=== PATIENT | male | born 1950 | race Caucasian/White ===

== ENCOUNTER → 2021-08-02 | Outpatient (CLI) | payer MEDICARE ==
--- NOTE | 2021-08-02 07:58 | XR ---
EXAMINATION TYPE: XR chest 2V DATE OF EXAM: 08/02/2021 COMPARISON: NONE HISTORY: Shortness of breath TECHNIQUE: Frontal and lateral views of the chest are obtained. FINDINGS: Scattered senescent parenchymal changes noted. Hyperinflation compatible with COPD. No evidence for infiltrate. No evidence for atelectasis. Heart size is stable. Mediastinal structures are stable and grossly unremarkable. No evidence for hilar prominence. Degenerative changes dorsal spine. IMPRESSION: 1. No evidence for acute pulmonary disease.
[2021-08-02 08:26] LABS: African American GFR (CKD) >90 (>60 ml/min/1.73 sqM); Blood Urea Nitrogen 20 mg/dL (9-20); Non-African American GFR(CKD) >90 (>60 ml/min/1.73 sqM)
--- NOTE | 2021-08-02 12:20 | CT ---
EXAMINATION TYPE: CT abdomen pelvis w con DATE OF EXAM: 08/02/2021 COMPARISON: None HISTORY: Prostate cancer. CT DLP: 1665.7 mGycm Automated exposure control for dose reduction was used. TECHNIQUE: Helical acquisition of images from the lung bases through the pelvis have been completed. CONTRAST: Performed with Oral Contrast and with IV Contrast, patient injected with 100 mL of Isovue M300. FINDINGS: There is a right inguinal hernia containing fat and vessels. LUNG BASES: No significant abnormality is appreciated. AORTA: No significant abnormality is appreciated. LIVER/GB: Focal area of low density measuring 6 mm in anterior left lobe axial image 18 is indetermin ate but statistically likely represents cyst, the liver shows low attenuation possibly due to hepatic steatosis, the liver is enlarged, gallbladder unremarkable. PANCREAS: No significant abnormality is seen. SPLEEN: No significant abnormality is seen. ADRENALS: No significant abnormality is seen. KIDNEYS: Bilateral hydronephrosis and hydroureter present. REPRODUCTIVE ORGANS: No significant abnormality is seen BOWEL: No significant abnormality is seen. FREE AIR: No Free Air visible. ASCITES: None visible. PELVIC ADENOPATHY: There is some prominent nodes within the pelvis in the presacral space. Right pel magaly sidewall shows enlarged node RETROPERITONEAL ADENOPATHY: No Retroperitoneal Adenopathy visible. URINARY BLADDER: Ablbuena catheter is in place. The aceves of the urinary bladder somewhat poorly define d. Some inflammatory changes present in the surrounding fat. Poor differentiation of the seminal vesi cles also seen OSSEOUS STRUCTURES: Degenerative disc changes are noted especially in the lumbar spine, there is ass ociated facet arthropathy. IMPRESSION: FINDINGS MAY REPRESENT CHRONIC INFECTION VERSUS INFLAMMATORY CHANGE INVOLVING THE URINARY BLADDER AND SEMINAL VESICLES, CORRELATE, BILATERAL HYDRONEPHROSIS AND HYDROURETER. THERE IS SOME PELVIC ADENOPAT HY NOTED. RIGHT INGUINAL HERNIA CONTAINS FAT AND VESSELS. ABNORMAL HEPATIC STEATOSIS. ADDITIONAL FIND INGS ABOVE.
--- NOTE | 2021-08-03 07:28 | NM ---
EXAMINATION TYPE: NM bone scan whole body DATE OF EXAM: 08/02/2021 COMPARISON: NONE HISTORY: Prostate carcinoma Delayed whole-body scanning was performed following the injection of 22.6 mCi Tc 99m MDP. Images acq uired 5 hours post injection. FINDINGS: Focal increased uptake involving the right ribs anteriorly 5 and 6 which could be posttraumatic in na ture or related to metastatic disease. Left rib #7 demonstrates vague increased uptake anteriorly as well. There is intense uptake about the shoulders which could reflect severe degenerative change. Inc reased uptake is noted about the mid thoracic spine, lower lumbar spine, left wrist, bilateral hips a nd knees felt to be degenerative in nature. IMPRESSION: 1. Focal rib uptake may be reflective of prior trauma versus metastatic disease. Consider radiographi c correlation. 2. Degenerative uptake as noted above.
== END | disposition home or self-care (01) ==
LOC: RADCTMAIN 07:30
PROVIDERS: ATTEND Urology
DX: C61 Malignant neoplasm of prostate (principal); N13.30 Unspecified hydronephrosis; N13.4 Hydroureter; R59.0 Localized enlarged lymph nodes; K40.90 Unilateral inguinal hernia, without obstruction or gangrene, not specified as recurrent; K76.0 Fatty (change of) liver, not elsewhere classified; M51.36 Other intervertebral disc degeneration, lumbar region; M47.816 Spondylosis without myelopathy or radiculopathy, lumbar region
CPT/HCPCS: 82565; 84520; 71046; 74177; 36415; 78306; A9503; Q9967 ×2

== ENCOUNTER → 2021-11-15 | Outpatient (CLI) | payer MEDICARE ==
[2021-11-15 10:53] LABS: African American GFR (CKD) >90 (>60 ml/min/1.73 sqM); Blood Urea Nitrogen 24 mg/dL (9-20); Non-African American GFR(CKD) >90 (>60 ml/min/1.73 sqM)
--- NOTE | 2021-11-15 15:34 | CT ---
EXAMINATION TYPE: CT abdomen pelvis w con DATE OF EXAM: 11/15/2021 COMPARISON: CT dated 08/02/2021 HISTORY: Prostate cancer. CT DLP: 1856.6 mGycm Automated exposure control for dose reduction was used. TECHNIQUE: Helical acquisition of images was performed from the lung bases through the pelvis. CONTRAST: Performed with Oral Contrast and with IV Contrast, patient injected with 70ml mL of Isovue 300. FINDINGS: LUNG BASES: 4 mm irregular nodule is seen in the posterior aspect of the right lung base, not well ap preciated previously. Recommend follow-up CT scan of the chest in 2-3 months for reassessment. Reeves ry and arterial atherosclerotic calcifications. LIVER/GB: Suspected hepatic steatosis. Stable left hepatic lobe 6 mm hypodensity, likely representing a hepatic cyst. Unremarkable gallbladder. PANCREAS: No significant abnormality is seen. SPLEEN: No significant abnormality is seen. ADRENALS: No significant abnormality is seen. KIDNEYS: No significant abnormality is seen. FREE AIR: No free air is visualized. RETROPERITONEAL ADENOPATHY: None visualized REPRODUCTIVE ORGANS: No prostatic enlargement. URINARY BLADDER: Resolution of the previously seen marked urinary bladder wall thickening. Grossly u nremarkable urinary bladder. PELVIC ADENOPATHY: Significant interval regression of the previously seen enlarged pelvic adenopathy . No pathologically enlarged pelvic lymph nodes seen today. OSSEOUS STRUCTURES: Degenerative changes at L3-4 and L4-5 levels with multilevel facet osteoarthropa thy. No gross aggressive lesion. BOWEL: Fecal loading of the colon. OTHER: Arterial atherosclerotic calcifications. No sizable ascites. Right fat-containing inguinal her dhiraj. Anterior abdominal wall subcutaneous soft tissue thickening, slightly more on the right side, pl ease correlate clinically. Small fat-containing umbilical hernia. Suspected adhesions between the rec mika, seminal vesicles and the urinary bladder. IMPRESSION: 1. Newly seen irregular nodule in the right lung base, recommend follow-up chest CT scan in 2-3 month s for reassessment. 2. Resolution of the previously seen thickened urinary bladder wall as well as hydroureter and hydron ephrosis. The previously seen enlarged suspicious pelvic lymph nodes are not appreciated today. 3. No evidence of metastasis seen in the abdomen or the pelvis otherwise. Other interval changes and incidental findings as described above.
--- NOTE | 2021-11-15 20:32 | NM ---
EXAMINATION TYPE: NM bone scan whole body DATE OF EXAM: 08/02/2021 COMPARISON: NONE HISTORY: Back pain, prostate cancer Delayed whole-body scanning was performed following the injection of 22.5 mCi Tc 99m MDP. Images wer e acquired 3 hours post injection. FINDINGS: No suspicious focal uptake is evident. There appears to be diminishing right rib uptake suggesting pr ior trauma which is resolving compared to the prior study. Significant suspicious focal uptake to suggest metastatic disease is not identified. Degenerative uptake is likely present at the bilateral ankles and bilateral shoulders. IMPRESSION: 1. No suspicious uptake to suggest metastatic disease.
== END | disposition home or self-care (01) ==
LOC: RADNMMAIN 09:41
PROVIDERS: ATTEND Urology
DX: C61 Malignant neoplasm of prostate (principal); R91.1 Solitary pulmonary nodule; N13.30 Unspecified hydronephrosis
CPT/HCPCS: 82565; 84520; 74177; 36415; 78306; A9503; Q9967

== ENCOUNTER 2021-12-10 07:38 | Emergency (ER) | payer MEDICARE ==
[2021-12-10 07:51] VITALS: RESP 18; TEMP 100.4
--- NOTE | 2021-12-10 07:51 | ED ---
Male Urogenital HPI - General Stated complaint: ABD pain Time Seen by Provider: 12/10/21 07:40 Source: patient, EMS, RN notes reviewed Mode of arrival: EMS - History of Present Illness Initial comments: 71-year-old male with a history of recently diagnosed prostate cancer in July of this year who presents by EMS complaints of feeling hot with chills and sweats suprapubic discomfort 4-5/10 severity urinary incontinence and dry heaves. He states he did have an egg and some toast morning but did not feel very hungry. He states he believes he has urinary tract infection. He apparently is in the process being treated to "shrink the prostate" before other measures undertaken to treat the prostate cancer. He denies any chest pain he does have some shortness of breath with exertion he states. No other current complaints or modifying factors MD Complaint: other - Related Data Allergies Allergy/AdvReac Type Severity Reaction Status Date / Time amoxicillin [From Augmentin] AdvReac Vomiting Verified 12/10/21 07:52 clavulanic acid AdvReac Vomiting Verified 12/10/21 07:52 [From Augmentin] hydromorphone [From Dilaudid] AdvReac Vomiting Verified 12/10/21 07:52 Review of Systems ROS Statement: Those systems with pertinent positive or pertinent negative responses have been documented in the HPI. ROS Other: All systems not noted in ROS Statement are negative. General Exam - General Exam Comments Initial Comments: This is a well-developed well-nourished awake alert oriented 4 male General appearance: alert, anxious Head exam: Present: atraumatic, normocephalic, normal inspection Eye exam: Present: normal appearance, PERRL, EOMI. Absent: scleral icterus, conjunctival injection, periorbital swelling ENT exam: Present: normal exam, mucous membranes moist Neck exam: Present: normal inspection. Absent: tenderness, meningismus, lymphadenopathy Respiratory exam: Present: normal lung sounds bilaterally. Absent: respiratory distress, wheezes, rales, rhonchi, stridor Cardiovascular Exam: Present: regular rate, normal rhythm, normal heart sounds. Absent: systolic murmur, diastolic murmur, rubs, gallop, clicks GI/Abdominal exam: Present: soft, tenderness (Mild suprapubic tenderness to palpation no guarding rebound masses or bruits), normal bowel sounds. Absent: distended, guarding, rebound, rigid Rectal exam: Present: deferred exam: Present: normal inspection. Absent: circumcision Extremities exam: Present: normal inspection, full ROM, normal capillary refill. Absent: tenderness, pedal edema, joint swelling, calf tenderness Back exam: Present: normal inspection Neurological exam: Present: alert, oriented X3, CN II-XII intact Psychiatric exam: Present: normal affect, normal mood Skin exam: Present: warm, dry, intact, normal color. Absent: rash Course Vital Signs 12/10/21 12/10/21 07:41 08:41 Temperature 100.4 F H Pulse Rate 133 H 119 H Respiratory 18 18 Rate Blood Pressure 106/70 119/88 O2 Sat by Pulse 94 L 94 L Oximetry Medical Decision Making - Medical Decision Making Patient's code test was negative x-rays are unremarkable. Patient did get a large amount of urine released with the Balbuena catheter. He is already on antibiotics. He would like to go home he states she's always tachycardic. We did discuss fluid hydration and continuing on with his medications also close follow-up with his doctor and return if needed. - Lab Data Result diagrams: 12/10/21 07:58 12/10/21 08:40 Lab Results 12/10/21 12/10/21 12/10/21 Range/Units 07:58 07:58 07:58 WBC 13.8 H (3.8-10.6) k/uL RBC 4.46 (4.30-5.90) m/uL Hgb 13.6 (13.0-17.5) gm/dL Hct 42.1 (39.0-53.0) % MCV 94.4 (80.0-100.0) fL MCH 30.5 (25.0-35.0) pg MCHC 32.3 (31.0-37.0) g/dL RDW 12.9 (11.5-15.5) % Plt Count 262 (150-450) k/uL MPV 10.8 Neutrophils % 79 % Lymphocytes % 6 % Monocytes % 12 % Eosinophils % 2 % Basophils % 1 % Neutrophils # 10.9 H (1.3-7.7) k/uL Lymphocytes # 0.8 L (1.0-4.8) k/uL Monocytes # 1.7 H (0-1.0) k/uL Eosinophils # 0.2 (0-0.7) k/uL Basophils # 0.1 (0-0.2) k/uL Sodium (137-145) mmol/L Potassium (3.5-5.1) mmol/L Chloride (98-107) mmol/L Carbon Dioxide (22-30) mmol/L Anion Gap mmol/L BUN (9-20) mg/dL Creatinine (0.66-1.25) mg/dL Est GFR (CKD-EPI)AfAm (>60 ml/min/1.73 sqM) Est GFR (CKD-EPI)NonAf (>60 ml/min/1.73 sqM) Glucose (74-99) mg/dL Plasma Lactic Acid Franck 1.0 (0.7-2.0) mmol/L Calcium (8.4-10.2) mg/dL Magnesium (1.6-2.3) mg/dL Total Bilirubin (0.2-1.3) mg/dL AST (17-59) U/L ALT (4-49) U/L Alkaline Phosphatase (38-126) U/L Creatine Kinase (55-170) U/L Troponin I (0.000-0.034) ng/mL NT-Pro-B Natriuret Pep 126 pg/mL Total Protein (6.3-8.2) g/dL Albumin (3.5-5.0) g/dL Lipase (23-300) U/L Urine Color Urine Appearance (Clear) Urine pH (5.0-8.0) Ur Specific [place] (1.001-1.035) Urine Protein (Negative) Urine Glucose (UA) (Negative) Urine Ketones (Negative) Urine Blood (Negative) Urine Nitrite (Negative) Urine Bilirubin (Negative) Urine Urobilinogen (<2.0) mg/dL Ur Leukocyte Esterase (Negative) Urine RBC (0-5) /hpf Ur Squamous Epith Cells (0-4) /hpf Hyaline Casts (0-2) /lpf Urine Mucus (None) /hpf Coronavirus (PCR) (Not Detectd) 12/10/21 12/10/21 12/10/21 Range/Units 08:40 08:40 08:40 WBC (3.8-10.6) k/uL RBC (4.30-5.90) m/uL Hgb (13.0-17.5) gm/dL Hct (39.0-53.0) % MCV (80.0-100.0) fL MCH (25.0-35.0) pg MCHC (31.0-37.0) g/dL RDW (11.5-15.5) % Plt Count (150-450) k/uL MPV Neutrophils % % Lymphocytes % % Monocytes % % Eosinophils % % Basophils % % Neutrophils # (1.3-7.7) k/uL Lymphocytes # (1.0-4.8) k/uL Monocytes # (0-1.0) k/uL Eosinophils # (0-0.7) k/uL Basophils # (0-0.2) k/uL Sodium 132 L (137-145) mmol/L Potassium 4.6 (3.5-5.1) mmol/L Chloride 100 (98-107) mmol/L Carbon Dioxide 18 L (22-30) mmol/L Anion Gap 14 mmol/L BUN 17 (9-20) mg/dL Creatinine 0.54 L (0.66-1.25) mg/dL Est GFR (CKD-EPI)AfAm >90 (>60 ml/min/1.73 sqM) Est GFR (CKD-EPI)NonAf >90 (>60 ml/min/1.73 sqM) Glucose 352 H (74-99) mg/dL Plasma Lactic Acid Franck (0.7-2.0) mmol/L Calcium 7.9 L (8.4-10.2) mg/dL Magnesium 1.5 L (1.6-2.3) mg/dL Total Bilirubin 0.5 (0.2-1.3) mg/dL AST 31 (17-59) U/L ALT 32 (4-49) U/L Alkaline Phosphatase 90 (38-126) U/L Creatine Kinase 97 (55-170) U/L Troponin I <0.012 (0.000-0.034) ng/mL NT-Pro-B Natriuret Pep pg/mL Total Protein 6.1 L (6.3-8.2) g/dL Albumin 3.3 L (3.5-5.0) g/dL Lipase 27 (23-300) U/L Urine Color Yellow Urine Appearance Clear (Clear) Urine pH 6.0 (5.0-8.0) Ur Specific [place] 1.021 (1.001-1.035) Urine Protein 2+ H (Negative) Urine Glucose (UA) 3+ H (Negative) Urine Ketones 2+ H (Negative) Urine Blood Negative (Negative) Urine Nitrite Negative (Negative) Urine Bilirubin Negative (Negative) Urine Urobilinogen <2.0 (<2.0) mg/dL Ur Leukocyte Esterase Negative (Negative) Urine RBC 2 (0-5) /hpf Ur Squamous Epith Cells <1 (0-4) /hpf Hyaline Casts 4 H (0-2) /lpf Urine Mucus Rare H (None) /hpf Coronavirus (PCR) (Not Detectd) 12/10/21 Range/Units 09:28 WBC (3.8-10.6) k/uL RBC (4.30-5.90) m/uL Hgb (13.0-17.5) gm/dL Hct (39.0-53.0) % MCV (80.0-100.0) fL MCH (25.0-35.0) pg MCHC (31.0-37.0) g/dL RDW (11.5-15.5) % Plt Count (150-450) k/uL MPV Neutrophils % % Lymphocytes % % Monocytes % % Eosinophils % % Basophils % % Neutrophils # (1.3-7.7) k/uL Lymphocytes # (1.0-4.8) k/uL Monocytes # (0-1.0) k/uL Eosinophils # (0-0.7) k/uL Basophils # (0-0.2) k/uL Sodium (137-145) mmol/L Potassium (3.5-5.1) mmol/L Chloride (98-107) mmol/L Carbon Dioxide (22-30) mmol/L Anion Gap mmol/L BUN (9-20) mg/dL Creatinine (0.66-1.25) mg/dL Est GFR (CKD-EPI)AfAm (>60 ml/min/1.73 sqM) Est GFR (CKD-EPI)NonAf (>60 ml/min/1.73 sqM) Glucose (74-99) mg/dL Plasma Lactic Acid Franck (0.7-2.0) mmol/L Calcium (8.4-10.2) mg/dL Magnesium (1.6-2.3) mg/dL Total Bilirubin (0.2-1.3) mg/dL AST (17-59) U/L ALT (4-49) U/L Alkaline Phosphatase (38-126) U/L Creatine Kinase (55-170) U/L Troponin I (0.000-0.034) ng/mL NT-Pro-B Natriuret Pep pg/mL Total Protein (6.3-8.2) g/dL Albumin (3.5-5.0) g/dL Lipase (23-300) U/L Urine Color Urine Appearance (Clear) Urine pH (5.0-8.0) Ur Specific [place] (1.001-1.035) Urine Protein (Negative) Urine Glucose (UA) (Negative) Urine Ketones (Negative) Urine Blood (Negative) Urine Nitrite (Negative) Urine Bilirubin (Negative) Urine Urobilinogen (<2.0) mg/dL Ur Leukocyte Esterase (Negative) Urine RBC (0-5) /hpf Ur Squamous Epith Cells (0-4) /hpf Hyaline Casts (0-2) /lpf Urine Mucus (None) /hpf Coronavirus (PCR) Not Detected (Not Detectd) - EKG Data -: EKG Interpreted by Me EKG shows normal: sinus rhythm EKG Comments: Sinus tachycardia rate 120 OK interval 162 2 cheondoism 141 QT/QTC 350/421 and occasional PACs - Radiology Data Radiology results: report reviewed (Imaging reviewed no acute findings.), image reviewed Disposition Clinical Impression: Acute urinary retention, Febrile illness, acute, Dehydration, Tachycardia Disposition: HOME SELF-CARE Condition: Good Instructions (If sedation given, give patient instructions): Urinary Retention in Men (ED), Dehydration (ED), Fever in Adults (ED) Additional Instructions: Continue with your current antibiotics Is patient prescribed a controlled substance at d/c from ED?: No Referrals: None,Stated [Primary Care Provider] - 1-2 days Artemio Cole MD [STAFF PHYSICIAN] - 1-2 days Decision Date: 12/10/21 Decision Time: 10:14
[2021-12-10] MEDS ORDERED: ONDANSETRON 4 MG/2 ML VIAL IVP STA (07:53)
[2021-12-10 08:13] LABS: Basophils # (A) 0.1 k/uL (0-0.2); Basophils % (A) 1 %; Eosinophils # (A) 0.2 k/uL (0-0.7); Eosinophils % (A) 2 %; HCT 42.1 % (39.0-53.0); HGB 13.6 gm/dL (13.0-17.5); Lymphocytes # (A) 0.8 k/uL (1.0-4.8); Lymphocytes % (A) 6 %; MCH 30.5 pg (25.0-35.0); MCHC 32.3 g/dL (31.0-37.0); MCV 94.4 fL (80.0-100.0); Mean Platelet Volume 10.8; Monocytes # (A) 1.7 k/uL (0-1.0); Monocytes % (A) 12 %; Neutrophils # (A) 10.9 k/uL (1.3-7.7); Neutrophils % (A) 79 %; Platelet Count 262 k/uL (150-450); RBC 4.46 m/uL (4.30-5.90); RDW 12.9 % (11.5-15.5); WBC 13.8 k/uL (3.8-10.6)
--- NOTE | 2021-12-10 08:13 | XR ---
EXAMINATION TYPE: XR chest 2V DATE OF EXAM: 12/10/2021 8:04 AM COMPARISON: Chest radiographs from 08/02/2021. TECHNIQUE: XR chest 2V Frontal and lateral views of the chest. CLINICAL INDICATION:Male, 71 years old with history of Suprapubic pain; FINDINGS: Lungs/Pleura: There is no evidence of pleural effusion, focal consolidation, or pneumothorax. Scatte red senescent parenchymal changes noted. Pulmonary vascularity: Unremarkable. Heart/mediastinum: Cardiomediastinal silhouette is unremarkable. Atherosclerotic calcifications are seen in the aorta. Musculoskeletal: Multiple level degenerative disc disease changes seen throughout the spine. No acute osseous abnormality. IMPRESSION: No acute cardiopulmonary disease/process.
--- NOTE | 2021-12-10 08:15 | XR ---
EXAMINATION TYPE: XR KUB DATE OF EXAM: 12/10/2021 8:04 AM INDICATION: Patient age:Male; 71 years old; Reason for study: Suprapubic pain; COMPARISON: CT abdomen pelvis 11/15/2021. TECHNIQUE: One upright radiographic view of the abdomen was obtained with 2 radiographs. FINDINGS: The bowel gas pattern is nonspecific without dilated loops of small or large bowel. There i s no evidence for organomegaly or pneumoperitoneum. Multilevel degenerative changes visualized spine . Levoscoliotic curvature of the lumbar spine. No abnormal calcifications are present. Fecal materia l and gas are demonstrated throughout the colon and rectum. IMPRESSION: Nonspecific bowel gas pattern without radiographic evidence for acute process.
[2021-12-10] MEDS ORDERED: ACETAMINOPHEN TAB 500 MG TAB PO STA (08:48)
[2021-12-10 09:03] LABS: ALT 32 U/L (4-49); AST 31 U/L (17-59); African American GFR (CKD) >90 (>60 ml/min/1.73 sqM); Albumin 3.3 g/dL (3.5-5.0); Alkaline Phosphatase 90 U/L (38-126); Anion Gap 14 mmol/L; Blood Urea Nitrogen 17 mg/dL (9-20); Calcium 7.9 mg/dL (8.4-10.2); Carbon Dioxide 18 mmol/L (22-30); Chloride 100 mmol/L (98-107); Creatine Kinase 97 U/L (55-170); Glucose 352 mg/dL (74-99); Lipase 27 U/L (23-300); Magnesium 1.5 mg/dL (1.6-2.3); Non-African American GFR(CKD) >90 (>60 ml/min/1.73 sqM); Potassium 4.6 mmol/L (3.5-5.1); Sodium 132 mmol/L (137-145); Total Bilirubin 0.5 mg/dL (0.2-1.3); Total Protein 6.1 g/dL (6.3-8.2)
[2021-12-10 09:05] LABS: Appearance,Urine Clear (Clear); Bilirubin,Urine Negative (Negative); Blood,Urine Negative (Negative); Color,Urine Yellow; Glucose,Urine (UA) 3+ (Negative); Hyaline Casts,Urine 4 /lpf (0-2); Leukocyte Esterase,Urine Negative (Negative); Mucus,Urine Rare /hpf; Nitrite,Urine Negative (Negative); Protein,Urine 2+ (Negative); RBC,Urine 2 /hpf (0-5); Specific Gravity,Urine 1.021 (1.001-1.035); Squamous Epithelial Cell,Urine <1 /hpf (0-4); Urobilinogen,Urine <2.0 mg/dL (<2.0)
[2021-12-10 09:14] LABS: Ketones,Urine 2+ (Negative)
[2021-12-10 10:24] VITALS: BP 124/78; PULSE 110
== END 2021-12-10 10:24 | disposition home or self-care (01) ==
LOC: EC 07:38
DX: E86.0 Dehydration (principal); R33.9 Retention of urine, unspecified; R50.9 Fever, unspecified; R00.0 Tachycardia, unspecified; Z20.822 Contact with and (suspected) exposure to COVID-19
CPT/HCPCS: 36415; 93005; 83880; 80053; 82550; 83605; 83690; 83735; 84484; 85025; 81001; 87040; 87635; 71046; 74018; 99284; 96374; J2405

== ENCOUNTER 2021-12-11 11:52 | Emergency (ER) | payer MEDICARE ==
[2021-12-11 11:59] VITALS: RESP 20
[2021-12-11] MEDS ORDERED: SODIUM CHLORIDE 0.9% 500 ML 500 ML IV STA (12:30)
--- NOTE | 2021-12-11 12:33 | ED ---
General Adult HPI - General Chief complaint: Fall Stated complaint: Chest Pain/Fall Time Seen by Provider: 12/11/21 11:59 Source: patient, EMS Mode of arrival: EMS Limitations: no limitations - History of Present Illness Initial comments: Dictation was produced using [employer] dictation software. please excuse any grammatical, word or spelling errors. Chief Complaint: 71-year-old male with past medical history of prostate cancer, diabetes presents to the emergency room for bilateral knee pain and fall History of Present Illness: 71-year-old male who states he fell earlier today. Patient was trying to pull up his pants when he felt so weak fell forward. Patient states he landed on thin carpet. Patient landed on his knees causing rug burn. Patient denies any loss of consciousness. Patient states that he's been suffering from weakness for several days now. Seen in the emergency department yesterday where Balbuena catheter was placed. Patient called EMS. States that he was lying on the ground for approximately one hour before EMS arrived. Patient denies any loss of consciousness however he did report striking his head. The ROS documented in this emergency department record has been reviewed and confirmed by me. Those systems with pertinent positive or negative responses have been documented in the HPI. All other systems are other negative and/or noncontributory. PHYSICAL EXAM: General Impression: Alert and oriented x3, not in acute distress HEENT: Abrasion to the left forehead, extra-ocular movements intact, pupils equal and reactive to light bilaterally, mucous membranes moist. Cardiovascular: Heart regular rate and rhythm Chest: Able to complete full sentences, no retractions, no tachypnea Abdomen: abdomen soft, non-tender, non-distended, no organomegaly Musculoskeletal: Pulses present and equal in all extremities, no peripheral edema, superficial abrasions to the bilateral knees knees, shoulders, elbows and wrist ankles and hips are ranged with no antalgia Motor: no focal deficits noted Neurological: CN II-XII grossly intact, no focal motor or sensory deficits noted Skin: Intact with no visualized rashes Psych: Normal affect and mood ED course: 71-year-old male presents emergency department for fall. He has complaints of knee pain. He has evidence of trauma to the head and bilateral knees. No gross deformities to suspect severe traumatic injury from the fall. Vital signs upon arrival shows heart rate of 119, rest of vital signs within acceptable limits. Patient well-appearing at bedside with no acute distress. Laboratory evaluation obtained. Leukocytosis 16.3, rest of CBC within acceptable limits. Metabolic panel is unremarkable. No evidence of rhabdomyolysis. Computed tomography scan of the head and C-spine shows no acute traumatic processes. There is incidental finding of thyroid nodule. Pelvis x- ray nonacute. Chest x-ray is nonacute. Knee x-ray shows no acute osseous abnormalities. 4 panel viral PCR was negative. Blood cultures ordered. I did receive notification from nurse that patient did not want to stay in the emergency room any longer because she felt like it was too hot. Patient wanted to leave AGAINST MEDICAL ADVICE. There was concern that patient's local presentation represented centers/sepsis. His recommended the patient be admitted for concerns of life-threatening illness. Risk and benefits were discussed. Patient signed out AGAINST MEDICAL ADVICE. EKG interpretation: Ventricular rate 112, sinus tachycardia, right bundle branch block,. 163, QRS 1:30, QTc 433. No PA prolongation, no QTC prolongation, no ST or T-wave changes noted. EKG compared to 12/10/2021 showing no changes. Overall, this EKG is unremarkable - Related Data Allergies Allergy/AdvReac Type Severity Reaction Status Date / Time amoxicillin [From Augmentin] AdvReac Vomiting Verified 12/11/21 12:00 clavulanic acid AdvReac Vomiting Verified 12/11/21 12:00 [From Augmentin] hydromorphone [From Dilaudid] AdvReac Vomiting Verified 12/11/21 12:00 Review of Systems ROS Statement: Those systems with pertinent positive or pertinent negative responses have been documented in the HPI. ROS Other: All systems not noted in ROS Statement are negative. Past Medical History Past Medical History: Cancer, Diabetes Mellitus Additional Past Medical History / Comment(s): prostate cancer History of Any Multi-Drug Resistant Organisms: None Reported Past Surgical History: No Surgical Hx Reported Past Psychological History: No Psychological Hx Reported Smoking Status: Never smoker Past Alcohol Use History: None Reported Past Drug Use History: None Reported General Exam Limitations: no limitations Course Vital Signs 12/11/21 12/11/21 12/11/21 11:54 14:04 14:49 Temperature 99.6 F 101 F H Pulse Rate 119 H 109 H 117 H Respiratory 20 20 20 Rate Blood Pressure 133/81 116/78 113/74 O2 Sat by Pulse 93 L 94 L 94 L Oximetry Medical Decision Making - Lab Data Result diagrams: 12/11/21 12:55 12/11/21 12:55 Lab Results 12/11/21 12/11/21 12/11/21 Range/Units 12:55 12:55 15:09 WBC 16.3 H (3.8-10.6) k/uL RBC 4.47 (4.30-5.90) m/uL Hgb 13.5 (13.0-17.5) gm/dL Hct 41.3 (39.0-53.0) % MCV 92.4 (80.0-100.0) fL MCH 30.1 (25.0-35.0) pg MCHC 32.6 (31.0-37.0) g/dL RDW 12.9 (11.5-15.5) % Plt Count 280 (150-450) k/uL MPV 9.5 Neutrophils % 80 % Lymphocytes % 6 % Monocytes % 12 % Eosinophils % 1 % Basophils % 1 % Neutrophils # 13.0 H (1.3-7.7) k/uL Lymphocytes # 0.9 L (1.0-4.8) k/uL Monocytes # 1.9 H (0-1.0) k/uL Eosinophils # 0.2 (0-0.7) k/uL Basophils # 0.1 (0-0.2) k/uL Sodium 133 L (137-145) mmol/L Potassium 4.1 (3.5-5.1) mmol/L Chloride 99 (98-107) mmol/L Carbon Dioxide 24 (22-30) mmol/L Anion Gap 10 mmol/L BUN 15 (9-20) mg/dL Creatinine 0.53 L (0.66-1.25) mg/dL Est GFR (CKD-EPI)AfAm >90 (>60 ml/min/1.73 sqM) Est GFR (CKD-EPI)NonAf >90 (>60 ml/min/1.73 sqM) Glucose 194 H (74-99) mg/dL Calcium 8.2 L (8.4-10.2) mg/dL Magnesium 1.7 (1.6-2.3) mg/dL Creatine Kinase 478 H (55-170) U/L Influenza Type A (PCR) Not Detected (Not Detectd) Influenza Type B (PCR) Not Detected (Not Detectd) RSV (PCR) Not Detected (Not Detectd) SARS-CoV-2 (PCR) Not Detected (Not Detectd) Disposition Clinical Impression: Fall, SIRS (systemic inflammatory response syndrome) Disposition: Left Against Medical Advice Instructions (If sedation given, give patient instructions): Fall Prevention for Older Adults (ED) Is patient prescribed a controlled substance at d/c from ED?: No Referrals: None,Stated [Primary Care Provider] - 1-2 days Time of Disposition: 16:34
[2021-12-11 13:04] LABS: Basophils # (A) 0.1 k/uL (0-0.2); Basophils % (A) 1 %; Eosinophils # (A) 0.2 k/uL (0-0.7); Eosinophils % (A) 1 %; HCT 41.3 % (39.0-53.0); HGB 13.5 gm/dL (13.0-17.5); Lymphocytes # (A) 0.9 k/uL (1.0-4.8); Lymphocytes % (A) 6 %; MCH 30.1 pg (25.0-35.0); MCHC 32.6 g/dL (31.0-37.0); MCV 92.4 fL (80.0-100.0); Mean Platelet Volume 9.5; Monocytes # (A) 1.9 k/uL (0-1.0); Monocytes % (A) 12 %; Neutrophils % (A) 80 %; Platelet Count 280 k/uL (150-450); RBC 4.47 m/uL (4.30-5.90); RDW 12.9 % (11.5-15.5); WBC 16.3 k/uL (3.8-10.6)
[2021-12-11 13:19] LABS: African American GFR (CKD) >90 (>60 ml/min/1.73 sqM); Anion Gap 10 mmol/L; Blood Urea Nitrogen 15 mg/dL (9-20); Calcium 8.2 mg/dL (8.4-10.2); Carbon Dioxide 24 mmol/L (22-30); Chloride 99 mmol/L (98-107); Creatine Kinase 478 U/L (55-170); Glucose 194 mg/dL (74-99); Magnesium 1.7 mg/dL (1.6-2.3); Non-African American GFR(CKD) >90 (>60 ml/min/1.73 sqM); Potassium 4.1 mmol/L (3.5-5.1); Sodium 133 mmol/L (137-145)
--- NOTE | 2021-12-11 13:27 | CT ---
EXAMINATION TYPE: CT brain paul wo con DATE OF EXAM: 12/11/2021 COMPARISON: None HISTORY: 71-year-old male with pain after fall CT DLP: 1435.2 mGycm Automated exposure control for dose reduction was used. Technique: Examination of the head was done in axial plane without intravenous contrast. Coronal and sagittal reconstructions performed. CT of the cervical spine was obtained in axial plane without intravenous injection of contrast mater ial. Coronal and sagittal reformatted images were obtained from the axial views for evaluation of f ractures, spinal alignment and canal. FINDINGS: Head: There is no evidence of acute intracranial hemorrhage, acute ischemic changes, mass, mass-effect, or extra-axial fluid collection. There is no effacement of cerebral sulci or basal subarachnoid cister ns. There is no hydrocephalus. There is no midline shift. Feliciano-white matter distinction is preserv ed. The V4 segment right vertebral artery appears to become hypoplastic after the PICA takeoff. Prostatic calcifications throughout the carotid siphons. Mild patchy white matter hypodensities in both cerebr al hemispheres. Partially empty sella. Mild mucosal thickening ethmoid air cells. Mastoid air cells are pneumatized. Rightward nasal septal deviation. Orbits and globes are intact. Cervical spine: Chronic fracture deformity T1 spinous process. Advanced disc/endplate degenerative change throughout the cervical spine especially C3-C7 levels. Dis c osteophyte complexes are present likely contributing to variable mild spinal canal stenosis. Assess ment of the spinal canal is limited due to dental amalgam artifact. Reversal of the normal cervical l ordosis. Overall alignment is maintained. Multilevel uncovertebral joint and facet arthropathy. No acute fracture of the cervical spine. Changes result in variable moderate to severe neuroforaminal stenoses especially C3-C4 and C4-C5. There is a 2.2 cm nodule within the right lobe of the thyroid gland. He further evaluated with [facility] thyroid ultrasound. Sagittal and coronal reformatted images confirm above findings. COMBINED IMPRESSION: 1. No acute intracranial abnormality seen. Mild burden of chronic small vessel ischemic disease. 2. Moderate to advanced spondylotic change. No acute fracture or malalignment of the cervical spine. 3. Nonemergent thyroid ultrasound follow-up to assess the 2.2 cm right thyroid lobe nodule.
--- NOTE | 2021-12-11 13:46 | XR ---
EXAMINATION TYPE: XR pelvis AP view DATE OF EXAM: 12/11/2021 COMPARISON: None HISTORY: Pain after falling TECHNIQUE: AP pelvis FINDINGS: Femoral heads articulate with the acetabulum. Sacroiliac joints and symphysis pubis are nor mal. No acute fractures are identified. Normal bowel gas is present. IMPRESSION: 1. No acute osseous abnormality AP pelvis
--- NOTE | 2021-12-11 13:49 | XR ---
EXAMINATION TYPE: XR chest 1V portable DATE OF EXAM: 12/11/2021 COMPARISON: 12/10/2021 INDICATION: Fall, pain TECHNIQUE: Single frontal view of the chest is obtained. FINDINGS: The heart size is normal. The pulmonary vasculature is normal. The lungs are clear. No acute osseous changes are identified. No pneumothorax is evident. IMPRESSION: 1. No acute pulmonary process.
--- NOTE | 2021-12-11 13:50 | XR ---
EXAMINATION TYPE: XR knee complete bilateral DATE OF EXAM: 12/11/2021 COMPARISON: None HISTORY: Fall, pain TECHNIQUE: 3 view bilateral knees FINDINGS: Joint spaces are preserved. No acute fractures or dislocations are evident. No joint effusi ons are evident. Soft tissues appear normal. Follow-up can be performed 7-10 days from acute trauma for continued pain. IMPRESSION: 1. No acute osseous abnormalities bilateral knees.
[2021-12-11] MEDS ORDERED: MORPHINE SULFATE 4 MG/ML SYRINGE IV STA (13:53)
[2021-12-11 14:51] VITALS: BP 113/74; PULSE 117; TEMP 101
[2021-12-11] MEDS ORDERED: ACETAMINOPHEN TAB 500 MG TAB PO STA (14:53)
== END 2021-12-11 16:06 | disposition left against medical advice (07) ==
LOC: EC 11:52
DX: S00.81XA Abrasion of other part of head, initial encounter (principal); R65.10 Systemic inflammatory response syndrome (SIRS) of non-infectious origin without acute organ dysfunction; R07.9 Chest pain, unspecified; M25.561 Pain in right knee; M25.562 Pain in left knee; D72.829 Elevated white blood cell count, unspecified; E11.9 Type 2 diabetes mellitus without complications; Z53.29 Procedure and treatment not carried out because of patient's decision for other reasons; Z88.0 Allergy status to penicillin; Z88.5 Allergy status to narcotic agent; Z20.822 Contact with and (suspected) exposure to COVID-19; W19.XXXA Unspecified fall, initial encounter
CPT/HCPCS: 36415; 93005; 80048; 82550; 83735; 85025; 87040; 87636; 73562; 72170; 71045; 72125; 70450; 99285; 96374; 96361; J2270

== ENCOUNTER 2022-02-05 16:16 | Inpatient (IN) | payer MEDICARE ==
[2022-02-05] MEDS ORDERED: SODIUM CHLORIDE 0.9% 1,000 ML IV STA (16:28)
--- NOTE | 2022-02-05 16:33 | ED ---
General Adult HPI - General Chief complaint: Skin/Abscess/Foreign Body Stated complaint: weakness Time Seen by Provider: 02/05/22 16:19 Source: patient, EMS Mode of arrival: EMS Limitations: physical limitation - History of Present Illness Initial comments: Patient complains of weakness. He also reports an ulcer on his backside. He states he was recently discharged from a rehab center, and sent home to be by himself. However, he has no home health care he reports, and no help take care of him. He states that his right leg doesn't work well and he can't walk. He is totally unable to take care of himself at this time. He denies any chest pain or back pain. He is not short of breath. He has no nausea or vomiting. - Related Data Home Medications Medication Instructions Recorded Confirmed Acetaminophen Tab [Tylenol] 1,000 mg PO Q6H PRN 12/13/21 12/13/21 Acetaminophen/Diphenhydramine 1 - 2 tab PO HS PRN 12/13/21 12/13/21 [Tylenol PM 500-25mg] Amitriptyline HCl [Elavil] 25 mg PO HS 12/13/21 12/13/21 Aspirin EC [Ecotrin Low Dose] 81 mg PO DAILY 12/13/21 12/13/21 Bicalutamide [Casodex] 50 mg PO DAILY 12/13/21 12/13/21 Previous Rx's Medication Instructions Recorded Fluconazole [Diflucan] 200 mg PO DAILY tab 12/25/21 Furosemide [Lasix] 20 mg PO DAILY@0700 tab 12/25/21 INSULIN ASPART (NovoLOG) [NovoLOG 0 unit SQ ACHS each 12/25/21 (formulary)] INSULIN ASPART (NovoLOG) [NovoLOG 10 unit SQ AC-TID each 12/25/21 (formulary)] Insulin Detemir (Levemir) [Levemir] 20 unit SQ HS each 12/25/21 Lidocaine 5% Patch [Lidoderm 5% 1 patch TOPICAL DAILY patch 12/25/21 Patch] Meropenem [Merrem] 1 gm IVPB Q8HR each 12/25/21 Metoprolol Tartrate [Lopressor] 50 mg PO BID tab 12/25/21 Allergies Allergy/AdvReac Type Severity Reaction Status Date / Time amoxicillin [From Augmentin] AdvReac Vomiting Verified 02/05/22 16:29 clavulanic acid AdvReac Vomiting Verified 02/05/22 16:29 [From Augmentin] hydromorphone [From Dilaudid] AdvReac Vomiting Verified 02/05/22 16:29 Review of Systems ROS Statement: Those systems with pertinent positive or pertinent negative responses have been documented in the HPI. ROS Other: All systems not noted in ROS Statement are negative. Past Medical History Past Medical History: Cancer, Diabetes Mellitus Additional Past Medical History / Comment(s): prostate cancer, harper cath History of Any Multi-Drug Resistant Organisms: None Reported Past Surgical History: No Surgical Hx Reported Past Anesthesia/Blood Transfusion Reactions: No Reported Reaction Past Psychological History: No Psychological Hx Reported Smoking Status: Never smoker Past Alcohol Use History: None Reported Past Drug Use History: None Reported - Past Family History Father Family Medical History: Cancer General Exam Limitations: physical limitation General appearance: alert Head exam: Present: atraumatic Eye exam: Present: normal appearance ENT exam: Present: normal exam Neck exam: Present: normal inspection Respiratory exam: Present: normal lung sounds bilaterally. Absent: respiratory distress Cardiovascular Exam: Present: tachycardia GI/Abdominal exam: Present: soft. Absent: tenderness exam: Present: normal inspection. Absent: testicular tenderness Extremities exam: Absent: full ROM, tenderness Back exam: Present: normal inspection Neurological exam: Present: alert, oriented X3 Psychiatric exam: Present: normal affect Skin exam: Present: warm, dry, other (Stage I sacral decubitus ulcer) Course Vital Signs 02/05/22 02/05/22 02/05/22 16:18 16:56 18:50 Temperature 99.8 F H Pulse Rate 124 H 115 H 124 H Respiratory 18 18 18 Rate Blood Pressure 91/61 121/70 122/72 O2 Sat by Pulse 95 98 95 Oximetry 02/05/22 19:17 Temperature Pulse Rate 124 H Respiratory 22 Rate Blood Pressure 119/66 O2 Sat by Pulse 95 Oximetry EKG Findings - EKG Comments: EKG Findings:: Twelve-lead EKG shows ventricular rate 106 bpm, normal ND interval, there is a right bundle branch block, there is no ST elevation or depression, interpreted by me as sinus tachycardia. Medical Decision Making - Medical Decision Making Patient has evidence of kidney and bladder infection with elevated white count. I ordered IV antibiotics. We have resuscitated the patient with fluids. He will be admitted to the hospital. - Lab Data Result diagrams: 02/05/22 16:43 02/05/22 16:43 Lab Results 02/05/22 02/05/22 02/05/22 Range/Units 16:43 16:43 16:43 WBC 16.7 H (3.8-10.6) k/uL RBC 3.77 L (4.30-5.90) m/uL Hgb 10.4 L (13.0-17.5) gm/dL Hct 33.2 L (39.0-53.0) % MCV 88.1 D (80.0-100.0) fL MCH 27.7 (25.0-35.0) pg MCHC 31.4 (31.0-37.0) g/dL RDW 15.8 H (11.5-15.5) % Plt Count 326 (150-450) k/uL MPV 8.6 Neutrophils % 73 % Lymphocytes % 16 % Monocytes % 6 % Eosinophils % 4 % Basophils % 1 % Neutrophils # 12.2 H (1.3-7.7) k/uL Lymphocytes # 2.6 (1.0-4.8) k/uL Monocytes # 1.1 H (0-1.0) k/uL Eosinophils # 0.6 (0-0.7) k/uL Basophils # 0.1 (0-0.2) k/uL Hypochromasia Slight PT 11.5 (9.0-12.0) sec INR 1.1 (<1.2) APTT 25.9 (22.0-30.0) sec Sodium 132 L (137-145) mmol/L Potassium 4.3 (3.5-5.1) mmol/L Chloride 93 L (98-107) mmol/L Carbon Dioxide 25 (22-30) mmol/L Anion Gap 14 mmol/L BUN 13 (9-20) mg/dL Creatinine 0.41 L (0.66-1.25) mg/dL Est GFR (CKD-EPI)AfAm >90 (>60 ml/min/1.73 sqM) Est GFR (CKD-EPI)NonAf >90 (>60 ml/min/1.73 sqM) Glucose 309 H (74-99) mg/dL Lactic Ac Sepsis Rflx Plasma Lactic Acid Franck (0.7-2.0) mmol/L Calcium 8.0 L (8.4-10.2) mg/dL Magnesium 1.3 L (1.6-2.3) mg/dL Total Bilirubin 0.4 (0.2-1.3) mg/dL AST 146 H (17-59) U/L ALT 158 H (4-49) U/L Alkaline Phosphatase 194 H (38-126) U/L Troponin I (0.000-0.034) ng/mL NT-Pro-B Natriuret Pep pg/mL Total Protein 6.2 L (6.3-8.2) g/dL Albumin 3.0 L (3.5-5.0) g/dL Urine Color Urine Appearance (Clear) Urine pH (5.0-8.0) Ur Specific [place] (1.001-1.035) Urine Protein (Negative) Urine Glucose (UA) (Negative) Urine Ketones (Negative) Urine Blood (Negative) Urine Nitrite (Negative) Urine Bilirubin (Negative) Urine Urobilinogen (<2.0) mg/dL Ur Leukocyte Esterase (Negative) Urine RBC (0-5) /hpf Urine WBC (0-5) /hpf Urine WBC Clumps (None) /hpf Urine Bacteria (None) /hpf Urine Mucus (None) /hpf Urine Yeast (Budding) (None) /hpf 02/05/22 02/05/22 02/05/22 Range/Units 16:43 16:43 16:43 WBC (3.8-10.6) k/uL RBC (4.30-5.90) m/uL Hgb (13.0-17.5) gm/dL Hct (39.0-53.0) % MCV (80.0-100.0) fL MCH (25.0-35.0) pg MCHC (31.0-37.0) g/dL RDW (11.5-15.5) % Plt Count (150-450) k/uL MPV Neutrophils % % Lymphocytes % % Monocytes % % Eosinophils % % Basophils % % Neutrophils # (1.3-7.7) k/uL Lymphocytes # (1.0-4.8) k/uL Monocytes # (0-1.0) k/uL Eosinophils # (0-0.7) k/uL Basophils # (0-0.2) k/uL Hypochromasia PT (9.0-12.0) sec INR (<1.2) APTT (22.0-30.0) sec Sodium (137-145) mmol/L Potassium (3.5-5.1) mmol/L Chloride (98-107) mmol/L Carbon Dioxide (22-30) mmol/L Anion Gap mmol/L BUN (9-20) mg/dL Creatinine (0.66-1.25) mg/dL Est GFR (CKD-EPI)AfAm (>60 ml/min/1.73 sqM) Est GFR (CKD-EPI)NonAf (>60 ml/min/1.73 sqM) Glucose (74-99) mg/dL Lactic Ac Sepsis Rflx Plasma Lactic Acid Franck 3.2 H* (0.7-2.0) mmol/L Calcium (8.4-10.2) mg/dL Magnesium (1.6-2.3) mg/dL Total Bilirubin (0.2-1.3) mg/dL AST (17-59) U/L ALT (4-49) U/L Alkaline Phosphatase (38-126) U/L Troponin I <0.012 (0.000-0.034) ng/mL NT-Pro-B Natriuret Pep 224 pg/mL Total Protein (6.3-8.2) g/dL Albumin (3.5-5.0) g/dL Urine Color Urine Appearance (Clear) Urine pH (5.0-8.0) Ur Specific [place] (1.001-1.035) Urine Protein (Negative) Urine Glucose (UA) (Negative) Urine Ketones (Negative) Urine Blood (Negative) Urine Nitrite (Negative) Urine Bilirubin (Negative) Urine Urobilinogen (<2.0) mg/dL Ur Leukocyte Esterase (Negative) Urine RBC (0-5) /hpf Urine WBC (0-5) /hpf Urine WBC Clumps (None) /hpf Urine Bacteria (None) /hpf Urine Mucus (None) /hpf Urine Yeast (Budding) (None) /hpf 02/05/22 02/05/22 Range/Units 16:59 17:32 WBC (3.8-10.6) k/uL RBC (4.30-5.90) m/uL Hgb (13.0-17.5) gm/dL Hct (39.0-53.0) % MCV (80.0-100.0) fL MCH (25.0-35.0) pg MCHC (31.0-37.0) g/dL RDW (11.5-15.5) % Plt Count (150-450) k/uL MPV Neutrophils % % Lymphocytes % % Monocytes % % Eosinophils % % Basophils % % Neutrophils # (1.3-7.7) k/uL Lymphocytes # (1.0-4.8) k/uL Monocytes # (0-1.0) k/uL Eosinophils # (0-0.7) k/uL Basophils # (0-0.2) k/uL Hypochromasia PT (9.0-12.0) sec INR (<1.2) APTT (22.0-30.0) sec Sodium (137-145) mmol/L Potassium (3.5-5.1) mmol/L Chloride (98-107) mmol/L Carbon Dioxide (22-30) mmol/L Anion Gap mmol/L BUN (9-20) mg/dL Creatinine (0.66-1.25) mg/dL Est GFR (CKD-EPI)AfAm (>60 ml/min/1.73 sqM) Est GFR (CKD-EPI)NonAf (>60 ml/min/1.73 sqM) Glucose (74-99) mg/dL Lactic Ac Sepsis Rflx Y Plasma Lactic Acid Franck (0.7-2.0) mmol/L Calcium (8.4-10.2) mg/dL Magnesium (1.6-2.3) mg/dL Total Bilirubin (0.2-1.3) mg/dL AST (17-59) U/L ALT (4-49) U/L Alkaline Phosphatase (38-126) U/L Troponin I (0.000-0.034) ng/mL NT-Pro-B Natriuret Pep pg/mL Total Protein (6.3-8.2) g/dL Albumin (3.5-5.0) g/dL Urine Color Yellow Urine Appearance Turbid (Clear) Urine pH 6.0 (5.0-8.0) Ur Specific [place] 1.021 (1.001-1.035) Urine Protein 3+ H (Negative) Urine Glucose (UA) 2+ H (Negative) Urine Ketones Negative (Negative) Urine Blood Small H (Negative) Urine Nitrite Negative (Negative) Urine Bilirubin Negative (Negative) Urine Urobilinogen 2.0 (<2.0) mg/dL Ur Leukocyte Esterase Large H (Negative) Urine RBC 115 H (0-5) /hpf Urine WBC >182 H (0-5) /hpf Urine WBC Clumps Many H (None) /hpf Urine Bacteria Rare H (None) /hpf Urine Mucus Many H (None) /hpf Urine Yeast (Budding) Many H (None) /hpf Disposition Clinical Impression: Kidney infection Disposition: ADMITTED IP TO THIS HOSP Condition: Fair Referrals: None,Stated [Primary Care Provider] - 1-2 days
[2022-02-05 17:05] LABS: Basophils # (A) 0.1 k/uL (0-0.2); Basophils % (A) 1 %; Eosinophils # (A) 0.6 k/uL (0-0.7); Eosinophils % (A) 4 %; HCT 33.2 % (39.0-53.0); HGB 10.4 gm/dL (13.0-17.5); Hypochromasia Slight; Lymphocytes # (A) 2.6 k/uL (1.0-4.8); Lymphocytes % (A) 16 %; MCH 27.7 pg (25.0-35.0); MCHC 31.4 g/dL (31.0-37.0); Mean Platelet Volume 8.6; Monocytes # (A) 1.1 k/uL (0-1.0); Monocytes % (A) 6 %; Neutrophils # (A) 12.2 k/uL (1.3-7.7); Neutrophils % (A) 73 %; Platelet Count 326 k/uL (150-450); RBC 3.77 m/uL (4.30-5.90); RDW 15.8 % (11.5-15.5); WBC 16.7 k/uL (3.8-10.6)
[2022-02-05 17:13] LABS: Appearance,Urine Turbid (Clear); Bacteria,Urine Rare /hpf; Bilirubin,Urine Negative (Negative); Blood,Urine Small (Negative); Budding Yeast,Urine Many /hpf; Color,Urine Yellow; Glucose,Urine (UA) 2+ (Negative); Ketones,Urine Negative (Negative); Leukocyte Esterase,Urine Large (Negative); Mucus,Urine Many /hpf; Nitrite,Urine Negative (Negative); Protein,Urine 3+ (Negative); RBC,Urine 115 /hpf (0-5); Specific Gravity,Urine 1.021 (1.001-1.035); WBC,Urine >182 /hpf (0-5)
[2022-02-05 17:15] LABS: MCV 88.1 fL (80.0-100.0)
[2022-02-05 17:17] LABS: ALT 158 U/L (4-49); AST 146 U/L (17-59); African American GFR (CKD) >90 (>60 ml/min/1.73 sqM); Alkaline Phosphatase 194 U/L (38-126); Anion Gap 14 mmol/L; Blood Urea Nitrogen 13 mg/dL (9-20); Carbon Dioxide 25 mmol/L (22-30); Chloride 93 mmol/L (98-107); Glucose 309 mg/dL (74-99); INR 1.1 (<1.2); Magnesium 1.3 mg/dL (1.6-2.3); Non-African American GFR(CKD) >90 (>60 ml/min/1.73 sqM); Partial Thromboplastin Time 25.9 sec (22.0-30.0); Potassium 4.3 mmol/L (3.5-5.1); Prothrombin Time 11.5 sec (9.0-12.0); Sodium 132 mmol/L (137-145); Total Bilirubin 0.4 mg/dL (0.2-1.3); Total Protein 6.2 g/dL (6.3-8.2)
--- NOTE | 2022-02-05 18:05 | CT ---
EXAMINATION TYPE: CT brain wo con CT DLP: 1125.4 mGycm, Automated exposure control for dose reduction was used. DATE OF EXAM: 02/05/2022 5:52 PM COMPARISON: MR brain 12/20/2021 CLINICAL INDICATION:Male, 71 years old with history of right leg weakness, rt leg weakness TECHNIQUE: Brain: Axial CT images of the brain were obtained with coronal and sagittal reformats created and rev iewed. Contrast used: None. Oral contrast used: None. FINDINGS: Brain: Extra-axial spaces: No abnormal extra-axial fluid collections. Ventricular system: Dilatation in proportion to cerebral atrophy. Cerebral parenchyma: Cerebral atrophy. No acute intraparenchymal hemorrhage or mass effect. The colón -white junction is well differentiated. Scattered hypoattenuating areas are seen within the white mat ter. Cerebellum: Unremarkable. Mass effect: No evidence of midline shift. Intracranial vasculature: Atherosclerotic calcifications of the intracranial vessels. Soft tissues: Normal. Calvarium/osseous structures: No depressed skull fracture. Paranasal sinuses and mastoid air cells: Mild scattered paranasal sinus disease. Visualized orbits: Orbital contents are intact. IMPRESSION: 1. No acute intracranial process. 2. Nonspecific white matter changes, likely secondary to chronic small vessel ischemic disease.
--- NOTE | 2022-02-05 18:10 | XR ---
EXAMINATION TYPE: XR chest 2V DATE OF EXAM: 02/05/2022 5:46 PM COMPARISON: Chest radiographs from 12/22/2021. CT chest 12/16/2021 TECHNIQUE: XR chest 2V Frontal and lateral views of the chest. CLINICAL INDICATION:Male, 71 years old with history of Weakness; FINDINGS: Lungs/Pleura: Low lung volumes are present. There is no evidence of pleural effusion, focal consolida tion, or pneumothorax. Left pulmonary hilum fullness likely secondary to patient rotation. Pulmonary vascularity: Unremarkable. Heart/mediastinum: Cardiomediastinal silhouette is enlarged and stable. Musculoskeletal: Degenerative changes of the shoulder joints. IMPRESSION: Low lung volumes no evidence for acute thoracic process., God
[2022-02-05] MEDS ORDERED: MAGNESIUM OXIDE 400 MG TAB PO STA (20:04)
[2022-02-05] MEDS ORDERED: ALPRAZolam 0.25 MG TAB PO PRN (22:10)
[2022-02-05] MEDS ORDERED: ONDANSETRON 4 MG/2 ML VIAL IVP PRN (22:10)
[2022-02-05] MEDS ORDERED: NALOXONE 0.4 MG/ML 1 ML VIAL IV PRN (22:10)
[2022-02-05] MEDS ORDERED: TEMAZEPAM 7.5 MG CAP PO PRN (22:10)
[2022-02-05] MEDS ORDERED: DOCUSATE 100 MG CAP PO PRN (22:10)
[2022-02-05] MEDS ORDERED: CALCIUM CARBONATE 500 MG CHEWABLE PO PRN (22:10)
[2022-02-06] MEDS: MORPHINE SULFATE 4 MG/ML SYRINGE IVP PRN ×3 (02:33→20:10)
--- NOTE | 2022-02-06 03:15 | P.HPIM ---
History of Present Illness H&P Date: 02/05/22 Chief Complaint: Generalized weakness 71-year-old male with diabetes mellitus, prostate cancer Patient comes in from home due to generalized weakness he is unable to take care of himself he reports weakness in his lower extremities unable to walk stand up or take care of her activities of daily living he doesn't have any home health care. He was recently discharged from a rehab place about 2 days ago and was sent home alone. He doesn't have anyone to help him around home he doesn't feel safe there and came to the hospital seeking care. He reports that the weakness in his lower extremity is not new spent going on for couple months no one is able to tell him was going on with his legs. He also have chronic Harper catheter since he was at rehab. Reviewing his medical records looks like the patient was admitted to our facility couple months ago where he was initially treated for DKA later on he was found to have Sirs with fevers of unknown underlying cause patient exhausted a battery of workup in our facility without identifying a source of his fevers for which she was transferred to [facility] for further care. No records are available of what happened at [facility] patient unable to tell me what exactly happened over there. Otherwise currently patient denies any chest pain or trouble breathing denies any fevers or chills denies any nausea vomiting denies any abdominal pain denies any GI bleeding. Blood work in the ED showed elevated white count chronic anemia hypomagnesemia elevated liver enzymes and lactic acidosis. UA was positive for possible UTI. Patient has Harper catheter from home. Patient admits to falling at home earlier today when he was attempting to mobilize his body Review of Systems Pertinent positives as noted in HPI. All other systems were reviewed and are negative Past Medical History Past Medical History: Cancer, Diabetes Mellitus Additional Past Medical History / Comment(s): prostate cancer, harper cath History of Any Multi-Drug Resistant Organisms: None Reported Past Surgical History: No Surgical Hx Reported Past Anesthesia/Blood Transfusion Reactions: No Reported Reaction Past Psychological History: No Psychological Hx Reported Smoking Status: Never smoker Past Alcohol Use History: None Reported Past Drug Use History: None Reported - Past Family History Father Family Medical History: Cancer Medications and Allergies Home Medications Medication Instructions Recorded Confirmed Type Amitriptyline HCl [Elavil] 25 mg PO HS 12/13/21 02/05/22 History Aspirin EC [Ecotrin Low Dose] 81 mg PO DAILY 12/13/21 02/05/22 History Bicalutamide [Casodex] 50 mg PO DAILY 12/13/21 02/05/22 History Atorvastatin Calcium 40 mg PO HS 02/05/22 02/05/22 History Insulin Lispro Protamin/Lispro 30 units SQ TID-W/MEALS 02/05/22 02/05/22 History [humaLOG Mix 50-50 Kwikpen] Metoprolol Tartrate [Lopressor] 25 mg PO BID 02/05/22 02/05/22 History Multivit-Min/FA/Lycopen/Lutein 1 tab PO DAILY 02/05/22 02/05/22 History [Centrum Silver Men Tablet] glipiZIDE [Glucotrol] 10 mg PO DAILY 02/05/22 02/05/22 History metFORMIN HCL 1,000 mg PO BID 02/05/22 02/05/22 History methocarbamoL [Methocarbamol] 1,000 mg PO QID PRN 02/05/22 02/05/22 History Allergies Allergy/AdvReac Type Severity Reaction Status Date / Time amoxicillin [From Augmentin] AdvReac Vomiting Verified 02/05/22 16:29 clavulanic acid AdvReac Vomiting Verified 02/05/22 16:29 [From Augmentin] hydromorphone [From Dilaudid] AdvReac Vomiting Verified 02/05/22 16:29 Physical Exam Vitals: Vital Signs Temp Pulse Resp BP Pulse Ox 02/05/22 18:50 124 H 18 122/72 95 02/05/22 16:56 115 H 18 121/70 98 02/05/22 16:18 99.8 F H 124 H 18 91/61 95 Intake and Output 02/05/22 02/05/22 02/05/22 06:59 14:59 22:59 Other: Weight 91.172 kg Constitutional: No acute distress, conversant, pleasant Eyes: Anicteric sclerae, moist conjunctiva, Pupils equal round reactive to light ENMT: NC/AT Oropharynx clear, no erythema, or exudates Neck: Supple, no masses, or JVD No carotid bruits No thyromegaly Lungs: Clear to auscultation Clear to percussion Normal respiratory effort, no accessory muscle use Cardiovascular: Heart regular in rate and rhythm, No murmurs, gallops, or rubs No peripheral edema Abdominal: Soft, Harper catheter from home Nontender, no guarding, rebound or rigidity Abdomen moving with respiration Normoactive bowel sounds No hepatomegaly, No splenomegaly No palpable mass No abdominal wall hernia noted Skin: Normal temperature, tone, texture, turgor No induration No subcutaneous nodules No rash, lesions No ulcers Extremities: No digital cyanosis No clubbing Pedal pulses intact and symmetrical Radial pulses intact and symmetrical No calf tenderness Psychiatric: Alert and oriented to person, place and time Appropriate affect fair judgement Neuro Muscles Strength 3/5 in bilateral lower extremities 5 over 5 in bilateral upper extremities Sensation to light touch grossly present throughout Cranial nerves II-XII grossly intact No focal sensory deficits Lymphatics: no palpable cervical or supraclavicular , or inguinal lymph nodes Results CBC & Chem 7: 02/05/22 16:43 02/05/22 16:43 Labs: Abnormal Lab Results - Last 24 Hours (Table) 02/05/22 02/05/22 02/05/22 Range/Units 16:43 16:43 16:43 WBC 16.7 H (3.8-10.6) k/uL RBC 3.77 L (4.30-5.90) m/uL Hgb 10.4 L (13.0-17.5) gm/dL Hct 33.2 L (39.0-53.0) % RDW 15.8 H (11.5-15.5) % Neutrophils # 12.2 H (1.3-7.7) k/uL Monocytes # 1.1 H (0-1.0) k/uL Sodium 132 L (137-145) mmol/L Chloride 93 L (98-107) mmol/L Creatinine 0.41 L (0.66-1.25) mg/dL Glucose 309 H (74-99) mg/dL Plasma Lactic Acid Franck 3.2 H* (0.7-2.0) mmol/L Calcium 8.0 L (8.4-10.2) mg/dL Magnesium 1.3 L (1.6-2.3) mg/dL AST 146 H (17-59) U/L ALT 158 H (4-49) U/L Alkaline Phosphatase 194 H (38-126) U/L Total Protein 6.2 L (6.3-8.2) g/dL Albumin 3.0 L (3.5-5.0) g/dL Urine Protein (Negative) Urine Glucose (UA) (Negative) Urine Blood (Negative) Ur Leukocyte Esterase (Negative) Urine RBC (0-5) /hpf Urine WBC (0-5) /hpf Urine WBC Clumps (None) /hpf Urine Bacteria (None) /hpf Urine Mucus (None) /hpf Urine Yeast (Budding) (None) /hpf 02/05/22 Range/Units 16:59 WBC (3.8-10.6) k/uL RBC (4.30-5.90) m/uL Hgb (13.0-17.5) gm/dL Hct (39.0-53.0) % RDW (11.5-15.5) % Neutrophils # (1.3-7.7) k/uL Monocytes # (0-1.0) k/uL Sodium (137-145) mmol/L Chloride (98-107) mmol/L Creatinine (0.66-1.25) mg/dL Glucose (74-99) mg/dL Plasma Lactic Acid Franck (0.7-2.0) mmol/L Calcium (8.4-10.2) mg/dL Magnesium (1.6-2.3) mg/dL AST (17-59) U/L ALT (4-49) U/L Alkaline Phosphatase (38-126) U/L Total Protein (6.3-8.2) g/dL Albumin (3.5-5.0) g/dL Urine Protein 3+ H (Negative) Urine Glucose (UA) 2+ H (Negative) Urine Blood Small H (Negative) Ur Leukocyte Esterase Large H (Negative) Urine RBC 115 H (0-5) /hpf Urine WBC >182 H (0-5) /hpf Urine WBC Clumps Many H (None) /hpf Urine Bacteria Rare H (None) /hpf Urine Mucus Many H (None) /hpf Urine Yeast (Budding) Many H (None) /hpf Assessment and Plan Assessment: Sepsis secondary to underlying UTI with chronic Harper catheter from home Elevated lactic acid Follow-up cultures Replace Harper catheter Initiated on antibiotics with Rocephin Tylenol for fever Supportive care Aggressive IV fluid hydration with normal saline Follow-up lactic acid Monitor vital signs Fall precautions Hypomagnesemia replace and follow up level Elevated liver enzymes Check liver ultrasound Follow-up liver enzymes Chronic conditions Diabetes mellitus, resume insulin regimen, insulin sliding scale Prostate cancer, with chronic Harper catheter Chronic anemia denies GI bleeding continue to monitor hemoglobin level PT evaluation, front desk worker consult for discharge planning DVT prophylaxis heparin subcu 3 times a day Full code
[2022-02-06] MEDS: MAGNESIUM SULFATE-D5W PMX 1 GM in DEXTROSE/WATER 1 100ML.BAG IVPB SCH ×2 (04:42→04:43)
[2022-02-06 07:21] LABS: Glucose,Whole Blood 362 mg/dL (70-110)
[2022-02-06] MEDS: INSULIN LISPRO PROTAMIN SQ SCH ×3 (07:56→16:44)
[2022-02-06] MEDS: LISPRO SQ SCH ×3 (07:56→16:44)
[2022-02-06] MEDS: [UNRECOGNIZED DRUG - OTHER] SQ SCH ×3 (07:56→16:44)
[2022-02-06] MEDS: SODIUM CHLORIDE 0.9% 1,000 ML IV SCH ×4 (07:58→17:17)
[2022-02-06] MEDS: INSULIN ASPART (NovoLOG) 100 UNIT/ML VIAL SQ SCH ×4 (08:00→21:53)
[2022-02-06] MEDS: HEPARIN SODIUM,PORCINE/PF 5,000 UNIT/0.5 ML SYRINGE SQ SCH ×2 (08:00→16:32)
[2022-02-06] MEDS ORDERED: metFORMIN 500 MG TAB PO SCH (09:00)
[2022-02-06] MEDS ORDERED: glipiZIDE 10 MG TAB PO SCH (09:00)
[2022-02-06 09:29] LABS: Magnesium 1.6 mg/dL (1.5-2.4)
--- NOTE | 2022-02-06 09:43 | US ---
EXAMINATION TYPE: US liver DATE OF EXAM: 02/06/2022 COMPARISON: NONE CLINICAL HISTORY: elevated liver enzymes. elevated liver enzymes TECHNIQUE: Multiple sonographic images of the right upper quadrant are obtained. FINDINGS: EXAM MEASUREMENTS: Liver Length: 18.4 cm Gallbladder Wall: 0.2 cm CBD: 0.4 cm Right Kidney: 11.9 x 5.8 x 4.8 cm PAPER SALES REPRESENTATIVE NOTES: *technical limitations due to large amount of overlying bowel content Pancreas: Obscured by bowel gas Liver: cystic area = 0.9 x 1.0 x 0.9cm mildly increased echotexture. Gallbladder: sludge Evidence for sonographic Kaminski's sign: no CBD: limited evaluation Right Kidney: lower pole obscured, no evidence of hydronephrosis IMPRESSION: 1. Hepatocellular disease commonly relating to hepatic steatosis. 2. Hepatic cysts 3. Bladder sludge without evidence for acute cholecystitis.
[2022-02-06] MEDS: BICALUTAMIDE 50 MG TAB PO SCH (09:54)
[2022-02-06] MEDS: ASPIRIN 81 MG PO SCH (09:54)
[2022-02-06] MEDS: METOPROLOL TARTRATE 25 MG TAB PO SCH ×2 (09:54→21:53)
[2022-02-06] MEDS: MULTIVITAMINS, THERA 1 EACH TAB PO SCH (09:54)
[2022-02-06 10:05] LABS: ALT 147 U/L (10-49); AST 85 U/L (14-35); African American GFR (CKD) 128.9 (60.0-200.0); Albumin 2.7 g/dL (3.8-4.9); Albumin/Globulin Ratio 0.87 (1.60-3.17); Alkaline Phosphatase 152 U/L (41-126); BUN/Creat Ratio 24.57 Ratio (12.00-20.00); Blood Urea Nitrogen 11.3 mg/dL (9.0-27.0); Calcium 7.8 mg/dL (8.7-10.3); Carbon Dioxide 27.7 mmol/L (20.0-27.5); Chloride 94 mmol/L (96-109); Globulin 3.1 g/dL (1.6-3.3); Glucose 355 mg/dL (70-110); Non-African American GFR(CKD) 111.3 (60.0-200.0); Potassium 4.5 mmol/L (3.5-5.5); Sodium 132 mmol/L (135-145); Total Bilirubin <0.15 mg/dL (0.30-1.20); Total Protein 5.8 g/dL (6.2-8.2)
[2022-02-06 11:52] LABS: Glucose,Whole Blood 278 mg/dL (70-110)
--- NOTE | 2022-02-06 14:18 | P.PN ---
Subjective Progress Note Date: 02/06/22 Principal diagnosis: Generalized weakness Patient stated that he came in because of weakness and not able to take care of himself at home. Patient told me that at [facility] dated the same work of that we did over here and they could not find the cause of his fevers however his fevers did ultimately resolve. Patient also states that he is not having left ankle pain. He denies any trauma. Objective - Vital Signs Vital signs: Vital Signs Temp 98.3 F 02/06/22 12:03 Pulse 96 02/06/22 12:03 Resp 17 02/06/22 12:03 BP 105/70 02/06/22 12:03 Pulse Ox 97 02/06/22 12:03 FiO2 Intake & Output 02/05/22 02/06/22 02/06/22 18:59 06:59 18:59 Weight 91.172 kg - Exam General examination - Alert and Oriented 3 in NAD, appears chronically debilitated Heart - + S1S2 no murmurs Lungs - Clear to auscultation Abdomen soft NT ND +ve BS Extremities - No edema, mild swelling around the left ankle CLINICAL HAEMATOLOGIST - Moving all 4 extremities spontaneously Psych - Calm and cooperative - Labs CBC & Chem 7: 02/05/22 16:43 02/06/22 05:58 Labs: Abnormal Lab Results - Last 24 Hours (Table) 02/05/22 02/05/22 02/05/22 Range/Units 16:43 16:43 16:43 WBC 16.7 H (3.8-10.6) k/uL RBC 3.77 L (4.30-5.90) m/uL Hgb 10.4 L (13.0-17.5) gm/dL Hct 33.2 L (39.0-53.0) % RDW 15.8 H (11.5-15.5) % Neutrophils # 12.2 H (1.3-7.7) k/uL Monocytes # 1.1 H (0-1.0) k/uL Sodium 132 L (137-145) mmol/L Chloride 93 L (98-107) mmol/L Carbon Dioxide (20.0-27.5) mmol/L Creatinine 0.41 L (0.66-1.25) mg/dL BUN/Creatinine Ratio (12.00-20.00) Ratio Glucose 309 H (74-99) mg/dL POC Glucose (mg/dL) (70-110) mg/dL Plasma Lactic Acid Franck 3.2 H* (0.7-2.0) mmol/L Calcium 8.0 L (8.4-10.2) mg/dL Magnesium 1.3 L (1.6-2.3) mg/dL Total Bilirubin (0.30-1.20) mg/dL AST 146 H (17-59) U/L ALT 158 H (4-49) U/L Alkaline Phosphatase 194 H (38-126) U/L Total Protein 6.2 L (6.3-8.2) g/dL Albumin 3.0 L (3.5-5.0) g/dL Albumin/Globulin Ratio (1.60-3.17) g/dL Urine Protein (Negative) Urine Glucose (UA) (Negative) Urine Blood (Negative) Ur Leukocyte Esterase (Negative) Urine RBC (0-5) /hpf Urine WBC (0-5) /hpf Urine WBC Clumps (None) /hpf Urine Bacteria (None) /hpf Urine Mucus (None) /hpf Urine Yeast (Budding) (None) /hpf 02/05/22 02/05/22 02/06/22 Range/Units 16:59 22:04 01:00 WBC (3.8-10.6) k/uL RBC (4.30-5.90) m/uL Hgb (13.0-17.5) gm/dL Hct (39.0-53.0) % RDW (11.5-15.5) % Neutrophils # (1.3-7.7) k/uL Monocytes # (0-1.0) k/uL Sodium (137-145) mmol/L Chloride (98-107) mmol/L Carbon Dioxide (20.0-27.5) mmol/L Creatinine (0.66-1.25) mg/dL BUN/Creatinine Ratio (12.00-20.00) Ratio Glucose (74-99) mg/dL POC Glucose (mg/dL) (70-110) mg/dL Plasma Lactic Acid Franck 2.4 H* 2.5 H* (0.7-2.0) mmol/L Calcium (8.4-10.2) mg/dL Magnesium (1.6-2.3) mg/dL Total Bilirubin (0.30-1.20) mg/dL AST (17-59) U/L ALT (4-49) U/L Alkaline Phosphatase (38-126) U/L Total Protein (6.3-8.2) g/dL Albumin (3.5-5.0) g/dL Albumin/Globulin Ratio (1.60-3.17) g/dL Urine Protein 3+ H (Negative) Urine Glucose (UA) 2+ H (Negative) Urine Blood Small H (Negative) Ur Leukocyte Esterase Large H (Negative) Urine RBC 115 H (0-5) /hpf Urine WBC >182 H (0-5) /hpf Urine WBC Clumps Many H (None) /hpf Urine Bacteria Rare H (None) /hpf Urine Mucus Many H (None) /hpf Urine Yeast (Budding) Many H (None) /hpf 02/06/22 02/06/22 02/06/22 Range/Units 05:58 07:19 11:50 WBC (3.8-10.6) k/uL RBC (4.30-5.90) m/uL Hgb (13.0-17.5) gm/dL Hct (39.0-53.0) % RDW (11.5-15.5) % Neutrophils # (1.3-7.7) k/uL Monocytes # (0-1.0) k/uL Sodium 132 L (137-145) mmol/L Chloride 94 L (98-107) mmol/L Carbon Dioxide 27.7 H (20.0-27.5) mmol/L Creatinine 0.5 L (0.66-1.25) mg/dL BUN/Creatinine Ratio 24.57 H (12.00-20.00) Ratio Glucose 355 H (74-99) mg/dL POC Glucose (mg/dL) 362 H 278 H (70-110) mg/dL Plasma Lactic Acid Franck (0.7-2.0) mmol/L Calcium 7.8 L (8.4-10.2) mg/dL Magnesium (1.6-2.3) mg/dL Total Bilirubin <0.15 L (0.30-1.20) mg/dL AST 85 H (17-59) U/L ALT 147 H (4-49) U/L Alkaline Phosphatase 152 H (38-126) U/L Total Protein 5.8 L (6.3-8.2) g/dL Albumin 2.7 L (3.5-5.0) g/dL Albumin/Globulin Ratio 0.87 L (1.60-3.17) g/dL Urine Protein (Negative) Urine Glucose (UA) (Negative) Urine Blood (Negative) Ur Leukocyte Esterase (Negative) Urine RBC (0-5) /hpf Urine WBC (0-5) /hpf Urine WBC Clumps (None) /hpf Urine Bacteria (None) /hpf Urine Mucus (None) /hpf Urine Yeast (Budding) (None) /hpf Assessment and Plan Assessment: Patient is a 71-year-old male with a past medical history of diabetes mellitus and prostate cancer who [facility] and presents to the ED due to generalized weakness and unable to take care of himself. Patient was recently admitted for fever of unknown origin. He had extensive workup done and no source of fever could be found. Patient was then transferred to [facility]. Patient states that he was had extensive workup at [facility] and there are also not able to find the source of infection however his fevers did eventually resolve. Sepsis secondary to UTI due to chronic Balbuena catheter Lactic acid has normalized Patient states that for the catheter was changed 2 days ago at the nursing facility We'll start the patient IV Rocephin Tylenol for fever Follow up on blood cultures and urine cultures and to finalize Trend CBC. Patient having low-grade fevers. Hypomagnesemia Replete as needed Elevated liver enzymes likely due to hepatic steatosis Ultrasound of the liver consistent with hepatic steatosis Patient otherwise asymptomatic Liver enzymes are trending down Generalized weakness PT OT consult Left ankle pain likely due to arthritis We'll check x-ray of the ankle Chronic conditions Diabetes mellitus Prostate cancer chronic Balbuena catheter Chronic anemia Stable DVT prophylaxis subcu heparin 3 times a day Full code
--- NOTE | 2022-02-06 16:33 | XR ---
EXAMINATION TYPE: XR ankle complete LT DATE OF EXAM: 02/06/2022 2:50 PM INDICATION: Patient age:Male; 71 years old; Reason for study: pain; COMPARISON: None TECHNIQUE: The left ankle is imaged in frontal, lateral and oblique projections. FINDINGS: There is no evidence of acute osseous pathology. The joint spaces are well-preserved without evidenc e of subluxation or dislocation. Kager's fat pad is intact. Nonspecific soft tissue swelling througho ut the lower extremity noted. No radiopaque foreign bodies are identified. No cranial plantar spurrin g and Achilles enthesophyte. IMPRESSION: 1. No evidence of acute fracture. 2. Nonspecific subcutaneous swelling around the ankle likely secondary to underlying soft tissue inju ry.
[2022-02-06 16:44] LABS: Glucose,Whole Blood 346 mg/dL (70-110)
[2022-02-06 21:35] LABS: Glucose,Whole Blood 327 mg/dL (70-110)
[2022-02-06] MEDS: ATORVASTATIN 40 MG TAB PO SCH (21:53)
[2022-02-06] MEDS: AMITRIPTYLINE HCL 25 MG TAB PO SCH (22:45)
[2022-02-07] MEDS: HEPARIN SODIUM,PORCINE/PF 5,000 UNIT/0.5 ML SYRINGE SQ SCH ×3 (00:25→15:34)
[2022-02-07] MEDS: SODIUM CHLORIDE 0.9% 1,000 ML IV SCH ×3 (00:26→20:19)
[2022-02-07] MEDS: MORPHINE SULFATE 4 MG/ML SYRINGE IVP PRN ×2 (00:26→07:46)
[2022-02-07 07:10] LABS: Glucose,Whole Blood 317 mg/dL (70-110)
[2022-02-07 07:45] LABS: Anisocytosis Slight; Basophils # (A) 0.1 k/uL (0-0.2); Basophils % (A) 0 %; Eosinophils # (A) 0.5 k/uL (0-0.7); Eosinophils % (A) 3 %; HCT 30.1 % (39.0-53.0); HGB 9.3 gm/dL (13.0-17.5); Hypochromasia Moderate; Lymphocytes # (A) 2.8 k/uL (1.0-4.8); Lymphocytes % (A) 18 %; MCH 27.4 pg (25.0-35.0); MCHC 30.9 g/dL (31.0-37.0); MCV 88.7 fL (80.0-100.0); Mean Platelet Volume 9.2; Monocytes # (A) 1.1 k/uL (0-1.0); Monocytes % (A) 7 %; Neutrophils # (A) 11.1 k/uL (1.3-7.7); Neutrophils % (A) 71 %; Platelet Count 344 k/uL (150-450); RDW 16.1 % (11.5-15.5); WBC 15.7 k/uL (3.8-10.6)
[2022-02-07] MEDS: METOPROLOL TARTRATE 25 MG TAB PO SCH ×2 (07:46→20:20)
[2022-02-07 08:06] LABS: ALT 151 U/L (4-49); AST 116 U/L (17-59); African American GFR (CKD) >90 (>60 ml/min/1.73 sqM); Albumin 2.5 g/dL (3.5-5.0); Albumin/Globulin Ratio 0.9; Alkaline Phosphatase 184 U/L (38-126); Anion Gap 9 mmol/L; Blood Urea Nitrogen 11 mg/dL (9-20); Calcium 7.3 mg/dL (8.4-10.2); Carbon Dioxide 26 mmol/L (22-30); Chloride 94 mmol/L (98-107); Globulin 2.8 g/dL; Glucose 287 mg/dL (74-99); Non-African American GFR(CKD) >90 (>60 ml/min/1.73 sqM); Potassium 4.4 mmol/L (3.5-5.1); Sodium 129 mmol/L (137-145); Total Bilirubin 0.3 mg/dL (0.2-1.3); Total Protein 5.3 g/dL (6.3-8.2)
[2022-02-07] MEDS: BICALUTAMIDE 50 MG TAB PO SCH (10:37)
[2022-02-07] MEDS: ASPIRIN 81 MG PO SCH (10:37)
[2022-02-07] MEDS: MULTIVITAMINS, THERA 1 EACH TAB PO SCH (10:37)
[2022-02-07] MEDS: INSULIN ASPART (NovoLOG) 100 UNIT/ML VIAL SQ SCH ×4 (10:38→20:20)
[2022-02-07] MEDS: LISPRO SQ SCH ×3 (10:39→17:05)
[2022-02-07] MEDS: INSULIN LISPRO PROTAMIN SQ SCH ×3 (10:39→17:05)
[2022-02-07] MEDS: [UNRECOGNIZED DRUG - OTHER] SQ SCH ×3 (10:39→17:05)
[2022-02-07 11:50] LABS: Glucose,Whole Blood 399 mg/dL (70-110)
--- NOTE | 2022-02-07 12:50 | P.PN ---
Subjective Progress Note Date: 02/07/22 Principal diagnosis: Generalized weakness Patient had a fever this morning 100.9. Patient himself is denying any acute complaints. No other acute issues overnight. Objective - Vital Signs Vital signs: Vital Signs Temp 100.9 F H 02/07/22 07:25 Pulse 120 H 02/07/22 07:25 Resp 17 02/07/22 07:25 BP 109/62 02/07/22 07:25 Pulse Ox 94 L 02/07/22 07:25 FiO2 Intake & Output 02/06/22 02/07/22 02/07/22 18:59 06:59 18:59 Output Total 800 Balance -800 Weight 91.172 kg Output: Urine 800 Other: Voiding Method Indwelling Catheter Indwelling Catheter - Exam General examination - Alert and Oriented 3 in NAD, appears chronically debilitated Heart - + S1S2 no murmurs Lungs - Clear to auscultation Abdomen soft NT ND +ve BS Extremities - No edema, mild swelling around the left ankle INSOLE BEVELER - Moving all 4 extremities spontaneously Psych - Calm and cooperative - Labs CBC & Chem 7: 02/07/22 06:25 02/07/22 06:25 Labs: Abnormal Lab Results - Last 24 Hours (Table) 02/06/22 02/06/22 02/07/22 Range/Units 16:42 21:34 06:25 WBC 15.7 H (3.8-10.6) k/uL RBC 3.40 L (4.30-5.90) m/uL Hgb 9.3 L (13.0-17.5) gm/dL Hct 30.1 L (39.0-53.0) % MCHC 30.9 L (31.0-37.0) g/dL RDW 16.1 H (11.5-15.5) % Neutrophils # 11.1 H (1.3-7.7) k/uL Monocytes # 1.1 H (0-1.0) k/uL Sodium (137-145) mmol/L Chloride (98-107) mmol/L Creatinine (0.66-1.25) mg/dL Glucose (74-99) mg/dL POC Glucose (mg/dL) 346 H 327 H (70-110) mg/dL Calcium (8.4-10.2) mg/dL AST (17-59) U/L ALT (4-49) U/L Alkaline Phosphatase (38-126) U/L Total Protein (6.3-8.2) g/dL Albumin (3.5-5.0) g/dL 02/07/22 02/07/22 02/07/22 Range/Units 06:25 07:09 11:49 WBC (3.8-10.6) k/uL RBC (4.30-5.90) m/uL Hgb (13.0-17.5) gm/dL Hct (39.0-53.0) % MCHC (31.0-37.0) g/dL RDW (11.5-15.5) % Neutrophils # (1.3-7.7) k/uL Monocytes # (0-1.0) k/uL Sodium 129 L (137-145) mmol/L Chloride 94 L (98-107) mmol/L Creatinine 0.39 L (0.66-1.25) mg/dL Glucose 287 H (74-99) mg/dL POC Glucose (mg/dL) 317 H 399 H (70-110) mg/dL Calcium 7.3 L (8.4-10.2) mg/dL AST 116 H (17-59) U/L ALT 151 H (4-49) U/L Alkaline Phosphatase 184 H (38-126) U/L Total Protein 5.3 L (6.3-8.2) g/dL Albumin 2.5 L (3.5-5.0) g/dL Microbiology - Last 24 Hours (Table) 02/05/22 17:00 Blood Culture - Preliminary Blood No Growth after 24 hours 02/05/22 16:45 Blood Culture - Preliminary Blood No Growth after 24 hours Assessment and Plan Assessment: Patient is a 71-year-old male with a past medical history of diabetes mellitus and prostate cancer who was recently discharged from a group home facility and presents to the ED due to generalized weakness and unable to take care of himself. Patient was recently admitted for fever of unknown origin. He had extensive workup done and no source of fever could be found. Patient was then transferred to [facility]. Patient states that he was had extensive workup at [facility] and there are also not able to find the source of infection however his fevers did eventually resolve. Sepsis secondary to UTI due to chronic Harper catheter Lactic acid has normalized Patient states that the harper catheter was changed 2 days ago at the nursing facility We'll start the patient IV Rocephin Tylenol for fever Follow up on blood cultures and urine cultures until finalized. On the urine culture was not sent in the ED. Patient received antibiotics prior to urine culture being sent. I told the nurse to send a urine culture stat today. Trend CBC. Patient now having high-grade fevers Hypomagnesemia Replete as needed Elevated liver enzymes likely due to hepatic steatosis Ultrasound of the liver consistent with hepatic steatosis Patient otherwise asymptomatic Liver enzymes are stable Generalized weakness PT OT consult Left ankle pain likely due to arthritis X-ray of the ankle is negative for any acute fracture Chronic conditions Diabetes mellitus Prostate cancer chronic Harper catheter Chronic anemia Stable DVT prophylaxis subcu heparin 3 times a day Full code
[2022-02-07] MEDS: ACETAMINOPHEN TAB 325 MG TAB PO PRN (15:34)
[2022-02-07 16:52] LABS: Glucose,Whole Blood 446 mg/dL (70-110)
[2022-02-07 19:48] LABS: Glucose,Whole Blood 327 mg/dL (70-110)
[2022-02-07] MEDS: ATORVASTATIN 40 MG TAB PO SCH (20:20)
[2022-02-07] MEDS: AMITRIPTYLINE HCL 25 MG TAB PO SCH (21:11)
[2022-02-08] MEDS: HEPARIN SODIUM,PORCINE/PF 5,000 UNIT/0.5 ML SYRINGE SQ SCH ×3 (00:37→17:22)
[2022-02-08] MEDS: methocarbamoL 500 MG TAB PO PRN (01:28)
[2022-02-08] MEDS: ACETAMINOPHEN TAB 325 MG TAB PO PRN (01:28)
[2022-02-08] MEDS: SODIUM CHLORIDE 0.9% 1,000 ML IV SCH ×3 (01:31→20:32)
[2022-02-08 07:12] LABS: Glucose,Whole Blood 372 mg/dL (70-110)
[2022-02-08] MEDS: INSULIN LISPRO PROTAMIN SQ SCH ×3 (07:12→17:24)
[2022-02-08] MEDS: LISPRO SQ SCH ×3 (07:12→17:24)
[2022-02-08] MEDS: [UNRECOGNIZED DRUG - OTHER] SQ SCH ×3 (07:12→17:24)
[2022-02-08] MEDS: ASPIRIN 81 MG PO SCH (07:39)
[2022-02-08] MEDS: MULTIVITAMINS, THERA 1 EACH TAB PO SCH (07:39)
[2022-02-08] MEDS: BICALUTAMIDE 50 MG TAB PO SCH (07:40)
[2022-02-08] MEDS: METOPROLOL TARTRATE 25 MG TAB PO SCH ×2 (07:40→20:31)
[2022-02-08] MEDS: INSULIN ASPART (NovoLOG) 100 UNIT/ML VIAL SQ SCH ×4 (07:41→20:31)
[2022-02-08 10:19] LABS: Basophils % (A) 0 %; Eosinophils # (A) 0.5 k/uL (0-0.7); Eosinophils % (A) 4 %; HCT 30.1 % (39.0-53.0); HGB 9.2 gm/dL (13.0-17.5); Hypochromasia Marked; Lymphocytes # (A) 1.7 k/uL (1.0-4.8); Lymphocytes % (A) 14 %; MCH 27.4 pg (25.0-35.0); MCHC 30.7 g/dL (31.0-37.0); MCV 89.5 fL (80.0-100.0); Mean Platelet Volume 8.6; Monocytes # (A) 0.8 k/uL (0-1.0); Monocytes % (A) 6 %; Neutrophils # (A) 8.9 k/uL (1.3-7.7); Neutrophils % (A) 74 %; Platelet Count 286 k/uL (150-450); RBC 3.36 m/uL (4.30-5.90); RDW 15.9 % (11.5-15.5); WBC 12.1 k/uL (3.8-10.6)
[2022-02-08 10:31] LABS: African American GFR (CKD) >90 (>60 ml/min/1.73 sqM); Anion Gap 10 mmol/L; Blood Urea Nitrogen 10 mg/dL (9-20); Calcium 7.6 mg/dL (8.4-10.2); Carbon Dioxide 28 mmol/L (22-30); Chloride 92 mmol/L (98-107); Glucose 325 mg/dL (74-99); Non-African American GFR(CKD) >90 (>60 ml/min/1.73 sqM); Potassium 4.1 mmol/L (3.5-5.1); Sodium 130 mmol/L (137-145)
[2022-02-08 11:40] LABS: Glucose,Whole Blood 329 mg/dL (70-110)
--- NOTE | 2022-02-08 13:28 | P.PN ---
Subjective Progress Note Date: 02/08/22 Principal diagnosis: Generalized weakness Patient had a fever 100.1 in the last 24 hours. His urine culture is pending. Objective - Vital Signs Vital signs: Vital Signs Temp 98.0 F 02/08/22 07:33 Pulse 112 H 02/08/22 07:55 Resp 17 02/08/22 07:55 BP 119/78 02/08/22 07:33 Pulse Ox 97 02/08/22 07:33 FiO2 Intake & Output 02/07/22 02/08/22 02/08/22 18:59 06:59 18:59 Intake Total 1390 Output Total 350 1900 Balance -350 -510 Intake: Intake, IV Titration 1150 Amount Sodium Chloride 0.9% 1, 1100 000 ml @ 100 mls/hr IV . Q10H [facility] Rx#:[id number] cefTRIAXone 1 gm In 50 Sodium Chloride 0.9% 50 ml @ 100 mls/hr IVPB Q24H [facility] Rx#:[id number] Oral 240 Output: Urine 350 1900 Other: Voiding Method Indwelling Catheter Indwelling Catheter Indwelling Catheter # Bowel Movements 1 - Exam General examination - Alert and Oriented 3 in NAD, appears chronically debilitated Heart - + S1S2 no murmurs Lungs - Clear to auscultation Abdomen soft NT ND +ve BS Extremities - No edema, mild swelling around the left ankle PIT SHOVELER - Moving all 4 extremities spontaneously Psych - Calm and cooperative - Labs CBC & Chem 7: 02/08/22 09:40 02/08/22 09:40 Labs: Abnormal Lab Results - Last 24 Hours (Table) 02/07/22 02/07/22 02/08/22 Range/Units 16:51 19:46 07:11 WBC (3.8-10.6) k/uL RBC (4.30-5.90) m/uL Hgb (13.0-17.5) gm/dL Hct (39.0-53.0) % MCHC (31.0-37.0) g/dL RDW (11.5-15.5) % Neutrophils # (1.3-7.7) k/uL Sodium (137-145) mmol/L Chloride (98-107) mmol/L Creatinine (0.66-1.25) mg/dL Glucose (74-99) mg/dL POC Glucose (mg/dL) 446 H 327 H 372 H (70-110) mg/dL Calcium (8.4-10.2) mg/dL 02/08/22 02/08/22 02/08/22 Range/Units 09:40 09:40 11:38 WBC 12.1 H (3.8-10.6) k/uL RBC 3.36 L (4.30-5.90) m/uL Hgb 9.2 L (13.0-17.5) gm/dL Hct 30.1 L (39.0-53.0) % MCHC 30.7 L (31.0-37.0) g/dL RDW 15.9 H (11.5-15.5) % Neutrophils # 8.9 H (1.3-7.7) k/uL Sodium 130 L (137-145) mmol/L Chloride 92 L (98-107) mmol/L Creatinine 0.35 L (0.66-1.25) mg/dL Glucose 325 H (74-99) mg/dL POC Glucose (mg/dL) 329 H (70-110) mg/dL Calcium 7.6 L (8.4-10.2) mg/dL Microbiology - Last 24 Hours (Table) 02/05/22 17:00 Blood Culture - Preliminary Blood No Growth after 48 hours 02/05/22 16:45 Blood Culture - Preliminary Blood No Growth after 48 hours 02/07/22 09:30 Urine Culture - Preliminary Urine,Catheterized Assessment and Plan Assessment: Patient is a 71-year-old male with a past medical history of diabetes mellitus and prostate cancer who was recently discharged from a [facility] facility and presents to the ED due to generalized weakness and unable to take care of himself. Patient was recently admitted for fever of unknown origin. He had extensive workup done and no source of fever could be found. Patient was then transferred to [facility]. Patient states that he was had extensive workup at [facility] and there are also not able to find the source of infection however his fevers did eventually resolve. Sepsis secondary to UTI due to chronic Harper catheter Lactic acid has normalized Patient states that the harper catheter was changed 2 days ago at the nursing facility We'll start the patient IV Rocephin Tylenol for fever Follow up on blood cultures and urine cultures until finalized. On the urine culture was not sent in the ED. Patient received antibiotics prior to urine culture being sent. I told the nurse to send a urine culture stat today. Trend CBC. Patient now having high-grade fevers Hypomagnesemia Replete as needed Elevated liver enzymes likely due to hepatic steatosis Ultrasound of the liver consistent with hepatic steatosis Patient otherwise asymptomatic Liver enzymes are stable Generalized weakness PT OT consult Left ankle pain likely due to arthritis X-ray of the ankle is negative for any acute fracture Diabetes mellitus with history of DKA in the past Patient requesting for his home dose Humalog 50-50 3 times a day which I will resume while he is here We'll monitor his blood glucose levels. His blood glucose is elevated so we'll also add sliding scale insulin Chronic conditions Prostate cancer chronic Harper catheter Chronic anemia Stable DVT prophylaxis subcu heparin 3 times a day Full code
[2022-02-08 16:42] LABS: Glucose,Whole Blood 313 mg/dL (70-110)
[2022-02-08 20:28] LABS: Glucose,Whole Blood 263 mg/dL (70-110)
[2022-02-08] MEDS: AMITRIPTYLINE HCL 25 MG TAB PO SCH (20:31)
[2022-02-08] MEDS: ATORVASTATIN 40 MG TAB PO SCH (20:31)
[2022-02-09] MEDS: HEPARIN SODIUM,PORCINE/PF 5,000 UNIT/0.5 ML SYRINGE SQ SCH ×4 (00:04→22:52)
[2022-02-09] MEDS: methocarbamoL 500 MG TAB PO PRN (00:36)
[2022-02-09 07:07] LABS: Glucose,Whole Blood 273 mg/dL (70-110)
[2022-02-09 08:04] LABS: Anisocytosis Slight; Basophils # (A) 0.1 k/uL (0-0.2); Basophils % (A) 0 %; Eosinophils # (A) 0.5 k/uL (0-0.7); Eosinophils % (A) 4 %; HCT 29.8 % (39.0-53.0); HGB 9.1 gm/dL (13.0-17.5); Hypochromasia Slight; Lymphocytes # (A) 1.9 k/uL (1.0-4.8); Lymphocytes % (A) 14 %; MCH 27.2 pg (25.0-35.0); MCHC 30.6 g/dL (31.0-37.0); MCV 88.8 fL (80.0-100.0); Mean Platelet Volume 8.6; Monocytes # (A) 0.8 k/uL (0-1.0); Monocytes % (A) 6 %; Neutrophils # (A) 9.6 k/uL (1.3-7.7); Neutrophils % (A) 74 %; Platelet Count 294 k/uL (150-450); RBC 3.36 m/uL (4.30-5.90); RDW 16.2 % (11.5-15.5)
[2022-02-09 08:14] LABS: African American GFR (CKD) >90 (>60 ml/min/1.73 sqM); Anion Gap 8 mmol/L; Blood Urea Nitrogen 9 mg/dL (9-20); Calcium 7.8 mg/dL (8.4-10.2); Carbon Dioxide 29 mmol/L (22-30); Chloride 92 mmol/L (98-107); Glucose 307 mg/dL (74-99); Non-African American GFR(CKD) >90 (>60 ml/min/1.73 sqM); Potassium 4.3 mmol/L (3.5-5.1); Sodium 129 mmol/L (137-145)
[2022-02-09] MEDS: BICALUTAMIDE 50 MG TAB PO SCH (08:29)
[2022-02-09] MEDS: METOPROLOL TARTRATE 25 MG TAB PO SCH ×2 (08:30→21:47)
[2022-02-09] MEDS: MULTIVITAMINS, THERA 1 EACH TAB PO SCH (08:30)
[2022-02-09] MEDS: ASPIRIN 81 MG PO SCH (08:30)
[2022-02-09] MEDS: [UNRECOGNIZED DRUG - OTHER] SQ SCH ×2 (08:35→11:42)
[2022-02-09] MEDS: LISPRO SQ SCH ×3 (08:35→18:13)
[2022-02-09] MEDS: INSULIN ASPART (NovoLOG) 100 UNIT/ML VIAL SQ SCH ×4 (08:35→21:47)
[2022-02-09] MEDS: INSULIN LISPRO PROTAMIN SQ SCH ×3 (08:35→18:13)
[2022-02-09] MEDS: SODIUM CHLORIDE 0.9% 1,000 ML IV SCH ×2 (11:06→22:14)
[2022-02-09 11:17] LABS: Glucose,Whole Blood 281 mg/dL (70-110)
--- NOTE | 2022-02-09 15:17 | P.PN ---
Subjective Progress Note Date: 02/09/22 Principal diagnosis: Generalized weakness Patient denies any acute complaints. No acute issues overnight. Patient is afebrile for the past 24 hours. His urine culture came back negative. Patient has received 3 days of IV Rocephin. He has been treated adequately for UTI. We 'll discontinue IV Rocephin. I reviewed records from [facility]. Patient was started on doxycycline for 14 days for fever of unknown origin. Objective - Vital Signs Vital signs: Vital Signs Temp 98.2 F 02/09/22 14:00 Pulse 107 H 02/09/22 14:00 Resp 17 02/09/22 14:00 BP 97/59 02/09/22 14:00 Pulse Ox 97 02/09/22 14:00 FiO2 Intake & Output 02/08/22 02/09/22 02/09/22 18:59 06:59 18:59 Intake Total 1580 Output Total 1400 3450 Balance -1400 -1870 Intake: Intake, IV Titration 1100 Amount Sodium Chloride 0.9% 1, 1100 000 ml @ 100 mls/hr IV . Q10H [facility] Rx#:[id number] Oral 480 Output: Urine 1400 3450 Uretheral (Balbuena) 3000 Other: Voiding Method Indwelling Catheter Indwelling Catheter Indwelling Catheter - Exam General examination - Alert and Oriented 3 in NAD, appears chronically debilitated Heart - + S1S2 no murmurs Lungs - Clear to auscultation Abdomen soft NT ND +ve BS Extremities - No edema, mild swelling around the left ankle INTAKE NURSE - Moving all 4 extremities spontaneously Psych - Calm and cooperative - Labs CBC & Chem 7: 02/09/22 07:43 02/09/22 07:43 Labs: Abnormal Lab Results - Last 24 Hours (Table) 02/08/22 02/08/22 02/09/22 Range/Units 16:40 20:27 07:06 WBC (3.8-10.6) k/uL RBC (4.30-5.90) m/uL Hgb (13.0-17.5) gm/dL Hct (39.0-53.0) % MCHC (31.0-37.0) g/dL RDW (11.5-15.5) % Neutrophils # (1.3-7.7) k/uL Sodium (137-145) mmol/L Chloride (98-107) mmol/L Creatinine (0.66-1.25) mg/dL Glucose (74-99) mg/dL POC Glucose (mg/dL) 313 H 263 H 273 H (70-110) mg/dL Calcium (8.4-10.2) mg/dL 02/09/22 02/09/22 02/09/22 Range/Units 07:43 07:43 11:16 WBC 13.0 H (3.8-10.6) k/uL RBC 3.36 L (4.30-5.90) m/uL Hgb 9.1 L (13.0-17.5) gm/dL Hct 29.8 L (39.0-53.0) % MCHC 30.6 L (31.0-37.0) g/dL RDW 16.2 H (11.5-15.5) % Neutrophils # 9.6 H (1.3-7.7) k/uL Sodium 129 L (137-145) mmol/L Chloride 92 L (98-107) mmol/L Creatinine 0.38 L (0.66-1.25) mg/dL Glucose 307 H (74-99) mg/dL POC Glucose (mg/dL) 281 H (70-110) mg/dL Calcium 7.8 L (8.4-10.2) mg/dL Microbiology - Last 24 Hours (Table) 02/05/22 17:00 Blood Culture - Preliminary Blood No Growth after 72 hours 02/05/22 16:45 Blood Culture - Preliminary Blood No Growth after 72 hours 02/07/22 09:30 Urine Culture - Final Urine,Catheterized Assessment and Plan Assessment: Patient is a 71-year-old male with a past medical history of diabetes mellitus and prostate cancer who was recently discharged from a intermediate facility and presents to the ED due to generalized weakness and unable to take care of himself. Patient was recently admitted for fever of unknown origin. He had extensive workup done and no source of fever could be found. Patient was then transferred to [facility]. Patient states that he was had extensive workup at [facility] and there are also not able to find the source of infection however his fevers did eventually resolve. Sepsis secondary to UTI due to chronic Balbuena catheter Lactic acid has normalized Balbuena catheter changed on 02/08/2022 Urine culture was negative. However urine culture was done after antibodies were given Patient adequately treated with IV Rocephin Patient recently discharged from [facility] and was started on doxycycline for fever of unknown origin. We'll resume doxycycline. Hypomagnesemia Replete as needed Elevated liver enzymes likely due to hepatic steatosis Ultrasound of the liver consistent with hepatic steatosis Patient otherwise asymptomatic Liver enzymes are stable Generalized weakness PT OT consult Left ankle pain likely due to arthritis X-ray of the ankle is negative for any acute fracture Diabetes mellitus with history of DKA in the past Patient requesting for his home dose Humalog 50-50 3 times a day which I will resume while he is here We'll monitor his blood glucose levels. His blood glucose is elevated so we'll also add sliding scale insulin Chronic conditions Prostate cancer chronic Balbuena catheter Chronic anemia Stable DVT prophylaxis subcu heparin 3 times a day Full code Patient is medically stable for discharge to intermediate facility
[2022-02-09 16:26] LABS: Glucose,Whole Blood 250 mg/dL (70-110)
[2022-02-09 20:26] LABS: Glucose,Whole Blood 258 mg/dL (70-110)
[2022-02-09] MEDS: DOXYCYCLINE 100 MG CAP PO SCH (21:46)
[2022-02-09] MEDS: AMITRIPTYLINE HCL 25 MG TAB PO SCH (21:47)
[2022-02-09] MEDS: ATORVASTATIN 40 MG TAB PO SCH (21:47)
[2022-02-10] MEDS: SODIUM CHLORIDE 0.9% 1,000 ML IV SCH ×2 (04:56→16:41)
[2022-02-10 07:03] LABS: Glucose,Whole Blood 145 mg/dL (70-110)
[2022-02-10] MEDS: MULTIVITAMINS, THERA 1 EACH TAB PO SCH (07:11)
[2022-02-10] MEDS: ASPIRIN 81 MG PO SCH (07:11)
[2022-02-10] MEDS: INSULIN LISPRO PROTAMIN SQ SCH ×3 (07:11→16:41)
[2022-02-10] MEDS: DOXYCYCLINE 100 MG CAP PO SCH ×2 (07:11→21:09)
[2022-02-10] MEDS: METOPROLOL TARTRATE 25 MG TAB PO SCH ×2 (07:11→21:09)
[2022-02-10] MEDS: HEPARIN SODIUM,PORCINE/PF 5,000 UNIT/0.5 ML SYRINGE SQ SCH ×2 (07:11→16:41)
[2022-02-10] MEDS: LISPRO SQ SCH ×3 (07:11→16:41)
[2022-02-10] MEDS: BICALUTAMIDE 50 MG TAB PO SCH (07:12)
[2022-02-10] MEDS: INSULIN ASPART (NovoLOG) 100 UNIT/ML VIAL SQ SCH ×4 (07:17→21:09)
[2022-02-10 11:41] LABS: Glucose,Whole Blood 273 mg/dL (70-110)
--- NOTE | 2022-02-10 13:35 | P.PN ---
Subjective Progress Note Date: 02/10/22 Principal diagnosis: Generalized weakness Patient seen this morning is denying any acute complaints. I discussed with the on-call case consultant who said that we are still waiting on prior authorization. Objective - Vital Signs Vital signs: Vital Signs Temp 97.9 F 02/10/22 07:35 Pulse 121 H 02/10/22 07:35 Resp 17 02/10/22 07:35 BP 106/67 02/10/22 07:35 Pulse Ox 95 02/10/22 07:35 FiO2 Intake & Output 02/09/22 02/10/22 02/10/22 18:59 06:59 18:59 Intake Total 1760 Output Total 2800 3000 Balance -2800 -1240 Intake: Intake, IV Titration 1200 Amount Sodium Chloride 0.9% 1, 1200 000 ml @ 100 mls/hr IV . Q10H [facility] Rx#:[id number] Oral 560 Output: Urine 2800 3000 Uretheral (Balbuena) 3000 Other: Voiding Method Indwelling Catheter Indwelling Catheter - Exam General examination - Alert and Oriented 3 in NAD, appears chronically debilitated Heart - + S1S2 no murmurs Lungs - Clear to auscultation Abdomen soft NT ND +ve BS Extremities - No edema, mild swelling around the left ankle DIETETIC AIDE - Moving all 4 extremities spontaneously Psych - Calm and cooperative - Labs CBC & Chem 7: 02/09/22 07:43 02/09/22 07:43 Labs: Abnormal Lab Results - Last 24 Hours (Table) 02/09/22 02/09/22 02/10/22 Range/Units 16:25 20:21 07:02 POC Glucose (mg/dL) 250 H 258 H 145 H (70-110) mg/dL 02/10/22 Range/Units 11:40 POC Glucose (mg/dL) 273 H (70-110) mg/dL Microbiology - Last 24 Hours (Table) 02/05/22 17:00 Blood Culture - Preliminary Blood No Growth after 96 hours 02/05/22 16:45 Blood Culture - Preliminary Blood No Growth after 96 hours Assessment and Plan Assessment: Patient is a 71-year-old male with a past medical history of diabetes mellitus and prostate cancer who was recently [facility] from a [facility] facility and presents to the ED due to generalized weakness and unable to take care of himself. Patient was recently admitted for fever of unknown origin. He had extensive workup done and no source of fever could be found. Patient was then transferred to [facility]. Patient states that he was had extensive workup at [facility] and there are also not able to find the source of infection however his fevers did eventually resolve. Sepsis secondary to UTI due to chronic Balbuena catheter Lactic acid has normalized Balbuena catheter changed on 02/08/2022 Urine culture was negative. However urine culture was done after antibodies were given Patient adequately treated with IV Rocephin Patient recently discharged from [facility] and was started on doxycycline for fever of unknown origin. We'll resume doxycycline and completed the 14 day antibiotic course. Day 2 of 14. Hypomagnesemia Replete as needed Elevated liver enzymes likely due to hepatic steatosis Ultrasound of the liver consistent with hepatic steatosis Patient otherwise asymptomatic Liver enzymes are stable Generalized weakness PT OT consult recommending [facility] facility Left ankle pain likely due to arthritis X-ray of the ankle is negative for any acute fracture Diabetes mellitus with history of DKA in the past Patient requesting for his home dose Humalog 50-50 3 times a day which I will resume while he is here We'll monitor his blood glucose levels. His blood glucose is elevated so we'll also add sliding scale insulin Chronic conditions Prostate cancer chronic Balbuena catheter Chronic anemia Stable DVT prophylaxis subcu heparin 3 times a day Full code Patient is medically stable for discharge to [facility] facility
[2022-02-10 16:40] LABS: Glucose,Whole Blood 140 mg/dL (70-110)
[2022-02-10] MEDS: ACETAMINOPHEN TAB 325 MG TAB PO PRN (16:45)
[2022-02-10 19:49] LABS: Glucose,Whole Blood 156 mg/dL (70-110)
[2022-02-10] MEDS: ATORVASTATIN 40 MG TAB PO SCH (21:09)
[2022-02-10] MEDS: AMITRIPTYLINE HCL 25 MG TAB PO SCH (21:10)
[2022-02-11] MEDS: HEPARIN SODIUM,PORCINE/PF 5,000 UNIT/0.5 ML SYRINGE SQ SCH ×4 (02:10→23:37)
[2022-02-11] MEDS: SODIUM CHLORIDE 0.9% 1,000 ML IV SCH ×3 (02:11→20:27)
[2022-02-11 07:15] LABS: Glucose,Whole Blood 235 mg/dL (70-110)
[2022-02-11] MEDS: INSULIN ASPART (NovoLOG) 100 UNIT/ML VIAL SQ SCH ×4 (07:18→20:39)
[2022-02-11] MEDS: DOXYCYCLINE 100 MG CAP PO SCH ×2 (07:19→20:40)
[2022-02-11] MEDS: ASPIRIN 81 MG PO SCH (07:19)
[2022-02-11] MEDS: BICALUTAMIDE 50 MG TAB PO SCH (07:19)
[2022-02-11] MEDS: ACETAMINOPHEN TAB 325 MG TAB PO PRN (07:19)
[2022-02-11] MEDS: MULTIVITAMINS, THERA 1 EACH TAB PO SCH (07:19)
[2022-02-11] MEDS: INSULIN LISPRO PROTAMIN SQ SCH ×3 (07:20→16:11)
[2022-02-11] MEDS: LISPRO SQ SCH ×3 (07:20→16:11)
[2022-02-11] MEDS: METOPROLOL TARTRATE 25 MG TAB PO SCH (07:20)
[2022-02-11 08:50] LABS: Anisocytosis Slight; Basophils # (A) 0.1 k/uL (0-0.2); Basophils % (A) 1 %; Eosinophils # (A) 0.5 k/uL (0-0.7); Eosinophils % (A) 4 %; HCT 28.1 % (39.0-53.0); HGB 8.7 gm/dL (13.0-17.5); Hypochromasia Moderate; Lymphocytes # (A) 1.9 k/uL (1.0-4.8); Lymphocytes % (A) 13 %; MCH 27.1 pg (25.0-35.0); MCHC 30.8 g/dL (31.0-37.0); Mean Platelet Volume 8.5; Monocytes # (A) 0.8 k/uL (0-1.0); Monocytes % (A) 6 %; Neutrophils # (A) 11.2 k/uL (1.3-7.7); Neutrophils % (A) 77 %; Platelet Count 354 k/uL (150-450); RDW 16.2 % (11.5-15.5); WBC 14.6 k/uL (3.8-10.6)
[2022-02-11 09:09] LABS: African American GFR (CKD) >90 (>60 ml/min/1.73 sqM); Anion Gap 12 mmol/L; Blood Urea Nitrogen 12 mg/dL (9-20); Calcium 7.7 mg/dL (8.4-10.2); Carbon Dioxide 24 mmol/L (22-30); Chloride 94 mmol/L (98-107); Glucose 273 mg/dL (74-99); Non-African American GFR(CKD) >90 (>60 ml/min/1.73 sqM); Potassium 4.3 mmol/L (3.5-5.1); Sodium 130 mmol/L (137-145)
[2022-02-11 11:08] LABS: Glucose,Whole Blood 240 mg/dL (70-110)
--- NOTE | 2022-02-11 11:08 | P.PN ---
Subjective Progress Note Date: 02/11/22 Principal diagnosis: Generalized weakness Patient says then he is feeling hot. He is also complaining of bilateral ankle pain Objective - Vital Signs Vital signs: Vital Signs Temp 98.1 F 02/11/22 07:29 Pulse 128 H 02/11/22 07:29 Resp 17 02/11/22 07:29 BP 106/72 02/11/22 07:29 Pulse Ox 95 02/11/22 07:38 FiO2 Intake & Output 02/10/22 02/11/22 02/11/22 18:59 06:59 18:59 Output Total 2602 200 Balance -2602 -200 Output: Urine 2600 200 Stool 2 Other: Voiding Method Indwelling Catheter - Exam General examination - Alert and Oriented 3 in NAD, appears chronically debilitated Heart - + S1S2 no murmurs Lungs - Clear to auscultation Abdomen soft NT ND +ve BS Extremities - No edema, mild swelling around the left ankle CERTIFIER - Moving all 4 extremities spontaneously Psych - Calm and cooperative - Labs CBC & Chem 7: 02/11/22 08:29 02/11/22 08:29 Labs: Abnormal Lab Results - Last 24 Hours (Table) 02/10/22 02/10/22 02/10/22 Range/Units 11:40 16:38 19:47 WBC (3.8-10.6) k/uL RBC (4.30-5.90) m/uL Hgb (13.0-17.5) gm/dL Hct (39.0-53.0) % MCHC (31.0-37.0) g/dL RDW (11.5-15.5) % Neutrophils # (1.3-7.7) k/uL Sodium (137-145) mmol/L Chloride (98-107) mmol/L Creatinine (0.66-1.25) mg/dL Glucose (74-99) mg/dL POC Glucose (mg/dL) 273 H 140 H 156 H (70-110) mg/dL Calcium (8.4-10.2) mg/dL 02/11/22 02/11/22 02/11/22 Range/Units 07:13 08:29 08:29 WBC 14.6 H (3.8-10.6) k/uL RBC 3.20 L (4.30-5.90) m/uL Hgb 8.7 L (13.0-17.5) gm/dL Hct 28.1 L (39.0-53.0) % MCHC 30.8 L (31.0-37.0) g/dL RDW 16.2 H (11.5-15.5) % Neutrophils # 11.2 H (1.3-7.7) k/uL Sodium 130 L (137-145) mmol/L Chloride 94 L (98-107) mmol/L Creatinine 0.45 L (0.66-1.25) mg/dL Glucose 273 H (74-99) mg/dL POC Glucose (mg/dL) 235 H (70-110) mg/dL Calcium 7.7 L (8.4-10.2) mg/dL Microbiology - Last 24 Hours (Table) 02/05/22 16:45 Blood Culture - Preliminary Blood No Growth after 120 hours 02/05/22 17:00 Blood Culture - Preliminary Blood No Growth after 120 hours Assessment and Plan Assessment: Patient is a 71-year-old male with a past medical history of diabetes mellitus and prostate cancer who was recently discharged from a jail facility and presents to the ED due to generalized weakness and unable to take care of himself. Patient was recently admitted for fever of unknown origin. He had extensive workup done and no source of fever could be found. Patient was then transferred to [facility]. Patient states that he was had extensive workup at [facility] and there are also not able to find the source of infection however his fevers did eventually resolve. Sepsis secondary to UTI due to chronic Balbuena catheter Lactic acid has normalized Balbuena catheter changed on 02/08/2022 Urine culture was negative. However urine culture was done after antibodies were given Patient adequately treated with IV Rocephin Patient continued to have fevers so we'll check a repeat UA to ensure resolution of UTI Fever of unknown origin Patient was recently hospitalized at our hospital and he had extensive workup done that was negative. Patient was then transferred to [facility] and also had extensive workup that was negative. Patient was diagnosed with fever of unknown origin at [facility] and was discharged on doxycycline I have reviewed the records in the chart from [facility] We'll resume doxycycline and complete the 14 day antibiotic course. Day 3 of 14. Hypomagnesemia Replete as needed Elevated liver enzymes likely due to hepatic steatosis Ultrasound of the liver consistent with hepatic steatosis Patient otherwise asymptomatic Liver enzymes are stable Generalized weakness PT OT consult recommending jail facility Bilateral ankle pain suspected due to rheumatoid arthritis X-ray of the ankle is negative for any acute fracture We will start the patient on Medrol Dosepak Diabetes mellitus with history of DKA in the past Patient requesting for his home dose Humalog 50-50 3 times a day which I will resume while he is here We'll monitor his blood glucose levels. His blood glucose is elevated so we'll also add sliding scale insulin Chronic conditions Prostate cancer chronic Balbuena catheter Chronic anemia Stable DVT prophylaxis subcu heparin 3 times a day Full code Patient is medically stable for discharge to jail facility
[2022-02-11] MEDS: methylPREDNISolone 4 MG TAB TAPER PO SCH (11:34)
[2022-02-11 12:54] LABS: Appearance,Urine Clear (Clear); Bacteria,Urine Rare /hpf; Bilirubin,Urine Negative (Negative); Blood,Urine Negative (Negative); Color,Urine Light Yellow; Glucose,Urine (UA) Negative (Negative); Ketones,Urine Negative (Negative); Leukocyte Esterase,Urine Small (Negative); Mucus,Urine Rare /hpf; Nitrite,Urine Negative (Negative); Protein,Urine Negative (Negative); RBC,Urine 5 /hpf (0-5); Specific Gravity,Urine 1.002 (1.001-1.035); Urobilinogen,Urine <2.0 mg/dL (<2.0); WBC,Urine 8 /hpf (0-5)
[2022-02-11 16:05] LABS: Glucose,Whole Blood 338 mg/dL (70-110)
[2022-02-11 20:40] LABS: Glucose,Whole Blood 409 mg/dL (70-110)
[2022-02-11 20:40] LABS: Glucose,Whole Blood 414 mg/dL (70-110)
[2022-02-11] MEDS: AMITRIPTYLINE HCL 25 MG TAB PO SCH (20:40)
[2022-02-11] MEDS: METOPROLOL TARTRATE 50 MG TAB PO SCH (20:40)
[2022-02-11] MEDS: ATORVASTATIN 40 MG TAB PO SCH (20:40)
[2022-02-12] MEDS: SODIUM CHLORIDE 0.9% 1,000 ML IV SCH ×2 (03:40→13:52)
[2022-02-12 07:03] LABS: Glucose,Whole Blood 321 mg/dL (70-110)
[2022-02-12] MEDS: LISPRO SQ SCH ×3 (08:22→17:54)
[2022-02-12] MEDS: HEPARIN SODIUM,PORCINE/PF 5,000 UNIT/0.5 ML SYRINGE SQ SCH ×3 (08:22→23:08)
[2022-02-12] MEDS: INSULIN LISPRO PROTAMIN SQ SCH ×3 (08:22→17:54)
[2022-02-12] MEDS: INSULIN ASPART (NovoLOG) 100 UNIT/ML VIAL SQ SCH ×5 (08:22→23:14)
[2022-02-12] MEDS: MULTIVITAMINS, THERA 1 EACH TAB PO SCH (08:22)
[2022-02-12] MEDS: METOPROLOL TARTRATE 50 MG TAB PO SCH ×2 (08:22→23:08)
[2022-02-12] MEDS: ASPIRIN 81 MG PO SCH (08:22)
[2022-02-12] MEDS: DOXYCYCLINE 100 MG CAP PO SCH ×2 (08:23→23:09)
[2022-02-12] MEDS: methylPREDNISolone 4 MG TAB TAPER PO SCH (08:23)
[2022-02-12] MEDS: BICALUTAMIDE 50 MG TAB PO SCH (08:23)
[2022-02-12 10:38] LABS: Basophils # (A) 0.07 X 10*3/uL (0.00-0.10); Basophils % (A) 0.6 %; Eosinophils # (A) 0.06 X 10*3/uL (0.04-0.35); Eosinophils % (A) 0.5 %; HGB 8.5 g/dL (13.0-17.0); Immature Grans, Automated 3.6 %; Lymphocytes % (A) 17.8 %; MCH 26.8 pg (27.0-32.0); MCHC 30.4 g/dL (32.0-37.0); MCV 88.3 fL (80.0-97.0); Mean Platelet Volume 11.7 fL (9.5-12.2); Monocytes # (A) 0.93 X 10*3/uL (0.20-1.00); Monocytes % (A) 7.5 %; NRBC Per 100 WBC 0 /100 WBCS (0.0-0.0); Neutrophils # (A) 8.66 X 10*3/uL (1.80-7.70); Platelet Count 345 X 10*3/uL (140-440); RBC 3.17 X 10*6/uL (4.40-5.60); WBC 12.37 X 10*3/uL (4.50-10.00)
[2022-02-12 11:27] LABS: African American GFR (CKD) 129.1 (60.0-200.0); Anion Gap 11.7 mmol/L (10.00-18.00); BUN/Creat Ratio 27.23 Ratio (12.00-20.00); Blood Urea Nitrogen 12.5 mg/dL (9.0-27.0); Calcium 8.2 mg/dL (8.7-10.3); Carbon Dioxide 25.1 mmol/L (20.0-27.5); Non-African American GFR(CKD) 111.4 (60.0-200.0); Potassium 4.3 mmol/L (3.5-5.5)
[2022-02-12 11:32] LABS: Glucose,Whole Blood 343 mg/dL (70-110)
--- NOTE | 2022-02-12 12:50 | P.PN ---
Subjective Progress Note Date: 02/12/22 Principal diagnosis: Generalized weakness Patient states that his ankle pain is much better today. Patient has had no fevers in the past 24 hours. I discussed with renal case manager who said that we need updated notes on physical therapy in order to get prior authorization. Objective - Vital Signs Vital signs: Vital Signs Temp 97.6 F 02/12/22 07:40 Pulse 99 02/12/22 07:40 Resp 16 02/12/22 07:40 BP 118/74 02/12/22 07:40 Pulse Ox 95 02/12/22 07:40 FiO2 Intake & Output 02/11/22 02/12/22 02/12/22 18:59 06:59 18:59 Output Total 1753 1800 Balance -1753 -1800 Output: Urine 1750 1800 Stool 3 Other: Voiding Method Indwelling Catheter - Exam General examination - Alert and Oriented 3 in NAD, appears chronically debilitated Heart - + S1S2 no murmurs Lungs - Clear to auscultation Abdomen soft NT ND +ve BS Extremities - No edema, mild swelling around the left ankle MFG ASSOC - Moving all 4 extremities spontaneously Psych - Calm and cooperative - Labs CBC & Chem 7: 02/12/22 07:37 02/12/22 07:37 Labs: Abnormal Lab Results - Last 24 Hours (Table) 02/11/22 02/11/22 02/11/22 Range/Units 12:10 16:03 20:31 WBC (4.50-10.00) X 10*3/uL RBC (4.40-5.60) X 10*6/uL Hgb (13.0-17.0) g/dL Hct (39.6-50.0) % MCH (27.0-32.0) pg MCHC (32.0-37.0) g/dL RDW (11.5-14.5) % Immature Gran # (0.00-0.04) X 10*3/uL Neutrophils # (1.80-7.70) X 10*3/uL Creatinine (0.6-1.5) mg/dL BUN/Creatinine Ratio (12.00-20.00) Ratio Glucose (70-110) mg/dL POC Glucose (mg/dL) 338 H 409 H (70-110) mg/dL Calcium (8.7-10.3) mg/dL Ur Leukocyte Esterase Small H (Negative) Urine WBC 8 H (0-5) /hpf Urine Bacteria Rare H (None) /hpf Urine Mucus Rare H (None) /hpf 02/11/22 02/12/22 02/12/22 Range/Units 20:33 06:56 07:37 WBC 12.37 H (4.50-10.00) X 10*3/uL RBC 3.17 L (4.40-5.60) X 10*6/uL Hgb 8.5 L (13.0-17.0) g/dL Hct 28.0 L (39.6-50.0) % MCH 26.8 L (27.0-32.0) pg MCHC 30.4 L (32.0-37.0) g/dL RDW 16.0 H (11.5-14.5) % Immature Gran # 0.45 H (0.00-0.04) X 10*3/uL Neutrophils # 8.66 H (1.80-7.70) X 10*3/uL Creatinine (0.6-1.5) mg/dL BUN/Creatinine Ratio (12.00-20.00) Ratio Glucose (70-110) mg/dL POC Glucose (mg/dL) 414 H 321 H (70-110) mg/dL Calcium (8.7-10.3) mg/dL Ur Leukocyte Esterase (Negative) Urine WBC (0-5) /hpf Urine Bacteria (None) /hpf Urine Mucus (None) /hpf 02/12/22 02/12/22 Range/Units 07:37 11:31 WBC (4.50-10.00) X 10*3/uL RBC (4.40-5.60) X 10*6/uL Hgb (13.0-17.0) g/dL Hct (39.6-50.0) % MCH (27.0-32.0) pg MCHC (32.0-37.0) g/dL RDW (11.5-14.5) % Immature Gran # (0.00-0.04) X 10*3/uL Neutrophils # (1.80-7.70) X 10*3/uL Creatinine 0.5 L (0.6-1.5) mg/dL BUN/Creatinine Ratio 27.23 H (12.00-20.00) Ratio Glucose 365 H (70-110) mg/dL POC Glucose (mg/dL) 343 H (70-110) mg/dL Calcium 8.2 L (8.7-10.3) mg/dL Ur Leukocyte Esterase (Negative) Urine WBC (0-5) /hpf Urine Bacteria (None) /hpf Urine Mucus (None) /hpf Microbiology - Last 24 Hours (Table) 02/05/22 17:00 Blood Culture - Final Blood No Growth after 144 hours 02/05/22 16:45 Blood Culture - Final Blood No Growth after 144 hours Assessment and Plan Assessment: Patient is a 71-year-old male with a past medical history of diabetes mellitus and prostate cancer who was recently discharged from a long-term facility and presents to the ED due to generalized weakness and unable to take care of himself. Patient was recently admitted for fever of unknown origin. He had extensive workup done and no source of fever could be found. Patient was then transferred to [facility]. Patient states that he was had extensive workup at [facility] and there are also not able to find the source of infection however his fevers did eventually resolve. Sepsis secondary to UTI due to chronic Balbuena catheter Lactic acid has normalized Balbuena catheter changed on 02/08/2022 Urine culture was negative. However urine culture was done after antibiotics were given Patient adequately treated with IV Rocephin Repeat UA was done and negative for UTI Fever of unknown origin Patient was recently hospitalized at our hospital and he had extensive workup done that was negative. Patient was then transferred to [facility] and also had extensive workup that was negative. Patient was diagnosed with fever of unknown origin at [facility] and was discharged on doxycycline I have reviewed the records in the chart from [facility] We'll resume doxycycline and complete the 14 day antibiotic course. Day 4 of 14. Hypomagnesemia Replete as needed Elevated liver enzymes likely due to hepatic steatosis Ultrasound of the liver consistent with hepatic steatosis Patient otherwise asymptomatic Liver enzymes are stable Generalized weakness PT OT consult recommending long-term facility Bilateral ankle pain suspected due to rheumatoid arthritis X-ray of the ankle is negative for any acute fracture Patient started on Medrol Dosepak and ankle pain is much better Diabetes mellitus with history of DKA in the past Increase his home dose Humalog 50-50 (patient brought his insulin from home) to 40 units 3 times a day We'll monitor his blood glucose levels. His blood glucose is elevated so we'll also add sliding scale insulin Chronic conditions Prostate cancer chronic Balbuena catheter Chronic anemia Stable DVT prophylaxis subcu heparin 3 times a day Full code Patient is medically stable for discharge to long-term facility
[2022-02-12 14:00] VITALS: BMI 28.8
[2022-02-12 16:17] LABS: Glucose,Whole Blood 464 mg/dL (70-110)
[2022-02-12 16:33] LABS: Glucose,Whole Blood 462 mg/dL (70-110)
[2022-02-12] MEDS: [UNRECOGNIZED DRUG - OTHER] SQ SCH (17:54)
[2022-02-12] MEDS ORDERED: INSULIN ASPART (NovoLOG) 100 UNIT/ML VIAL SQ ONE (18:00)
[2022-02-12 20:15] LABS: Glucose,Whole Blood 425 mg/dL (70-110)
[2022-02-12] MEDS: ATORVASTATIN 40 MG TAB PO SCH (23:08)
[2022-02-12] MEDS: AMITRIPTYLINE HCL 25 MG TAB PO SCH (23:09)
[2022-02-12 23:14] LABS: Glucose,Whole Blood 272 mg/dL (70-110)
[2022-02-13 06:51] LABS: Glucose,Whole Blood 114 mg/dL (70-110)
[2022-02-13] MEDS: INSULIN ASPART (NovoLOG) 100 UNIT/ML VIAL SQ SCH ×4 (07:29→22:00)
[2022-02-13] MEDS: DOXYCYCLINE 100 MG CAP PO SCH ×2 (08:00→22:00)
[2022-02-13] MEDS: ASPIRIN 81 MG PO SCH (08:00)
[2022-02-13] MEDS: methylPREDNISolone 4 MG TAB TAPER PO SCH (08:00)
[2022-02-13] MEDS: HEPARIN SODIUM,PORCINE/PF 5,000 UNIT/0.5 ML SYRINGE SQ SCH ×2 (08:00→16:49)
[2022-02-13] MEDS: MULTIVITAMINS, THERA 1 EACH TAB PO SCH (08:01)
[2022-02-13] MEDS: METOPROLOL TARTRATE 50 MG TAB PO SCH ×2 (08:01→22:00)
[2022-02-13] MEDS: INSULIN LISPRO PROTAMIN SQ SCH ×3 (08:15→16:49)
[2022-02-13] MEDS: LISPRO SQ SCH ×3 (08:15→16:49)
[2022-02-13] MEDS: [UNRECOGNIZED DRUG - OTHER] SQ SCH ×3 (08:15→16:49)
--- NOTE | 2022-02-13 09:25 | P.PN ---
Subjective Progress Note Date: 02/13/22 Patient is a 71-year-old male with PMH of diabetes mellitus, prostate cancer that presents ED for generalized weakness and inability to take care of himself with his ADLs and IADLs. Of note, he was recently admitted for fever of unknown origin, underwent extensive workup with no source of infection found, transferred to [facility]. [facility] is unable to also find the source of infection and his fevers subsided eventually. His subsequently discharged to group home facility. He presents to today's after going home from SNF. He was noted to have a chronic Balbuena catheter which was changed on 02/08/2022. He was noted to meet sepsis criteria with lactic acidosis on admission. His likely source of infection was urinary. Urine and blood cultures were negative (sample was taken after antibiotic administration). He completed a course of IV Rocephin during this hospitalization. [facility] documentation was reviewed and patient was discharged on doxycycline to complete a total of 14 days. He is currently on day 5 of 14 of doxycycline. He did have hyponatremia which resolved with IV hydration. PT and OT evaluated the patient and recommended SNF. Patient was denied by his insurance. [id number] was done by my colleague Phillip MCGOVERN which resulted in denial for SNF. Patient was seen and examined. No acute events overnight. Patient reports continued weakness. General: non toxic, no distress, appears at stated age Derm: warm, dry Head: atraumatic, normocephalic, symmetric Eyes: EOMI, no lid lag, anicteric sclera Mouth: no lip lesion, mucus membranes moist Cardiovascular: S1S2 reg, no murmur Lungs: CTA bilateral, no rhonchi, no rales , no accessory muscle use Ext: no gross muscle atrophy, no edema, no contractures Neuro: no focal neuro deficits Psych: Alert, oriented, appropriate affect #Sepsis secondary to UTI due to chronic Balbuena catheter #Fever of unknown origin #Transaminitis #Generalized weakness #Bilateral ankle pain suspected due to rheumatoid arthritis #Diabetes mellitus with hyperglycemia, history of DKA in the past Chronic conditions: Prostate cancer with chronic Balbuena catheter, chronic anemia Result: Hyponatremia, hypomagnesemia Patient sepsis is resolved. His leukocytosis is improving to 12.37. He has been afebrile over the past 24 hours. He is completed a course of Rocephin for treatment a UTI. He'll be continued on doxycycline for fever of unknown origin which was extensively worked up at [facility] and [facility] on a previous admission. Today is day 5 of day 14 of doxycycline. His transaminitis is likely related to hepatic steatosis as seen on liver ultrasound. Stable. Continue to monitor. PT and OT recommends group home facility. [id number] done today. Patient denied. X-ray of ankle negative for acute fracture. Pain improving with Medrol Dosepak. Continue Humalog 50-50 40 units 3 times a day. Continue sliding scale along with Accu-Cheks 4 times a day and hypoglycemic precautions. Patient denied [id number] which was done today. FAST appeal underway. Medically stable. Objective - Vital Signs Vital signs: Vital Signs Temp 98.4 F 02/13/22 08:00 Pulse 94 02/13/22 08:00 Resp 18 02/13/22 08:00 BP 107/70 02/13/22 08:00 Pulse Ox 99 02/13/22 08:00 FiO2 Intake & Output 02/12/22 02/13/22 02/13/22 18:59 06:59 18:59 Intake Total 1080 Output Total 1600 3550 Balance -520 -3550 Weight 91.172 kg Intake: Oral 1080 Output: Urine 1600 3550 Other: Voiding Method Indwelling Catheter Indwelling Catheter - Labs CBC & Chem 7: 02/12/22 07:37 02/12/22 07:37 Labs: Abnormal Lab Results - Last 24 Hours (Table) 02/12/22 02/12/22 02/12/22 Range/Units 07:37 07:37 11:31 WBC 12.37 H (4.50-10.00) X 10*3/uL RBC 3.17 L (4.40-5.60) X 10*6/uL Hgb 8.5 L (13.0-17.0) g/dL Hct 28.0 L (39.6-50.0) % MCH 26.8 L (27.0-32.0) pg MCHC 30.4 L (32.0-37.0) g/dL RDW 16.0 H (11.5-14.5) % Immature Gran # 0.45 H (0.00-0.04) X 10*3/uL Neutrophils # 8.66 H (1.80-7.70) X 10*3/uL Creatinine 0.5 L (0.6-1.5) mg/dL BUN/Creatinine Ratio 27.23 H (12.00-20.00) Ratio Glucose 365 H (70-110) mg/dL POC Glucose (mg/dL) 343 H (70-110) mg/dL Calcium 8.2 L (8.7-10.3) mg/dL 02/12/22 02/12/22 02/12/22 Range/Units 16:16 16:31 20:13 WBC (4.50-10.00) X 10*3/uL RBC (4.40-5.60) X 10*6/uL Hgb (13.0-17.0) g/dL Hct (39.6-50.0) % MCH (27.0-32.0) pg MCHC (32.0-37.0) g/dL RDW (11.5-14.5) % Immature Gran # (0.00-0.04) X 10*3/uL Neutrophils # (1.80-7.70) X 10*3/uL Creatinine (0.6-1.5) mg/dL BUN/Creatinine Ratio (12.00-20.00) Ratio Glucose (70-110) mg/dL POC Glucose (mg/dL) 464 H 462 H 425 H (70-110) mg/dL Calcium (8.7-10.3) mg/dL 02/12/22 02/13/22 Range/Units 23:12 06:50 WBC (4.50-10.00) X 10*3/uL RBC (4.40-5.60) X 10*6/uL Hgb (13.0-17.0) g/dL Hct (39.6-50.0) % MCH (27.0-32.0) pg MCHC (32.0-37.0) g/dL RDW (11.5-14.5) % Immature Gran # (0.00-0.04) X 10*3/uL Neutrophils # (1.80-7.70) X 10*3/uL Creatinine (0.6-1.5) mg/dL BUN/Creatinine Ratio (12.00-20.00) Ratio Glucose (70-110) mg/dL POC Glucose (mg/dL) 272 H 114 H (70-110) mg/dL Calcium (8.7-10.3) mg/dL
[2022-02-13] MEDS: BICALUTAMIDE 50 MG TAB PO SCH (09:44)
[2022-02-13 11:36] LABS: Glucose,Whole Blood 307 mg/dL (70-110)
[2022-02-13] MEDS: ACETAMINOPHEN TAB 325 MG TAB PO PRN (14:09)
[2022-02-13 16:24] LABS: Glucose,Whole Blood 432 mg/dL (70-110)
[2022-02-13 20:02] LABS: Glucose,Whole Blood 278 mg/dL (70-110)
[2022-02-13] MEDS: ATORVASTATIN 40 MG TAB PO SCH (22:00)
[2022-02-13] MEDS: AMITRIPTYLINE HCL 25 MG TAB PO SCH (22:00)
[2022-02-14] MEDS: HEPARIN SODIUM,PORCINE/PF 5,000 UNIT/0.5 ML SYRINGE SQ SCH ×2 (01:04→07:45)
[2022-02-14 07:02] LABS: Glucose,Whole Blood 85 mg/dL (70-110)
[2022-02-14] MEDS: INSULIN ASPART (NovoLOG) 100 UNIT/ML VIAL SQ SCH ×2 (07:39→11:53)
[2022-02-14] MEDS: METOPROLOL TARTRATE 50 MG TAB PO SCH (07:45)
[2022-02-14] MEDS: ASPIRIN 81 MG PO SCH (07:45)
[2022-02-14] MEDS: methylPREDNISolone 4 MG TAB TAPER PO SCH (07:45)
[2022-02-14] MEDS: MULTIVITAMINS, THERA 1 EACH TAB PO SCH (07:45)
[2022-02-14] MEDS: DOXYCYCLINE 100 MG CAP PO SCH (07:46)
[2022-02-14] MEDS: BICALUTAMIDE 50 MG TAB PO SCH (08:25)
[2022-02-14] MEDS: [UNRECOGNIZED DRUG - OTHER] SQ SCH ×2 (08:31→11:54)
[2022-02-14] MEDS: LISPRO SQ SCH ×2 (08:31→11:54)
[2022-02-14] MEDS: INSULIN LISPRO PROTAMIN SQ SCH ×2 (08:31→11:54)
--- NOTE | 2022-02-14 10:57 | P.PN ---
Subjective Progress Note Date: 02/14/22 Patient is a 71-year-old male with PMH of diabetes mellitus, prostate cancer that presents ED for generalized weakness and inability to take care of himself with his ADLs and IADLs. Of note, he was recently admitted for fever of unknown origin, underwent extensive workup with no source of infection found, transferred to [facility]. [facility] is unable to also find the source of infection and his fevers subsided eventually. His subsequently discharged to shelter facility. He presents to today's after going home from SNF. He was noted to have a chronic Balbuena catheter which was changed on 02/08/2022. He was noted to meet sepsis criteria with lactic acidosis on admission. His likely source of infection was urinary. Urine and blood cultures were negative (sample was taken after antibiotic administration). He completed a course of IV Rocephin during this hospitalization. [facility] documentation was reviewed and patient was discharged on doxycycline to complete a total of 14 days. He is currently on day 6 of 14 of doxycycline. He did have hyponatremia which resolved with IV hydration. PT and OT evaluated the patient and recommended SNF. Patient was denied by his insurance. [id number] was done by my colleague Phillip MCGOVERN which resulted in denial for SNF. Patient was seen and examined. No acute events overnight. Patient reports continued weakness. General: non toxic, no distress, appears at stated age Derm: warm, dry Head: atraumatic, normocephalic, symmetric Eyes: EOMI, no lid lag, anicteric sclera Mouth: no lip lesion, mucus membranes moist Cardiovascular: S1S2 reg, no murmur Lungs: CTA bilateral, no rhonchi, no rales , no accessory muscle use Ext: no gross muscle atrophy, no edema, no contractures Neuro: no focal neuro deficits Psych: Alert, oriented, appropriate affect #Sepsis secondary to UTI due to chronic Balbuena catheter #Fever of unknown origin #Transaminitis #Generalized weakness #Bilateral ankle pain suspected due to rheumatoid arthritis #Diabetes mellitus with hyperglycemia, history of DKA in the past Chronic conditions: Prostate cancer with chronic Balbuena catheter, chronic anemia Result: Hyponatremia, hypomagnesemia Patient sepsis is resolved. His leukocytosis is improving to 12.37. He has been afebrile over the past 24 hours. He is completed a course of Rocephin for treatment a UTI. He'll be continued on doxycycline for fever of unknown origin which was extensively worked up at [facility] and [facility] on a previous admission. Today is day 6 of day 14 of doxycycline. His transaminitis is likely related to hepatic steatosis as seen on liver ultrasound. Stable. Continue to monitor. PT and OT recommends shelter facility. [id number] done today. Patient denied. X-ray of ankle negative for acute fracture. Pain improving with Medrol Dosepak. Continue Humalog 50-50 40 units 3 times a day. Continue sliding scale along with Accu-Cheks 4 times a day and hypoglycemic precautions. Patient denied [id number] which was done today. FAST appeal underway. Medically stable. Unsafe to be discharged home. Objective - Vital Signs Vital signs: Vital Signs Temp 98.6 F 02/14/22 07:43 Pulse 113 H 02/14/22 07:50 Resp 18 02/14/22 07:50 BP 134/95 02/14/22 07:43 Pulse Ox 96 02/14/22 07:43 FiO2 Intake & Output 02/13/22 02/14/22 02/14/22 18:59 06:59 18:59 Intake Total 2040 Output Total 3250 4800 Balance -1210 -4800 Intake: Oral 2040 Output: Urine 3250 4800 Other: Voiding Method Indwelling Catheter Indwelling Catheter Indwelling Catheter # Bowel Movements 2 - Labs CBC & Chem 7: 02/12/22 07:37 02/12/22 07:37 Labs: Abnormal Lab Results - Last 24 Hours (Table) 02/13/22 02/13/22 02/13/22 Range/Units 11:35 16:22 20:00 POC Glucose (mg/dL) 307 H 432 H 278 H (70-110) mg/dL
[2022-02-14 11:45] LABS: Glucose,Whole Blood 330 mg/dL (70-110)
--- NOTE | 2022-02-14 14:00 | P.DS ---
Providers Date of admission: 02/05/22 22:10 Expected date of discharge: 02/14/22 Attending physician: Gregoria Freire MD Primary care physician: Joe Aragon MD Hospital Course: Patient is a 71-year-old male with PMH of diabetes mellitus, prostate cancer that presents ED for generalized weakness and inability to take care of himself with his ADLs and IADLs. Of note, he was recently admitted for fever of unknown origin, underwent extensive workup with no source of infection found, transferred to [facility]. [facility] is unable to also find the source of infection and his fevers subsided eventually. His subsequently discharged to shelter facility. He presents to today's after going home from SNF. He was noted to have a chronic Balbuena catheter which was changed on 02/08/2022. He was noted to meet sepsis criteria with lactic acidosis on admission. His likely source of infection was urinary. Urine and blood cultures were negative (sample was taken after antibiotic administration). He completed a course of IV Rocephin during this hospitalization. [facility] documentation was reviewed and patient was discharged on doxycycline to complete a total of 14 days. He is currently on day 6 of 14 of doxycycline. He did have hyponatremia which resolved with IV hydration. PT and OT evaluated the patient and recommended SNF. Patient was denied by his insurance. [id number] was done by my colleague Phillip MCGOVERN which resulted in denial for SNF. FAST appeal was done and patient was accepted to SNF. Discharge Diagnosis: #Sepsis secondary to UTI due to chronic Balbuena catheter #Fever of unknown origin #Transaminitis #Generalized weakness #Bilateral ankle pain suspected due to rheumatoid arthritis #Diabetes mellitus with hyperglycemia, history of DKA in the past Chronic conditions: Prostate cancer with chronic Balbuena catheter, chronic anemia Result: Hyponatremia, hypomagnesemia This complex discharge took 35 minutes to complete. Patient Condition at Discharge: Stable Plan - Discharge Summary Discharge Rx Participant: No New Discharge Prescriptions: New methylPREDNISolone Dose Pack [Medrol Dose Pack] 4 mg PO DIRECTED #1 packet Calcium Carbonate [Tums] 1,000 mg PO Q4HR PRN tab PRN Reason: Dyspepsia Doxycycline [Vibramycin] 100 mg PO BID 8 Days cap Docusate [Colace] 100 mg PO BID PRN cap PRN Reason: Constipation Acetaminophen Tab [Tylenol] 650 mg PO Q6HR PRN tab PRN Reason: Fever And/ Or Pain Continue Bicalutamide [Casodex] 50 mg PO DAILY Amitriptyline HCl [Elavil] 25 mg PO HS Aspirin EC [Ecotrin Low Dose] 81 mg PO DAILY Multivit-Min/FA/Lycopen/Lutein [Centrum Silver Men Tablet] 1 tab PO DAILY metFORMIN HCL 1,000 mg PO BID Metoprolol Tartrate [Lopressor] 25 mg PO BID glipiZIDE [Glucotrol] 10 mg PO DAILY Insulin Lispro Protamin/Lispro [humaLOG Mix 50-50 Kwikpen] 30 units SQ TID- W/MEALS Atorvastatin Calcium 40 mg PO HS methocarbamoL [Methocarbamol] 1,000 mg PO QID PRN PRN Reason: Muscle Pain Discharge Medication List Amitriptyline HCl [Elavil] 25 mg PO HS 12/13/21 [History] Aspirin EC [Ecotrin Low Dose] 81 mg PO DAILY 12/13/21 [History] Bicalutamide [Casodex] 50 mg PO DAILY 12/13/21 [History] Atorvastatin Calcium 40 mg PO HS 02/05/22 [History] Insulin Lispro Protamin/Lispro [humaLOG Mix 50-50 Kwikpen] 30 units SQ TID- W/MEALS 02/05/22 [History] Metoprolol Tartrate [Lopressor] 25 mg PO BID 02/05/22 [History] Multivit-Min/FA/Lycopen/Lutein [Centrum Silver Men Tablet] 1 tab PO DAILY 02/05/22 [History] glipiZIDE [Glucotrol] 10 mg PO DAILY 02/05/22 [History] metFORMIN HCL 1,000 mg PO BID 02/05/22 [History] methocarbamoL [Methocarbamol] 1,000 mg PO QID PRN 02/05/22 [History] Acetaminophen Tab [Tylenol] 650 mg PO Q6HR PRN tab 02/14/22 [Rx] Calcium Carbonate [Tums] 1,000 mg PO Q4HR PRN tab 02/14/22 [Rx] Docusate [Colace] 100 mg PO BID PRN cap 02/14/22 [Rx] Doxycycline [Vibramycin] 100 mg PO BID 8 Days cap 02/14/22 [Rx] methylPREDNISolone Dose Pack [Medrol Dose Pack] 4 mg PO DIRECTED #1 packet 02/14/22 [Rx] Follow up Appointment(s)/Referral(s): Joe Aragon MD [Primary Care Provider] - 1-2 Days Activity/Diet/Wound Care/Special Instructions: Diet: Diabetic Follow-up with your PCP within 1-2 days of discharge. Take all medications as advised. Discharge Disposition: TRANSFER TO SNF/ECF
[2022-02-14 14:12] VITALS: BP 111/66; PULSE 106; RESP 17; TEMP 98.1
== END 2022-02-14 16:30 | DRG 698 ==
LOC: EC 16:16 → 4SSUR 22:10
PROVIDERS: ADMIT Internal Medicine; ATTEND Internal Medicine
DX: T83.511A Infection and inflammatory reaction due to indwelling urethral catheter, initial encounter (principal); A41.9 Sepsis, unspecified organism; E87.2 Acidosis; E87.1 Hypo-osmolality and hyponatremia; K76.0 Fatty (change of) liver, not elsewhere classified; D64.9 Anemia, unspecified; E11.65 Type 2 diabetes mellitus with hyperglycemia; M06.9 Rheumatoid arthritis, unspecified; L89.151 Pressure ulcer of sacral region, stage 1; N30.90 Cystitis, unspecified without hematuria; E83.42 Hypomagnesemia; I45.10 Unspecified right bundle-branch block; R00.0 Tachycardia, unspecified; M25.472 Effusion, left ankle; R53.81 Other malaise; W19.XXXA Unspecified fall, initial encounter; Y84.6 Urinary catheterization as the cause of abnormal reaction of the patient, or of later complication, without mention of misadventure at the time of the procedure; Z79.82 Long term (current) use of aspirin; Z79.4 Long term (current) use of insulin; Z79.899 Other long term (current) drug therapy; Z79.84 Long term (current) use of oral hypoglycemic drugs; Z88.0 Allergy status to penicillin; Z88.5 Allergy status to narcotic agent; Z28.310 Unvaccinated for COVID-19; Y92.009 Unspecified place in unspecified non-institutional (private) residence as the place of occurrence of the external cause; Z85.46 Personal history of malignant neoplasm of prostate
CPT/HCPCS: 36415; 70450; 71046; 76705; 80048; 80053; 81001; 83605; 83735; 83880; 84484; 85025; 85610; 85730; 87040; 87086; 93005; 94760; 96361; 96365; 96368; 99285

== ENCOUNTER 2022-04-26 15:53 | Observation (INO) | payer MEDICARE ==
[2022-04-26] MEDS ORDERED: METOCLOPRAMIDE 5 MG/ML 2 ML VIAL IVP STA (17:43)
[2022-04-26] MEDS ORDERED: SODIUM CHLORIDE 0.9% 500 ML 500 ML IV STA (17:43)
[2022-04-26] MEDS ORDERED: diphenhydrAMINE 50 MG/ML 1 ML VIAL IVP STA (17:43)
[2022-04-26] MEDS ORDERED: KETOROLAC 15 MG/ML 1 ML VIAL IVP STA (17:43)
--- NOTE | 2022-04-26 17:45 | ED ---
Headache HPI - General Chief Complaint: Headache Stated Complaint: Headache Time Seen by Provider: 04/26/22 16:05 Mode of arrival: EMS Limitations: no limitations - History of Present Illness Initial Comments: This patient is 71-year-old man [facility] to have evaluation of right frontotemporal headache. He states that it had come on last night at nights between 11 and midnight. He states that it became more intense and is now the worst headache ever. The patient did try Tylenol without much relief. He has not noted any fevers or chills. No neck stiffness. No neurologic symptoms. MD Complaint: headache Onset/Timin -: hour(s) Onset Description: sudden Location: right, temporal Severity: severe Quality: aching Consistency: constant Improves With: nothing Worsens With: none Treatments Prior to Arrival: Acetaminophen - Related Data Home Medications Medication Instructions Recorded Confirmed Amitriptyline HCl [Elavil] 25 mg PO HS 12/13/21 04/26/22 Aspirin EC [Ecotrin Low Dose] 81 mg PO DAILY 12/13/21 04/26/22 Bicalutamide [Casodex] 50 mg PO DAILY 12/13/21 04/26/22 Atorvastatin Calcium 40 mg PO HS 02/05/22 04/26/22 Metoprolol Tartrate [Lopressor] 25 mg PO BID 02/05/22 04/26/22 Multivit-Min/FA/Lycopen/Lutein 1 tab PO DAILY 02/05/22 04/26/22 [Centrum Silver Men Tablet] metFORMIN HCL 500 mg PO BID 02/05/22 04/26/22 methocarbamoL [Methocarbamol] 1,000 mg PO Q6H PRN 02/05/22 04/26/22 Ferrous Sulfate [Iron (65 MG 325 mg PO HS 04/26/22 04/26/22 Elemental)] Insulin Lispro [humaLOG Kwikpen] 30 unit SQ AC-TID 04/26/22 04/26/22 Previous Rx's Medication Instructions Recorded Acetaminophen Tab [Tylenol] 650 mg PO Q6HR PRN tab 02/14/22 Calcium Carbonate [Tums] 1,000 mg PO Q4HR PRN tab 02/14/22 Famotidine [Pepcid] 20 mg PO BID tab 04/30/22 Insulin Glargine-Yfgn [Semglee 60 units SQ HS #0 04/30/22 (Yfgn) Pen] Psyllium Husk 100% [Metamucil 6 gm PO DAILY #1 packet 04/30/22 Packet] predniSONE [Deltasone] 40 mg PO DAILY #1 tab 04/30/22 Allergies Allergy/AdvReac Type Severity Reaction Status Date / Time amoxicillin [From Augmentin] AdvReac Vomiting Verified 04/26/22 19:23 clavulanic acid AdvReac Vomiting Verified 04/26/22 19:23 [From Augmentin] hydromorphone [From Dilaudid] AdvReac Vomiting Verified 04/26/22 19:23 Review of Systems ROS Statement: Those systems with pertinent positive or pertinent negative responses have been documented in the HPI. ROS Other: All systems not noted in ROS Statement are negative. Constitutional: Denies: fever, chills, weakness Eyes: Denies: eye pain, vision change ENT: Denies: ear pain, hearing loss, congestion Respiratory: Denies: cough, dyspnea Cardiovascular: Denies: chest pain, palpitations, syncope Gastrointestinal: Denies: abdominal pain, vomiting Musculoskeletal: Denies: back pain Neurological: Reports: headache. Denies: weakness, numbness, paresthesias, confusion Past Medical History Past Medical History: Cancer, Diabetes Mellitus Additional Past Medical History / Comment(s): prostate cancer, harper cath History of Any Multi-Drug Resistant Organisms: None Reported Past Surgical History: No Surgical Hx Reported Past Anesthesia/Blood Transfusion Reactions: No Reported Reaction Past Psychological History: No Psychological Hx Reported Smoking Status: Never smoker Past Alcohol Use History: None Reported Past Drug Use History: None Reported - Past Family History Father Family Medical History: Cancer General Exam Limitations: no limitations General appearance: alert, in no apparent distress Head exam: Present: atraumatic, normocephalic Eye exam: Present: normal appearance, PERRL, EOMI. Absent: scleral icterus, conjunctival injection, nystagmus ENT exam: Present: mucous membranes dry Neck exam: Present: normal inspection, full ROM. Absent: tenderness, meningismus Respiratory exam: Present: normal lung sounds bilaterally. Absent: respiratory distress, wheezes, rales, rhonchi, stridor Cardiovascular Exam: Present: regular rate, normal rhythm, normal heart sounds. Absent: systolic murmur, diastolic murmur, rubs, gallop GI/Abdominal exam: Present: soft. Absent: distended, tenderness, guarding, rebound, rigid, mass Extremities exam: Present: normal inspection, normal capillary refill. Absent: pedal edema, calf tenderness Neurological exam: Present: alert, oriented X3, CN II-XII intact. Absent: motor sensory deficit Skin exam: Present: warm, dry, intact, normal color. Absent: rash Course Vital Signs 04/26/22 04/26/22 04/26/22 15:55 17:14 19:00 Temperature 97.6 F 99.0 F 98.6 F Pulse Rate 105 H 96 98 Respiratory 18 18 18 Rate Blood Pressure 120/79 120/79 110/74 O2 Sat by Pulse 97 96 95 Oximetry 04/26/22 04/26/22 04/26/22 20:00 21:00 22:00 Temperature Pulse Rate 110 H 112 H 110 H Respiratory 18 18 18 Rate Blood Pressure 116/71 119/76 112/73 O2 Sat by Pulse 97 95 95 Oximetry 04/27/22 04/27/22 04/27/22 06:06 06:30 09:31 Temperature 97.8 F Pulse Rate 108 H 110 H 117 H Respiratory 18 15 18 Rate Blood Pressure 122/77 111/78 121/81 O2 Sat by Pulse 98 100 94 L Oximetry 04/27/22 11:54 Temperature Pulse Rate 110 H Respiratory 18 Rate Blood Pressure 128/86 O2 Sat by Pulse 98 Oximetry Medical Decision Making - Medical Decision Making Computed tomography scan of the brain performed for worse headache of life. I interpreted the computed tomography scan has not showing acute bleed or mass effect. This patient is 71-year-old man who is having right-sided frontotemporal headache. On exam there is some tenderness at that area. The labs do have elevated markers of inflammation. The computed tomography scan does not reveal any intracranial etiology for headache. There is concern for possible temporal arteritis. Patient administered Solu-Medrol, discussed with admitting physician and will have asked neurosurgery see the patient regarding temporal artery biopsy. - Lab Data Result diagrams: 04/26/22 19:00 04/26/22 19:00 Lab Results 04/26/22 04/26/22 Range/Units 19:00 19:00 WBC 12.9 H (3.8-10.6) k/uL RBC 4.26 L (4.30-5.90) m/uL Hgb 11.4 L (13.0-17.5) gm/dL Hct 35.0 L (39.0-53.0) % MCV 82.2 (80.0-100.0) fL MCH 26.7 (25.0-35.0) pg MCHC 32.5 (31.0-37.0) g/dL RDW 15.0 (11.5-15.5) % Plt Count 295 (150-450) k/uL MPV 8.8 Neutrophils % 61 % Lymphocytes % 22 % Monocytes % 10 % Eosinophils % 4 % Basophils % 1 % Neutrophils # 7.9 H (1.3-7.7) k/uL Lymphocytes # 2.8 (1.0-4.8) k/uL Monocytes # 1.2 H (0-1.0) k/uL Eosinophils # 0.6 (0-0.7) k/uL Basophils # 0.1 (0-0.2) k/uL ESR 113 H (0-15) mm/hr Sodium 135 L (137-145) mmol/L Potassium 4.7 (3.5-5.1) mmol/L Chloride 100 (98-107) mmol/L Carbon Dioxide 26 (22-30) mmol/L Anion Gap 9 mmol/L BUN 17 (9-20) mg/dL Creatinine 0.41 L (0.66-1.25) mg/dL Est GFR (CKD-EPI)AfAm >90 (>60 ml/min/1.73 sqM) Est GFR (CKD-EPI)NonAf >90 (>60 ml/min/1.73 sqM) Glucose 176 H (74-99) mg/dL Calcium 8.9 (8.4-10.2) mg/dL C-Reactive Protein 5.9 H (<1.0) mg/dL Disposition Clinical Impression: Temporal arteritis, Headache Disposition: ADMITTED IP TO THIS HOSP Condition: Fair Is patient prescribed a controlled substance at d/c from ED?: No Time of Disposition: 21:00
--- NOTE | 2022-04-26 18:29 | CT ---
EXAMINATION: CT brain wo con DATE AND TIME: 04/26/2022 6:03 PM CLINICAL INDICATION: PHH; Right headache TECHNIQUE: Standard departmental protocol.; 1078.4; COMPARISON: 02/05/2022 FINDINGS: The calvarium is intact. There is no intracranial hemorrhage. There is no intracranial mass or mass effect. No definite new intra-axial or extra-axial attenuation defect. The paranasal sinuses, middle ear cavities, and mastoid sinus air cells are clear. The orbits are unremarkable. IMPRESSION: NO ACUTE PROCESS.
[2022-04-26 19:36] LABS: Basophils # (A) 0.1 k/uL (0-0.2); Basophils % (A) 1 %; Eosinophils # (A) 0.6 k/uL (0-0.7); Eosinophils % (A) 4 %; HGB 11.4 gm/dL (13.0-17.5); Lymphocytes # (A) 2.8 k/uL (1.0-4.8); Lymphocytes % (A) 22 %; MCH 26.7 pg (25.0-35.0); MCHC 32.5 g/dL (31.0-37.0); MCV 82.2 fL (80.0-100.0); Mean Platelet Volume 8.8; Monocytes # (A) 1.2 k/uL (0-1.0); Monocytes % (A) 10 %; Neutrophils # (A) 7.9 k/uL (1.3-7.7); Neutrophils % (A) 61 %; Platelet Count 295 k/uL (150-450); RBC 4.26 m/uL (4.30-5.90); WBC 12.9 k/uL (3.8-10.6)
[2022-04-26 19:50] LABS: African American GFR (CKD) >90 (>60 ml/min/1.73 sqM); Anion Gap 9 mmol/L; Blood Urea Nitrogen 17 mg/dL (9-20); Calcium 8.9 mg/dL (8.4-10.2); Carbon Dioxide 26 mmol/L (22-30); Chloride 100 mmol/L (98-107); Glucose 176 mg/dL (74-99); Non-African American GFR(CKD) >90 (>60 ml/min/1.73 sqM); Potassium 4.7 mmol/L (3.5-5.1); Sodium 135 mmol/L (137-145)
[2022-04-26 20:12] LABS: C Reactive Protein 5.9 mg/dL (<1.0)
[2022-04-26] MEDS ORDERED: MORPHINE SULFATE 4 MG/ML SYRINGE IVP STA (20:17)
[2022-04-26 20:26] LABS: Erythrocyte Sedimentation Rate 113 mm/hr (0-15)
[2022-04-26] MEDS ORDERED: methylPREDNISolone SOD SUCCIN 1,000 MG in SODIUM CHLORIDE 0.9% 250 ML IVPB SCH (21:00)
[2022-04-26] MEDS ORDERED: NALOXONE 0.4 MG/ML 1 ML VIAL IV PRN (21:01)
[2022-04-26] MEDS ORDERED: MORPHINE SULFATE 4 MG/ML SYRINGE IV PRN (21:01)
[2022-04-26] MEDS: SODIUM CHLORIDE 0.9% 1,000 ML IV SCH (21:43)
[2022-04-26] MEDS ORDERED: methocarbamoL 500 MG TAB PO PRN (21:44)
[2022-04-26 22:04] LABS: Glucose,Whole Blood 230 mg/dL (70-110)
[2022-04-26] MEDS ORDERED: INSULIN DETEMIR (LEVEMIR) 100 UNIT/ML SYR SQ SCH (23:15)
[2022-04-27 09:13] LABS: Glucose,Whole Blood 509 mg/dL (70-110)
[2022-04-27] MEDS: INSULIN ASPART (NovoLOG) 100 UNIT/ML VIAL SQ SCH ×3 (09:17→17:51)
[2022-04-27] MEDS: METOPROLOL TARTRATE 25 MG TAB PO SCH ×2 (09:18→20:42)
[2022-04-27] MEDS: ASPIRIN 81 MG PO SCH (09:18)
[2022-04-27] MEDS: metFORMIN 500 MG TAB PO SCH ×2 (09:18→20:43)
[2022-04-27] MEDS: FAMOTIDINE 20 MG TAB PO SCH ×2 (09:18→20:42)
[2022-04-27] MEDS: BICALUTAMIDE 50 MG TAB PO SCH (09:28)
[2022-04-27 11:31] LABS: Glucose,Whole Blood 465 mg/dL (70-110)
[2022-04-27 17:20] LABS: Glucose,Whole Blood 440 mg/dL (70-110)
--- NOTE | 2022-04-27 17:30 | P.HPIM ---
History of Present Illness H&P Date: 04/27/22 Chief Complaint: Severe headache This is a pleasant 71-year-old patient, follows with Dr. Allen. Chronic stable medical conditions include diabetes, hypertension, hypothyroid, diagnoses of prostate cancer. Being followed by Dr. Andrea. Patient states he has had hospitalizations to different hospitals including [facility], and other hospitals. They haven't been able to find why he is not really able to walk. Patient also been to rehab twice. Currently staying with a caregiver. Patient yesterday started having severe headache in the right temporal lobe are a. He felt his IV was put on Pulmicort. No fever no chills. They lasted the whole day last night. Did get Toradol for that she improved. Patient's ESR came back at 113 and CRP at 5.9. Patient started IV Solu-Medrol. This afternoon pain is better. Dr. Cleveland was consulted for a temporal artery biopsy. No change in vision. Review of systems: GEN.: Tired EYES: No change in vision] HEENT: Headache, resolved NECK: None RESPIRATORY: None CARDIOVASCULAR: None GASTROINTESTINAL: None GENITOURINARY: Chronic Harper MUSCULOSKELETAL: Muscle weakness LYMPHATICS: None HEMATOLOGICAL: None PSYCHIATRY: None NEUROLOGICAL: 1 extremity weakness Past medical history to include: Diabetes, hypertension, hypothyroid, prostate cancer Social history: No smoking and I'll call. 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 Currently lives with her friend. Physical examination: VITAL SIGNS: 97.6, 105, 18, 120/79, 97% room air upon presentation GENERAL: BMI 27.9, declining but awake, not in distress. EYES: Pupils equal. Conjunctiva normal. HEENT: External appearance of nose and ears normal, oral cavity grossly normal. NECK: JVD not raised; masses not palpable. HEART: First and second heart sounds are normal; no edema. LUNGS: Respiratory rate normal; clear to auscultation. ABDOMEN: Soft, nontender, liver spleen not palpable, no masses palpable. PSYCH: Alert and oriented x3; mood and affect normal. MUSCULOSKELETAL:No Clubbing/cyanosis;muscles-grossly intact, some OA NEUROLOGICAL: [Cranial nerves grossly intact; no facial asymmetry, able to lift both his legs off the bed. LYMPHATICS: No lymph nodes palpable in the axilla and neck INVESTIGATIONS, reviewed in the clinical context: White count 12.9 hemoglobin 11.4 platelets are 95 potassium 4.7 BUN 17 creatinine 0.41 ESR [address] brain without contrast: Unremarkable Assessment plan: -Acute severe right temporal area severe cephalgia. Associated with elevated ESR/CRP. Considering temporal arteritis. Patient responded well to IV dose of methylprednisolone. Given the ER. We'll start the patient on oral prednisone. Consultations Dr. Cleveland for temporal artery biopsy. -Diabetes mellitus type 2, on oral hypoglycemic, uncontrolled with hyperglycemia secondary to steroids Increase p.m. dose of Levemir to 45 units. Follow sliding scale. -Chronic insomnia Elavil at night -Hyperlipidemia Lipitor 40 mg daily at bedtime -Essential hypertension Lopressor 25 mg twice a day -Chronic lower extremity paresis. Cause unknown. Patient has several workup including [facility]. Patient is seated IV without prednisone. Change to prednisone. Follow insulin. Resume home medications. Subcu Lovenox. Dr. Cleveland consulted for temporal artery biopsy. Discussed with patient. Order CT angiogram of the brain to rule out any other cause. Past Medical History Past Medical History: Cancer, Diabetes Mellitus Additional Past Medical History / Comment(s): prostate cancer, harper cath History of Any Multi-Drug Resistant Organisms: None Reported Past Surgical History: No Surgical Hx Reported Past Anesthesia/Blood Transfusion Reactions: No Reported Reaction Past Psychological History: No Psychological Hx Reported Smoking Status: Never smoker Past Alcohol Use History: None Reported Past Drug Use History: None Reported - Past Family History Father Family Medical History: Cancer Medications and Allergies Home Medications Medication Instructions Recorded Confirmed Type Amitriptyline HCl [Elavil] 25 mg PO HS 12/13/21 04/26/22 History Aspirin EC [Ecotrin Low Dose] 81 mg PO DAILY 12/13/21 04/26/22 History Bicalutamide [Casodex] 50 mg PO DAILY 12/13/21 04/26/22 History Atorvastatin Calcium 40 mg PO HS 02/05/22 04/26/22 History Metoprolol Tartrate [Lopressor] 25 mg PO BID 02/05/22 04/26/22 History Multivit-Min/FA/Lycopen/Lutein 1 tab PO DAILY 02/05/22 04/26/22 History [Centrum Silver Men Tablet] metFORMIN HCL 500 mg PO BID 02/05/22 04/26/22 History methocarbamoL [Methocarbamol] 1,000 mg PO Q6H PRN 02/05/22 04/26/22 History Acetaminophen Tab [Tylenol] 650 mg PO Q6HR PRN tab 02/14/22 04/26/22 Rx Calcium Carbonate [Tums] 1,000 mg PO Q4HR PRN tab 02/14/22 04/26/22 Rx Docusate [Colace] 100 mg PO HS 04/26/22 04/26/22 History Ferrous Sulfate [Feosol] 325 mg PO HS 04/26/22 04/26/22 History Insulin Glargine-Yfgn [Semglee 30 units SQ HS 04/26/22 04/26/22 History (Yfgn) Pen] Insulin Lispro [humaLOG Kwikpen] 30 unit SQ AC-TID 04/26/22 04/26/22 History Allergies Allergy/AdvReac Type Severity Reaction Status Date / Time amoxicillin [From Augmentin] AdvReac Vomiting Verified 04/26/22 19:23 clavulanic acid AdvReac Vomiting Verified 04/26/22 19:23 [From Augmentin] hydromorphone [From Dilaudid] AdvReac Vomiting Verified 04/26/22 19:23 Physical Exam Vitals: Vital Signs Temp Pulse Pulse Resp BP BP Pulse Ox 04/27/22 12:30 97.5 F L 110 H 22 120/74 96 04/27/22 11:54 110 H 18 128/86 98 04/27/22 09:31 97.8 F 117 H 18 121/81 94 L 04/27/22 06:30 110 H 15 111/78 100 04/27/22 06:06 108 H 18 122/77 98 04/26/22 22:00 110 H 18 112/73 95 04/26/22 21:00 112 H 18 119/76 95 04/26/22 20:00 110 H 18 116/71 97 04/26/22 19:00 98.6 F 98 18 110/74 95 04/26/22 17:14 99.0 F 96 18 120/79 96 04/26/22 15:55 97.6 F 105 H 18 120/79 97 Intake and Output 04/26/22 04/27/22 04/27/22 22:59 06:59 14:59 Output Total 600 1850 Balance -600 -1850 Output: Urine 600 1850 Other: Weight 85.729 kg 85.729 kg Results CBC & Chem 7: 04/26/22 19:00 04/26/22 19:00 Labs: Abnormal Lab Results - Last 24 Hours (Table) 04/26/22 04/26/22 04/26/22 Range/Units 19:00 19:00 22:01 WBC 12.9 H (3.8-10.6) k/uL RBC 4.26 L (4.30-5.90) m/uL Hgb 11.4 L (13.0-17.5) gm/dL Hct 35.0 L (39.0-53.0) % Neutrophils # 7.9 H (1.3-7.7) k/uL Monocytes # 1.2 H (0-1.0) k/uL ESR 113 H (0-15) mm/hr Sodium 135 L (137-145) mmol/L Creatinine 0.41 L (0.66-1.25) mg/dL Glucose 176 H (74-99) mg/dL POC Glucose (mg/dL) 230 H (70-110) mg/dL C-Reactive Protein 5.9 H (<1.0) mg/dL 04/27/22 04/27/22 Range/Units 09:11 11:29 WBC (3.8-10.6) k/uL RBC (4.30-5.90) m/uL Hgb (13.0-17.5) gm/dL Hct (39.0-53.0) % Neutrophils # (1.3-7.7) k/uL Monocytes # (0-1.0) k/uL ESR (0-15) mm/hr Sodium (137-145) mmol/L Creatinine (0.66-1.25) mg/dL Glucose (74-99) mg/dL POC Glucose (mg/dL) 509 H 465 H (70-110) mg/dL C-Reactive Protein (<1.0) mg/dL Thrombosis Risk Factor Assmnt - Choose All That Apply Each Risk Factor Represents 2 Points: Age 61-74 years Thrombosis Risk Factor Assessment Total Risk Factor Score: 2 Thrombosis Risk Factor Assessment Level: Low Risk
[2022-04-27] MEDS: ENOXAPARIN 40 MG/0.4 ML SYRINGE SQ SCH (17:51)
--- NOTE | 2022-04-27 19:58 | CT ---
EXAMINATION TYPE: CT angio head CT DLP: 138.1 mGycm, Automated exposure control for dose reduction was used. DATE OF EXAM: 04/27/2022 6:47 PM COMPARISON: CT brain same day.. CLINICAL INDICATION:Male, 71 years old with history of Severe temporal headache, improved; , Severe t emporal headache. Has now improved TECHNIQUE: Axially acquired helical CT angiogram of the head and neck was obtained with contrast util izing 65 cc of Isovue-370 administered intravenously. Axial images are supplemented with 3D reconstru ctions which were post-processed at an independent workstation. NASCET criteria used. FINDINGS: No evidence of acute intracranial hemorrhage, mass effect, or midline shift. The ventricles, sulci, a nd cisterns are unremarkable. The visualized portions of the internal carotid arteries, middle cerebral arteries, anterior cerebral arteries, and posterior cerebral arteries are patent. The basilar and vertebral arteries are patent. IMPRESSION: No evidence of high-grade stenosis or intracranial aneurysm.
[2022-04-27 20:38] LABS: Glucose,Whole Blood 486 mg/dL (70-110)
[2022-04-27] MEDS: ATORVASTATIN 40 MG TAB PO SCH (20:42)
[2022-04-27] MEDS: predniSONE 20 MG TAB PO SCH (20:42)
[2022-04-27] MEDS: DOCUSATE 100 MG CAP PO SCH (20:42)
[2022-04-27] MEDS: FERROUS SULFATE 325 MG TAB PO SCH (20:42)
[2022-04-27] MEDS: SODIUM CHLORIDE 0.9% 1,000 ML IV SCH (20:45)
[2022-04-27] MEDS ORDERED: INSULIN DETEMIR (LEVEMIR) 100 UNIT/ML SYR SQ SCH (21:00)
[2022-04-27] MEDS: AMITRIPTYLINE HCL 25 MG TAB PO SCH (21:02)
--- NOTE | 2022-04-27 22:51 | CONS ---
DATE OF CONSULTATION: 04/27/2022 HISTORY OF PRESENT ILLNESS: This is a 71-year-old gentleman. The patient came to the emergency room with history of severe headache, frontoparietal region, which responded to the pain medication. The patient had no nausea, vomiting, or any dizzy spell. The patient had a CT scan of the brain, which was negative. His ESR is 131. PAST MEDICAL HISTORY: The patient has a history of trauma in the past. He has difficulty in walking. The patient also has a history of diabetes, hypertension. PHYSICAL EXAMINATION: NECK: Supple. No bruit appreciated. CHEST: Clear. Good air entry in both lungs. HEART: First and second sounds were present. VASCULAR: Brachial, radial, and femoral pulses were present. Discussed with the patient about right temporal artery biopsy. The patient wants to think about it and want to talk to his family. The patient is on steroids, which will be continued. If all okay, we will do Saturday morning 8 a.m. Risk and complications discussed. MMEMERSON / SAHRAN: [id number] / JACKELYN
[2022-04-28 06:31] LABS: Glucose,Whole Blood 376 mg/dL (70-110)
[2022-04-28] MEDS: ASPIRIN 81 MG PO SCH (07:35)
[2022-04-28] MEDS: INSULIN ASPART (NovoLOG) 100 UNIT/ML VIAL SQ SCH ×3 (07:35→17:49)
[2022-04-28] MEDS: BICALUTAMIDE 50 MG TAB PO SCH (07:35)
[2022-04-28] MEDS: METOPROLOL TARTRATE 25 MG TAB PO SCH ×2 (07:35→21:43)
[2022-04-28] MEDS: ENOXAPARIN 40 MG/0.4 ML SYRINGE SQ SCH (07:35)
[2022-04-28] MEDS: metFORMIN 500 MG TAB PO SCH ×2 (07:35→21:43)
[2022-04-28] MEDS: FAMOTIDINE 20 MG TAB PO SCH ×2 (07:35→21:43)
[2022-04-28 12:41] LABS: Glucose,Whole Blood 281 mg/dL (70-110)
--- NOTE | 2022-04-28 13:47 | P.PN ---
Progress Note - Text Progress Note Date: 04/28/22 Chief Complaint: Severe headache This is a pleasant 71-year-old patient, follows with Dr. Allen. Chronic stable medical conditions include diabetes, hypertension, hypothyroid, diagnoses of prostate cancer. Being followed by Dr. Andrea. Patient states he has had hospitalizations to different hospitals including [facility], and other hospitals. They haven't been able to find why he is not really able to walk. Patient also been to rehab twice. Currently staying with a caregiver. Patient yesterday started having severe headache in the right temporal lobe area. He felt his IV was put on Pulmicort. No fever no chills. They lasted the whole day last night. Did get Toradol for that she improved. Patient's ESR came back at 113 and CRP at 5.9. Patient started IV Solu-Medrol. This afternoon pain is better. Dr. Cleveland was consulted for a temporal artery biopsy. No change in vision. 04/28/2022: On prednisone 40 mg. A temporal artery biopsy tomorrow. Patient is agreed. The patient sit up on a chair. Feels better. No headache no visual sy mptoms. Because of difficulty walking consideration to polymyalgia rheumatica. C hold off steroids helped the patient. PTOT consult. Active Medications Acetaminophen (Acetaminophen Tab 325 Mg Tab) 650 mg PO Q6HR PRN PRN Reason: Mild Pain or Fever > 100.5 Amitriptyline HCl (Amitriptyline Hcl 25 Mg Tab) 25 mg PO HS [facility] Last Admin: 04/27/22 21:02 Dose: 25 mg Aspirin (Aspirin 81 Mg) 81 mg PO DAILY [facility] Last Admin: 04/28/22 07:35 Dose: 81 mg Atorvastatin Calcium (Atorvastatin 40 Mg Tab) 40 mg PO [facility] Last Admin: 04/27/22 20:42 Dose: 40 mg Bicalutamide (Bicalutamide 50 Mg Tab) 50 mg PO DAILY [facility] Last Admin: 04/28/22 07:35 Dose: 50 mg Docusate Sodium (Docusate 100 Mg Cap) 100 mg PO [facility] Last Admin: 04/27/22 20:42 Dose: 100 mg Enoxaparin Sodium (Enoxaparin 40 Mg/0.4 Ml Syringe) 40 mg SQ DAILY [facility] Last Admin: 04/28/22 07:35 Dose: 40 mg Famotidine (Famotidine 20 Mg Tab) 20 mg PO BID [facility] Last Admin: 04/28/22 07:35 Dose: 20 mg Ferrous Sulfate (Ferrous Sulfate 325 Mg Tab) 325 mg PO [facility] Last Admin: 04/27/22 20:42 Dose: 325 mg Sodium Chloride (Saline 0.9%) 1,000 mls @ 20 mls/hr IV .Q24H [facility] Last Admin: 04/27/22 20:45 Dose: 20 mls/hr Insulin Aspart (Insulin Aspart (Novolog) 100 Unit/Ml Vial) 30 unit SQ AC-TID [facility] Last Admin: 04/28/22 13:02 Dose: 30 unit Insulin Detemir (Insulin Detemir (Levemir) 100 Unit/Ml Syr) 55 unit SQ [facility] Metformin HCl (Metformin 500 Mg Tab) 500 mg PO BID [facility] Last Admin: 04/28/22 07:35 Dose: 500 mg Methocarbamol (Methocarbamol 500 Mg Tab) 1,000 mg PO Q6H PRN PRN Reason: Muscle Pain Metoprolol Tartrate (Metoprolol Tartrate 25 Mg Tab) 25 mg PO BID [facility] Last Admin: 04/28/22 07:35 Dose: 25 mg Naloxone HCl (Naloxone 0.4 Mg/Ml 1 Ml Vial) 0.2 mg IV Q2M PRN PRN Reason: Opioid Reversal Prednisone (Prednisone 20 Mg Tab) 40 mg PO [facility] Last Admin: 04/27/22 20:42 Dose: 40 mg Past medical history to include: Diabetes, hypertension, hypothyroid, prostate cancer Social history: No smoking and I'll call. 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 Currently lives with her friend. Physical examination: VITAL SIGNS: 97.5, 93, 18, 11 7 x 71, 98% room air GENERAL: Reclining, comfortable. EYES: Pupils equal. Conjunctiva normal. HEENT: External appearance of nose and ears normal, oral cavity grossly normal. NECK: JVD not raised; masses not palpable. HEART: First and second heart sounds are normal; no edema. LUNGS: Respiratory rate normal; clear to auscultation. ABDOMEN: Soft, nontender, liver spleen not palpable, no masses palpable. PSYCH: Alert and oriented x3; mood and affect normal. MUSCULOSKELETAL:No Clubbing/cyanosis;muscles-grossly intact, some OA NEUROLOGICAL: [Cranial nerves grossly intact; no facial asymmetry, able to lift both his legs off the bed. INVESTIGATIONS, reviewed in the clinical context: 04/28/2022: ESR 104 CRP 3.6 White count 12.9 hemoglobin 11.4 platelets are 95 potassium 4.7 BUN 17 creatinine 0.41 ESR [address] brain without contrast: Unremarkable Assessment plan: -Acute severe right temporal area severe cephalgia. Associated with elevated ESR/CRP. Considering temporal arteritis. responded well to IV dose of methylprednisolone. Given the ER. Change to on oral prednisone [address] Cleveland for temporal artery biopsy, scheduled for tomorrow. -Diabetes mellitus type 2, on oral hypoglycemic, uncontrolled with hyperglycemia secondary to steroids Increase p.m. dose of Levemir to 45 units. Follow sliding scale. -Chronic insomnia Elavil at night -Hyperlipidemia Lipitor 40 mg daily at bedtime -Essential hypertension Lopressor 25 mg twice a day -Chronic lower extremity paresis. Cause unknown. Consider polymyalgia rheumatica. On prednisone. Patient has several workup i ncluding [facility]. Discussed with patient. Prednisone 40. Increase Levemir at night. For temporal artery biopsy tomorrow. PTOT.
[2022-04-28 17:30] LABS: Glucose,Whole Blood 208 mg/dL (70-110)
[2022-04-28] MEDS ORDERED: INSULIN DETEMIR (LEVEMIR) 100 UNIT/ML SYR SQ SCH (21:00)
[2022-04-28 21:33] LABS: Glucose,Whole Blood 140 mg/dL (70-110)
[2022-04-28] MEDS: FERROUS SULFATE 325 MG TAB PO SCH (21:43)
[2022-04-28] MEDS: predniSONE 20 MG TAB PO SCH (21:43)
[2022-04-28] MEDS: AMITRIPTYLINE HCL 25 MG TAB PO SCH (21:43)
[2022-04-28] MEDS: ATORVASTATIN 40 MG TAB PO SCH (21:43)
[2022-04-28] MEDS: DOCUSATE 100 MG CAP PO SCH (21:43)
[2022-04-28] MEDS: ACETAMINOPHEN TAB 325 MG TAB PO PRN (21:47)
[2022-04-28] MEDS: SODIUM CHLORIDE 0.9% 1,000 ML IV SCH (21:48)
[2022-04-29] MEDS ORDERED: LIDOCAINE 1% INJ 10MG/ML (30 ML VIAL-PF) SQ ONE ×2 (08:15)
[2022-04-29] MEDS ORDERED: LACTATED RINGERS 1,000 ML IV ONE (08:15)
[2022-04-29] MEDS ORDERED: fentaNYL (PF) 50 MCG/ML 2 ML AMP ONE (08:15)
[2022-04-29] MEDS ORDERED: PROPOFOL 10 MG/ML 20 ML VIAL IV ONE (08:15)
[2022-04-29] MEDS ORDERED: MIDAZOLAM 2 MG/2 ML VIAL ONE (08:15)
[2022-04-29] MEDS: INSULIN ASPART (NovoLOG) 100 UNIT/ML VIAL SQ SCH ×4 (09:16→17:36)
--- NOTE | 2022-04-29 09:19 | P.PCN ---
Description of Procedure: Diagnoses Right temporal arteritis. Same Procedure right temporal artery biopsy to the operating room right temporal area was prepped and draped applied in standard manner local and IV sedation incision was made at the temporal region and deepened through skin fat and fascia was divided temporal artery was dissected proximally and distally there were side branches which were suture ligated temporal artery was quite inflamed femoral artery was divided and sent for pathology suture ligated a proximal and distally hemostasis were well controlled blood losses were sent to cc incision was closed with 2 layer U using 3-0 Monocryl subcuticular dressing applied patient are to the procedure well
[2022-04-29 09:35] LABS: Glucose,Whole Blood 334 mg/dL (70-110)
[2022-04-29] MEDS: metFORMIN 500 MG TAB PO SCH ×2 (10:40→20:59)
[2022-04-29] MEDS: FAMOTIDINE 20 MG TAB PO SCH ×2 (10:40→20:59)
[2022-04-29] MEDS: BICALUTAMIDE 50 MG TAB PO SCH (10:40)
[2022-04-29] MEDS: ASPIRIN 81 MG PO SCH (10:40)
[2022-04-29] MEDS: METOPROLOL TARTRATE 25 MG TAB PO SCH ×2 (10:41→20:59)
[2022-04-29] MEDS: ENOXAPARIN 40 MG/0.4 ML SYRINGE SQ SCH (10:41)
[2022-04-29 12:03] LABS: Glucose,Whole Blood 280 mg/dL (70-110)
[2022-04-29 12:43] LABS: Glucose,Whole Blood 260 mg/dL (70-110)
--- NOTE | 2022-04-29 16:50 | P.PN ---
Progress Note - Text Progress Note Date: 04/29/22 Chief Complaint: Severe headache This is a pleasant 71-year-old patient, follows with Dr. Allen. Chronic stable medical conditions include diabetes, hypertension, hypothyroid, diagnoses of prostate cancer. Being followed by Dr. Andrea. Patient states he has had hospitalizations to different hospitals including [facility], and other hospitals. They haven't been able to find why he is not really able to walk. Patient also been to rehab twice. Currently staying with a caregiver. Patient yesterday started having severe headache in the right temporal lobe area. He felt his IV was put on Pulmicort. No fever no chills. They lasted the whole day last night. Did get Toradol for that she improved. Patient's ESR came back at 113 and CRP at 5.9. Patient started IV Solu-Medrol. This afternoon pain is better. Dr. Cleveland was consulted for a temporal artery biopsy. No change in vision. 04/28/2022: On prednisone 40 mg. A temporal artery biopsy tomorrow. Patient is agreed. The patient sit up on a chair. Feels better. No headache no visual sy mptoms. Because of difficulty walking consideration to polymyalgia rheumatica. C hold off steroids helped the patient. PTOT consult. 04/29/2022: Patient had temporal artery biopsy done by Dr. Cleveland. Care was discussed with the patient and the sister the bedside. Patient return to rehab tomorrow. Increase prednisone to 60 mg. Has a clinical diagnosis of giant cell arteritis/polymyalgia rheumatica Active Medications Acetaminophen (Acetaminophen Tab 325 Mg Tab) 650 mg PO Q6HR PRN PRN Reason: Mild Pain or Fever > 100.5 Last Admin: 04/28/22 21:47 Dose: 650 mg Amitriptyline HCl (Amitriptyline Hcl 25 Mg Tab) 25 mg PO HS [facility] Last Admin: 04/28/22 21:43 Dose: 25 mg Aspirin (Aspirin 81 Mg) 81 mg PO DAILY [facility] Last Admin: 04/29/22 10:40 Dose: 81 mg Atorvastatin Calcium (Atorvastatin 40 Mg Tab) 40 mg PO HS [facility] Last Admin: 04/28/22 21:43 Dose: 40 mg Bicalutamide (Bicalutamide 50 Mg Tab) 50 mg PO DAILY [facility] Last Admin: 04/29/22 10:40 Dose: 50 mg Docusate Sodium (Docusate 100 Mg Cap) 100 mg PO [facility] Last Admin: 04/28/22 21:43 Dose: 100 mg Enoxaparin Sodium (Enoxaparin 40 Mg/0.4 Ml Syringe) 40 mg SQ DAILY [facility] Last Admin: 04/29/22 10:41 Dose: 40 mg Famotidine (Famotidine 20 Mg Tab) 20 mg PO BID [facility] Last Admin: 04/29/22 10:40 Dose: 20 mg Ferrous Sulfate (Ferrous Sulfate 325 Mg Tab) 325 mg PO [facility] Last Admin: 04/28/22 21:43 Dose: 325 mg Sodium Chloride (Saline 0.9%) 1,000 mls @ 20 mls/hr IV .Q24H [facility] Last Admin: 04/28/22 21:48 Dose: 20 mls/hr Insulin Aspart (Insulin Aspart (Novolog) 100 Unit/Ml Vial) 30 unit SQ AC-TID [facility] Last Admin: 04/29/22 12:52 Dose: 30 unit Insulin Detemir (Insulin Detemir (Levemir) 100 Unit/Ml Syr) 66 unit SQ [facility] Metformin HCl (Metformin 500 Mg Tab) 500 mg PO BID [facility] Last Admin: 04/29/22 10:40 Dose: 500 mg Methocarbamol (Methocarbamol 500 Mg Tab) 1,000 mg PO Q6H PRN PRN Reason: Muscle Pain Metoprolol Tartrate (Metoprolol Tartrate 25 Mg Tab) 25 mg PO BID [facility] Last Admin: 04/29/22 10:41 Dose: 25 mg Naloxone HCl (Naloxone 0.4 Mg/Ml 1 Ml Vial) 0.2 mg IV Q2M PRN PRN Reason: Opioid Reversal Prednisone (Prednisone 20 Mg Tab) 60 mg PO [facility] Past medical history to include: Diabetes, hypertension, hypothyroid, prostate cancer Social history: No smoking and I'll call. Used to work in [employer] line at [employer]. Currently lives with her friend. Physical examination: VITAL SIGNS: 98, 92, 16, 108/74, 98% room air GENERAL: Reclining, comfortable. EYES: Pupils equal. Conjunctiva normal. HEENT: External appearance of nose and ears normal, oral cavity grossly normal. Dressing over biopsy site right temporal NECK: JVD not raised; masses not palpable. HEART: First and second heart sounds are normal; no edema. LUNGS: Respiratory rate normal; clear to auscultation. ABDOMEN: Soft, nontender, liver spleen not palpable, no masses palpable. PSYCH: Alert and oriented x3; mood and affect normal. MUSCULOSKELETAL:No Clubbing/cyanosis;muscles-grossly intact, some OA INVESTIGATIONS, reviewed in the clinical context: 04/28/2022: ESR 104 CRP 3.6 White count 12.9 hemoglobin 11.4 platelets are 95 potassium 4.7 BUN 17 creatinine 0.41 ESR [address] brain without contrast: Unremarkable Assessment plan: -Clinical diagnosis of giant cell arteritis/polymyalgia rheumatica Increase prednisone to 60 mg daily. Had temporal artery biopsy Dr. Cleveland today. -Diabetes mellitus type 2, on oral hypoglycemic, uncontrolled with hyperglycemia secondary to steroids Increase p.m. dose of Levemir to 66 units. Follow sliding scale. -Chronic insomnia Elavil at night -Hyperlipidemia Lipitor 40 mg daily at bedtime -Essential hypertension Lopressor 25 mg twice a day -Chronic lower extremity paresis. Cause unknown. Consider polymyalgia rheumatica. On prednisone. Patient has several workup including [facility]. Increase prednisone to 60 mg per status post temporal artery biopsy. Patient to return to rehab tomorrow. Discussed with the patient and sister at the bedside.
[2022-04-29 16:51] LABS: Glucose,Whole Blood 182 mg/dL (70-110)
[2022-04-29 20:42] LABS: Glucose,Whole Blood 131 mg/dL (70-110)
[2022-04-29] MEDS: ATORVASTATIN 40 MG TAB PO SCH (20:59)
[2022-04-29] MEDS: AMITRIPTYLINE HCL 25 MG TAB PO SCH (20:59)
[2022-04-29] MEDS: ACETAMINOPHEN TAB 325 MG TAB PO PRN (20:59)
[2022-04-29] MEDS: DOCUSATE 100 MG CAP PO SCH (20:59)
[2022-04-29] MEDS ORDERED: predniSONE 20 MG TAB PO SCH (21:00)
[2022-04-29] MEDS: FERROUS SULFATE 325 MG TAB PO SCH (21:00)
[2022-04-29] MEDS ORDERED: INSULIN DETEMIR (LEVEMIR) 100 UNIT/ML SYR SQ SCH (21:00)
[2022-04-29] MEDS: SODIUM CHLORIDE 0.9% 1,000 ML IV SCH (21:00)
[2022-04-30 08:02] LABS: Glucose,Whole Blood 136 mg/dL (70-110)
[2022-04-30 08:24] VITALS: RESP 16
[2022-04-30] MEDS: FAMOTIDINE 20 MG TAB PO SCH (09:18)
[2022-04-30] MEDS: metFORMIN 500 MG TAB PO SCH (09:18)
[2022-04-30] MEDS: ASPIRIN 81 MG PO SCH (09:18)
[2022-04-30] MEDS: ENOXAPARIN 40 MG/0.4 ML SYRINGE SQ SCH (09:18)
[2022-04-30] MEDS: METOPROLOL TARTRATE 25 MG TAB PO SCH (09:18)
[2022-04-30] MEDS: INSULIN ASPART (NovoLOG) 100 UNIT/ML VIAL SQ SCH ×2 (09:19→12:49)
[2022-04-30] MEDS: BICALUTAMIDE 50 MG TAB PO SCH (09:24)
[2022-04-30 12:33] LABS: Glucose,Whole Blood 210 mg/dL (70-110)
[2022-04-30] MEDS: ACETAMINOPHEN TAB 325 MG TAB PO PRN (13:49)
--- NOTE | 2022-04-30 14:17 | P.DS ---
Providers Date of admission: 04/26/22 21:01 Expected date of discharge: 04/30/22 Attending physician: Victorino Murcia Consults: 04/26/22 21:01 Consult Physician Routine Consulting Provider: Thang Anne Consult Reason/Comments: Possible temporal arteritis Do you want consulting provider notified?: Yes Primary care physician: [facility] Course: Chief Complaint: Severe headache This is a pleasant 71-year-old patient, follows with Dr. Allen. Chronic stable medical conditions include diabetes, hypertension, hypothyroid, diagnoses of prostate cancer. Being followed by Dr. Andrea. Patient states he has had hospitalizations to different hospitals including [facility], and other hospitals. They haven't been able to find why he is not really able to walk. Patient also been to rehab twice. Currently staying with a caregiver. Patient yesterday started having severe headache in the right temporal lobe area. He felt his IV was put on Pulmicort. No fever no chills. They lasted the whole day last night. Did get Toradol for that she improved. Patient's ESR came back at 113 and CRP at 5.9. Patient started IV Solu-Medrol. This afternoon pain is better. Dr. Cleveland was consulted for a temporal artery biopsy. No change in vision. 04/28/2022: On prednisone 40 mg. A temporal artery biopsy tomorrow. Patient is agreed. The patient sit up on a chair. Feels better. No headache no visual symptoms. Because of difficulty walking consideration to polymyalgia rheumatica. C hold off steroids helped the patient. PTOT consult. 04/29/2022: Patient had temporal artery biopsy done by Dr. Cleveland. Care was discussed with the patient and the sister the bedside. Patient return to rehab tomorrow. Increase prednisone to 60 mg. Has a clinical diagnosis of giant cell arteritis/polymyalgia rheumatica 04/30/2022: Patient follow-up in the office with Dr. Cleveland. Also follow-up with his jersey knitter Dr. Austin. Patient has weakness in the muscles. Changed to prednisone 40 mg a day. Since then no specific guidelines to changes steroids and PMR would consider dropping by 10 mg every 2 weeks depending on clinical course. Discussed with patient. Patient should have biweekly ESR/CRP. Discussion and discharge planning more than 35 minutes Past medical history to include: Diabetes, hypertension, hypothyroid, prostate cancer Social history: No smoking and I'll call. Used to work in [employer] line at [employer]. Currently lives with her friend. Physical examination: VITAL SIGNS: 98, 94, 16, 06/19/1985, 98% room air GENERAL: Reclining, comfortable. EYES: Pupils equal. Conjunctiva normal. HEENT: External appearance of nose and ears normal, oral cavity grossly normal. Dressing over biopsy site right temporal NECK: JVD not raised; masses not palpable. HEART: First and second heart sounds are normal; no edema. LUNGS: Respiratory rate normal; clear to auscultation. ABDOMEN: Soft, nontender, liver spleen not palpable, no masses palpable. PSYCH: Alert and oriented x3; mood and affect normal. MUSCULOSKELETAL:No Clubbing/cyanosis;muscles-grossly intact, some OA INVESTIGATIONS, reviewed in the clinical context: 04/28/2022: ESR 104 CRP 3.6 White count 12.9 hemoglobin 11.4 platelets are 95 potassium 4.7 BUN 17 creatinine 0.41 ESR [address] brain without contrast: Unremarkable Assessment plan: -Clinical diagnosis of giant cell arteritis/polymyalgia rheumatica prednisone to 40 mg daily. Suggest decreased by 5-10 mg every 2 weeks. Had temporal artery biopsy Dr. Cleveland , results pending. Patient to follow-up with Dr. Cleveland. Also follow with Dr. Austin from rheumatology. -Diabetes mellitus type 2, on oral hypoglycemic, uncontrolled with hyperglycemia secondary to steroids p.m. dose of Levemir to 60 units. Follow sliding scale. -Chronic insomnia Elavil at night -Hyperlipidemia Lipitor 40 mg daily at bedtime -Essential hypertension Lopressor 25 mg twice a day -Chronic lower extremity paresis. Cause unknown. Consider polymyalgia rheumatica. On prednisone. Patient has several workup including [facility]. [facility] Condition at Discharge: Fair Plan - Discharge Summary New Discharge Prescriptions: New predniSONE [Deltasone] 60 mg PO HS tab Psyllium Husk 100% [Metamucil Packet] 6 gm PO DAILY #1 packet Famotidine [Pepcid] 20 mg PO BID tab Continue Bicalutamide [Casodex] 50 mg PO DAILY Amitriptyline HCl [Elavil] 25 mg PO HS Aspirin EC [Ecotrin Low Dose] 81 mg PO DAILY Multivit-Min/FA/Lycopen/Lutein [Centrum Silver Men Tablet] 1 tab PO DAILY Calcium Carbonate [Tums] 1,000 mg PO Q4HR PRN tab PRN Reason: Dyspepsia metFORMIN HCL 500 mg PO BID Metoprolol Tartrate [Lopressor] 25 mg PO BID Atorvastatin Calcium 40 mg PO HS methocarbamoL [Methocarbamol] 1,000 mg PO Q6H PRN PRN Reason: Muscle Pain Acetaminophen Tab [Tylenol] 650 mg PO Q6HR PRN tab PRN Reason: Fever And/ Or Pain Insulin Lispro [humaLOG Kwikpen] 30 unit SQ AC-TID Ferrous Sulfate [Iron (65 MG Elemental)] 325 mg PO HS Changed Insulin Glargine-Yfgn [Semglee (Yfgn) Pen] 60 units SQ HS #0 Discontinued Docusate [Colace] 100 mg PO HS Discharge Medication List Amitriptyline HCl [Elavil] 25 mg PO HS 12/13/21 [History] Aspirin EC [Ecotrin Low Dose] 81 mg PO DAILY 12/13/21 [History] Bicalutamide [Casodex] 50 mg PO DAILY 12/13/21 [History] Atorvastatin Calcium 40 mg PO HS 02/05/22 [History] Metoprolol Tartrate [Lopressor] 25 mg PO BID 02/05/22 [History] Multivit-Min/FA/Lycopen/Lutein [Centrum Silver Men Tablet] 1 tab PO DAILY 02/05/22 [History] metFORMIN HCL 500 mg PO BID 02/05/22 [History] methocarbamoL [Methocarbamol] 1,000 mg PO Q6H PRN 02/05/22 [History] Acetaminophen Tab [Tylenol] 650 mg PO Q6HR PRN tab 02/14/22 [Rx] Calcium Carbonate [Tums] 1,000 mg PO Q4HR PRN tab 02/14/22 [Rx] Ferrous Sulfate [Iron (65 MG Elemental)] 325 mg PO HS 04/26/22 [History] Insulin Lispro [humaLOG Kwikpen] 30 unit SQ AC-TID 04/26/22 [History] Famotidine [Pepcid] 20 mg PO BID tab 04/30/22 [Rx] Insulin Glargine-Yfgn [Semglee (Yfgn) Pen] 60 units SQ HS #0 04/30/22 [Rx] Psyllium Husk 100% [Metamucil Packet] 6 gm PO DAILY #1 packet 04/30/22 [Rx] predniSONE [Deltasone] 60 mg PO HS tab 04/30/22 [Rx] Follow up Appointment(s)/Referral(s): Sarbjit Allen DO [Primary Care Provider] - 1-2 days Bonnie Austin MD [STAFF PHYSICIAN] - 2 Weeks (PMR) Thang Anne MD [STAFF PHYSICIAN] - 1 Week
[2022-04-30 16:23] VITALS: BP 108/62; PULSE 59; TEMP 97.4
--- NOTE | 2022-04-30 20:59 | PN ---
PROGRESS NOTE A 71-year-old gentleman. We did the right temporal artery biopsy. Incision site is healing. Pathology is pending. The patient will go home on prednisone per Dr. Murcia, and I will see him in my office this . DAY / IJN: [id number] /
== END 2022-04-30 16:52 ==
LOC: EC 15:53 → 6NMEDSUR 21:01
PROVIDERS: ADMIT Hospitalist; ATTEND Hospitalist
DX: R51.9 Headache, unspecified (principal); R26.2 Difficulty in walking, not elsewhere classified; C61 Malignant neoplasm of prostate; E11.65 Type 2 diabetes mellitus with hyperglycemia; I10 Essential (primary) hypertension; E03.9 Hypothyroidism, unspecified; G47.00 Insomnia, unspecified; E78.5 Hyperlipidemia, unspecified; T38.0X5A Adverse effect of glucocorticoids and synthetic analogues, initial encounter; Z79.82 Long term (current) use of aspirin; Z79.899 Other long term (current) drug therapy; Z79.84 Long term (current) use of oral hypoglycemic drugs; Z79.4 Long term (current) use of insulin; Z88.1 Allergy status to other antibiotic agents; Z88.6 Allergy status to analgesic agent
CPT/HCPCS: 37609; 96372 ×4; 96360; 96365; 96375; 99285; 36415; 97162; 97167; 88305; 80048; 85652 ×2; 85025; 86140 ×2; 70496; 70450; G0378 ×5; J2250; J2270; J1200; J2765; J2930; J2001; J1650 ×4; J3010; J1885; J2704; J7512 ×3; Q9967

== ENCOUNTER 2022-11-26 05:49 | Day surgery (SDC) | payer MEDICARE, OTHER ==
[2022-11-19 10:17] VITALS: BMI 34.4
[~2022-11-26 05:49] MED LIST: ACETAMINOPHEN TAB 500 MG TAB PO PRN; HEPARIN SODIUM,PORCINE/PF 5,000 UNIT/0.5 ML SYRINGE SQ PRN; Pre Op ABX Message 1 EACH MISC MISCELLANE ONE
[2022-11-26] MEDS ORDERED: DEXAMETHASONE SOD PHOSPHATE 4 MG/ML 1 ML VIAL IV ONE (05:56)
[2022-11-26] MEDS ORDERED: LACTATED RINGERS 1,000 ML IV SCH (05:56)
[2022-11-26] MEDS ORDERED: MIDAZOLAM 2 MG/2 ML VIAL IV PRN (05:56)
[2022-11-26] MEDS ORDERED: ONDANSETRON 4 MG/2 ML VIAL IVP ONE (05:56)
[2022-11-26 06:51] VITALS: TEMP 98.7
[2022-11-26 06:51] LABS: Glucose,Whole Blood 193 mg/dL (70-110)
[2022-11-26] MEDS ORDERED: fentaNYL (PF) 50 MCG/ML 2 ML AMP IV PRN (07:00)
[2022-11-26 07:24] LABS: Basophils # (A) 0.1 k/uL (0-0.2); Basophils % (A) 1 %; Eosinophils # (A) 0.3 k/uL (0-0.7); Eosinophils % (A) 3 %; HCT 37.2 % (39.0-53.0); HGB 12.3 gm/dL (13.0-17.5); Lymphocytes # (A) 2.4 k/uL (1.0-4.8); Lymphocytes % (A) 18 %; MCH 30.8 pg (25.0-35.0); MCHC 33.1 g/dL (31.0-37.0); MCV 93.1 fL (80.0-100.0); Mean Platelet Volume 9.1; Monocytes # (A) 1.5 k/uL (0-1.0); Monocytes % (A) 11 %; Neutrophils # (A) 8.8 k/uL (1.3-7.7); Neutrophils % (A) 66 %; Platelet Count 241 k/uL (150-450); RBC 3.99 m/uL (4.30-5.90); RDW 13.9 % (11.5-15.5); WBC 13.5 k/uL (3.8-10.6)
--- NOTE | 2022-11-26 07:28 | P.GSHP ---
History of Present Illness H&P Date: 11/26/22 Chief Complaint: Muscle weakness 72-year-old male seen in the office in August. Patient stays at a local [facility]. He has been there since last fall because of frequent falls. Patient has had progressive weakness. Right lower extremity worse than left. He has had elevated CPK levels. He has been scheduled for muscle biopsy on a few occasions but missed his surgery dates. Today he presents complaining of nausea and vomiting for the last 2 days. He describes muscle aches diffusely. He has a headache. He is tachycardic. Past Medical History Past Medical History: Asthma, Cancer, Diabetes Mellitus, GERD/Reflux, Hyperlip idemia, Hypertension, Osteoarthritis (OA), Rheumatoid Arthritis (RA) Additional Past Medical History / Comment(s): prostate cancer, harper cath(chronic), UTI, non ambulatory, anemia, migraines History of Any Multi-Drug Resistant Organisms: None Reported Past Surgical History: No Surgical Hx Reported Past Anesthesia/Blood Transfusion Reactions: No Reported Reaction Smoking Status: Never smoker - Past Family History Father Family Medical History: Cancer Medications and Allergies Home Medications Medication Instructions Recorded Confirmed Type Amitriptyline HCl [Elavil] 25 mg PO HS 12/13/21 11/19/22 History Aspirin EC [Ecotrin Low Dose] 81 mg PO DAILY 12/13/21 11/19/22 History Bicalutamide [Casodex] 50 mg PO DAILY 12/13/21 11/19/22 History Atorvastatin Calcium 40 mg PO HS 02/05/22 11/19/22 History Metoprolol Tartrate [Lopressor] 25 mg PO BID 02/05/22 11/19/22 History metFORMIN HCL 1,000 mg PO BID 02/05/22 11/19/22 History Ferrous Sulfate [Iron (65 MG 325 mg PO DIRECTED 04/26/22 11/19/22 History Elemental)] Insulin Glargine-Yfgn [Semglee 60 units SQ HS #0 04/30/22 11/19/22 Rx (Yfgn) Pen] Dulaglutide [Trulicity] 1.5 mg SQ Q7D 10/18/22 11/19/22 History INSULIN LISPRO (humaLOG) [humaLOG] 16 units SQ AC-BRKFST 10/18/22 11/19/22 History INSULIN LISPRO (humaLOG) [humaLOG] 20 units SQ AC-LUNCH 10/18/22 11/19/22 History INSULIN LISPRO (humaLOG) [humaLOG] 20 units SQ AC-SUPPER 10/18/22 11/19/22 History Leuprolide Acetate [Lupron Depot] 45 mg IM DIRECTED 10/18/22 11/19/22 History Sennosides [Senokot] 8.6 mg PO DAILY 10/18/22 11/19/22 History glipiZIDE [Glucotrol] 10 mg PO BID 10/18/22 11/19/22 History Acetaminophen Tab [Tylenol] 650 mg PO Q6HR PRN 11/19/22 11/19/22 History Docusate Sodium [Dok] 100 mg PO DIRECTED PRN 11/19/22 11/19/22 History Famotidine [Pepcid] 20 mg PO BID 11/19/22 11/19/22 History Magnesium Oxide [Mag-Ox] 400 mg PO HS 11/19/22 11/19/22 History Meloxicam 7.5 mg PO BID 11/19/22 11/19/22 History Multivit-Min/FA/Lycopen/Lutein 1 each PO DAILY 11/19/22 11/19/22 History [Centrum Silver Men Tablet] Nystatin/Triamcin 1 applic TOPICAL DIRECTED 11/19/22 11/19/22 History [Nystatin-Triamcinolone Cream] Ondansetron [Zofran] 4 mg PO Q8HR PRN 11/19/22 11/19/22 History Psyllium Husk 100% [Metamucil 6 gm PO DAILY 11/19/22 11/19/22 History Packet] Tamsulosin HCl [Flomax] 0.4 mg PO DAILY 11/19/22 11/19/22 History lisinopriL [Zestril] 5 mg PO DAILY 11/19/22 11/19/22 History Allergies Allergy/AdvReac Type Severity Reaction Status Date / Time amoxicillin [From Augmentin] AdvReac Vomiting Verified 11/26/22 06:34 clavulanic acid AdvReac Vomiting Verified 11/26/22 06:34 [From Augmentin] hydromorphone [From Dilaudid] AdvReac Vomiting Verified 11/26/22 06:34 Surgical - Exam Vital Signs Temp Pulse Resp BP Pulse Ox 98.7 F 144 H 16 135/82 99 11/26/22 06:50 11/26/22 06:50 11/26/22 06:50 11/26/22 06:50 11/26/22 06:50 Physical exam: General: Well-developed, well-nourished HEENT: Normocephalic, sclerae nonicteric Abdomen: Nontender, nondistended Extremities: Weakness all 4 extremities with some muscle wasting Neuro: Alert and oriented Results - Labs 11/26/22 07:17 Abnormal Lab Results - Last 24 Hours (Table) 11/26/22 11/26/22 Range/Units 06:49 07:17 WBC 13.5 H (3.8-10.6) k/uL RBC 3.99 L (4.30-5.90) m/uL Hgb 12.3 L (13.0-17.5) gm/dL Hct 37.2 L (39.0-53.0) % Neutrophils # 8.8 H (1.3-7.7) k/uL Monocytes # 1.5 H (0-1.0) k/uL POC Glucose (mg/dL) 193 H (70-110) mg/dL Assessment and Plan (1) Muscle weakness Narrative/Plan: 72-year-old male with muscle weakness. We'll proceed with right quadriceps muscle biopsy at this time. Risks of bleeding, infection, scarring, progressive weakness, seroma, numbness, nerve injury reviewed. He understands and wishes to proceed. Current Visit: Yes Status: Acute Code(s): M62.81 - MUSCLE WEAKNESS (GENERALIZED) SNOMED Code(s): 66779693
[2022-11-26] MEDS ORDERED: KETAMINE 10 MG/ML 20 ML VIAL ONE (08:09)
[2022-11-26] MEDS ORDERED: PROPOFOL 10 MG/ML 20 ML VIAL IV ONE (08:09)
[2022-11-26] MEDS ORDERED: fentaNYL (PF) 50 MCG/ML 2 ML AMP ONE (08:09)
[2022-11-26] MEDS ORDERED: LIDOCAINE 2% INJ 20 MG/ML (2 ML VIAL) ONE (08:09)
[2022-11-26] MEDS ORDERED: MIDAZOLAM 2 MG/2 ML VIAL ONE (08:09)
[2022-11-26] MEDS ORDERED: ceFAZolin 1,000 MG VIAL ONE (08:14)
[2022-11-26] MEDS ORDERED: SODIUM CHLORIDE 0.9% 100 ML BAG ONE (08:14)
[2022-11-26] MEDS ORDERED: BUPIVACAINE (PF) 0.25% 30 ML VIAL SQ ONE ×2 (08:28)
[2022-11-26] MEDS ORDERED: SODIUM CHLORIDE 0.9% 50 ML with ceFAZolin 2,000 MG IV ONE ×2 (08:33)
[2022-11-26 08:56] LABS: ALT 25 U/L (4-49); African American GFR (CKD) >90 (>60 ml/min/1.73 sqM); Anion Gap 10 mmol/L; Blood Urea Nitrogen 14 mg/dL (9-20); Calcium 8.8 mg/dL (8.4-10.2); Carbon Dioxide 25 mmol/L (22-30); Chloride 99 mmol/L (98-107); Glucose 200 mg/dL (74-99); Non-African American GFR(CKD) >90 (>60 ml/min/1.73 sqM); Sodium 134 mmol/L (137-145); Total Bilirubin 0.7 mg/dL (0.2-1.3)
[2022-11-26 08:58] LABS: Potassium 5.4 mmol/L (3.5-5.1); Total Protein 7.5 g/dL (6.3-8.2)
[2022-11-26 08:59] LABS: AST 33 U/L (17-59); Alkaline Phosphatase 62 U/L (38-126)
[2022-11-26] MEDS ORDERED: ONDANSETRON 4 MG/2 ML VIAL ONE (09:18)
[2022-11-26 09:19] LABS: Glucose,Whole Blood 211 mg/dL (70-110)
[2022-11-26] MEDS ORDERED: METOPROLOL TARTRATE 25 MG TAB PO STA (09:20)
[2022-11-26] MEDS ORDERED: INSULIN ASPART (NovoLOG) 100 UNIT/ML VIAL SQ ONE (09:25)
[2022-11-26] MEDS ORDERED: NALOXONE 0.4 MG/ML 1 ML VIAL IV PRN (09:54)
--- NOTE | 2022-11-26 09:56 | P.OP ---
Date of Procedure: 11/26/22 Procedure(s) Performed: PREOPERATIVE DIAGNOSIS: Myositis, muscle weakness POSTOPERATIVE DIAGNOSIS: Same PROCEDURE: Savage quadriceps muscle biopsy SURGEON: Jethro EBL: Noah Newby ANESTHESIA: Gen. COMPLICATIONS: None OPERATIVE PROCEDURE: Patient place in the operative table in supine position. The patient was sedated per anesthesia. Hussein thigh was prepped and draped sterilely. A longitudinal incision was made overlying the mid aspect of the right thigh. The subcutaneous tissues were divided using electrocautery. The fascia was then divided as well. 3 separate muscle biopsies were taken. These measured 1.5, 1, 0.5 cm in size. These were then sent to the [facility] as per their instructions. The fascia was reapproximated using a running 3-0 Vicryl stitch. Subcutaneous tissues closed using 3-0 Vicryl sutures. Skin closed using a 4-0 Monocryl sutures. Skin glue was applied. DISPOSITION: Stable to recovery room
[2022-11-26] MEDS ORDERED: LACTATED RINGERS 1,000 ML IV ONE (10:12)
[2022-11-26 10:51] VITALS: BP 121/78; PULSE 106; RESP 17
== END 2022-11-26 11:05 | disposition home or self-care (01) ==
LOC: OR 05:49
PROVIDERS: ATTEND Surgery
DX: M60.851 Other myositis, right thigh (principal); J45.909 Unspecified asthma, uncomplicated; E11.9 Type 2 diabetes mellitus without complications; K21.9 Gastro-esophageal reflux disease without esophagitis; I10 Essential (primary) hypertension; E78.5 Hyperlipidemia, unspecified; M06.9 Rheumatoid arthritis, unspecified; M19.90 Unspecified osteoarthritis, unspecified site; D64.9 Anemia, unspecified; G43.909 Migraine, unspecified, not intractable, without status migrainosus; Z85.46 Personal history of malignant neoplasm of prostate; Z87.440 Personal history of urinary (tract) infections; Z79.82 Long term (current) use of aspirin; Z79.84 Long term (current) use of oral hypoglycemic drugs; Z79.899 Other long term (current) drug therapy; Z79.4 Long term (current) use of insulin; Z79.85 Long-term (current) use of injectable non-insulin antidiabetic drugs; Z88.0 Allergy status to penicillin; Z88.5 Allergy status to narcotic agent
CPT/HCPCS: 20205; 80053; 85025; 87636; J2250; J2405; J0690; J3010; J2704; J1644; J2001

== ENCOUNTER 2023-01-09 06:51 | Inpatient (IN) | payer MEDICARE, OTHER ==
--- NOTE | 2023-01-09 07:28 | ED ---
General Adult HPI - General Chief complaint: Abdominal Pain Stated complaint: abd pain Time Seen by Provider: 01/09/23 07:00 Source: patient, EMS, RN notes reviewed, old records reviewed Mode of arrival: EMS Limitations: no limitations - History of Present Illness Initial comments: This is a 72-year-old male who presents emergency Department complaining of abdominal pain. Patient resides at a custodial. Patient states that his abdomen is getting more distended per patient states she's having diarrhea quite often. Patient states his abdomen does hurt diffusely but he thinks he might have an obstruction and that is why he is been sent in. Patient denies any fever or chills. Patient denies any chest pain. Patient states he has vomited a couple times. He remains nauseous patient denies any dysuria hematuria urinary frequency - Related Data Home Medications Medication Instructions Recorded Confirmed Aspirin EC [Ecotrin Low Dose] 81 mg PO DAILY 12/13/21 01/09/23 Bicalutamide [Casodex] 50 mg PO DAILY 12/13/21 01/09/23 Atorvastatin Calcium 40 mg PO HS 02/05/22 01/09/23 Metoprolol Tartrate [Lopressor] 25 mg PO BID 02/05/22 01/09/23 Ferrous Sulfate [Iron (65 MG 325 mg PO DAILY 04/26/22 01/09/23 Elemental)] Dulaglutide [Trulicity] 1.5 mg SQ WE 10/18/22 01/09/23 INSULIN LISPRO (humaLOG) [humaLOG] 16 units SQ AC-BRKFST 10/18/22 01/09/23 INSULIN LISPRO (humaLOG) [humaLOG] 20 units SQ AC-BID@1200,1800 10/18/22 01/09/23 Leuprolide Acetate [Lupron Depot] 45 mg IM Q180D 10/18/22 01/09/23 glipiZIDE [Glucotrol] 10 mg PO BID 10/18/22 01/09/23 Acetaminophen Tab [Tylenol] 650 mg PO Q6HR PRN 11/19/22 01/09/23 Docusate Sodium [Dok] 100 mg PO Q8H PRN 11/19/22 01/09/23 Famotidine [Pepcid] 20 mg PO BID 11/19/22 01/09/23 Magnesium Oxide [Mag-Ox] 400 mg PO HS 11/19/22 01/09/23 Meloxicam 7.5 mg PO BID 11/19/22 01/09/23 Multivit-Min/FA/Lycopen/Lutein 1 tab PO HS 11/19/22 01/09/23 [Centrum Silver Men Tablet] Ondansetron [Zofran] 4 mg PO Q8HR PRN 11/19/22 01/09/23 Psyllium Husk 100% [Metamucil 6 gm PO DAILY 11/19/22 01/09/23 Packet] Tamsulosin HCl [Flomax] 0.4 mg PO DAILY 11/19/22 01/09/23 lisinopriL [Zestril] 5 mg PO DAILY 11/19/22 01/09/23 Amitriptyline HCl [Elavil] 75 mg PO HS 01/09/23 01/09/23 LORazepam [Ativan] 0.5 mg PO Q12H PRN 01/09/23 01/09/23 Magnesium Hydroxide [Milk of 2,400 mg PO Q72H PRN 01/09/23 01/09/23 Magnesia] Sennosides/Docusate Sodium [Senna 1 tab PO DAILY 01/09/23 01/09/23 Plus 8.6-50 mg Tablet] Sodium Chloride [[place]] 1 spr EA NOSTRIL Q8H PRN 01/09/23 01/09/23 metFORMIN HCL 1,000 mg PO BID 01/09/23 01/09/23 Previous Rx's Medication Instructions Recorded Insulin Glargine-Yfgn [Semglee 60 units SQ HS #0 04/30/22 (Yfgn) Pen] Allergies Allergy/AdvReac Type Severity Reaction Status Date / Time amoxicillin [From Augmentin] AdvReac Vomiting Verified 01/09/23 12:57 clavulanic acid AdvReac Vomiting Verified 01/09/23 12:57 [From Augmentin] hydromorphone [From Dilaudid] AdvReac Vomiting Verified 01/09/23 12:57 Review of Systems ROS Statement: Those systems with pertinent positive or pertinent negative responses have been documented in the HPI. ROS Other: All systems not noted in ROS Statement are negative. Past Medical History Past Medical History: Asthma, Cancer, Diabetes Mellitus, GERD/Reflux, Hype rlipidemia, Hypertension, Osteoarthritis (OA), Rheumatoid Arthritis (RA) Additional Past Medical History / Comment(s): prostate cancer, harper cath(chronic), UTI, non ambulatory, anemia, migraines History of Any Multi-Drug Resistant Organisms: None Reported Past Surgical History: No Surgical Hx Reported Past Anesthesia/Blood Transfusion Reactions: No Reported Reaction Past Psychological History: Depression Smoking Status: Never smoker - Past Family History Father Family Medical History: Cancer General Exam - General Exam Comments Initial Comments: GENERAL: Patient is well-developed and well-nourished. Patient is nontoxic and well- hydrated and is in mild distress. ENT: Neck is soft and supple. No significant lymphadenopathy is noted. Oropharynx is clear. Moist mucous membranes. Neck has full range of motion without eliciting any pain. EYES: The sclera were anicteric and conjunctiva were pink and moist. Extraocular movements were intact and pupils were equal round and reactive to light. Eyelids were unremarkable. PULMONARY: Unlabored respirations. Good breath sounds bilaterally. No audible rales rh onchi or wheezing was noted. CARDIOVASCULAR: There is a regular rate and rhythm without any murmurs gallops or rubs. ABDOMEN: Abdomen is distended and diffusely mildly tender SKIN: Skin is clear with no lesions or rashes and otherwise unremarkable. NEUROLOGIC: Patient is alert and oriented x3. Cranial nerves II through XII are grossly intact. Motor and sensory are also intact. Normal speech, volume and content. Symmetrical smile. MUSCULOSKELETAL: Normal extremities with adequate strength and full range of motion. LYMPHATICS: No significant lymphadenopathy is noted PSYCHIATRIC: Normal psychiatric evaluation. Limitations: no limitations Course Vital Signs 01/09/23 01/09/23 06:52 11:00 Temperature 98.9 F Pulse Rate 125 H 128 H Respiratory 20 20 Rate Blood Pressure 141/64 138/89 O2 Sat by Pulse 92 L 91 L Oximetry Medical Decision Making - Medical Decision Making EKG is interpreted by myself. EKG shows sinus tachycardia 126 bpm AR interval 158 QRSs 138. Patient has a right bundle branch block. QT interval 350 QTC is 425. Was pt. sent in by a medical professional or institution (, PA, SHOE STICKS REPAIRER, urgent ca re, hospital, or custodial...) When possible be specific @ -longterm sent the patient to the emergency department Did you speak to anyone other than the patient for history (EMS, parent, family, police, friend...)? What history was obtained from this source @ -No Did you review nursing and triage notes (agree or disagree)? Why? @ -I reviewed and agree with nursing and triage notes Were old charts reviewed (outside hosp., previous admission, EMS record, old EKG, old radiological studies, urgent care reports/EKG's, custodial records)? Report findings @ -Per reviewed patient's old charts and prior labs and prior radiological studies Differential Diagnosis (chest pain, altered mental status, abdominal pain women, abdominal pain men, vaginal bleeding, weakness, fever, dyspnea, syncope, headache, dizziness, GI bleed, back pain, seizure, CVA, palpatations, mental health, musculoskeletal)? @ -Differential Abdominal Pain Men: Appendicitis, cholecystitis, diverticulosis, ischemic bowel, pancreatitis, hepatitis, UTI, gastroenteritis, AAA, incarcerated hernia, bowel obstruction, constipation, inflammatory bowel, hepatitis, peptic ulcer disease, splenic infarction, perforated viscus, testicular torsion, this is not meant to be an all-inclusive list EKG interpreted by me (3pts min.). @ -As above X-rays interpreted by me (1pt min.). @ -Chest x-ray shows no acute abnormality CT interpreted by me (1pt min.). @ -CT of the abdomen pelvis show hydroureter and hydronephrosis but no obstruction. U/S interpreted by me (1pt. min.). @ -None done What testing was considered but not performed or refused? (CT, X-rays, U/S, labs)? Why? @ -None What meds were considered but not given or refused? Why? @ -None Did you discuss the management of the patient with other professionals (professionals i.e. , PA, SHOE STICKS REPAIRER, lab, RT, psych nurse, social service director, leach tank tender, teacher, weapons officer naval activity, case manager specialist)? Give summary @ -I spoke with Dr. Murcia agreed to admit the patient Was smoking cessation discussed for >3mins.? @ -No Was critical care preformed (if so, how long)? @ -No Were there social determinants of health that impacted care today? How? (Homelessness, low income, unemployed, alcoholism, drug addiction, transportation, low edu. Level, literacy, decrease access to med. care, fpc, rehab)? @ -No Was there de-escalation of care discussed even if they declined (Discuss DNR or withdrawal of care, Hospice)? DNR status @ -No What co-morbidities impacted this encounter? (DM, HTN, Smoking, COPD, CAD, Cancer, CVA, ARF, Chemo, Hep., AIDS, mental health diagnosis, sleep apnea, morbid obesity)? @ -None Was patient admitted / discharged? Hospital course, mention meds given and route, prescriptions, significant lab abnormalities, going to OR and other pertinent info. @ -Patient had urine with white cells and many bacteria significantly the patient 2 g Rocephin. Patient's heart rate remained between 120 09/17/1936 the whole time the emergency department it appeared to be sinus. Patient complains of palpitations chest pain difficulty breathing but because this I will be consulted cardiology while the patient is admitted. I wrote admitting orders. Patient was diagnosed with a urinary tract infection 2:30 PM Undiagnosed new problem with uncertain prognosis? @ -No Drug Therapy requiring intensive monitoring for toxicity (Heparin, Nitro, Insulin, Cardizem)? @ -No Were any procedures done? @ -No Diagnosis/symptom? @ -Urinary tract infection Acute, or Chronic, or Acute on Chronic? @ -Acute Uncomplicated (without systemic symptoms) or Complicated (systemic symptoms)? @ -Complicated Side effects of treatment? @ -No Exacerbation, Progression, or Severe Exacerbation? @ -No Poses a threat to life or bodily function? How? (Chest pain, [place], [place], pneumonia, PE, COPD, DKA, ARF, appy, cholecystitis, CVA, Diverticulitis, Homicidal, Suicidal, threat to staff... and all critical care pts) @ -No Diagnosis/symptom? @ -Sinus tachycardia Acute, or Chronic, or Acute on Chronic? @ -Acute Uncomplicated (without systemic symptoms) or Complicated (systemic symptoms)? @ -Complicated Side effects of treatment? @ -none Exacerbation, Progression, or Severe Exacerbation] @ -no Poses a threat to life or bodily function? @ -no - Lab Data Result diagrams: 01/09/23 08:38 01/09/23 11:44 Lab Results 01/09/23 01/09/23 01/09/23 Range/Units 08:38 08:38 11:44 WBC 18.9 H (3.8-10.6) k/uL RBC 3.78 L (4.30-5.90) m/uL Hgb 11.1 L (13.0-17.5) gm/dL Hct 33.6 L (39.0-53.0) % MCV 88.8 (80.0-100.0) fL MCH 29.4 (25.0-35.0) pg MCHC 33.1 (31.0-37.0) g/dL RDW 14.5 (11.5-15.5) % Plt Count 242 (150-450) k/uL MPV 10.3 Neutrophils % 79 % Lymphocytes % 10 % Monocytes % 10 % Eosinophils % 0 % Basophils % 0 % Neutrophils # 15.0 H (1.3-7.7) k/uL Lymphocytes # 1.8 (1.0-4.8) k/uL Monocytes # 1.8 H (0-1.0) k/uL Eosinophils # 0.1 (0-0.7) k/uL Basophils # 0.0 (0-0.2) k/uL Sodium (137-145) mmol/L Potassium (3.5-5.1) mmol/L Chloride (98-107) mmol/L Carbon Dioxide (22-30) mmol/L Anion Gap mmol/L BUN (9-20) mg/dL Creatinine (0.66-1.25) mg/dL Est GFR (CKD-EPI)AfAm (>60 ml/min/1.73 sqM) Est GFR (CKD-EPI)NonAf (>60 ml/min/1.73 sqM) Glucose (74-99) mg/dL Calcium (8.4-10.2) mg/dL Total Bilirubin (0.2-1.3) mg/dL AST (17-59) U/L ALT (4-49) U/L Alkaline Phosphatase (38-126) U/L Troponin I <0.012 (0.000-0.034) ng/mL Total Protein (6.3-8.2) g/dL Albumin (3.5-5.0) g/dL Amylase (30-110) U/L Lipase (23-300) U/L Urine Color Yellow Urine Appearance Cloudy (Clear) Urine RBC >182 H (0-5) /hpf Urine WBC 48 H (0-5) /hpf Triple Phos Crystals Few H (None) /hpf Amorphous Sediment Few H (None) /hpf Urine Bacteria Many H (None) /hpf Urine Mucus Many H (None) /hpf 01/09/23 Range/Units 11:44 WBC (3.8-10.6) k/uL RBC (4.30-5.90) m/uL Hgb (13.0-17.5) gm/dL Hct (39.0-53.0) % MCV (80.0-100.0) fL MCH (25.0-35.0) pg MCHC (31.0-37.0) g/dL RDW (11.5-15.5) % Plt Count (150-450) k/uL MPV Neutrophils % % Lymphocytes % % Monocytes % % Eosinophils % % Basophils % % Neutrophils # (1.3-7.7) k/uL Lymphocytes # (1.0-4.8) k/uL Monocytes # (0-1.0) k/uL Eosinophils # (0-0.7) k/uL Basophils # (0-0.2) k/uL Sodium 135 L (137-145) mmol/L Potassium 5.3 H (3.5-5.1) mmol/L Chloride 96 L (98-107) mmol/L Carbon Dioxide 26 (22-30) mmol/L Anion Gap 13 mmol/L BUN 25 H (9-20) mg/dL Creatinine 0.68 (0.66-1.25) mg/dL Est GFR (CKD-EPI)AfAm >90 (>60 ml/min/1.73 sqM) Est GFR (CKD-EPI)NonAf >90 (>60 ml/min/1.73 sqM) Glucose 310 H (74-99) mg/dL Calcium 9.5 (8.4-10.2) mg/dL Total Bilirubin 0.5 (0.2-1.3) mg/dL AST 23 (17-59) U/L ALT 26 (4-49) U/L Alkaline Phosphatase 78 (38-126) U/L Troponin I (0.000-0.034) ng/mL Total Protein 8.1 (6.3-8.2) g/dL Albumin 4.1 (3.5-5.0) g/dL Amylase 48 (30-110) U/L Lipase 111 (23-300) U/L Urine Color Urine Appearance (Clear) Urine RBC (0-5) /hpf Urine WBC (0-5) /hpf Triple Phos Crystals (None) /hpf Amorphous Sediment (None) /hpf Urine Bacteria (None) /hpf Urine Mucus (None) /hpf Disposition Clinical Impression: Urinary tract infection, Sinus tachycardia Disposition: ADMITTED IP TO THIS HOSP Referrals: Sarbjit Allen DO [Primary Care Provider] - 1-2 days Time of Disposition: 14:59
--- NOTE | 2023-01-09 08:11 | XR ---
EXAMINATION TYPE: XR chest 2V DATE OF EXAM: 01/09/2023 COMPARISON: 02/05/2022 INDICATION: Difficulty in breathing TECHNIQUE: Frontal and lateral views of the chest are obtained. FINDINGS: The heart size is upper limits of normal. Aortic arch appears somewhat full. Consider evaluation for aneurysm. Finding appears similar to comparison. The pulmonary vasculature is normal. The lungs are clear. IMPRESSION: 1. No acute pulmonary process. 2. Prominent aortic arch and some fusiform prominence. Consider evaluation for aortic size.
[2023-01-09 09:47] LABS: Basophils % (A) 0 %; Eosinophils # (A) 0.1 k/uL (0-0.7); Eosinophils % (A) 0 %; HCT 33.6 % (39.0-53.0); HGB 11.1 gm/dL (13.0-17.5); Lymphocytes # (A) 1.8 k/uL (1.0-4.8); Lymphocytes % (A) 10 %; MCH 29.4 pg (25.0-35.0); MCHC 33.1 g/dL (31.0-37.0); MCV 88.8 fL (80.0-100.0); Mean Platelet Volume 10.3; Monocytes # (A) 1.8 k/uL (0-1.0); Monocytes % (A) 10 %; Neutrophils % (A) 79 %; Platelet Count 242 k/uL (150-450); RBC 3.78 m/uL (4.30-5.90); RDW 14.5 % (11.5-15.5); WBC 18.9 k/uL (3.8-10.6)
[2023-01-09 12:05] LABS: ALT 26 U/L (4-49); AST 23 U/L (17-59); African American GFR (CKD) >90 (>60 ml/min/1.73 sqM); Albumin 4.1 g/dL (3.5-5.0); Alkaline Phosphatase 78 U/L (38-126); Amylase 48 U/L (30-110); Anion Gap 13 mmol/L; Blood Urea Nitrogen 25 mg/dL (9-20); Calcium 9.5 mg/dL (8.4-10.2); Carbon Dioxide 26 mmol/L (22-30); Chloride 96 mmol/L (98-107); Glucose 310 mg/dL (74-99); Lipase 111 U/L (23-300); Non-African American GFR(CKD) >90 (>60 ml/min/1.73 sqM); Potassium 5.3 mmol/L (3.5-5.1); Sodium 135 mmol/L (137-145); Total Bilirubin 0.5 mg/dL (0.2-1.3); Total Protein 8.1 g/dL (6.3-8.2)
--- NOTE | 2023-01-09 12:59 | CT ---
EXAMINATION TYPE: CT abdomen pelvis w con DATE OF EXAM: 01/09/2023 COMPARISON: 12/14/2021 HISTORY: nausea, vomiting, abdominal distention CT DLP: 1960.8 mGycm CONTRAST: CT scan of the abdomen and pelvis is performed without Oral Contrast and with IV Contrast, patient in jected with 100 mL of Isovue 300. FINDINGS: LUNG BASES-: No visible nodule. No infiltrate. Small bilateral pleural effusions are noted with comp ressive atelectasis seen. LIVER/GB: No calcified gallstones. No space occupying hepatic lesion. Biliary tree is of normal ca liber. PANCREAS: No inflammation. No distinct mass. SPLEEN: No splenic enlargement. No lesion seen. ADRENALS: No nodule. No thickening. KIDNEYS/BLADDER: Mild left-sided hydroureteronephrosis with urothelial enhancement may reflect underl gm infection. No obstructing calculus is identified with certainty. Radiopaque densities within the urinary bladder lumen could reflect recently passed calculi. No nephrolithiasis. No distinct renal mass. Balbuena catheter is noted within the urinary bladder which is decompressed and contains intralumi nal air. BOWEL: There is nonvisualization of the appendix. No evidence for free air or abscess. There is evide nce of gastric distention. There is mild fluid distention of several ileal loops measuring up to 2 cm . The remainder of the small and large bowel are of normal caliber. GENITAL ORGANS: No gross abnormality. LYMPH NODES: No greater than 1cm abdominal or pelvic lymph nodes are appreciated. AORTA: No significant abnormality. OSSEOUS STRUCTURES: No significant abnormality is seen. OTHER: No significant additional abnormality is seen. IMPRESSION: 1. Mild left-sided hydroureteronephrosis without obstructing calculus. Calculus is seen within the de compressed urinary bladder adjacent to the Balbuena balloon catheter. Correlate for recently passed calc ulus. There is also mild urothelial enhancement which can be seen in infection. 2. Distention of the stomach and mild fluid distention of a few ileal loops could reflect gastroenter itis.
[2023-01-09 14:14] LABS: Amorphous Sediment,Urine Few /hpf; Bacteria,Urine Many /hpf; Mucus,Urine Many /hpf; RBC,Urine >182 /hpf (0-5); Triple Phosphate Crystal,Urine Few /hpf; WBC,Urine 48 /hpf (0-5)
[2023-01-09 14:18] LABS: Appearance,Urine Cloudy (Clear); Color,Urine Yellow
[2023-01-09] MEDS ORDERED: cefTRIAXone IN SWFI 1,000 MG/10 ML SYRINGE IVP STA (14:44)
[2023-01-09] MEDS ORDERED: SODIUM CHLORIDE 0.9% 1,000 ML IV ONE (15:00)
[2023-01-09] MEDS ORDERED: ONDANSETRON 4 MG TAB PO PRN (18:29)
[2023-01-09] MEDS ORDERED: ACETAMINOPHEN TAB 325 MG TAB PO PRN (18:29)
[2023-01-09] MEDS ORDERED: DEXTROSE 50% SYRINGE 50 ML IVP PRN ×2 (18:31)
[2023-01-09] MEDS: AMITRIPTYLINE HCL 25 MG TAB PO SCH (19:57)
--- NOTE | 2023-01-09 21:10 | P.HPIM ---
History of Present Illness H&P Date: 01/09/23 Chief Complaint: Abdominal bloating This is a pleasant 72-year-old patient, follows with Dr. Allen. Chronic stable medical conditions include diabetes, hypertension, hypothyroid, diagnoses of prostate cancer. Being followed by Dr. Andrea. Patient states he has had hospitalizations to different hospitals including [facility], and other hospitals. They haven't been able to find why he is not really able to walk. Patient currently at [facility]. Patient now presents with multiple symptoms. Physical abdominal bloating for about 2 days. Some nausea vomiting. Some dull discomfort. Patient gently is constipated. Decreased appetite. No fever no chills. Feels tired. Review of systems: GEN.: Tired EYES: None HEENT: None NECK: None RESPIRATORY: None CARDIOVASCULAR: None GASTROINTESTINAL: As above GENITOURINARY: Chronic Harper MUSCULOSKELETAL: Muscle weakness LYMPHATICS: None HEMATOLOGICAL: None PSYCHIATRY: None NEUROLOGICAL: 1 extremity weakness Past medical history to include: Diabetes, hypertension, hypothyroid, prostate cancer Social history: No smoking or alcohol. Used to work in [employer] at [employer]. Currently lives [facility] Physical examination: VITAL SIGNS: 98.9, 128, 20, 1:30/89, 91% room air GENERAL: BMI 33.3, laying in bed awake but in distress EYES: Pupils equal. Conjunctiva normal. HEENT: External appearance of nose and ears normal, oral cavity grossly normal. NECK: JVD not raised; masses not palpable. HEART: First and second heart sounds are normal; no edema. LUNGS: Respiratory rate normal; clear to auscultation. ABDOMEN: Soft, some distention, mild tenderness, no guarding rigidity, liver spleen not palpable, no masses palpable. PSYCH: Alert and oriented x3; mood and affect normal. MUSCULOSKELETAL:No Clubbing/cyanosis;muscles-grossly intact, some OA NEUROLOGICAL: [Cranial nerves grossly intact; no facial asymmetry, able to lift both his legs off the bed. LYMPHATICS: No lymph nodes palpable in the axilla and neck INVESTIGATIONS, reviewed in the clinical context: White count 18.9 hemoglobin 11.1 platelets 242 sodium 135 potassium 5.3 BUN 25 creatinine 0.68 Amylase 48 lipase 111 EKG tracing personally reviewed by me-sinus tachycardia.. Right bundle-branch block. Chest x-ray film. Prominent aortic arch. CT abdomen: Mild left-sided hydroureter hydronephrosis without obstruction. Stomach distention. Assessment plan: -Possible enteritis. Patient is some abdominal pain nausea vomiting distention. IV ceftriaxone. Clear liquid diet -Diabetes mellitus type 2, on insulin p.m. dose of Levemir to 60 units. Trulicity. Follow Accu-Cheks. Hold metform in and Glucotrol -BPH/prostate cancer Flomax. Lupron injection. Casodex -Chronic insomnia Elavil at night -Hyperlipidemia Lipitor 40 mg daily at bedtime -Essential hypertension Lopressor 25 mg twice a day. Hold lisinopril -Chronic lower extremity paresis. Cause unknown. PT OT. -Obesity BMI 33.1 Weight loss measures Given the complexity and severity of patient's condition expect the patient to be in the hospital at least for 2 overnights Past Medical History Past Medical History: Asthma, Cancer, Diabetes Mellitus, GERD/Reflux, Hyperlipidemia, Hypertension, Osteoarthritis (OA), Rheumatoid Arthritis (RA) Additional Past Medical History / Comment(s): prostate cancer, harper cath(chronic), UTI, non ambulatory, anemia, migraines History of Any Multi-Drug Resistant Organisms: None Reported Past Surgical History: No Surgical Hx Reported Past Anesthesia/Blood Transfusion Reactions: No Reported Reaction Past Psychological History: Depression Smoking Status: Never smoker - Past Family History Father Family Medical History: Cancer Medications and Allergies Home Medications Medication Instructions Recorded Confirmed Type Aspirin EC [Ecotrin Low Dose] 81 mg PO DAILY 12/13/21 01/09/23 History Bicalutamide [Casodex] 50 mg PO DAILY 12/13/21 01/09/23 History Atorvastatin Calcium 40 mg PO HS 02/05/22 01/09/23 History Metoprolol Tartrate [Lopressor] 25 mg PO BID 02/05/22 01/09/23 History Ferrous Sulfate [Iron (65 MG 325 mg PO DAILY 04/26/22 01/09/23 History Elemental)] Insulin Glargine-Yfgn [Semglee 60 units SQ HS #0 04/30/22 01/09/23 Rx (Yfgn) Pen] Dulaglutide [Trulicity] 1.5 mg SQ WE 10/18/22 01/09/23 History INSULIN LISPRO (humaLOG) [humaLOG] 16 units SQ -TEXKFST 10/18/22 01/09/23 History INSULIN LISPRO (humaLOG) [humaLOG] 20 units SQ AC-BID@1200,1800 10/18/22 01/09/23 History Leuprolide Acetate [Lupron Depot] 45 mg IM Q180D 10/18/22 01/09/23 History glipiZIDE [Glucotrol] 10 mg PO BID 10/18/22 01/09/23 History Acetaminophen Tab [Tylenol] 650 mg PO Q6HR PRN 11/19/22 01/09/23 History Docusate Sodium [Dok] 100 mg PO Q8H PRN 11/19/22 01/09/23 History Famotidine [Pepcid] 20 mg PO BID 11/19/22 01/09/23 History Magnesium Oxide [Mag-Ox] 400 mg PO HS 11/19/22 01/09/23 History Meloxicam 7.5 mg PO BID 11/19/22 01/09/23 History Multivit-Min/FA/Lycopen/Lutein 1 tab PO HS 11/19/22 01/09/23 History [Centrum Silver Men Tablet] Ondansetron [Zofran] 4 mg PO Q8HR PRN 11/19/22 01/09/23 History Psyllium Husk 100% [Metamucil 6 gm PO DAILY 11/19/22 01/09/23 History Packet] Tamsulosin HCl [Flomax] 0.4 mg PO DAILY 11/19/22 01/09/23 History lisinopriL [Zestril] 5 mg PO DAILY 11/19/22 01/09/23 History Amitriptyline HCl [Elavil] 75 mg PO HS 01/09/23 01/09/23 History LORazepam [Ativan] 0.5 mg PO Q12H PRN 01/09/23 01/09/23 History Magnesium Hydroxide [Milk of 2,400 mg PO Q72H PRN 01/09/23 01/09/23 History Magnesia] Sennosides/Docusate Sodium [Senna 1 tab PO DAILY 01/09/23 01/09/23 History Plus 8.6-50 mg Tablet] Sodium Chloride [[place]] 1 spr EA NOSTRIL Q8H PRN 01/09/23 01/09/23 History metFORMIN HCL 1,000 mg PO BID 01/09/23 01/09/23 History Allergies Allergy/AdvReac Type Severity Reaction Status Date / Time amoxicillin [From Augmentin] AdvReac Vomiting Verified 01/09/23 12:57 clavulanic acid AdvReac Vomiting Verified 01/09/23 12:57 [From Augmentin] hydromorphone [From Dilaudid] AdvReac Vomiting Verified 01/09/23 12:57 Physical Exam Vitals: Vital Signs Temp Pulse Resp BP Pulse Ox 01/09/23 11:00 128 H 20 138/89 91 L 01/09/23 06:52 98.9 F 125 H 20 141/64 92 L Intake and Output 01/09/23 01/09/23 01/09/23 06:59 14:59 22:59 Other: Weight 104.78 kg Results CBC & Chem 7: 01/09/23 08:38 01/09/23 11:44 Labs: Abnormal Lab Results - Last 24 Hours (Table) 01/09/23 01/09/23 01/09/23 Range/Units 08:38 08:38 11:44 WBC 18.9 H (3.8-10.6) k/uL RBC 3.78 L (4.30-5.90) m/uL Hgb 11.1 L (13.0-17.5) gm/dL Hct 33.6 L (39.0-53.0) % Neutrophils # 15.0 H (1.3-7.7) k/uL Monocytes # 1.8 H (0-1.0) k/uL Sodium 135 L (137-145) mmol/L Potassium 5.3 H (3.5-5.1) mmol/L Chloride 96 L (98-107) mmol/L BUN 25 H (9-20) mg/dL Glucose 310 H (74-99) mg/dL Urine RBC >182 H (0-5) /hpf Urine WBC 48 H (0-5) /hpf Triple Phos Crystals Few H (None) /hpf Amorphous Sediment Few H (None) /hpf Urine Bacteria Many H (None) /hpf Urine Mucus Many H (None) /hpf
[2023-01-09 22:03] LABS: Glucose,Whole Blood 313 mg/dL (70-110)
[2023-01-09] MEDS: INSULIN ASPART (NovoLOG) 100 UNIT/ML VIAL SQ SCH (22:07)
[2023-01-09] MEDS: ATORVASTATIN 40 MG TAB PO SCH (22:19)
[2023-01-09] MEDS: MAGNESIUM OXIDE 400 MG TAB PO SCH (22:19)
[2023-01-09] MEDS: MULTIVITAMINS, THERA 1 EACH TAB PO SCH (22:20)
[2023-01-09] MEDS: FAMOTIDINE 20 MG TAB PO SCH (22:20)
[2023-01-09] MEDS: LORazepam 0.5 MG TAB PO PRN (22:20)
[2023-01-09] MEDS: INSULIN DETEMIR (LEVEMIR) 100 UNIT/ML SYR SQ SCH (22:20)
[2023-01-09] MEDS: MELOXICAM 7.5 MG TAB PO SCH (22:20)
[2023-01-09] MEDS: METOPROLOL TARTRATE 25 MG TAB PO SCH (22:20)
[2023-01-09] MEDS: LACTATED RINGERS 1,000 ML IV SCH (22:30)
[2023-01-10 06:07] LABS: Glucose,Whole Blood 215 mg/dL (70-110)
[2023-01-10] MEDS: LACTATED RINGERS 1,000 ML IV SCH ×3 (06:21→17:50)
[2023-01-10] MEDS: INSULIN ASPART (NovoLOG) 100 UNIT/ML VIAL SQ SCH ×5 (06:22→17:53)
[2023-01-10 06:49] LABS: African American GFR (CKD) >90 (>60 ml/min/1.73 sqM); Anion Gap 12 mmol/L; Blood Urea Nitrogen 18 mg/dL (9-20); Calcium 9.1 mg/dL (8.4-10.2); Carbon Dioxide 27 mmol/L (22-30); Chloride 95 mmol/L (98-107); Glucose 216 mg/dL (74-99); Non-African American GFR(CKD) >90 (>60 ml/min/1.73 sqM); Potassium 4.8 mmol/L (3.5-5.1); Sodium 134 mmol/L (137-145)
--- NOTE | 2023-01-10 09:11 | P.CRDCN ---
History of Present Illness History of present illness: This is Dr. Mckeon dictating a consult on this patient The patient was interviewed and examined Orders states Urgent consult to [facility] for sinus tachycardia from ER IMPRESSION / ASSESSMENT: Urgent consult for evaluation of sinus tachycardia from ER Atypical chest discomfort later last evening Normal cardiac enzymes Sinus tachycardia and EKG and multiple EKGs revealed from the past. There are shows sinus tachycardia to varying degrees with same ST segment abnormalities and a right bundle branch block White count 19,000, patient being treated for infection Abdominal discomfort which brought the patient to the hospital Plan From a cardiac standpoint, continue home medications of metoprolol and a baby aspirin Patient is diabetic, continue lisinopril Continue atorvastatin The obvious reason for this sinus tachycardia is infection. The sinus tachycardia is physiologic and requires treatment of the underlying medical problem There is no evidence for acute myocardial infarction or myocardial injury No further work cardiac workup indicated I will sign off HPI 72-year-old male patient who resides in a [place] [facility] presenting with abdominal discomfort The patient complained of abdominal discomfort to me He's been wanting and retching several times and he also states that he has diarrhea When I specifically asked him about cardiac symptoms, he denied any shortness of breath. He is lying flat in bed looks comfortable Past embolic chest discomfort ECG at some discomfort in the lower chest but he thinks is because he was retching and nauseous ER note states that the patient complained of abdominal pain, distention of the abdomen, frequent diarrhea, diffuse abdominal discomfort, and he denies any chest discomfort ER note states he vomited a couple times and remains nauseous Abdomen was found to be distended and diffusely tender, mild Unlabored respirations Regular rate and rhythm no murmurs no gallops no rub per the note Chest x-ray does not show any acute pulmonary process Twelve-lead EKG shows sinus tachycardia 126 beats a minute right bundle branch block no ST segment abnormalities suggestive of a concerning for ischemia Comparison EKG of November:the patient had sinus tachycardia 130 beats a minute, very similar EKG Comparison EKG of January 2022 sinus tachycardia 106 beats a minute right bundle branch block, similar ST segments ROS: No fever chills or rigors, no cough, phlegm or expectoration, no nausea, vomiting or diarrhea, no hematuria, dysuria, no musculoskeletal complaints, no strokes or seizures, no skin lesions. EXAMINATION: Resting comfortably in bed Pulse rate up to 125 beats a minute afebrile Blood pressure 114/71 mmHg Heart sounds are normal Breath sounds are clear Abdomen is mildly distended soft non-rigid Mildly tender diffusely REVIEW OF LABS, ECG & MEDICAL DATA sodium 135 potassium 5.3 Creatinine 0.68 Liver function normal troponin normal Lipase normal White count 19,000 hemoglobin 11.1 Neutrophils 15, elevated Monocytes elevated 1.8 Past Medical History Past Medical History: Asthma, Cancer, Diabetes Mellitus, GERD/Reflux, Hyperlipidemia, Hypertension, Osteoarthritis (OA), Rheumatoid Arthritis (RA) Additional Past Medical History / Comment(s): prostate cancer, harper cath(chronic), UTI, non ambulatory, anemia, migraines History of Any Multi-Drug Resistant Organisms: None Reported Past Surgical History: No Surgical Hx Reported Past Anesthesia/Blood Transfusion Reactions: No Reported Reaction Past Psychological History: Depression Smoking Status: Never smoker Past Alcohol Use History: None Reported Past Drug Use History: None Reported - Past Family History Father Family Medical History: Cancer Medications and Allergies Home Medications Medication Instructions Recorded Confirmed Type Aspirin EC [Ecotrin Low Dose] 81 mg PO DAILY 12/13/21 01/09/23 History Bicalutamide [Casodex] 50 mg PO DAILY 12/13/21 01/09/23 History Atorvastatin Calcium 40 mg PO HS 02/05/22 01/09/23 History Metoprolol Tartrate [Lopressor] 25 mg PO BID 02/05/22 01/09/23 History Ferrous Sulfate [Iron (65 MG 325 mg PO DAILY 04/26/22 01/09/23 History Elemental)] Insulin Glargine-Yfgn [Semglee 60 units SQ HS #0 04/30/22 01/09/23 Rx (Yfgn) Pen] Dulaglutide [Trulicity] 1.5 mg SQ WE 10/18/22 01/09/23 History INSULIN LISPRO (humaLOG) [humaLOG] 16 units SQ AC-BRKFST 10/18/22 01/09/23 History INSULIN LISPRO (humaLOG) [humaLOG] 20 units SQ AC-BID@1200,1800 10/18/22 01/09/23 History Leuprolide Acetate [Lupron Depot] 45 mg IM Q180D 10/18/22 01/09/23 History glipiZIDE [Glucotrol] 10 mg PO BID 10/18/22 01/09/23 History Acetaminophen Tab [Tylenol] 650 mg PO Q6HR PRN 11/19/22 01/09/23 History Docusate Sodium [Dok] 100 mg PO Q8H PRN 11/19/22 01/09/23 History Famotidine [Pepcid] 20 mg PO BID 11/19/22 01/09/23 History Magnesium Oxide [Mag-Ox] 400 mg PO HS 11/19/22 01/09/23 History Meloxicam 7.5 mg PO BID 11/19/22 01/09/23 History Multivit-Min/FA/Lycopen/Lutein 1 tab PO HS 11/19/22 01/09/23 History [Centrum Silver Men Tablet] Ondansetron [Zofran] 4 mg PO Q8HR PRN 11/19/22 01/09/23 History Psyllium Husk 100% [Metamucil 6 gm PO DAILY 11/19/22 01/09/23 History Packet] Tamsulosin HCl [Flomax] 0.4 mg PO DAILY 11/19/22 01/09/23 History lisinopriL [Zestril] 5 mg PO DAILY 11/19/22 01/09/23 History Amitriptyline HCl [Elavil] 75 mg PO HS 01/09/23 01/09/23 History LORazepam [Ativan] 0.5 mg PO Q12H PRN 01/09/23 01/09/23 History Magnesium Hydroxide [Milk of 2,400 mg PO Q72H PRN 01/09/23 01/09/23 History Magnesia] Sennosides/Docusate Sodium [Senna 1 tab PO DAILY 01/09/23 01/09/23 History Plus 8.6-50 mg Tablet] Sodium Chloride [[place]] 1 spr EA NOSTRIL Q8H PRN 01/09/23 01/09/23 History metFORMIN HCL 1,000 mg PO BID 01/09/23 01/09/23 History Allergies Allergy/AdvReac Type Severity Reaction Status Date / Time amoxicillin [From Augmentin] AdvReac Vomiting Verified 01/09/23 12:57 clavulanic acid AdvReac Vomiting Verified 01/09/23 12:57 [From Augmentin] hydromorphone [From Dilaudid] AdvReac Vomiting Verified 01/09/23 12:57 Physical Exam Vitals: Vital Signs Temp Pulse Pulse Resp BP BP Pulse Ox 01/10/23 07:00 99 F 109 H 18 114/71 95 01/10/23 01:57 98.7 F 101 H 15 122/65 97 01/09/23 22:56 120 H 18 01/09/23 22:48 97.8 F 120 H 14 126/74 94 L 01/09/23 21:00 125 H 26 H 141/84 01/09/23 20:00 129 H 22 145/87 01/09/23 19:00 125 H 27 H 151/82 01/09/23 18:00 123 H 10 L 144/79 01/09/23 17:00 125 H 24 147/86 01/09/23 16:00 128 H 34 H 124/86 01/09/23 15:00 130 H 21 129/87 01/09/23 14:00 126 H 25 H 142/93 93 L 01/09/23 13:00 125 H 24 141/85 01/09/23 12:00 125 H 30 H 138/89 93 L 01/09/23 11:00 131 H 13 138/84 92 L 01/09/23 10:00 125 H 22 144/82 90 L Intake and Output 01/09/23 01/10/23 01/10/23 22:59 06:59 14:59 Output Total 750 Balance -750 Output: Urine 750 Other: Voiding Method Indwelling Catheter Indwelling Catheter Weight 104.78 kg Results 01/09/23 08:38 01/10/23 05:41 Cardiac Enzymes 01/09/23 01/09/23 Range/Units 11:44 11:44 AST 23 (17-59) U/L Troponin I <0.012 (0.000-0.034) ng/mL CBC 01/09/23 Range/Units 08:38 WBC 18.9 H (3.8-10.6) k/uL RBC 3.78 L (4.30-5.90) m/uL Hgb 11.1 L (13.0-17.5) gm/dL Hct 33.6 L (39.0-53.0) % Plt Count 242 (150-450) k/uL Comprehensive Metabolic Panel 01/09/23 01/10/23 Range/Units 11:44 05:41 Sodium 135 L 134 L (137-145) mmol/L Potassium 5.3 H 4.8 (3.5-5.1) mmol/L Chloride 96 L 95 L (98-107) mmol/L Carbon Dioxide 26 27 (22-30) mmol/L BUN 25 H 18 (9-20) mg/dL Creatinine 0.68 0.73 (0.66-1.25) mg/dL Glucose 310 H 216 H (74-99) mg/dL Calcium 9.5 9.1 (8.4-10.2) mg/dL AST 23 (17-59) U/L ALT 26 (4-49) U/L Alkaline Phosphatase 78 (38-126) U/L Total Protein 8.1 (6.3-8.2) g/dL Albumin 4.1 (3.5-5.0) g/dL Current Medications Generic Name Dose Route Start Last Admin Trade Name Freq PRN Reason Stop Dose Admin Acetaminophen 650 mg 01/09/23 18:29 01/09/23 19:55 Acetaminophen Tab 325 Mg Tab PO 650 mg Q6HR PRN Administration Moderate Pain (Scale 4 to 6) Amitriptyline HCl 75 mg 01/09/23 21:00 01/09/23 19:57 Amitriptyline Hcl 25 Mg Tab PO 75 mg HS DEEPA Administration Aspirin 81 mg 01/10/23 09:00 Aspirin 81 Mg PO DAILY [facility] Atorvastatin Calcium 40 mg 01/09/23 21:00 01/09/23 22:19 Atorvastatin 40 Mg Tab PO 40 mg HS DEEPA Administration Bicalutamide 50 mg 01/10/23 09:00 Bicalutamide 50 Mg Tab PO DAILY DEEPA Dextrose/Water 25 ml 01/09/23 18:31 Dextrose 50% Syringe 50 Ml IVP PER PROTOCOL PRN Hypoglycemia Protocol Dextrose/Water 50 ml 01/09/23 18:31 Dextrose 50% Syringe 50 Ml IVP PER PROTOCOL PRN Hypoglycemia Protocol Famotidine 20 mg 01/09/23 21:00 01/09/23 22:20 Famotidine 20 Mg Tab PO 20 mg BID DEEPA Administration Ceftriaxone Sodium 2 gm/ 50 mls @ 100 mls/hr 01/10/23 09:00 Sodium Chloride IVPB Q24HR DEEPA Protocol Lactated Ringer's 1,000 mls @ 100 mls/hr 01/09/23 21:15 01/10/23 06:21 Lactated Ringers IV 100 mls/hr .Q10H DEEPA Administration Insulin Aspart 0 unit 01/09/23 18:31 01/10/23 06:22 Insulin Aspart (Novolog) 100 Unit/Ml Vial SQ 6 unit AC-TID DEEPA Administration Protocol Insulin Detemir 60 unit 01/09/23 21:00 01/09/23 22:20 Insulin Detemir (Levemir) 100 Unit/Ml Syr SQ 60 unit HS DEEPA Administration Lorazepam 0.5 mg 01/09/23 18:29 01/09/23 22:20 Lorazepam 0.5 Mg Tab PO 0.5 mg Q12H PRN Administration Anxiety Magnesium Oxide 400 mg 01/09/23 21:00 01/09/23 22:19 Magnesium Oxide 400 Mg Tab PO 400 mg HS DEEPA Administration Meloxicam 7.5 mg 01/09/23 21:00 01/09/23 22:20 Meloxicam 7.5 Mg Tab PO 7.5 mg BID DEEPA Administration Metoprolol Tartrate 25 mg 01/09/23 21:00 01/09/23 22:20 Metoprolol Tartrate 25 Mg Tab PO 25 mg BID DEEPA Administration Multivitamins 1 each 01/09/23 21:00 01/09/23 22:20 Multivitamins, Thera 1 Each Tab PO 1 each HS DEEPA Administration Patient's Own ( 1.5 mg 01/16/23 09:00 Dulaglutide [ SQ Trulicity] 0.75 Mg/0 WE DEEPA .5 Ml Each) Ondansetron HCl 4 mg 01/09/23 18:29 01/09/23 22:19 Ondansetron 4 Mg Tab PO 4 mg Q8HR PRN Administration Nausea Psyllium Hydrophilic Mucilloid 6 gm 01/10/23 09:00 Psyllium Husk 100% 6 Gm Packet PO DAILY DEEPA Tamsulosin HCl 0.4 mg 01/10/23 09:00 Tamsulosin 0.4 Mg Cap.Er.24h PO DAILY DEEPA Intake and Output 01/09/23 01/10/23 01/10/23 22:59 06:59 14:59 Output Total 750 Balance -750 Output: Urine 750 Other: Voiding Method Indwelling Catheter Indwelling Catheter Weight 104.78 kg 01/09/23 08:38 01/10/23 05:41
[2023-01-10] MEDS: ASPIRIN 81 MG PO SCH (09:45)
[2023-01-10] MEDS: FAMOTIDINE 20 MG TAB PO SCH ×2 (09:45→21:20)
[2023-01-10] MEDS: METOPROLOL TARTRATE 25 MG TAB PO SCH ×2 (09:45→21:20)
[2023-01-10] MEDS: MELOXICAM 7.5 MG TAB PO SCH ×2 (09:45→21:20)
[2023-01-10] MEDS: PSYLLIUM HUSK 100% 6 GM PACKET PO SCH (09:45)
[2023-01-10] MEDS: TAMSULOSIN 0.4 MG CAP.ER.24H PO SCH (09:45)
[2023-01-10] MEDS: BICALUTAMIDE 50 MG TAB PO SCH (09:46)
[2023-01-10 12:02] LABS: Glucose,Whole Blood 167 mg/dL (70-110)
[2023-01-10 17:26] LABS: Glucose,Whole Blood 277 mg/dL (70-110)
--- NOTE | 2023-01-10 17:45 | P.PN ---
Progress Note - Text Progress Note Date: 01/10/23 Chief Complaint: Abdominal bloating This is a pleasant 72-year-old patient, follows with Dr. Allen. Chronic stable medical conditions include diabetes, hypertension, hypothyroid, diagnoses of prostate cancer. Being followed by Dr. Andrea. Patient states he has had h ospitalizations to different hospitals including [facility], and other hospitals. They haven't been able to find why he is not really able to walk. Patient currently at [facility]. Patient now presents with multiple symptoms. Physical abdominal bloating for about 2 days. Some nausea vomiting. Some dull discomfort. Patient gently is constipated. Decreased appetite. No fever no chills. Feels tired. 01/10/2023: Admitted with possible enteritis. Started IV ceftriaxone. Clear liquid diet. Patient feels a bit better today. No nausea vomiting. Advanced to full liquid diet. Continue IV ceftriaxone. Denies abdominal pain. Tired but resting. Active Medications Acetaminophen (Acetaminophen Tab 325 Mg Tab) 650 mg PO Q6HR PRN PRN Reason: Moderate Pain (Scale 4 to 6) Last Admin: 01/09/23 19:55 Dose: 650 mg Amitriptyline HCl (Amitriptyline Hcl 25 Mg Tab) 75 mg PO HS [facility] Last Admin: 01/09/23 19:57 Dose: 75 mg Aspirin (Aspirin 81 Mg) 81 mg PO DAILY [facility] Last Admin: 01/10/23 09:45 Dose: 81 mg Atorvastatin Calcium (Atorvastatin 40 Mg Tab) 40 mg PO HS [facility] Last Admin: 01/09/23 22:19 Dose: 40 mg Bicalutamide (Bicalutamide 50 Mg Tab) 50 mg PO DAILY [facility] Last Admin: 01/10/23 09:46 Dose: 50 mg Dextrose/Water (Dextrose 50% Syringe 50 Ml) 25 ml IVP PER PROTOCOL PRN; Protocol PRN Reason: Hypoglycemia Dextrose/Water (Dextrose 50% Syringe 50 Ml) 50 ml IVP PER PROTOCOL PRN; Protocol PRN Reason: Hypoglycemia Famotidine (Famotidine 20 Mg Tab) 20 mg PO BID [facility] Last Admin: 01/10/23 09:45 Dose: 20 mg Ceftriaxone Sodium 2 gm/ (Sodium Chloride) 50 mls @ 100 mls/hr IVPB Q24HR DEEPA; Protocol Last Admin: 01/10/23 09:45 Dose: 100 mls/hr Lactated Ringer's (Lactated Ringers) 1,000 mls @ 100 mls/hr IV .Q10H [facility] Last Admin: 01/10/23 13:17 Dose: 100 mls/hr Insulin Aspart (Insulin Aspart (Novolog) 100 Unit/Ml Vial) 0 unit SQ AC-TID [facility]; Protocol Last Admin: 01/10/23 13:16 Dose: 3 unit Insulin Aspart (Insulin Aspart (Novolog) 100 Unit/Ml Vial) 6 unit SQ AC-TID [facility] Last Admin: 01/10/23 13:17 Dose: 6 unit Insulin Detemir (Insulin Detemir (Levemir) 100 Unit/Ml Syr) 60 unit SQ [facility] Last Admin: 01/09/23 22:20 Dose: 60 unit Lorazepam (Lorazepam 0.5 Mg Tab) 0.5 mg PO Q12H PRN PRN Reason: Anxiety Last Admin: 01/09/23 22:20 Dose: 0.5 mg Magnesium Oxide (Magnesium Oxide 400 Mg Tab) 400 mg PO [facility] Last Admin: 01/09/23 22:19 Dose: 400 mg Meloxicam (Meloxicam 7.5 Mg Tab) 7.5 mg PO BID [facility] Last Admin: 01/10/23 09:45 Dose: 7.5 mg Metformin HCl (Metformin 500 Mg Tab) 1,000 mg PO BID [facility] Metoprolol Tartrate (Metoprolol Tartrate 25 Mg Tab) 25 mg PO BID [facility] Last Admin: 01/10/23 09:45 Dose: 25 mg Multivitamins (Multivitamins, Thera 1 Each Tab) 1 each PO [facility] Last Admin: 01/09/23 22:20 Dose: 1 each Patient's Own ( Dulaglutide [ Trulicity] 0.75 Mg/0 .5 Ml Each) 1.5 mg SQ [facility] Ondansetron HCl (Ondansetron 4 Mg Tab) 4 mg PO Q8HR PRN PRN Reason: Nausea Last Admin: 01/09/23 22:19 Dose: 4 mg Psyllium Hydrophilic Mucilloid (Psyllium Husk 100% 6 Gm Packet) 6 gm PO DAILY [facility] Last Admin: 01/10/23 09:45 Dose: 6 gm Tamsulosin HCl (Tamsulosin 0.4 Mg Cap.Er.24h) 0.4 mg PO DAILY [facility] Last Admin: 01/10/23 09:45 Dose: 0.4 mg Past medical history to include: Diabetes, hypertension, hypothyroid, prostate cancer Social history: No smoking or alcohol. 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 Currently lives [place] [facility] [place] Physical examination: VITAL SIGNS: 98.3, 85, 16, 110/78, 95% room air GENERAL:, laying in bed awake , comfortable EYES: Pupils equal. Conjunctiva normal. HEENT: External appearance of nose and ears normal, oral cavity grossly normal. NECK: JVD not raised; masses not palpable. HEART: First and second heart sounds are normal; no edema. LUNGS: Respiratory rate normal; clear to auscultation. ABDOMEN: Soft, mild distention, no tenderness, no guarding rigidity, liver spleen not palpable, no masses palpable. PSYCH: Alert and oriented x3; mood and affect normal. MUSCULOSKELETAL:No Clubbing/cyanosis;muscles-grossly intact, some OA INVESTIGATIONS, reviewed in the clinical context: January 10: Potassium 4.8 creatinine 0.73 White count 18.9 hemoglobin 11.1 platelets 242 sodium 135 potassium 5.3 BUN 25 creatinine 0.68 Amylase 48 lipase 111 EKG tracing personally reviewed by me-sinus tachycardia.. Right bundle-branch block. Chest x-ray film. Prominent aortic arch. CT abdomen: Mild left-sided hydroureter hydronephrosis without obstruction. Stomach distention. Assessment plan: -Possible enteritis. some abdominal pain nausea vomiting distention. On presentation: Slow improvement IV ceftriaxone. Clear liquid diet initially Start full liquid diet today. -Diabetes mellitus type 2, on insulin p.m. dose of Levemir to 60 units. Trulicity. Follow Accu-Cheks. Hold metformin and Glucotrol -BPH/prostate cancer Flomax. Lupron injection. Casodex -Chronic insomnia Elavil at night -Hyperlipidemia Lipitor 40 mg daily at bedtime -Essential hypertension Lopressor 25 mg twice a day. Hold lisinopril -Chronic lower extremity paresis. Cause unknown. PT OT. -Obesity BMI 33.1 Weight loss measures Continue with IV ceftriaxone. Full liquid diet. Discussed with patient. Past Medical History Past Medical History: Asthma, Cancer, Diabetes Mellitus, GERD/Reflux, Hyperlipidemia, Hypertension, Osteoarthritis (OA), Rheumatoid Arthritis (RA) Additional Past Medical History / Comment(s): prostate cancer, harper cath(chronic), UTI, non ambulatory, anemia, migraines History of Any Multi-Drug Resistant Organisms: None Reported Past Surgical History: No Surgical Hx Reported Past Anesthesia/Blood Transfusion Reactions: No Reported Reaction Past Psychological History: Depression Smoking Status: Never smoker - Past Family History Father Family Medical History: Cancer Medications and Allergies Home Medications Medication Instructions Recorded Confirmed Type Aspirin EC [Ecotrin Low Dose] 81 mg PO DAILY 12/13/21 01/09/23 History Bicalutamide [Casodex] 50 mg PO DAILY 12/13/21 01/09/23 History Atorvastatin Calcium 40 mg PO HS 02/05/22 01/09/23 History Metoprolol Tartrate [Lopressor] 25 mg PO BID 02/05/22 01/09/23 History Ferrous Sulfate [Iron (65 MG 325 mg PO DAILY 04/26/22 01/09/23 History Elemental)] Insulin Glargine-Yfgn [Semglee 60 units SQ HS #0 04/30/22 01/09/23 Rx (Yfgn) Pen] Dulaglutide [Trulicity] 1.5 mg SQ WE 10/18/22 01/09/23 History INSULIN LISPRO (humaLOG) [humaLOG] 16 units SQ AC-BRKFST 10/18/22 01/09/23 History INSULIN LISPRO (humaLOG) [humaLOG] 20 units SQ AC-BID@1200,1800 10/18/22 01/09/23 History Leuprolide Acetate [Lupron Depot] 45 mg IM Q180D 10/18/22 01/09/23 History glipiZIDE [Glucotrol] 10 mg PO BID 10/18/22 01/09/23 History Acetaminophen Tab [Tylenol] 650 mg PO Q6HR PRN 11/19/22 01/09/23 History Docusate Sodium [Dok] 100 mg PO Q8H PRN 11/19/22 01/09/23 History Famotidine [Pepcid] 20 mg PO BID 11/19/22 01/09/23 History Magnesium Oxide [Mag-Ox] 400 mg PO HS 11/19/22 01/09/23 History Meloxicam 7.5 mg PO BID 11/19/22 01/09/23 History Multivit-Min/FA/Lycopen/Lutein 1 tab PO HS 11/19/22 01/09/23 History [Centrum Silver Men Tablet] Ondansetron [Zofran] 4 mg PO Q8HR PRN 11/19/22 01/09/23 History Psyllium Husk 100% [Metamucil 6 gm PO DAILY 11/19/22 01/09/23 History Packet] Tamsulosin HCl [Flomax] 0.4 mg PO DAILY 11/19/22 01/09/23 History lisinopriL [Zestril] 5 mg PO DAILY 11/19/22 01/09/23 History Amitriptyline HCl [Elavil] 75 mg PO HS 01/09/23 01/09/23 History LORazepam [Ativan] 0.5 mg PO Q12H PRN 01/09/23 01/09/23 History Magnesium Hydroxide [Milk of 2,400 mg PO Q72H PRN 01/09/23 01/09/23 History Magnesia] Sennosides/Docusate Sodium [Senna 1 tab PO DAILY 01/09/23 01/09/23 History Plus 8.6-50 mg Tablet] Sodium Chloride [[place]] 1 spr EA NOSTRIL Q8H PRN 01/09/23 01/09/23 History metFORMIN HCL 1,000 mg PO BID 01/09/23 01/09/23 History Allergies Allergy/AdvReac Type Severity Reaction Status Date / Time amoxicillin [From Augmentin] AdvReac Vomiting Verified 01/09/23 12:57 clavulanic acid AdvReac Vomiting Verified 01/09/23 12:57 [From Augmentin] hydromorphone [From Dilaudid] AdvReac Vomiting Verified 01/09/23 12:57 Physical Exam Vitals: Vital Signs Temp Pulse Resp BP Pulse Ox 01/09/23 11:00 128 H 20 138/89 91 L 01/09/23 06:52 98.9 F 125 H 20 141/64 92 L Intake and Output 01/09/23 01/09/23 01/09/23 06:59 14:59 22:59 Other: Weight 104.78 kg Results CBC & Chem 7: 01/09/23 08:38 01/09/23 11:44 Labs: Abnormal Lab Results - Last 24 Hours (Table) 01/09/23 01/09/23 01/09/23 Range/Units 08:38 08:38 11:44 WBC 18.9 H (3.8-10.6) k/uL RBC 3.78 L (4.30-5.90) m/uL Hgb 11.1 L (13.0-17.5) gm/dL Hct 33.6 L (39.0-53.0) % Neutrophils # 15.0 H (1.3-7.7) k/uL Monocytes # 1.8 H (0-1.0) k/uL Sodium 135 L (137-145) mmol/L Potassium 5.3 H (3.5-5.1) mmol/L Chloride 96 L (98-107) mmol/L BUN 25 H (9-20) mg/dL Glucose 310 H (74-99) mg/dL Urine RBC >182 H (0-5) /hpf Urine WBC 48 H (0-5) /hpf Triple Phos Crystals Few H (None) /hpf Amorphous Sediment Few H (None) /hpf Urine Bacteria Many H (None) /hpf Urine Mucus Many H (None) /hpf Additional CC's: Sarbjit Allen
[2023-01-10 20:28] LABS: Glucose,Whole Blood 206 mg/dL (70-110)
[2023-01-10] MEDS: AMITRIPTYLINE HCL 25 MG TAB PO SCH (21:19)
[2023-01-10] MEDS: MULTIVITAMINS, THERA 1 EACH TAB PO SCH (21:20)
[2023-01-10] MEDS: MAGNESIUM OXIDE 400 MG TAB PO SCH (21:20)
[2023-01-10] MEDS: INSULIN DETEMIR (LEVEMIR) 100 UNIT/ML SYR SQ SCH (21:20)
[2023-01-10] MEDS: LORazepam 0.5 MG TAB PO PRN (21:20)
[2023-01-10] MEDS: metFORMIN 500 MG TAB PO SCH (21:20)
[2023-01-10] MEDS: ATORVASTATIN 40 MG TAB PO SCH (21:20)
[2023-01-11 06:11] LABS: African American GFR (CKD) >90 (>60 ml/min/1.73 sqM); Anion Gap 11 mmol/L; Blood Urea Nitrogen 14 mg/dL (9-20); Calcium 8.6 mg/dL (8.4-10.2); Carbon Dioxide 25 mmol/L (22-30); Chloride 98 mmol/L (98-107); Glucose 64 mg/dL (74-99); Non-African American GFR(CKD) >90 (>60 ml/min/1.73 sqM); Potassium 4.4 mmol/L (3.5-5.1); Sodium 134 mmol/L (137-145)
[2023-01-11 07:35] VITALS: BP 108/71; PULSE 92; RESP 16; TEMP 98.2
[2023-01-11] MEDS: LACTATED RINGERS 1,000 ML IV SCH ×2 (08:02→13:43)
[2023-01-11 08:08] LABS: Glucose,Whole Blood 79 mg/dL (70-110)
[2023-01-11] MEDS: INSULIN ASPART (NovoLOG) 100 UNIT/ML VIAL SQ SCH ×4 (08:08→13:45)
[2023-01-11] MEDS: BICALUTAMIDE 50 MG TAB PO SCH (09:38)
[2023-01-11] MEDS: metFORMIN 500 MG TAB PO SCH (09:38)
[2023-01-11] MEDS: TAMSULOSIN 0.4 MG CAP.ER.24H PO SCH (09:38)
[2023-01-11] MEDS: FAMOTIDINE 20 MG TAB PO SCH (09:38)
[2023-01-11] MEDS: PSYLLIUM HUSK 100% 6 GM PACKET PO SCH (09:38)
[2023-01-11] MEDS: METOPROLOL TARTRATE 25 MG TAB PO SCH (09:38)
[2023-01-11] MEDS: ASPIRIN 81 MG PO SCH (09:38)
[2023-01-11] MEDS: MELOXICAM 7.5 MG TAB PO SCH (09:39)
[2023-01-11 12:13] LABS: Glucose,Whole Blood 200 mg/dL (70-110)
--- NOTE | 2023-01-11 12:35 | P.DS ---
Providers Date of admission: 01/09/23 21:09 Expected date of discharge: 01/11/23 Attending physician: Victorino Murcia Primary care physician: Sarbjit Allen [facility] Course: Chief Complaint: Abdominal bloating This is a pleasant 72-year-old patient, follows with Dr. Allen. Chronic stable medical conditions include diabetes, hypertension, hypothyroid, diagnoses of prostate cancer. Being followed by Dr. Andrea. Patient states he has had hospitalizations to different hospitals including [facility], and other hospitals. They haven't been able to find why he is not really able to walk. Patient currently at [facility] [place]. Patient now presents with multiple symptoms. Physical abdominal bloating for about 2 days. Some nausea vomiting. Some dull discomfort. Patient gently is constipated. Decreased appetite. No fever no chills. Feels tired. 01/10/2023: Admitted with possible enteritis. Started IV ceftriaxone. Clear liquid diet. Patient feels a bit better today. No nausea vomiting. Advanced to full liquid diet. Continue IV ceftriaxone. Denies abdominal pain. Tired but resting. 01/11/2023: Feeling well. No abdominal pain. Tolerating diet. No fever no chills. Discussed with the nurse and showcase trimmer. We'll discharge to complete a course of Omnicef. Soft bland diet. Discussed with patient. Diabetes medications adjusted Discussion and discharge planning more than 35 minutes Past medical history to include: Diabetes, hypertension, hypothyroid, prostate cancer Social history: No smoking or alcohol. Used to work in [employer] at [employer]. Currently lives [facility] [place] Physical examination: VITAL SIGNS: 98.2, 92, 16, 10 8 x 71, 100% room air GENERAL:, laying in bed awake , comfortable EYES: Pupils equal. Conjunctiva normal. HEENT: External appearance of nose and ears normal, oral cavity grossly normal. NECK: JVD not raised; masses not palpable. HEART: First and second heart sounds are normal; no edema. LUNGS: Respiratory rate normal; clear to auscultation. ABDOMEN: Soft, , no tenderness, no guarding rigidity, liver spleen not palpable, no masses palpable. PSYCH: Alert and oriented x3; mood and affect normal. MUSCULOSKELETAL:No Clubbing/cyanosis;muscles-grossly intact, some OA INVESTIGATIONS, reviewed in the clinical context: January 11: Potassium 4.4 creatinine 0.65 White count 18.9 hemoglobin 11.1 platelets 242 sodium 135 potassium 5.3 BUN 25 creatinine 0.68 Amylase 48 lipase 111 EKG tracing personally reviewed by me-sinus tachycardia.. Right bundle-branch block. Chest x-ray film. Prominent aortic arch. CT abdomen: Mild left-sided hydroureter hydronephrosis without obstruction. Stomach distention. Assessment plan: -Possible enteritis. some abdominal pain nausea vomiting distention. On presentation: Improved IV ceftriaxone. Soft bland diet Omnicef 300 mg twice a day for 7 days -Diabetes mellitus type 2, on insulin p.m. dose of Levemir to 48 units. Trulicity. Follow Accu-Cheks. Continue me tformin. stop Glucotrol Humalog 10 units before meals 3 times a day -BPH/prostate cancer Flomax. Lupron injection. Casodex -Chronic insomnia Elavil at night -Hyperlipidemia Lipitor 40 mg daily at bedtime -Essential hypertension Lopressor 25 mg twice a day. Stop lisinopril -Chronic lower extremity paresis. Cause unknown. PT OT. -Obesity BMI 33.1 Weight loss measures -Patient has a legal guardian Disposition: [facility]. Plan - Discharge Summary New Discharge Prescriptions: New Cefdinir [Omnicef] 300 mg PO Q12HR #14 capsule Continue Bicalutamide [Casodex] 50 mg PO DAILY Aspirin EC [Ecotrin Low Dose] 81 mg PO DAILY Leuprolide Acetate [Lupron Depot] 45 mg IM Q180D Psyllium Husk 100% [Metamucil Packet] 6 gm PO DAILY Meloxicam 7.5 mg PO BID Magnesium Oxide [Mag-Ox] 400 mg PO HS Tamsulosin HCl [Flomax] 0.4 mg PO DAILY Famotidine [Pepcid] 20 mg PO BID Amitriptyline HCl [Elavil] 75 mg PO HS Sennosides/Docusate Sodium [Senna Plus 8.6-50 mg Tablet] 1 tab PO DAILY Metoprolol Tartrate [Lopressor] 25 mg PO BID Atorvastatin Calcium 40 mg PO HS Ferrous Sulfate [Iron (65 MG Elemental)] 325 mg PO DAILY Dulaglutide [Trulicity] 1.5 mg SQ WE Ondansetron [Zofran] 4 mg PO Q8HR PRN PRN Reason: Nausea Multivit-Min/FA/Lycopen/Lutein [Centrum Silver Men Tablet] 1 tab PO HS Acetaminophen Tab [Tylenol] 650 mg PO Q6HR PRN PRN Reason: Moderate Pain (Scale 4 To 6) Magnesium Hydroxide [Milk of Magnesia] 2,400 mg PO Q72H PRN PRN Reason: Constipation metFORMIN HCL 1,000 mg PO BID Sodium Chloride [[place]] 1 spr EA NOSTRIL Q8H PRN PRN Reason: Congestion LORazepam [Ativan] 0.5 mg PO Q12H PRN #6 tab PRN Reason: Anxiety Changed INSULIN LISPRO (humaLOG) [humaLOG] 10 units SQ AC-BRKFST #0 Insulin Glargine-Yfgn [Semglee (Yfgn) Pen] 48 units SQ HS #0 INSULIN LISPRO (humaLOG) [humaLOG] 10 units SQ AC-BID@1200,1800 #0 Discontinued glipiZIDE [Glucotrol] 10 mg PO BID lisinopriL [Zestril] 5 mg PO DAILY Docusate Sodium [Dok] 100 mg PO Q8H PRN PRN Reason: Constipation Discharge Medication List Aspirin EC [Ecotrin Low Dose] 81 mg PO DAILY 12/13/21 [History] Bicalutamide [Casodex] 50 mg PO DAILY 12/13/21 [History] Atorvastatin Calcium 40 mg PO HS 02/05/22 [History] Metoprolol Tartrate [Lopressor] 25 mg PO BID 02/05/22 [History] Ferrous Sulfate [Iron (65 MG Elemental)] 325 mg PO DAILY 04/26/22 [History] Dulaglutide [Trulicity] 1.5 mg SQ WE 10/18/22 [History] Leuprolide Acetate [Lupron Depot] 45 mg IM Q180D 10/18/22 [History] Acetaminophen Tab [Tylenol] 650 mg PO Q6HR PRN 11/19/22 [History] Famotidine [Pepcid] 20 mg PO BID 11/19/22 [History] Magnesium Oxide [Mag-Ox] 400 mg PO HS 11/19/22 [History] Meloxicam 7.5 mg PO BID 11/19/22 [History] Multivit-Min/FA/Lycopen/Lutein [Centrum Silver Men Tablet] 1 tab PO HS 11/19/22 [History] Ondansetron [Zofran] 4 mg PO Q8HR PRN 11/19/22 [History] Psyllium Husk 100% [Metamucil Packet] 6 gm PO DAILY 11/19/22 [History] Tamsulosin HCl [Flomax] 0.4 mg PO DAILY 11/19/22 [History] Amitriptyline HCl [Elavil] 75 mg PO HS 01/09/23 [History] Magnesium Hydroxide [Milk of Magnesia] 2,400 mg PO Q72H PRN 01/09/23 [History] Sennosides/Docusate Sodium [Senna Plus 8.6-50 mg Tablet] 1 tab PO DAILY 01/09/23 [History] Sodium Chloride [[place]] 1 spr EA NOSTRIL Q8H PRN 01/09/23 [History] metFORMIN HCL 1,000 mg PO BID 01/09/23 [History] Cefdinir [Omnicef] 300 mg PO Q12HR #14 capsule 01/11/23 [Rx] INSULIN LISPRO (humaLOG) [humaLOG] 10 units SQ AC-BID@1200,1800 #0 01/11/23 [Rx] INSULIN LISPRO (humaLOG) [humaLOG] 10 units SQ AC-BRKFST #0 01/11/23 [Rx] Insulin Glargine-Yfgn [Semglee (Yfgn) Pen] 48 units SQ HS #0 01/11/23 [Rx] LORazepam [Ativan] 0.5 mg PO Q12H PRN #6 tab 01/11/23 [Rx] Follow up Appointment(s)/Referral(s): Sarbjit Allen DO [Primary Care Provider] - 1-2 days
[2023-01-16] MEDS ORDERED: PATIENT'S OWN (Dulaglutide [Trulicity] 0.75 MG/0.5 ML Each) SQ SCH (09:00)
--- NOTE | 2023-01-17 07:44 | CDI ---
Documentation Clarification Form Date: 01/17/2023 07:32:42 AM From: Radha Robertson RN, CCDS Email: [email or web address] Admit Date: 01/09/2023 09:09:00 PM Patient Name: Barrie Kowalski Visit Number: [id number] Discharge Date: 01/11/2023 03:26:00 PM ATTENTION: The Clinical Documentation Specialists (CDI) and [facility] Coding Staff appreciate your assistance in clarifying documentation. Please respond to the clarification below the line at the bottom and electronically sign. The CDI & [facility] Coding staff will review the response and follow-up if needed. Please note: Queries are made part of the Legal Health Record. If you have any questions, please contact the author of this message via ITS. Dr. Victorino Murcia The patient had abdominal pain, enteritis and met SIRS criteria. Based on this information and the findings below, is there an additional diagnosis that is clinically appropriate for this patient? History/Risk Factors: diabetes, hypertension, hypothyroid, diagnoses of prostate cancer Clinical Indicators: ED: "Urinary tract infection, Sinus tachycardia." H&P: "Possible enteritis. Patient is having some abdominal pain, nausea, vomiting and distention." Cardiology consult: "The obvious reason for this sinus tachycardia is infection. The sinus tachycardia is physiologic and requires treatment of the underlying medical problem." 01/09 WBC: 18.9 01/09 Lactic acid: 1.0 01/09 Vital signs: HR 134-101; RR 14-35 01/09 UA: many bacteria Treatment: Antibiotics: IV Rocephin 1000mg x1 on 01/09; IV Rocephin 2gm Q24H 01/10-01/11 IV: LR @100ml/hr Is there an additional diagnosis that is clinically appropriate for this patient? [ + ] Sepsis, present on admission [ ] Other, please specify [ ] Unable to determine SIRS Criteria: 2 or more of the following may indicate SIRS Temperature < 96.8F (36C) or > 101.0F (38.3C) Heart Rate > 90 bpm Respiratory Rate > 20 breaths/min or PaCO2 < 32 mmHg White Blood Cell Count > 12,000 or < 4,000 cells/mm3 or > 10% bands MTDD
== END 2023-01-11 15:26 | DRG 872 ==
LOC: EEVIPCON 06:51 → EC 06:51 → 6NMEDSUR 15:01 → EEVIPCON 21:09 → OBSVTOIN 21:09
PROVIDERS: ADMIT Hospitalist; ATTEND Hospitalist
DX: A41.9 Sepsis, unspecified organism (principal); K52.9 Noninfective gastroenteritis and colitis, unspecified; E03.9 Hypothyroidism, unspecified; E78.5 Hyperlipidemia, unspecified; F32.A Depression, unspecified; F41.9 Anxiety disorder, unspecified; I10 Essential (primary) hypertension; I45.10 Unspecified right bundle-branch block; E11.649 Type 2 diabetes mellitus with hypoglycemia without coma; E66.9 Obesity, unspecified; N40.0 Benign prostatic hyperplasia without lower urinary tract symptoms; M06.9 Rheumatoid arthritis, unspecified; G47.00 Insomnia, unspecified; Z79.1 Long term (current) use of non-steroidal anti-inflammatories (NSAID); Z79.4 Long term (current) use of insulin; Z79.82 Long term (current) use of aspirin; Z79.84 Long term (current) use of oral hypoglycemic drugs; Z79.899 Other long term (current) drug therapy; Z85.46 Personal history of malignant neoplasm of prostate; Z68.33 Body mass index [BMI] 33.0-33.9, adult; Z88.5 Allergy status to narcotic agent; Z88.1 Allergy status to other antibiotic agents; Z88.0 Allergy status to penicillin
CPT/HCPCS: 36415; 71046; 74177; 80048; 80053; 81001; 82150; 83605; 83690; 84484; 85025; 87040; 93005; 96361; 96374; 99285

== ENCOUNTER 2023-04-21 02:53 | Inpatient (IN) | payer MEDICARE, OTHER ==
[2023-04-21] MEDS ORDERED: SODIUM CHLORIDE 0.9% 1,000 ML IV STA (03:12)
[2023-04-21] MEDS ORDERED: ACETAMINOPHEN IV (For NPO) 1,000 MG in EMPTY BAG 1 BAG IVPB STA (03:13)
--- NOTE | 2023-04-21 03:20 | ED ---
General Adult HPI - General Chief complaint: Altered Mental Status Stated complaint: Alt Mental Time Seen by Provider: 04/21/23 02:55 Source: patient, EMS Mode of arrival: EMS Limitations: altered mental status - History of Present Illness Initial comments: Dictation was produced using [employer] dictation software. please excuse any grammatical, word or spelling errors. Chief Complaint: 72-year-old male presents to the ER for concerns of sepsis History of Present Illness: Patient 72-year-old male he is bedbound his multiple comorbidities presents to the ER for allegedly one day of sepsis symptoms. Patient's poor story he is allegedly baseline anal 4 however today he is noted be a and O 1. EMS reports that halfway is concerned of a UTI sepsis. Patient chronic indwelling Harper catheter. He is a poor historian and unable to provide us present illness secondary to mental status. Unable to obtain ROS secondary to mental status - Related Data Home Medications Medication Instructions Recorded Confirmed Aspirin EC [Ecotrin Low Dose] 81 mg PO DAILY 12/13/21 01/09/23 Bicalutamide [Casodex] 50 mg PO DAILY 12/13/21 01/09/23 Atorvastatin Calcium 40 mg PO HS 02/05/22 01/09/23 Metoprolol Tartrate [Lopressor] 25 mg PO BID 02/05/22 01/09/23 Ferrous Sulfate [Iron (65 MG 325 mg PO DAILY 04/26/22 01/09/23 Elemental)] Dulaglutide [Trulicity] 1.5 mg SQ WE 10/18/22 01/09/23 Leuprolide Acetate [Lupron Depot] 45 mg IM Q180D 10/18/22 01/09/23 Acetaminophen Tab [Tylenol] 650 mg PO Q6HR PRN 11/19/22 01/09/23 Famotidine [Pepcid] 20 mg PO BID 11/19/22 01/09/23 Magnesium Oxide [Mag-Ox] 400 mg PO HS 11/19/22 01/09/23 Meloxicam 7.5 mg PO BID 11/19/22 01/09/23 Mv-Min/Folic/K1/Lycopen/Lutein 1 tab PO HS 11/19/22 01/09/23 [Centrum Silver Men Tablet] Ondansetron [Zofran] 4 mg PO Q8HR PRN 11/19/22 01/09/23 Psyllium Husk 100% [Metamucil 6 gm PO DAILY 11/19/22 01/09/23 Packet] Tamsulosin HCl [Flomax] 0.4 mg PO DAILY 11/19/22 01/09/23 Amitriptyline HCl [Elavil] 75 mg PO HS 01/09/23 01/09/23 Magnesium Hydroxide [Milk of 2,400 mg PO Q72H PRN 01/09/23 01/09/23 Magnesia] Sennosides/Docusate Sodium [Senna 1 tab PO DAILY 01/09/23 01/09/23 Plus 8.6-50 mg Tablet] Sodium Chloride [Sunflower Becker] 1 spr EA NOSTRIL Q8H PRN 01/09/23 01/09/23 metFORMIN HCL 1,000 mg PO BID 01/09/23 01/09/23 Previous Rx's Medication Instructions Recorded Cefdinir [Omnicef] 300 mg PO Q12HR #14 capsule 01/11/23 INSULIN LISPRO (humaLOG) [humaLOG] 10 units SQ AC-BID@1200,1800 #0 01/11/23 INSULIN LISPRO (humaLOG) [humaLOG] 10 units SQ AC-BRKFST #0 01/11/23 Insulin Glargine-Yfgn [Semglee 48 units SQ HS #0 01/11/23 (Yfgn) Pen] LORazepam [Ativan] 0.5 mg PO Q12H PRN #6 tab 01/11/23 Allergies Allergy/AdvReac Type Severity Reaction Status Date / Time amoxicillin [From Augmentin] AdvReac Vomiting Verified 01/09/23 12:57 clavulanic acid AdvReac Vomiting Verified 01/09/23 12:57 [From Augmentin] hydromorphone [From Dilaudid] AdvReac Vomiting Verified 01/09/23 12:57 Review of Systems ROS Statement: Those systems with pertinent positive or pertinent negative responses have been documented in the HPI. ROS Other: All systems not noted in ROS Statement are negative. Past Medical History Past Medical History: Asthma, Cancer, Diabetes Mellitus, GERD/Reflux, Hyperlipidemia, Hypertension, Osteoarthritis (OA), Rheumatoid Arthritis (RA) Additional Past Medical History / Comment(s): prostate cancer, harper cath(chronic), UTI, non ambulatory, anemia, migraines History of Any Multi-Drug Resistant Organisms: None Reported Past Surgical History: No Surgical Hx Reported Past Anesthesia/Blood Transfusion Reactions: No Reported Reaction Past Psychological History: Depression Smoking Status: Never smoker Past Alcohol Use History: None Reported Past Drug Use History: None Reported - Past Family History Father Family Medical History: Cancer General Exam - General Exam Comments Initial Comments: PHYSICAL EXAM: General Impression: Alert and oriented x1/4, malodorous HEENT: Normocephalic atraumatic, extra-ocular movements intact, pupils equal and reactive to light bilaterally, dry mucous membranes. Cardiovascular: Tachycardic Chest: Able to complete full sentences, no retractions, no tachypnea Abdomen: abdomen soft, non-tender, non-distended, no organomegaly Musculoskeletal: Pulses present and equal in all extremities, no peripheral edema Motor: no focal deficits noted Neurological: CN II-XII grossly intact, no focal motor or sensory deficits noted, negative Kernig's and negative Brudzinski's Skin: Intact with no visualized rashes Limitations: altered mental status Course Vital Signs 04/21/23 04/21/23 04/21/23 02:55 03:33 04:00 Temperature 101.3 F H 98.9 F Pulse Rate 124 H 113 H 111 H Respiratory 18 20 20 Rate Blood Pressure 119/74 130/71 106/65 O2 Sat by Pulse 91 L 96 96 Oximetry 04/21/23 05:20 Temperature 100.1 F H Pulse Rate Respiratory Rate Blood Pressure O2 Sat by Pulse Oximetry EKG Findings - EKG Comments: EKG Findings:: My EKG interpretation: Ventricular rate 121, sinus tachycardia,. Interval 159, right bundle branch block, QRS 140, QTc 416. No MI prolongation, no QTC prolongation, no ST or T-wave changes noted. EKG compared to 01/11/2023 showing no changes. Overall, this EKG is unremarkable Procedures - Sepsis Sepsis Focused Exam #1 Time Sepsis Criteria Met: : Sepsis Focused Exam Date: 04/21/23 Sepsis Focused Exam Time: Sepsis Focused Exam Complete: Yes Vital Signs & RN Notes Reviewed: Yes Capillary Refill: < 2 Seconds: Fingers, Toes Peripheral Pulses: Normal: Radial (R), Radial (L), Posterior Tibialis (R), Posterior Tibialis (L), Dorsalis Pedis (R), Dorsalis Pedis (L) Skin Color: Normal for Patient Respiratory Exam: normal lung sounds Cardiovascular Exam: regular rate Medical Decision Making - Medical Decision Making Was pt. sent in by a medical professional or institution (RYLEE Rojo, HVAC INSTALLER, urgent care, hospital, or halfway...) When possible be specific @ -No Did you speak to anyone other than the patient for history (EMS, parent, family, police, friend...)? What history was obtained from this source @ -No Did you review nursing and triage notes (agree or disagree)? Why? @ -I reviewed and agree with nursing and triage notes Were old charts reviewed (outside hosp., previous admission, EMS record, old EKG, old radiological studies, urgent care reports/EKG's, halfway records)? Report findings @ -No old charts were reviewed Differential Diagnosis (chest pain, altered mental status, abdominal pain women, abdominal pain men, vaginal bleeding, musculoskeletal, weakness, fever, dyspnea, syncope, headache, dizziness, GI bleed, back pain, seizure, CVA, palpatations, mental health)? @ -Differential Fever: Pneumonia, viral URI, endocarditis, myocarditis, pericarditis, otitis, sinusitis, peritonsillar Abscess, retropharyngeal Abscess, epiglottitis, peritonitis, appendicitis, Ann cystitis, diverticulitis, hepatitis, colitis, UTI, PID, TOA, pyelonephritis, prostatitis, epididymitis, meningitis, e ncephalitis, pulmonary embolism, CVA, thyroid storm, pancreatitis, adrenal crisis, cavernous sinus thrombosis, this is not meant to be an all-inclusive list. EKG interpreted by me (3pts min.). @ -See above X-rays interpreted by me (1pt min.). @ -Chest x-ray shows no acute processes CT interpreted by me (1pt min.). @ -None done U/S interpreted by me (1pt. min.). @ -None done What testing was considered but not performed or refused? (CT, X-rays, U/S, labs)? Why? @ -None What meds were considered but not given or refused? Why? @ -None Did you discuss the management of the patient with other professionals (professionals i.e. RYLEE Rojo, HVAC INSTALLER, lab, RT, psych nurse, clinical social work aide, glass cleaner, teacher, accounts officer, test case developer)? Give summary @ -No Was smoking cessation discussed for >3mins.? @ -No Was critical care preformed (if so, how long)? @ -No Were there social determinants of health that impacted care today? How? (Homelessness, low income, unemployed, alcoholism, drug addiction, transportation, low edu. Level, literacy, decrease access to med. care, fdc, rehab)? @ -No Was there de-escalation of care discussed even if they declined (Discuss DNR or withdrawal of care, Hospice)? DNR status @ -No What co-morbidities impacted this encounter? (DM, HTN, Smoking, COPD, CAD, Cancer, CVA, ARF, Chemo, Hep., AIDS, mental health diagnosis, sleep apnea, morbid obesity)? @ -None Was patient admitted / discharged? Hospital course, mention meds given and route, prescriptions, significant lab abnormalities, going to OR and other pertinent info. @ -72-year-old male presents emergency department fever and altered mental status. Vital signs upon arrival shows temperature 101.3, heart rate 124, 91% percent room air. Laboratory evaluation shows no cytosis 15.2. Metabolic panel shows non-gap acidosis. Lactic acid level 2.3. Urinalysis shows nitrate positive UTI. Patient started on antibiotics. Bowel test negative. Patient does not appear to be in severe sepsis. He has stable blood pressure with lactic acid level below 4.0. Patient admitted to hospitalist with consultation to infectious disease Undiagnosed new problem with uncertain prognosis? @ -No Drug Therapy requiring intensive monitoring for toxicity (Heparin, Nitro, Insulin, Cardizem)? @ -No Were any procedures done? @ -No Diagnosis/symptom? Acute, or Chronic, or Acute on Chronic? Uncomplicated (without systemic symptoms) or Complicated (systemic symptoms)? @ -uti Sepsis Side effects of treatment? @ -No Exacerbation, Progression, or Severe Exacerbation? @ -No Poses a threat to life or bodily function? How? (Chest pain, USA, ND, pneumonia, PE, COPD, DKA, ARF, appy, cholecystitis, CVA, Diverticulitis, Homicidal, Suicidal, threat to staff... and all critical care pts) @ -yes - Lab Data Result diagrams: 04/21/23 03:26 04/21/23 03:26 Lab Results 04/21/23 04/21/2323 Range/Units 03:00 03:26 03:26 WBC (3.8-10.6) k/uL RBC (4.30-5.90) m/uL Hgb (13.0-17.5) gm/dL Hct (39.0-53.0) % MCV (80.0-100.0) fL MCH (25.0-35.0) pg MCHC (31.0-37.0) g/dL RDW (11.5-15.5) % Plt Count (150-450) k/uL MPV Neutrophils % % Lymphocytes % % Monocytes % % Eosinophils % % Basophils % % Neutrophils # (1.3-7.7) k/uL Lymphocytes # (1.0-4.8) k/uL Monocytes # (0-1.0) k/uL Eosinophils # (0-0.7) k/uL Basophils # (0-0.2) k/uL PT (10.0-12.5) sec INR (<1.2) Sodium (137-145) mmol/L Potassium (3.5-5.1) mmol/L Chloride (98-107) mmol/L Carbon Dioxide (22-30) mmol/L Anion Gap mmol/L BUN (9-20) mg/dL Creatinine (0.66-1.25) mg/dL Est GFR (CKD-EPI)AfAm (>60 ml/min/1.73 sqM) Est GFR (CKD-EPI)NonAf (>60 ml/min/1.73 sqM) Glucose (74-99) mg/dL Lactic Ac Sepsis Rflx Plasma Lactic Acid Franck 2.3 H* (0.7-2.0) mmol/L Calcium (8.4-10.2) mg/dL Magnesium (1.6-2.3) mg/dL Total Bilirubin (0.2-1.3) mg/dL AST (17-59) U/L ALT (4-49) U/L Alkaline Phosphatase (38-126) U/L Troponin I 0.015 (0.000-0.034) ng/mL Total Protein (6.3-8.2) g/dL Albumin (3.5-5.0) g/dL Urine Color Dark Yellow Urine Appearance Cloudy (Clear) Urine pH 5.5 (5.0-8.0) Ur Specific [facility] 1.030 (1.001-1.035) Urine Protein 3+ H (Negative) Urine Glucose (UA) Negative (Negative) Urine Ketones Negative (Negative) Urine Blood Small H (Negative) Urine Nitrite Positive (Negative) Urine Bilirubin Negative (Negative) Urine Urobilinogen 2.0 (<2.0) mg/dL Ur Leukocyte Esterase Large H (Negative) Urine RBC 19 H (0-5) /hpf Urine WBC >182 H (0-5) /hpf Ur Squamous Epith Cells <1 (0-4) /hpf Amorphous Sediment Occasional H (None) /hpf Urine Bacteria Many H (None) /hpf Hyaline Casts 66 H (0-2) /lpf Urine Mucus Few H (None) /hpf Influenza Type A (PCR) (Not Detectd) Influenza Type B (PCR) (Not Detectd) RSV (PCR) (Not Detectd) SARS-CoV-2 (PCR) (Not Detectd) 04/21/23 04/21/23 04/21/23 Range/Units 03:26 03:26 03:26 WBC 15.2 H (3.8-10.6) k/uL RBC 6.16 H (4.30-5.90) m/uL Hgb 17.7 H (13.0-17.5) gm/dL Hct 52.5 (39.0-53.0) % MCV 85.2 (80.0-100.0) fL MCH 28.7 (25.0-35.0) pg MCHC 33.7 (31.0-37.0) g/dL RDW 14.2 (11.5-15.5) % Plt Count 159 (150-450) k/uL MPV 9.5 Neutrophils % 84 % Lymphocytes % 3 % Monocytes % 11 % Eosinophils % 0 % Basophils % 0 % Neutrophils # 12.8 H (1.3-7.7) k/uL Lymphocytes # 0.5 L (1.0-4.8) k/uL Monocytes # 1.6 H (0-1.0) k/uL Eosinophils # 0.1 (0-0.7) k/uL Basophils # 0.0 (0-0.2) k/uL PT 13.1 H (10.0-12.5) sec INR 1.2 H (<1.2) Sodium (137-145) mmol/L Potassium (3.5-5.1) mmol/L Chloride (98-107) mmol/L Carbon Dioxide (22-30) mmol/L Anion Gap mmol/L BUN (9-20) mg/dL Creatinine (0.66-1.25) mg/dL Est GFR (CKD-EPI)AfAm (>60 ml/min/1.73 sqM) Est GFR (CKD-EPI)NonAf (>60 ml/min/1.73 sqM) Glucose (74-99) mg/dL Lactic Ac Sepsis Rflx Plasma Lactic Acid Franck (0.7-2.0) mmol/L Calcium (8.4-10.2) mg/dL Magnesium (1.6-2.3) mg/dL Total Bilirubin (0.2-1.3) mg/dL AST (17-59) U/L ALT (4-49) U/L Alkaline Phosphatase (38-126) U/L Troponin I (0.000-0.034) ng/mL Total Protein (6.3-8.2) g/dL Albumin (3.5-5.0) g/dL Urine Color Urine Appearance (Clear) Urine pH (5.0-8.0) Ur Specific [facility] (1.001-1.035) Urine Protein (Negative) Urine Glucose (UA) (Negative) Urine Ketones (Negative) Urine Blood (Negative) Urine Nitrite (Negative) Urine Bilirubin (Negative) Urine Urobilinogen (<2.0) mg/dL Ur Leukocyte Esterase (Negative) Urine RBC (0-5) /hpf Urine WBC (0-5) /hpf Ur Squamous Epith Cells (0-4) /hpf Amorphous Sediment (None) /hpf Urine Bacteria (None) /hpf Hyaline Casts (0-2) /lpf Urine Mucus (None) /hpf Influenza Type A (PCR) Not Detected (Not Detectd) Influenza Type B (PCR) Not Detected (Not Detectd) RSV (PCR) Not Detected (Not Detectd) SARS-CoV-2 (PCR) Not Detected (Not Detectd) 04/21/23 04/21/23 Range/Units 03:26 04:03 WBC (3.8-10.6) k/uL RBC (4.30-5.90) m/uL Hgb (13.0-17.5) gm/dL Hct (39.0-53.0) % MCV (80.0-100.0) fL MCH (25.0-35.0) pg MCHC (31.0-37.0) g/dL RDW (11.5-15.5) % Plt Count (150-450) k/uL MPV Neutrophils % % Lymphocytes % % Monocytes % % Eosinophils % % Basophils % % Neutrophils # (1.3-7.7) k/uL Lymphocytes # (1.0-4.8) k/uL Monocytes # (0-1.0) k/uL Eosinophils # (0-0.7) k/uL Basophils # (0-0.2) k/uL PT (10.0-12.5) sec INR (<1.2) Sodium 132 L (137-145) mmol/L Potassium 4.8 (3.5-5.1) mmol/L Chloride 92 L (98-107) mmol/L Carbon Dioxide 26 (22-30) mmol/L Anion Gap 14 mmol/L BUN 30 H (9-20) mg/dL Creatinine 1.17 (0.66-1.25) mg/dL Est GFR (CKD-EPI)AfAm 71 (>60 ml/min/1.73 sqM) Est GFR (CKD-EPI)NonAf 61 (>60 ml/min/1.73 sqM) Glucose 192 H (74-99) mg/dL Lactic Ac Sepsis Rflx Y Plasma Lactic Acid Franck (0.7-2.0) mmol/L Calcium 9.0 (8.4-10.2) mg/dL Magnesium 1.7 (1.6-2.3) mg/dL Total Bilirubin 0.6 (0.2-1.3) mg/dL AST 61 H (17-59) U/L ALT 69 H (4-49) U/L Alkaline Phosphatase 104 (38-126) U/L Troponin I (0.000-0.034) ng/mL Total Protein 7.6 (6.3-8.2) g/dL Albumin 3.9 (3.5-5.0) g/dL Urine Color Urine Appearance (Clear) Urine pH (5.0-8.0) Ur Specific [facility] (1.001-1.035) Urine Protein (Negative) Urine Glucose (UA) (Negative) Urine Ketones (Negative) Urine Blood (Negative) Urine Nitrite (Negative) Urine Bilirubin (Negative) Urine Urobilinogen (<2.0) mg/dL Ur Leukocyte Esterase (Negative) Urine RBC (0-5) /hpf Urine WBC (0-5) /hpf Ur Squamous Epith Cells (0-4) /hpf Amorphous Sediment (None) /hpf Urine Bacteria (None) /hpf Hyaline Casts (0-2) /lpf Urine Mucus (None) /hpf Influenza Type A (PCR) (Not Detectd) Influenza Type B (PCR) (Not Detectd) RSV (PCR) (Not Detectd) SARS-CoV-2 (PCR) (Not Detectd) Disposition Clinical Impression: Sepsis secondary to UTI Disposition: ADMITTED IP TO THIS HOSP Condition: Fair Referrals: Sarbjit Allen DO [Primary Care Provider] - 1-2 days Decision Time: 06:44
[2023-04-21 03:41] LABS: Basophils % (A) 0 %; Eosinophils # (A) 0.1 k/uL (0-0.7); Eosinophils % (A) 0 %; HCT 52.5 % (39.0-53.0); HGB 17.7 gm/dL (13.0-17.5); Lymphocytes # (A) 0.5 k/uL (1.0-4.8); Lymphocytes % (A) 3 %; MCH 28.7 pg (25.0-35.0); MCHC 33.7 g/dL (31.0-37.0); MCV 85.2 fL (80.0-100.0); Mean Platelet Volume 9.5; Monocytes # (A) 1.6 k/uL (0-1.0); Monocytes % (A) 11 %; Neutrophils # (A) 12.8 k/uL (1.3-7.7); Neutrophils % (A) 84 %; Platelet Count 159 k/uL (150-450); RBC 6.16 m/uL (4.30-5.90); RDW 14.2 % (11.5-15.5); WBC 15.2 k/uL (3.8-10.6)
[2023-04-21 03:49] LABS: ALT 69 U/L (4-49); AST 61 U/L (17-59); African American GFR (CKD) 71 (>60 ml/min/1.73 sqM); Albumin 3.9 g/dL (3.5-5.0); Alkaline Phosphatase 104 U/L (38-126); Anion Gap 14 mmol/L; Blood Urea Nitrogen 30 mg/dL (9-20); Carbon Dioxide 26 mmol/L (22-30); Chloride 92 mmol/L (98-107); Glucose 192 mg/dL (74-99); Magnesium 1.7 mg/dL (1.6-2.3); Non-African American GFR(CKD) 61 (>60 ml/min/1.73 sqM); Potassium 4.8 mmol/L (3.5-5.1); Sodium 132 mmol/L (137-145); Total Bilirubin 0.6 mg/dL (0.2-1.3); Total Protein 7.6 g/dL (6.3-8.2)
[2023-04-21 03:52] LABS: INR 1.2 (<1.2); Prothrombin Time 13.1 sec (10.0-12.5)
[2023-04-21 04:41] LABS: Appearance,Urine Cloudy (Clear); Bilirubin,Urine Negative (Negative); Blood,Urine Small (Negative); Color,Urine Dark Yellow; Glucose,Urine (UA) Negative (Negative); Ketones,Urine Negative (Negative); Leukocyte Esterase,Urine Large (Negative); Nitrite,Urine Positive (Negative); PH, Urine 5.5 (5.0-8.0); Protein,Urine 3+ (Negative)
[2023-04-21 04:42] LABS: RBC,Urine 19 /hpf (0-5); WBC,Urine >182 /hpf (0-5)
[2023-04-21 04:43] LABS: Amorphous Sediment,Urine Occasional /hpf; Bacteria,Urine Many /hpf; Squamous Epithelial Cell,Urine <1 /hpf (0-4)
[2023-04-21 04:44] LABS: Hyaline Casts,Urine 66 /lpf (0-2); Mucus,Urine Few /hpf
[2023-04-21] MEDS ORDERED: CEFEPIME 2 GM in SODIUM CHLORIDE 0.9% 100 ML IVPB STA (04:47)
[2023-04-21] MEDS ORDERED: MORPHINE SULFATE 4 MG/ML SYRINGE IVP STA (06:38)
[2023-04-21] MEDS ORDERED: NALOXONE 0.4 MG/ML 1 ML VIAL IV PRN (06:38)
[2023-04-21] MEDS: SODIUM CHLORIDE 0.9% 1,000 ML IV SCH ×3 (06:54→22:46)
--- NOTE | 2023-04-21 08:12 | XR ---
EXAMINATION TYPE: XR chest 1V portable DATE OF EXAM: 04/21/2023 COMPARISON: 01/09/2023 INDICATION: Fever TECHNIQUE: Single frontal view of the chest is obtained. FINDINGS: The heart size is normal. The pulmonary vasculature is normal. The lungs are clear. IMPRESSION: 1. No acute pulmonary process.
[2023-04-21 10:20] LABS: Glucose,Whole Blood 147 mg/dL (70-110)
[2023-04-21] MEDS ORDERED: HYDROmorphone 0.5 MG/0.5 ML SYRINGE IVP PRN (11:56)
[2023-04-21] MEDS: PANTOPRAZOLE 40 MG/10 ML VIAL IVP SCH ×2 (12:36→21:19)
[2023-04-21] MEDS: HEPARIN SODIUM,PORCINE 5,000 UNIT/ML 1 ML VIAL SQ SCH ×2 (12:37→21:19)
[2023-04-21] MEDS: CEFEPIME 2 GM in SODIUM CHLORIDE 0.9% 100 ML IVPB SCH ×2 (12:37→21:19)
[2023-04-21] MEDS ORDERED: ACETAMINOPHEN TAB 325 MG TAB PO PRN (13:07)
[2023-04-21] MEDS ORDERED: IPRATROPIUM-ALBUTEROL 3 ML NEB INHALATION PRN (13:07)
[2023-04-21] MEDS ORDERED: ONDANSETRON 4 MG TAB PO PRN (13:07)
[2023-04-21] MEDS ORDERED: MAGNESIUM HYDROXIDE 2,400 MG/30 ML CUP PO PRN (13:07)
[2023-04-21] MEDS ORDERED: NON FORMULARY DRUG (Phenyleph/Mineral Oil/Petrolat [Preparation H Ointment] 28 GM Oint.App RECTAL PRN (13:07)
[2023-04-21] MEDS ORDERED: IOPAMIDOL CONTRAST (ORAL USE) VIAL PO PRN (13:09)
[2023-04-21] MEDS: MELOXICAM 7.5 MG TAB PO SCH (16:55)
[2023-04-21] MEDS: METOPROLOL TARTRATE 25 MG TAB PO SCH (16:56)
[2023-04-21 17:34] LABS: Glucose,Whole Blood 137 mg/dL (70-110)
--- NOTE | 2023-04-21 17:37 | CT ---
EXAMINATION TYPE: CT brain wo con CT DLP: 1117.4 mGycm, Automated exposure control for dose reduction was used. DATE OF EXAM: 04/21/2023 5:31 PM COMPARISON: CT head 04/26/2022. CLINICAL INDICATION:Male, 72 years old with history of dementia, altered mental status. TECHNIQUE: Brain: Axial CT images of the brain were obtained with coronal and sagittal reformats created and rev iewed. Contrast used: None. Oral contrast used: None. FINDINGS: Brain: Extra-axial spaces: No abnormal extra-axial fluid collections. Ventricular system: Within normal limits Cerebral parenchyma: No acute intraparenchymal hemorrhage or mass effect. The colón-white junction is well differentiated. Scattered hypoattenuating areas are seen within the white matter, consistent wi th chronic microvascular disease. Mild generalized parenchymal volume loss. Cerebellum: Unremarkable. Mass effect: No evidence of midline shift. Intracranial vasculature: Atherosclerotic calcifications of the intracranial vessels. Soft tissues: Normal. Calvarium/osseous structures: No depressed skull fracture. Paranasal sinuses and mastoid air cells: Mild scattered paranasal sinus disease. Visualized orbits: Orbital contents are intact. IMPRESSION: No acute intracranial process.
--- NOTE | 2023-04-21 17:42 | CT ---
EXAMINATION TYPE: CT abdomen pelvis wo con CT DLP: 1454.2 mGycm, Automated exposure control for dose reduction was used. DATE OF EXAM: 04/21/2023 5:34 PM COMPARISON: None. CLINICAL INDICATION:Male, 72 years old with history of abd pain; abdominal pain and bloating TECHNIQUE: Axial CT of the abdomen and pelvis. Sagittal and coronal reformats were created on a [employer] workstation. Contrast used: (none if empty) Oral contrast used: with Oral Contrast (none if empty) FINDINGS: LOWER CHEST: Trace right pleural effusion is identified ABDOMEN LIVER: Unremarkable GALLBLADDER AND BILE DUCTS: Unremarkable. PANCREAS: Unremarkable. SPLEEN: Unremarkable. ADRENAL GLANDS: Unremarkable. KIDNEYS AND URETERS: 5 mm right midureteral calculus creating mild hydronephrosis. The left kidney and ureter are unremarkable. PELVIS BLADDER: Nondistended with Balbuena catheter in place. REPRODUCTIVE: Unremarkable. ABDOMEN & PELVIS STOMACH AND BOWEL: Stomach and duodenum are unremarkable. Fecaloma within the patient's rectum measur ing 6.5 cm. No evidence of rectal wall thickening. PERITONEUM/RETROPERITONEUM: No evidence of pneumoperitoneum or free fluid. VASCULATURE: Mild atherosclerotic calcifications are present throughout the abdominal aorta and its b ranches. No evidence of aortic aneurysm. MUSCULOSKELETAL: Remote compression deformity of the L2 vertebral body with less than 25% height loss . LYMPH NODES: No gross evidence for lymphadenopathy. SOFT TISSUE/ABDOMINAL WALL: Unremarkable IMPRESSION: 1. Right mid ureteral 5 mm calculus creating mild right hydronephrosis. 2. Fecaloma within the patient's rectum measuring 6.5 cm. 3. Remote compression deformity of L2 vertebral body with less than 25% height loss.
[2023-04-21 17:47] LABS: Bacteria,Urine Occasional /hpf; Mucus,Urine Few /hpf; RBC,Urine 63 /hpf (0-5); Squamous Epithelial Cell,Urine 2 /hpf (0-4); WBC,Urine >182 /hpf (0-5)
[2023-04-21 17:48] LABS: Appearance,Urine Cloudy (Clear); Color,Urine Yellow; PH, Urine 5.5 (5.0-8.0); Protein,Urine 2+ (Negative); Specific Gravity,Urine 1.025 (1.001-1.035)
[2023-04-21 17:49] LABS: Bilirubin,Urine Negative (Negative); Blood,Urine Moderate (Negative); Glucose,Urine (UA) Negative (Negative); Ketones,Urine Negative (Negative); Leukocyte Esterase,Urine Large (Negative); Nitrite,Urine Negative (Negative); Urobilinogen,Urine <2.0 mg/dL (<2.0)
[2023-04-21] MEDS: INSULIN ASPART (NovoLOG) 100 UNIT/ML VIAL SQ SCH (17:53)
[2023-04-21] MEDS: metFORMIN 500 MG TAB PO SCH (18:22)
[2023-04-21] MEDS: IPRATROPIUM-ALBUTEROL 3 ML NEB INHALATION SCH (20:00)
--- NOTE | 2023-04-21 20:08 | HP ---
HISTORY AND PHYSICAL CHIEF COMPLAINT: Change in mental status. HISTORY OF PRESENT ILLNESS: This is a 72-year-old gentleman with a past medical history of multiple medical problems including asthma, diabetes mellitus, and other medical issues, who is a resident of [facility]. The patient had a chronic indwelling Balbuena catheter. The patient was noted to have features of sepsis and as well as confusion. The patient was taken to [facility] and admitted for further evaluation and treatment. The patient is also complaining of severe pain. There is no history of any fever, rigor, or chills. PAST MEDICAL HISTORY: Asthma and diabetes mellitus. Rest of the history and rest of the chart are also reviewed. HOME MEDICATIONS: Reviewed include metformin. Doses and rest of the medications are noted. ALLERGIES: Amoxicillin. Rest of the allergies are noted. FAMILY HISTORY: Could not be taken because of change in mental status. SOCIAL HISTORY: Could not be taken because of change in mental status. REVIEW OF SYSTEMS: Could not be taken because of change in mental status. PHYSICAL EXAMINATION: VITAL SIGNS: Pulse is 121, blood pressure is 116/75, temperature is 100.1. HEENT: Conjunctivae are normal. NECK: No jugular venous distention. CARDIOVASCULAR: S1 and S2 muffled. RESPIRATORY: Few scattered rhonchi. ABDOMEN: Soft. Mild diffuse tenderness in the lower part. No guarding. No masses palpable. LEGS: No edema. NERVOUS SYSTEM: Diffusely weak. SKIN: No ulcers or rashes. JOINTS: No active deforming arthropathy. LABORATORY DATA: WBC 15.2. Lactic acid 2.3. Otherwise, the chest x-ray shows some atelectasis. ASSESSMENT: 1. Acute urinary tract infection with possible sepsis present on admission. 2. Asthma. 3. Diabetes mellitus, type 2. 4. Hypertension. 5. Hyperlipidemia. 6. History of prostate cancer. 7. Full code. RECOMMENDATIONS AND DISCUSSION: In this 72-year-old gentleman presented with multiple complex medical issues, we will monitor the patient closely. Continue with current medications. I would recommend broad-spectrum IV antibiotics. Obtain cultures. Infectious Disease evaluation. I also recommend a CT scan of the brain and CT abdomen and pelvis also to complete the workup. Chest x-ray has been ordered. We will add bronchodilator treatment also. Prognosis is guarded because of multiple complex medical issues. Pain management. I will recommend to initiate Dilaudid p.r.n. because of the severe pain and the patient moans at this time. Further recommendations to follow. MMODL / IJN: [id number] /
--- NOTE | 2023-04-21 20:22 | P.CONS ---
History of Present Illness - Reason for Consult Consult date: 04/21/23 Sepsis Requesting physician: Vipin Barrow - Chief Complaint Weakness mental status changes x few days - History of Present Illness Patient is a 72-year-old male with a past medical history significant for diabetes mellitus hypertension hyperlipidemia history of prostate cancer asthma patient did have urine retention with a chronic indwelling Harper catheter apparently there was last changed on 03/26/2023 almost a month ago patient is a resident of a local custodial and the patient was sent to the ER concerning for decreased level of responsiveness along with a fever concerning for UTI patient on presentation to the hospital have a fever of 101.3 F patient was tachycardic, did have white count of 15.2 with a left shift creatinine is 1.1, liver enzymes seems mildly elevated urine was positive influenza RSV and COVID testing was negative patient did have a chest x-ray no acute cardiopulmonary process, patient received a dose of cefepime infectious disease was consulted for further management of antibiotic therapy most information has been obtained from medical chart talking to nursing staff and the patient himself not a very good historian Review of Systems Positive points has been mentioned in HPI complete review could not be obtained because of his underlying mental status Past Medical History Past Medical History: Asthma, Cancer, Diabetes Mellitus, GERD/Reflux, Hyper lipidemia, Hypertension, Osteoarthritis (OA), Rheumatoid Arthritis (RA) Additional Past Medical History / Comment(s): prostate cancer, harper cath(chronic), UTI, non ambulatory, anemia, migraines History of Any Multi-Drug Resistant Organisms: None Reported Past Surgical History: No Surgical Hx Reported Past Anesthesia/Blood Transfusion Reactions: No Reported Reaction Past Psychological History: Depression Smoking Status: Never smoker Past Alcohol Use History: None Reported Past Drug Use History: None Reported - Past Family History Father Family Medical History: Cancer Medications and Allergies Home Medications Medication Instructions Recorded Confirmed Type Aspirin EC [Ecotrin Low Dose] 81 mg PO DAILY@0800 12/13/21 04/21/23 History Bicalutamide [Casodex] 50 mg PO DAILY@0800 12/13/21 04/21/23 History Atorvastatin Calcium 40 mg PO HS 02/05/22 04/21/23 History Metoprolol Tartrate [Lopressor] 25 mg PO BID@0800,1600 02/05/22 04/21/23 History Ferrous Sulfate [Iron (65 MG 325 mg PO DAILY@0800 04/26/22 04/21/23 History Elemental)] Leuprolide Acetate [Lupron Depot] 45 mg IM Q180D 10/18/22 04/21/23 History Famotidine [Pepcid] 20 mg PO BID@0800,1600 11/19/22 04/21/23 History Magnesium Oxide [Mag-Ox] 400 mg PO DAILY@0800 11/19/22 04/21/23 History Meloxicam 7.5 mg PO BID@0800,1600 11/19/22 04/21/23 History Mv-Min/Folic/K1/Lycopen/Lutein 1 tab PO HS 11/19/22 04/21/23 History [Centrum Silver Men Tablet] Ondansetron [Zofran] 4 mg PO Q6H PRN 11/19/22 04/21/23 History Psyllium Husk 100% [Metamucil 6 gm PO DAILY@0800 11/19/22 04/21/23 History Packet] Tamsulosin HCl [Flomax] 0.4 mg PO DAILY 11/19/22 04/21/23 History Amitriptyline HCl [Elavil] 75 mg PO HS 01/09/23 04/21/23 History Magnesium Hydroxide [Milk of 2,400 mg PO Q72H PRN 01/09/23 04/21/23 History Magnesia] Sennosides/Docusate Sodium [Senna 1 tab PO DAILY@0800 01/09/23 04/21/23 History Plus 8.6-50 mg Tablet] Sodium Chloride [[place]] 1 spr EA NOSTRIL Q8H PRN 01/09/23 04/21/23 History metFORMIN HCL 1,000 mg PO BID@0700,1700 01/09/23 04/21/23 History Acetaminophen [Tylenol 8 Hour] 650 mg PO Q6H PRN 04/21/23 04/21/23 History Dulaglutide [Trulicity] 1.5 mg SQ WE 04/21/23 04/21/23 History INSULIN LISPRO (humaLOG) [humaLOG] 10 units SQ AC-TID 04/21/23 04/21/23 History Insulin Glargine,Hum.rec.anlog 48 units SQ HS@199904/21/23 04/21/23 History [Insulin Glargine] Lactulose 20 gm PO DAILY@0800 04/21/23 04/21/23 History Phenyleph/Mineral Oil/Petrolat 1 applic RECTAL Q6H PRN 04/21/23 04/21/23 History [Preparation H Ointment] Allergies Allergy/AdvReac Type Severity Reaction Status Date / Time amoxicillin [From Augmentin] AdvReac Vomiting Verified 04/21/23 12:50 clavulanic acid AdvReac Vomiting Verified 04/21/23 12:50 [From Augmentin] hydromorphone [From Dilaudid] AdvReac Vomiting Verified 04/21/23 12:50 Physical Exam Vitals: Vital Signs Temp Pulse Resp BP Pulse Ox 04/21/23 09:14 127 H 20 99/64 97 04/21/23 08:35 101.2 F H 122 H 18 110/59 97 04/21/23 05:20 100.1 F H 04/21/23 04:00 98.9 F 111 H 20 106/65 96 04/21/23 03:33 113 H 20 130/71 96 04/21/23 02:55 101.3 F H 124 H 18 119/74 91 L Intake and Output 04/20/23 04/21/23 04/21/23 22:59 06:59 14:59 Other: Voiding Method Indwelling Catheter Weight 122.47 kg GENERAL DESCRIPTION: Elderly male lying in bed, no distress. No tachypnea or accessory muscle of respiration use. HEENT: Shows Pallor , no scleral icterus. Oral mucous membrane is dry. NECK: Trachea central, no thyromegaly. LUNGS: Unlabored breathing. Clear to auscultation anteriorly. No wheeze or crackle. HEART: S1, S2, regular rate and rhythm. No loud murmur ABDOMEN: Soft, no tenderness , EXTREMITIES: No edema of feet. SKIN: No rash, no masses palpable. NEUROLOGICAL: The patient is lethargic but arousable, mood and affect normal. Results CBC & Chem 7: 04/23/23 06:40 04/23/23 06:40 Labs: Abnormal Lab Results - Last 24 Hours (Table) 04/21/23 04/21/23 04/21/23 Range/Units 03:00 03:26 03:26 WBC 15.2 H (3.8-10.6) k/uL RBC 6.16 H (4.30-5.90) m/uL Hgb 17.7 H (13.0-17.5) gm/dL Neutrophils # 12.8 H (1.3-7.7) k/uL Lymphocytes # 0.5 L (1.0-4.8) k/uL Monocytes # 1.6 H (0-1.0) k/uL PT (10.0-12.5) sec INR (<1.2) Sodium (137-145) mmol/L Chloride (98-107) mmol/L BUN (9-20) mg/dL Glucose (74-99) mg/dL POC Glucose (mg/dL) (70-110) mg/dL Plasma Lactic Acid Franck 2.3 H* (0.7-2.0) mmol/L AST (17-59) U/L ALT (4-49) U/L Urine Protein 3+ H (Negative) Urine Blood Small H (Negative) Ur Leukocyte Esterase Large H (Negative) Urine RBC 19 H (0-5) /hpf Urine WBC >182 H (0-5) /hpf Amorphous Sediment Occasional H (None) /hpf Urine Bacteria Many H (None) /hpf Hyaline Casts 66 H (0-2) /lpf Urine Mucus Few H (None) /hpf 04/21/23 04/21/23 04/21/23 Range/Units 03:26 03:26 10:19 WBC (3.8-10.6) k/uL RBC (4.30-5.90) m/uL Hgb (13.0-17.5) gm/dL Neutrophils # (1.3-7.7) k/uL Lymphocytes # (1.0-4.8) k/uL Monocytes # (0-1.0) k/uL PT 13.1 H (10.0-12.5) sec INR 1.2 H (<1.2) Sodium 132 L (137-145) mmol/L Chloride 92 L (98-107) mmol/L BUN 30 H (9-20) mg/dL Glucose 192 H (74-99) mg/dL POC Glucose (mg/dL) 147 H (70-110) mg/dL Plasma Lactic Acid Franck (0.7-2.0) mmol/L AST 61 H (17-59) U/L ALT 69 H (4-49) U/L Urine Protein (Negative) Urine Blood (Negative) Ur Leukocyte Esterase (Negative) Urine RBC (0-5) /hpf Urine WBC (0-5) /hpf Amorphous Sediment (None) /hpf Urine Bacteria (None) /hpf Hyaline Casts (0-2) /lpf Urine Mucus (None) /hpf Assessment and Plan Plan: 1patient presented to hospital with sepsis in this patient who did have fever tachycardia elevated white count source likely catheter associated tract infection in this patient who did have a history of prostate cancer with a chronic draining Harper catheter that has not been changed since 03/26/2023 2-change Harper catheter. Obtain UA and Culture from the new Harper 3-we will start the patient cefepime 2 g every 8 hours while waiting for the culture to finalize keeping in mind her custodial resident need to cover for resistant gram-negative pathogen We will follow on clinical condition and cultures to further adjust medication if needed Thank you for this consultation we will follow the patient along with you Dictation was produced using [employer] dictation software. please excuse any grammatical, word or spelling errors. Time with Patient: Greater than 30
[2023-04-21] MEDS: AMITRIPTYLINE HCL 25 MG TAB PO SCH (21:18)
[2023-04-21] MEDS: ATORVASTATIN 40 MG TAB PO SCH (21:18)
[2023-04-21 21:19] LABS: Glucose,Whole Blood 127 mg/dL (70-110)
[2023-04-21] MEDS: INSULIN DETEMIR (LEVEMIR) 100 UNIT/ML SYR SQ SCH (21:19)
[2023-04-21] MEDS: MULTIVITAMINS, THERA 1 EACH TAB PO SCH (21:31)
[2023-04-22] MEDS: CEFEPIME 2 GM in SODIUM CHLORIDE 0.9% 100 ML IVPB SCH ×3 (05:05→21:40)
[2023-04-22] MEDS: SODIUM CHLORIDE 0.9% 1,000 ML IV SCH ×2 (05:06→15:20)
[2023-04-22 07:06] LABS: Glucose,Whole Blood 59 mg/dL (70-110)
[2023-04-22] MEDS: IPRATROPIUM-ALBUTEROL 3 ML NEB INHALATION SCH ×3 (07:32→19:44)
[2023-04-22 07:46] LABS: Glucose,Whole Blood 90 mg/dL (70-110)
[2023-04-22] MEDS: INSULIN ASPART (NovoLOG) 100 UNIT/ML VIAL SQ SCH ×3 (08:27→17:50)
--- NOTE | 2023-04-22 08:44 | US ---
EXAMINATION TYPE: US kidneys/renal and bladder DATE OF EXAM: 04/21/2023 COMPARISON: CT 04/21/2023 CLINICAL INDICATION: Male, 72 years old with history of uti and bacteremia; Infection, no flank pain EXAM MEASUREMENTS: Right Kidney: 12.8 x 6.3 x 6.8cm Left Kidney: 12.7 x 4.3 x 6.7cm Right Kidney: hydronephrosis seen Left Kidney: No hydronephrosis or masses seen Bladder: harepr There is no evidence for hydronephrosis at this point in time. No nephrolithiasis is seen. No demetri s are identified. The urinary bladder is anechoic. Bilateral ureteral jets are seen. IMPRESSION: Mild right hydronephrosis.
[2023-04-22 09:15] LABS: ALT 88 U/L (4-49); AST 85 U/L (17-59); African American GFR (CKD) 75 (>60 ml/min/1.73 sqM); Albumin 3.2 g/dL (3.5-5.0); Albumin/Globulin Ratio 0.9; Alkaline Phosphatase 84 U/L (38-126); Anion Gap 13 mmol/L; Blood Urea Nitrogen 30 mg/dL (9-20); Calcium 8.3 mg/dL (8.4-10.2); Carbon Dioxide 22 mmol/L (22-30); Chloride 96 mmol/L (98-107); Globulin 3.4 g/dL; Glucose 68 mg/dL (74-99); Non-African American GFR(CKD) 65 (>60 ml/min/1.73 sqM); Sodium 131 mmol/L (137-145); Total Bilirubin 0.5 mg/dL (0.2-1.3); Total Protein 6.6 g/dL (6.3-8.2)
[2023-04-22 09:18] LABS: Potassium 4.7 mmol/L (3.5-5.1)
[2023-04-22] MEDS: metFORMIN 500 MG TAB PO SCH ×2 (09:29→17:09)
[2023-04-22] MEDS: FERROUS SULFATE 325 MG TAB PO SCH (09:29)
[2023-04-22] MEDS: TAMSULOSIN 0.4 MG CAP.ER.24H PO SCH (09:29)
[2023-04-22] MEDS: ASPIRIN 81 MG PO SCH (09:29)
[2023-04-22] MEDS: HEPARIN SODIUM,PORCINE 5,000 UNIT/ML 1 ML VIAL SQ SCH ×2 (09:30→21:39)
[2023-04-22] MEDS: PSYLLIUM HUSK 100% 6 GM PACKET PO SCH (09:30)
[2023-04-22] MEDS: PANTOPRAZOLE 40 MG/10 ML VIAL IVP SCH ×2 (09:30→21:39)
[2023-04-22] MEDS: SENNOSIDES-DOCUSATE SODIUM 1 EACH TAB PO SCH (09:30)
[2023-04-22] MEDS: METOPROLOL TARTRATE 25 MG TAB PO SCH ×2 (09:30→18:02)
[2023-04-22] MEDS: MAGNESIUM OXIDE 400 MG TAB PO SCH (09:30)
[2023-04-22] MEDS: LACTULOSE 20 GM/30 ML CUP PO SCH (09:30)
[2023-04-22] MEDS: MELOXICAM 7.5 MG TAB PO SCH ×2 (09:31→17:09)
[2023-04-22] MEDS: BICALUTAMIDE 50 MG TAB PO SCH (09:32)
[2023-04-22 10:49] LABS: HCT 27.8 % (39.6-50.0); HGB 8.9 g/dL (13.0-17.0); MCH 27.6 pg (27.0-32.0); MCV 86.3 FL (80.0-97.0); Mean Platelet Volume 12.2 FL (9.5-12.2); NRBC Per 100 WBC 0 X 10*3/uL (0.00-0.01); Platelet Count 200 X 10*3/uL (140-440); RBC 3.22 X 10*6/uL (4.40-5.60); RDW 14.6 % (11.5-14.5); WBC 18.76 X 10*3/uL (4.50-10.00)
[2023-04-22 11:41] LABS: Basophils # (A) 0.07 X 10*3/uL (0.00-0.10); Basophils % (A) 0.4 %; Eosinophils # (A) 0.31 X 10*3/uL (0.04-0.35); Eosinophils % (A) 1.7 %; Lymphocytes # (A) 1.78 X 10*3/uL (0.90-5.00); Lymphocytes % (A) 9.5 %; Monocytes # (A) 2.63 X 10*3/uL (0.20-1.00); Neutrophils # (A) 13.86 X 10*3/uL (1.80-7.70); Neutrophils % (A) 73.8 %; RBC Morphology Normal (Normal)
[2023-04-22 11:46] LABS: Glucose,Whole Blood 186 mg/dL (70-110)
[2023-04-22 17:23] LABS: Glucose,Whole Blood 142 mg/dL (70-110)
--- NOTE | 2023-04-22 18:28 | P.GSCN ---
History of Present Illness Consult date: 04/22/23 History of present illness: This is a 72 old gentleman known to me for prostate cancer in urine retention. The patient has a high-grade T3/T4 carcinoma as well as urine retention. He has been on complete androgen blockade. He resides in the many large senior care. He is chronic urine retention. He developed a fever and weakness and was brought to the hospital for urinary tract infection with sepsis. He had a computed tomography scan in the ER also identifying a stone in the mid ureter, 5-6 mm. This is the first stone is ever had. He is having vague abdominal pain. His vital signs are stable. His white count 18.6 Review of Systems ROS unobtainable: due to mental status Past Medical History Past Medical History: Asthma, Cancer, Diabetes Mellitus, GERD/Reflux, Hyperlipidemia, Hypertension, Osteoarthritis (OA), Rheumatoid Arthritis (RA) Additional Past Medical History / Comment(s): prostate cancer, harper cath(chronic), UTI, non ambulatory, anemia, migraines History of Any Multi-Drug Resistant Organisms: None Reported Past Surgical History: No Surgical Hx Reported Past Anesthesia/Blood Transfusion Reactions: No Reported Reaction Past Psychological History: Depression Smoking Status: Never smoker Past Alcohol Use History: None Reported Past Drug Use History: None Reported - Past Family History Father Family Medical History: Cancer Medications and Allergies Home Medications Medication Instructions Recorded Confirmed Type Aspirin EC [Ecotrin Low Dose] 81 mg PO DAILY@0800 12/13/21 04/21/23 History Bicalutamide [Casodex] 50 mg PO DAILY@0800 12/13/21 04/21/23 History Atorvastatin Calcium 40 mg PO HS 02/05/22 04/21/23 History Metoprolol Tartrate [Lopressor] 25 mg PO BID@0800,1600 02/05/22 04/21/23 History Ferrous Sulfate [Iron (65 MG 325 mg PO DAILY@0800 04/26/22 04/21/23 History Elemental)] Leuprolide Acetate [Lupron Depot] 45 mg IM Q180D 10/18/22 04/21/23 History Famotidine [Pepcid] 20 mg PO BID@0800,1600 11/19/22 04/21/23 History Magnesium Oxide [Mag-Ox] 400 mg PO DAILY@0800 11/19/22 04/21/23 History Meloxicam 7.5 mg PO BID@0800,1600 11/19/22 04/21/23 History Mv-Min/Folic/K1/Lycopen/Lutein 1 tab PO HS 11/19/22 04/21/23 History [Centrum Silver Men Tablet] Ondansetron [Zofran] 4 mg PO Q6H PRN 11/19/22 04/21/23 History Psyllium Husk 100% [Metamucil 6 gm PO DAILY@0800 11/19/22 04/21/23 History Packet] Tamsulosin HCl [Flomax] 0.4 mg PO DAILY 11/19/22 04/21/23 History Amitriptyline HCl [Elavil] 75 mg PO HS 01/09/23 04/21/23 History Magnesium Hydroxide [Milk of 2,400 mg PO Q72H PRN 01/09/23 04/21/23 History Magnesia] Sennosides/Docusate Sodium [Senna 1 tab PO DAILY@0800 01/09/23 04/21/23 History Plus 8.6-50 mg Tablet] Sodium Chloride [[place]] 1 spr EA NOSTRIL Q8H PRN 01/09/23 04/21/23 History metFORMIN HCL 1,000 mg PO BID@0700,1700 01/09/23 04/21/23 History Acetaminophen [Tylenol 8 Hour] 650 mg PO Q6H PRN 04/21/23 04/21/23 History Dulaglutide [Trulicity] 1.5 mg SQ WE 04/21/23 04/21/23 History INSULIN LISPRO (humaLOG) [humaLOG] 10 units SQ AC-TID 04/21/23 04/21/23 History Insulin Glargine,Hum.rec.anlog 48 units SQ HS@199904/21/23 04/21/23 History [Insulin Glargine] Lactulose 20 gm PO DAILY@0800 04/21/23 04/21/23 History Phenyleph/Mineral Oil/Petrolat 1 applic RECTAL Q6H PRN 04/21/23 04/21/23 History [Preparation H Ointment] Allergies Allergy/AdvReac Type Severity Reaction Status Date / Time amoxicillin [From Augmentin] AdvReac Vomiting Verified 04/21/23 12:50 clavulanic acid AdvReac Vomiting Verified 04/21/23 12:50 [From Augmentin] hydromorphone [From Dilaudid] AdvReac Vomiting Verified 04/21/23 12:50 Surgical - Exam Vital Signs Temp Pulse Resp BP Pulse Ox 101.3 F H 124 H 18 119/74 91 L 04/21/23 02:55 04/21/23 02:55 04/21/23 02:55 04/21/23 02:55 04/21/23 02:55 - General well developed, well nourished, no distress - Eyes normal ocular movement, no icteric - ENT no hearing loss, no congestion - Neck no masses, trachea midline - Respiratory normal respiratory effort, clear to auscultation - Abdomen Abdomen: soft, non tender, no guarding, no rigid, no rebound - Integumentary no rash, no abnormal pigmentation - Neurologic no disoriented, no combative, memory loss - Psychiatric oriented to person, oriented to place, speech is normal Results - Labs 04/22/23 08:29 04/22/23 07:30 Abnormal Lab Results - Last 24 Hours (Table) 04/21/23 04/22/23 04/22/23 Range/Units 21:17 07:02 07:30 WBC (4.50-10.00) X 10*3/uL RBC (4.40-5.60) X 10*6/uL Hgb (13.0-17.0) g/dL Hct (39.6-50.0) % RDW (11.5-14.5) % Neutrophils # (1.80-7.70) X 10*3/uL Monocytes # (0.20-1.00) X 10*3/uL Sodium 131 L (137-145) mmol/L Chloride 96 L (98-107) mmol/L BUN 30 H (9-20) mg/dL Glucose 68 L (74-99) mg/dL POC Glucose (mg/dL) 127 H 59 L (70-110) mg/dL Calcium 8.3 L (8.4-10.2) mg/dL AST 85 H (17-59) U/L ALT 88 H (4-49) U/L Albumin 3.2 L (3.5-5.0) g/dL 04/22/23 04/22/23 04/22/23 Range/Units 08:29 11:44 17:21 WBC 18.76 H (4.50-10.00) X 10*3/uL RBC 3.22 L (4.40-5.60) X 10*6/uL Hgb 8.9 L (13.0-17.0) g/dL Hct 27.8 L (39.6-50.0) % RDW 14.6 H (11.5-14.5) % Neutrophils # 13.86 H (1.80-7.70) X 10*3/uL Monocytes # 2.63 H (0.20-1.00) X 10*3/uL Sodium (137-145) mmol/L Chloride (98-107) mmol/L BUN (9-20) mg/dL Glucose (74-99) mg/dL POC Glucose (mg/dL) 186 H 142 H (70-110) mg/dL Calcium (8.4-10.2) mg/dL AST (17-59) U/L ALT (4-49) U/L Albumin (3.5-5.0) g/dL Microbiology - Last 24 Hours (Table) 04/21/23 03:00 Blood Culture Gram Stain - Preliminary Blood Blood Culture - Preliminary 04/21/23 03:15 Blood Culture - Preliminary Blood Diabetes panel 04/22/23 Range/Units 07:30 Sodium 131 L (137-145) mmol/L Potassium 4.7 (3.5-5.1) mmol/L Chloride 96 L (98-107) mmol/L Carbon Dioxide 22 (22-30) mmol/L BUN 30 H (9-20) mg/dL Creatinine 1.11 (0.66-1.25) mg/dL Glucose 68 L (74-99) mg/dL Calcium 8.3 L (8.4-10.2) mg/dL AST 85 H (17-59) U/L ALT 88 H (4-49) U/L Alkaline Phosphatase 84 (38-126) U/L Total Protein 6.6 (6.3-8.2) g/dL Albumin 3.2 L (3.5-5.0) g/dL Calcium panel 04/22/23 Range/Units 07:30 Calcium 8.3 L (8.4-10.2) mg/dL Albumin 3.2 L (3.5-5.0) g/dL Pituitary panel 04/22/23 Range/Units 07:30 Sodium 131 L (137-145) mmol/L Potassium 4.7 (3.5-5.1) mmol/L Chloride 96 L (98-107) mmol/L Carbon Dioxide 22 (22-30) mmol/L BUN 30 H (9-20) mg/dL Creatinine 1.11 (0.66-1.25) mg/dL Glucose 68 L (74-99) mg/dL Calcium 8.3 L (8.4-10.2) mg/dL Adrenal panel 04/22/23 Range/Units 07:30 Sodium 131 L (137-145) mmol/L Potassium 4.7 (3.5-5.1) mmol/L Chloride 96 L (98-107) mmol/L Carbon Dioxide 22 (22-30) mmol/L BUN 30 H (9-20) mg/dL Creatinine 1.11 (0.66-1.25) mg/dL Glucose 68 L (74-99) mg/dL Calcium 8.3 L (8.4-10.2) mg/dL Total Bilirubin 0.5 (0.2-1.3) mg/dL AST 85 H (17-59) U/L ALT 88 H (4-49) U/L Alkaline Phosphatase 84 (38-126) U/L Total Protein 6.6 (6.3-8.2) g/dL Albumin 3.2 L (3.5-5.0) g/dL - Imaging CT scan - abdomen: report reviewed, image reviewed CT scan - pelvis: report reviewed, image reviewed Assessment and Plan Assessment: Impression: Prostate cancer. Urinary tract infection with sepsis. Right ureteral calculus with obstruction. Medical medical illnesses. Recommendations: The patient is on IV antibiotics. I will do cystoscopy and right stent placement in the morning.
--- NOTE | 2023-04-22 18:32 | PN ---
PROGRESS NOTE DATE OF SERVICE: 04/22/2023 SUBJECTIVE: This is a 72-year-old gentleman, who was admitted with UTI with sepsis, closely monitored. The patient is on broad-spectrum IV antibiotics. The cultures are pending at this time. The CT abdomen and pelvis was done, which showed right mid ureter 5 mm calculus and as well as remote compression deformity of L2. The patient is being closely monitored at this time. Multiple consultants are following the patient closely. Abdomen and pelvis ultrasound showed mild right hydronephrosis. PAST MEDICAL HISTORY: Reviewed. REVIEW OF SYSTEMS: Fourteen-point review is negative except as mentioned earlier. CURRENT MEDICATIONS: Reviewed include DuoNeb. Doses and rest of the medications are noted. PHYSICAL EXAMINATION: VITAL SIGNS: Pulse is 96, blood pressure 94/66, respirations 20. HEENT: Conjunctivae are normal. NECK: No jugular venous distention. CARDIOVASCULAR: S1 and S2 muffled. RESPIRATORY: Breath sounds diminished at the bases. ABDOMEN: Soft. Obese. NERVOUS SYSTEM: Diffusely weak. LABORATORY DATA: WBC 16.76. Rest of the labs are noted. ASSESSMENT: 1. Acute urinary tract infection with sepsis present on admission. 2. Right mid ureter 5 mm calculus with right hydronephrosis. 3. Anemia. 4. Diabetes mellitus, type 2. 5. Hypertension. 6. Hyperlipidemia. 7. History of prostate cancer. 8. Full code. RECOMMENDATIONS: Recommend to continue current medical management. Continue symptomatic treatment. Otherwise, continue with antibiotics. Infectious Disease evaluation. Also, recommend Urology evaluation. Continue to monitor. Repeat labs to be ordered. Guarded prognosis. Further recommendations to follow. See orders for details. The patient is currently on cefepime. MMODL / IJN: [id number] /
[2023-04-22 20:20] LABS: Glucose,Whole Blood 152 mg/dL (70-110)
[2023-04-22] MEDS: MULTIVITAMINS, THERA 1 EACH TAB PO SCH (21:39)
[2023-04-22] MEDS: AMITRIPTYLINE HCL 25 MG TAB PO SCH (21:39)
[2023-04-22] MEDS: INSULIN DETEMIR (LEVEMIR) 100 UNIT/ML SYR SQ SCH (21:39)
[2023-04-22] MEDS: ATORVASTATIN 40 MG TAB PO SCH (21:39)
[2023-04-23] MEDS: SODIUM CHLORIDE 0.9% 1,000 ML IV SCH ×2 (04:23→05:14)
[2023-04-23] MEDS: CEFEPIME 2 GM in SODIUM CHLORIDE 0.9% 100 ML IVPB SCH ×3 (05:14→20:42)
[2023-04-23] MEDS ORDERED: DEXTROSE 50% SYRINGE 50 ML IVP STA ×2 (07:12→12:23)
[2023-04-23 07:13] LABS: Glucose,Whole Blood 60 mg/dL (70-110)
[2023-04-23] MEDS: IPRATROPIUM-ALBUTEROL 3 ML NEB INHALATION SCH ×3 (07:51→19:55)
[2023-04-23 08:15] LABS: Glucose,Whole Blood 102 mg/dL (70-110)
[2023-04-23] MEDS: metFORMIN 500 MG TAB PO SCH ×2 (08:23→17:09)
[2023-04-23] MEDS: MAGNESIUM OXIDE 400 MG TAB PO SCH (08:24)
[2023-04-23] MEDS: INSULIN ASPART (NovoLOG) 100 UNIT/ML VIAL SQ SCH ×3 (08:24→17:36)
[2023-04-23] MEDS: MELOXICAM 7.5 MG TAB PO SCH ×2 (08:24→16:04)
[2023-04-23] MEDS: SENNOSIDES-DOCUSATE SODIUM 1 EACH TAB PO SCH (08:24)
[2023-04-23] MEDS: BICALUTAMIDE 50 MG TAB PO SCH (08:24)
[2023-04-23] MEDS: PSYLLIUM HUSK 100% 6 GM PACKET PO SCH (08:24)
[2023-04-23] MEDS: LACTULOSE 20 GM/30 ML CUP PO SCH (08:24)
[2023-04-23] MEDS: ASPIRIN 81 MG PO SCH (08:24)
[2023-04-23] MEDS: FERROUS SULFATE 325 MG TAB PO SCH (08:24)
[2023-04-23] MEDS: HEPARIN SODIUM,PORCINE 5,000 UNIT/ML 1 ML VIAL SQ SCH ×2 (08:25→20:43)
[2023-04-23] MEDS: TAMSULOSIN 0.4 MG CAP.ER.24H PO SCH (08:25)
[2023-04-23] MEDS: METOPROLOL TARTRATE 25 MG TAB PO SCH ×2 (09:52→17:09)
[2023-04-23] MEDS: PANTOPRAZOLE 40 MG/10 ML VIAL IVP SCH ×2 (09:52→20:43)
[2023-04-23 10:56] LABS: Basophils # (A) 0.05 X 10*3/uL (0.00-0.10); Basophils % (A) 0.3 %; Eosinophils # (A) 0.36 X 10*3/uL (0.04-0.35); Eosinophils % (A) 2.3 %; HCT 26.3 % (39.6-50.0); HGB 8.4 g/dL (13.0-17.0); Lymphocytes # (A) 2.31 X 10*3/uL (0.90-5.00); Lymphocytes % (A) 14.6 %; MCH 27.7 pg (27.0-32.0); MCHC 31.9 g/dL (32.0-37.0); MCV 86.8 FL (80.0-97.0); Mean Platelet Volume 12.3 FL (9.5-12.2); Monocytes # (A) 2.05 X 10*3/uL (0.20-1.00); NRBC Per 100 WBC 0 X 10*3/uL (0.00-0.01); Platelet Count 185 X 10*3/uL (140-440); RBC 3.03 X 10*6/uL (4.40-5.60); RDW 14.9 % (11.5-14.5)
[2023-04-23 11:56] LABS: BUN/Creat Ratio 20.09 Ratio (12.00-20.00); Blood Urea Nitrogen 22.1 mg/dL (9.0-27.0); Calcium 8.5 mg/dL (8.7-10.3); Carbon Dioxide 23.6 mmol/L (21.6-31.8); Chloride 100 mmol/L (96-109); Glucose 47 mg/dL (70-110); Potassium 4.5 mmol/L (3.5-5.5); Sodium 133 mmol/L (135-145)
[2023-04-23 12:28] LABS: Glucose,Whole Blood 63 mg/dL (70-110)
[2023-04-23 13:01] LABS: Glucose,Whole Blood 151 mg/dL (70-110)
[2023-04-23] MEDS ORDERED: IV FLUID CONTINUATION 1,000 ML IV ONE (13:50)
[2023-04-23] MEDS ORDERED: IV FLUID CONTINUATION 100 ML IV ONE (13:51)
[2023-04-23] MEDS ORDERED: ONDANSETRON 4 MG/2 ML VIAL ONE (14:05)
[2023-04-23] MEDS ORDERED: ONDANSETRON 4 MG/2 ML VIAL IVP ONE (14:08)
[2023-04-23] MEDS ORDERED: DEXAMETHASONE SOD PHOSPHATE 10 MG/ML 1 ML VIAL IVP ONE (14:08)
[2023-04-23] MEDS ORDERED: LIDOCAINE 1% INJ 10MG/ML (20 ML MDV) ONE (14:19)
[2023-04-23] MEDS ORDERED: PROPOFOL 10 MG/ML 20 ML VIAL IV ONE (14:19)
[2023-04-23] MEDS ORDERED: NEOSTIGMINE 1 MG/ML 10 ML VIAL ONE (14:19)
[2023-04-23] MEDS ORDERED: GLYCOPYRROLATE 0.2 MG/ML 2 ML VIAL ONE (14:19)
[2023-04-23] MEDS ORDERED: ROCURONIUM 10 MG/ML (5 ML VIAL) IV ONE (14:19)
[2023-04-23] MEDS ORDERED: fentaNYL (PF) 50 MCG/ML 2 ML AMP ONE (14:19)
--- NOTE | 2023-04-23 14:53 | PN ---
PROGRESS NOTE DATE OF SERVICE: 04/23/2023 SUBJECTIVE: This is a 72-year-old gentleman, who was admitted with UTI and sepsis, had also ureteral stone. Urology is planning cystoscopy and possible stent today. PHYSICAL EXAMINATION: VITAL SIGNS: Pulse is 83, blood pressure 115/60, respirations 16. CHEST: Clear to auscultation. CARDIOVASCULAR: S1 and S2 muffled. ABDOMEN: Soft. NERVOUS SYSTEM: Nonfocal. LABORATORY DATA: WBC 15.6, hemoglobin is 8.4. Glucose is 47. ASSESSMENT: 1. Acute urinary tract infection with sepsis, present on admission. Cultures are negative so far. 2. Right mid ureteral 5 mm calculus with right hydronephrosis. 3. Anemia. 4. Diabetes mellitus, type 2. 5. Hypertension. 6. Hyperlipidemia. 7. History of prostate cancer. 8. Full code. RECOMMENDATIONS: Recommend to continue current medical management. Continue symptomatic treatment. Repeat labs. The white count is showing a diminishing trend. Follow the cultures. Antibiotics. Urology procedure. Monitor blood sugars closely. Further recommendations to follow. MMODL / IJN: [id number] /
--- NOTE | 2023-04-23 14:54 | CDI ---
Documentation Clarification Form Date: 04/23/2023 02:30:25 PM From: Sussy Carrera RN CCDS Phone: [phone] Admit Date: 04/21/2023 06:40:00 AM Patient Name: Barrie Kowalski Visit Number: [id number] Discharge Date: ATTENTION: The Clinical Documentation Specialists (CDI) and [facility] Coding Staff appreciate your assistance in clarifying documentation. Please respond to the clarification below the line at the bottom and electronically sign. The CDI & [facility] Coding staff will review the response and follow-up if needed. Please note: Queries are made part of the Legal Health Record. If you have any questions, please contact the author of this message via ITS. Dr. Sandra Powell UTI is documented medicine note, 04/22 and patient has chronic Harper catheter. Additional clarification regarding the etiology of the UTI is requested. History/Risk Factors:72-year-old male presents to the ED from [facility] for concern of a UTI sepsis, the patient has a chronic indwelling harper catheter. Medical history: DM2, HTN, HLD and Prostate cancer. H&P, 04/21 Clinical Indicators: VSS, 04/21: B/P 119/74; HR 124; Temp 101.3F Axillary; RR 18; SpO2 91% room air Urinalysis: 04/21 Dark yellow, PH 5.5 Protein 3+, Blood small, Leukocytes esterase large, Rbc19, Wbc >182, Nitrate positive, Bacteria many, Hyaline casts 66. Urine culture, 04/21: gram negative bacilli, pseudomonas species, presumptive Staph aureus Lab results, 04/21: Wbc 15.2 Neutrophils 12.8, Lacitc acid 2.3 Treatment: 04/21 0.9NS 1L IV Bolus; 04/21 Acetaminophen IVPB x 1; 04/21 Cefempine IVPB x 1; 04/21 Cefepime IVPB Q8H Please clarify the etiology of the UTI, if known: [ ] Harper catheter [ ] Due to hydronephrosis [ ] Other condition, please specify [ ] Unable to determine (Template Last Revised: July 2020) Harper catheter MTDD
[2023-04-23] MEDS ORDERED: IOPAMIDOL-370 100ML BTL MISCELLANE ONE (14:55)
[2023-04-23] MEDS ORDERED: LACTATED RINGERS 1,000 ML IV ONE (15:09)
--- NOTE | 2023-04-23 15:13 | CDI ---
Documentation Clarification Form Date: 04/23/2023 02:55:33 PM From: Sussy Carrera RN CCDS Phone: [phone] Admit Date: 04/21/2023 06:40:00 AM Patient Name: Barrie Kowalski Visit Number: [id number] Discharge Date: ATTENTION: The Clinical Documentation Specialists (CDI) and [facility] Coding Staff appreciate your assistance in clarifying documentation. Please respond to the clarification below the line at the bottom and electronically sign. The CDI & [facility] Coding staff will review the response and follow-up if needed. Please note: Queries are made part of the Legal Health Record. If you have any questions, please contact the author of this message via ITS. Dr. Sandra Powell Your patient has the documented symptom of Altered Mental Status 04/21, ED note. Additional clarification regarding the etiology/cause of this symptom is requested. History/Risk Factors:72-year-old male presents to the ED from [facility] for concern of a UTI sepsis, fever and altered mental the patient has a chronic indwelling harper catheter Medical history: DM2, HTN, HLD and Prostate cancer. H&P, 04/21 Clinical Indicators: VSS, 04/21: B/P 119/74; HR 124; Temp 101.3F Axillary; RR 18; SpO2 91% room air Lab results, 04/21: Wbc 15.2 Neutrophils 12.8, Lacitc acid 2.3 CT Abdomen pelvis, 04/21: Right mild ureteral 5mm calculus creating mild right hydronephrosis CT Brain, 04/21: No acute intracranial process. Treatment: 04/21 0.9NS 1L IV Bolus; 04/21 Acetaminophen IVPB x 1; 04/21 Cefempine IVPB x 1; 04/21 Cefepime IVPB Q8H Please clarify the etiology of the symptom of Altered Mental Status: [ ] Metabolic Encephalopathy due to Sepsis and UTI [ ] Other condition (please specify) [ ] Unable to determine (Template Last Revised: June 2020) Metabolic Encephalopathy due to Sepsis and UTI MTDD
--- NOTE | 2023-04-23 15:13 | P.OP ---
Date of Procedure: 04/23/23 Preoperative Diagnosis: Right ureteral calculus with obstruction, right pyelonephrosis, urinary tract infection with sepsis Postoperative Diagnosis: Same Procedure(s) Performed: Cystoscopy, placement of double-J catheter right (difficult) Anesthesia: ROBERTO Surgeon: Artemio Cole Estimated Blood Loss (ml): 0 Pathology: none sent Condition: stable Disposition: PACU Indications for Procedure: Patient is 72. He has prostate cancer on complete androgen blockade. He is chronic urine retention. He came in with urinary infection with sepsis. A computed tomography scan was obtained identifying a 5-6 mm midureteral stone with obstruction and an elevated white count at 18,000. For this reason he'll get a double-J catheter to relieve the obstruction and pyelonephrosis prior to stone manipulation Description of Procedure: patient brought to the operating suite. Given a general anesthetic. Placed lithotomy position with a sterile prep and drape. Cystoscopy Foroblique lens and 22-Maldivian sheath identifies a normal anterior urethra. Prostatic urethra is obstructing and inflamed. There is a moderate amount of stony debris which is irrigated out of the bladder. The right ureteral orifice is identified and intubated with an 035 wire. I passed up to the stone but there is significant obstruction and cannot pass a wire by the stone. Over the wire I then passed a 5-Maldivian open-ended catheter. I again attempted to pass a wire by the right ure teral stone but failed. I do retrograde pyelogram and there is a significant amount of edema around the stone. I have difficulty getting the contrast to go proximal to the stone. I then pass an angled glide and fortunately finally am able to manipulate the wire by the stone. I then pass the open-ended catheter into the right kidney. I removed the open-ended catheter and then over the wire pass a 6 x 24 double-J catheter that coils in the right kidney and in the bladder. I replaced the Balbuena catheter. The patient is awakened and returned recovery room good condition. He tolerated the procedure well. At a later date I'll remove the right ureteral stone.
--- NOTE | 2023-04-23 16:16 | P.PN ---
Subjective Progress Note Date: 04/22/23 Principal diagnosis: Reason for follow-up is complicated urinary tract infection Patient is a 72-year-old male with a past medical history significant for diabetes mellitus hypertension hyperlipidemia history of prostate cancer asthma patient did have urine retention with a chronic indwelling Balbuena catheter, who was sent to the ER for evaluation of fever concerning for infection patient has been diagnosed with a catheter associated UTI also noticed to have right mid ureteral calculus with mild right hydronephrosis On today's evaluation that is 04/22/2023, patient did have a low-grade fever of 99.7F, the patient is more awake and alert and is breathing comfortably on 2 L nasal cannula oxygen denies any chest pain or cough no abdominal pain no diarrhea has been reported Patient did have white count of 18.76, creatinine is 1.11 cultures are pending Objective - Vital Signs Vital signs: Vital Signs Temp 99.7 F H 04/22/23 20:00 Pulse 101 H 04/22/23 20:00 Resp 20 04/22/23 20:00 BP 111/77 04/22/23 20:00 Pulse Ox 96 04/22/23 20:00 FiO2 Intake & Output 04/22/23 04/22/23 04/23/23 06:59 18:59 06:59 Intake Total 740 Output Total 500 525 Balance 240 -525 Intake: Intake, IV Titration 200 Amount Cefepime 2 gm In Sodium 200 Chloride 0.9% 100 ml @ 25 mls/hr IVPB Q8H [facility] Rx#: [id number] Oral 540 Output: Urine 500 525 Other: Voiding Method Indwelling Catheter Indwelling Catheter Indwelling Catheter - Exam GENERAL DESCRIPTION: An elderly male lying in bed in no distress RESPIRATORY SYSTEM: Unlabored breathing , clear to auscultation anteriorly HEART: S1 S2 regular rate and rhythm , ABDOMEN: Soft , no tenderness EXTREMITIES: No edema feet - Labs CBC & Chem 7: 04/23/23 06:40 04/23/23 06:40 Labs: Abnormal Lab Results - Last 24 Hours (Table) 04/21/23 04/22/23 04/22/23 Range/Units 21:17 07:02 07:30 WBC (4.50-10.00) X 10*3/uL RBC (4.40-5.60) X 10*6/uL Hgb (13.0-17.0) g/dL Hct (39.6-50.0) % RDW (11.5-14.5) % Neutrophils # (1.80-7.70) X 10*3/uL Monocytes # (0.20-1.00) X 10*3/uL Sodium 131 L (137-145) mmol/L Chloride 96 L (98-107) mmol/L BUN 30 H (9-20) mg/dL Glucose 68 L (74-99) mg/dL POC Glucose (mg/dL) 127 H 59 L (70-110) mg/dL Calcium 8.3 L (8.4-10.2) mg/dL AST 85 H (17-59) U/L ALT 88 H (4-49) U/L Albumin 3.2 L (3.5-5.0) g/dL 04/22/23 04/22/23 04/22/23 Range/Units 08:29 11:44 17:21 WBC 18.76 H (4.50-10.00) X 10*3/uL RBC 3.22 L (4.40-5.60) X 10*6/uL Hgb 8.9 L (13.0-17.0) g/dL Hct 27.8 L (39.6-50.0) % RDW 14.6 H (11.5-14.5) % Neutrophils # 13.86 H (1.80-7.70) X 10*3/uL Monocytes # 2.63 H (0.20-1.00) X 10*3/uL Sodium (137-145) mmol/L Chloride (98-107) mmol/L BUN (9-20) mg/dL Glucose (74-99) mg/dL POC Glucose (mg/dL) 186 H 142 H (70-110) mg/dL Calcium (8.4-10.2) mg/dL AST (17-59) U/L ALT (4-49) U/L Albumin (3.5-5.0) g/dL 04/22/23 Range/Units 20:18 WBC (4.50-10.00) X 10*3/uL RBC (4.40-5.60) X 10*6/uL Hgb (13.0-17.0) g/dL Hct (39.6-50.0) % RDW (11.5-14.5) % Neutrophils # (1.80-7.70) X 10*3/uL Monocytes # (0.20-1.00) X 10*3/uL Sodium (137-145) mmol/L Chloride (98-107) mmol/L BUN (9-20) mg/dL Glucose (74-99) mg/dL POC Glucose (mg/dL) 152 H (70-110) mg/dL Calcium (8.4-10.2) mg/dL AST (17-59) U/L ALT (4-49) U/L Albumin (3.5-5.0) g/dL Microbiology - Last 24 Hours (Table) 04/21/23 03:00 Blood Culture Gram Stain - Preliminary Blood Blood Culture - Preliminary 04/21/23 03:15 Blood Culture - Preliminary Blood Assessment and Plan (1) Sepsis secondary to UTI Current Visit: Yes Status: Acute Code(s): A41.9 - SEPSIS, UNSPECIFIED ORGANISM; N39.0 - URINARY TRACT INFECTION, SITE NOT SPECIFIED SNOMED Code(s): 300916443 (2) Leukocytosis Current Visit: No Status: Acute Code(s): D72.829 - ELEVATED WHITE BLOOD CELL COUNT, UNSPECIFIED SNOMED Code(s): 486998517 Plan: 1patient presented to hospital with sepsis in this patient who did have fever tachycardia elevated white count source likely catheter associated tract infection in this patient who did have a history of prostate cancer with a chronic draining Balbuena catheter that has not been changed since 03/26/2023, patient also noticed to have a mild right-sided hydronephrosis secondary to 5 mm ureteral calculus for which urology is following the patient 2Patient to continue with cefepime dose adjusted by pharmacy to 1 g every 12 hours while waiting for the culture to finalize and monitor clinical course closely Dictation was produced using [employer] dictation software. please excuse any grammatical, word or spelling errors. Time with Patient: Less than 30
--- NOTE | 2023-04-23 16:19 | P.PN ---
Subjective Progress Note Date: 04/23/23 Principal diagnosis: Reason for follow-up is complicated urinary tract infection Patient is a 72-year-old male with a past medical history significant for diabetes mellitus hypertension hyperlipidemia history of prostate cancer asthma patient did have urine retention with a chronic indwelling Balbuena catheter, who was sent to the ER for evaluation of fever concerning for infection patient has been diagnosed with a catheter associated UTI also noticed to have right mid ureteral calculus with mild right hydronephrosis, patient is status post Cystoscopy, placement of double-J catheter right on 04/23/2023 On today's evaluation that is 04/23/2023, the patient is afebrile today, the patient is breathing comfortably on 2 L nasal cannula oxygen, and patient denies any shortness of breath, chest pain, no cough or sputum production, patient denies nausea/vomiting /diarrhea and no abdominal pain. Patient did have white count is slightly down to 15.80, creatinine is 1.1, urine cultures are pending, blood culture one set positive for gram-positive cocci Objective - Vital Signs Vital signs: Vital Signs Temp 97 F L 04/23/23 15:22 Pulse 96 04/23/23 15:50 Resp 16 04/23/23 15:50 BP 122/67 04/23/23 15:50 Pulse Ox 94 L 04/23/23 15:50 FiO2 Intake & Output 04/22/23 04/23/23 04/23/23 18:59 06:59 18:59 Intake Total 1100 Output Total 697 953 1100 Balance -525 -900 -103 Intake: IV 1100 Output: Urine 620 892 8261 Estimated Blood Loss 3 Other: Voiding Method Indwelling Catheter Indwelling Catheter Indwelling Catheter - Exam GENERAL DESCRIPTION: An elderly male lying in bed in no distress RESPIRATORY SYSTEM: Unlabored breathing , clear to auscultation anteriorly HEART: S1 S2 regular rate and rhythm , ABDOMEN: Soft , no tenderness EXTREMITIES: No edema feet - Labs CBC & Chem 7: 04/23/23 06:40 04/23/23 06:40 Labs: Abnormal Lab Results - Last 24 Hours (Table) 04/22/23 04/22/23 04/23/23 Range/Units 17:21 20:18 06:40 WBC 15.80 H (4.50-10.00) X 10*3/uL RBC 3.03 L (4.40-5.60) X 10*6/uL Hgb 8.4 L (13.0-17.0) g/dL Hct 26.3 L (39.6-50.0) % MCHC 31.9 L (32.0-37.0) g/dL RDW 14.9 H (11.5-14.5) % MPV 12.3 H (9.5-12.2) FL Neutrophils # 10.90 H (1.80-7.70) X 10*3/uL Monocytes # 2.05 H (0.20-1.00) X 10*3/uL Eosinophils # 0.36 H (0.04-0.35) X 10*3/uL Sodium (135-145) mmol/L BUN/Creatinine Ratio (12.00-20.00) Ratio Glucose (70-110) mg/dL POC Glucose (mg/dL) 142 H 152 H (70-110) mg/dL Calcium (8.7-10.3) mg/dL 04/23/23 04/23/23 04/23/23 Range/Units 06:40 07:07 12:07 WBC (4.50-10.00) X 10*3/uL RBC (4.40-5.60) X 10*6/uL Hgb (13.0-17.0) g/dL Hct (39.6-50.0) % MCHC (32.0-37.0) g/dL RDW (11.5-14.5) % MPV (9.5-12.2) FL Neutrophils # (1.80-7.70) X 10*3/uL Monocytes # (0.20-1.00) X 10*3/uL Eosinophils # (0.04-0.35) X 10*3/uL Sodium 133 L (135-145) mmol/L BUN/Creatinine Ratio 20.09 H (12.00-20.00) Ratio Glucose 47 A* (70-110) mg/dL POC Glucose (mg/dL) 60 L 63 L (70-110) mg/dL Calcium 8.5 L (8.7-10.3) mg/dL 04/23/23 Range/Units 12:58 WBC (4.50-10.00) X 10*3/uL RBC (4.40-5.60) X 10*6/uL Hgb (13.0-17.0) g/dL Hct (39.6-50.0) % MCHC (32.0-37.0) g/dL RDW (11.5-14.5) % MPV (9.5-12.2) FL Neutrophils # (1.80-7.70) X 10*3/uL Monocytes # (0.20-1.00) X 10*3/uL Eosinophils # (0.04-0.35) X 10*3/uL Sodium (135-145) mmol/L BUN/Creatinine Ratio (12.00-20.00) Ratio Glucose (70-110) mg/dL POC Glucose (mg/dL) 151 H (70-110) mg/dL Calcium (8.7-10.3) mg/dL Microbiology - Last 24 Hours (Table) 04/21/23 03:15 Blood Culture - Preliminary Blood 04/21/23 03:00 Urine Culture - Final Urine,Voided 04/21/23 03:00 Blood Culture Gram Stain - Preliminary Blood Blood Culture - Preliminary Assessment and Plan (1) Leukocytosis Current Visit: No Status: Acute Code(s): D72.829 - ELEVATED WHITE BLOOD CELL COUNT, UNSPECIFIED SNOMED Code(s): 984463278 (2) Complicated UTI (urinary tract infection) Current Visit: Yes Status: Acute Code(s): N39.0 - URINARY TRACT INFECTION, SITE NOT SPECIFIED SNOMED Code(s): 01108916 (3) Gram-positive bacteremia Current Visit: Yes Status: Acute Code(s): R78.81 - BACTEREMIA SNOMED Code(s): 923613245572 Plan: 1patient presented to hospital with sepsis in this patient who did have fever tachycardia elevated white count source likely catheter associated tract infection in this patient who did have a history of prostate cancer with a chronic draining Balbuena catheter that has not been changed since 03/26/2023, patient also noticed to have a mild right-sided hydronephrosis secondary to 5 mm ureteral calculus for which the patient did have a Cystoscopy, placement of double-J catheter right 2Patient also have a positive blood culture with gram-positive cocci with a question of possible contamination blood cultures will be repeated 3patient to continue with cefepime dose adjusted by pharmacy to 1 g every 12 hours while waiting for the urine culture to finalize and monitor clinical course closely Dictation was produced using [employer] dictation software. please excuse any grammatical, word or spelling errors. Time with Patient: Less than 30
[2023-04-23 17:45] LABS: Glucose,Whole Blood 97 mg/dL (70-110)
--- NOTE | 2023-04-23 18:21 | FL ---
Intraoperative/procedural fluoroscopic services were provided. Total fluoroscopy time is 1 minute 32 seconds with a total of 3submitted images to PACS. Please see the operative/procedural note for furth er details. DAP: 21.929 Gycm2
[2023-04-23 20:16] LABS: Glucose,Whole Blood 173 mg/dL (70-110)
[2023-04-23] MEDS: INSULIN DETEMIR (LEVEMIR) 100 UNIT/ML SYR SQ SCH (20:42)
[2023-04-23] MEDS: ATORVASTATIN 40 MG TAB PO SCH (20:43)
[2023-04-23] MEDS: MULTIVITAMINS, THERA 1 EACH TAB PO SCH (20:43)
[2023-04-23] MEDS: AMITRIPTYLINE HCL 25 MG TAB PO SCH (20:43)
[2023-04-24] MEDS: CEFEPIME 2 GM in SODIUM CHLORIDE 0.9% 100 ML IVPB SCH ×3 (05:05→21:38)
[2023-04-24] MEDS ORDERED: Dulaglutide [Trulicity] 1.5 MG/0.5 ML Each SQ SCH (06:00)
[2023-04-24] MEDS: IPRATROPIUM-ALBUTEROL 3 ML NEB INHALATION SCH ×3 (07:21→19:46)
[2023-04-24 07:26] LABS: Glucose,Whole Blood 191 mg/dL (70-110)
[2023-04-24] MEDS: INSULIN ASPART (NovoLOG) 100 UNIT/ML VIAL SQ SCH ×3 (09:45→18:23)
[2023-04-24] MEDS: HEPARIN SODIUM,PORCINE 5,000 UNIT/ML 1 ML VIAL SQ SCH ×2 (09:45→21:40)
[2023-04-24] MEDS: LACTULOSE 20 GM/30 ML CUP PO SCH (09:45)
[2023-04-24] MEDS: MELOXICAM 7.5 MG TAB PO SCH ×2 (09:46→18:22)
[2023-04-24] MEDS: TAMSULOSIN 0.4 MG CAP.ER.24H PO SCH (09:46)
[2023-04-24] MEDS: ASPIRIN 81 MG PO SCH (09:46)
[2023-04-24] MEDS: metFORMIN 500 MG TAB PO SCH ×2 (09:47→18:22)
[2023-04-24] MEDS: FERROUS SULFATE 325 MG TAB PO SCH (09:47)
[2023-04-24] MEDS: PSYLLIUM HUSK 100% 6 GM PACKET PO SCH (09:47)
[2023-04-24] MEDS: METOPROLOL TARTRATE 25 MG TAB PO SCH ×2 (09:47→18:22)
[2023-04-24] MEDS: MAGNESIUM OXIDE 400 MG TAB PO SCH (09:47)
[2023-04-24] MEDS: PANTOPRAZOLE 40 MG/10 ML VIAL IVP SCH ×2 (09:49→21:40)
[2023-04-24] MEDS: BICALUTAMIDE 50 MG TAB PO SCH (09:50)
[2023-04-24] MEDS: SENNOSIDES-DOCUSATE SODIUM 1 EACH TAB PO SCH (09:50)
[2023-04-24 10:50] LABS: Basophils # (A) 0.06 X 10*3/uL (0.00-0.10); Basophils % (A) 0.4 %; Eosinophils # (A) 0.02 X 10*3/uL (0.04-0.35); Eosinophils % (A) 0.1 %; HCT 29.9 % (39.6-50.0); HGB 9.4 g/dL (13.0-17.0); Lymphocytes # (A) 1.43 X 10*3/uL (0.90-5.00); Lymphocytes % (A) 9.2 %; MCH 27.6 pg (27.0-32.0); MCHC 31.4 g/dL (32.0-37.0); MCV 87.7 FL (80.0-97.0); Mean Platelet Volume 12.1 FL (9.5-12.2); NRBC Per 100 WBC 0 X 10*3/uL (0.00-0.01); Neutrophils # (A) 12.14 X 10*3/uL (1.80-7.70); Neutrophils % (A) 78.6 %; Platelet Count 213 X 10*3/uL (140-440); RBC 3.41 X 10*6/uL (4.40-5.60); RDW 14.9 % (11.5-14.5); WBC 15.47 X 10*3/uL (4.50-10.00)
[2023-04-24 11:10] LABS: BUN/Creat Ratio 17.82 Ratio (12.00-20.00); Blood Urea Nitrogen 19.6 mg/dL (9.0-27.0); Calcium 8.6 mg/dL (8.7-10.3); Carbon Dioxide 24.6 mmol/L (21.6-31.8); Chloride 101 mmol/L (96-109); Glucose 187 mg/dL (70-110); Potassium 5.3 mmol/L (3.5-5.5); Sodium 135 mmol/L (135-145)
[2023-04-24 12:07] LABS: Glucose,Whole Blood 194 mg/dL (70-110)
[2023-04-24 17:44] LABS: Glucose,Whole Blood 224 mg/dL (70-110)
[2023-04-24] MEDS: SODIUM CHLORIDE 0.9% 1,000 ML IV SCH (18:24)
[2023-04-24 20:44] LABS: Glucose,Whole Blood 136 mg/dL (70-110)
[2023-04-24] MEDS: MULTIVITAMINS, THERA 1 EACH TAB PO SCH (21:40)
[2023-04-24] MEDS: ATORVASTATIN 40 MG TAB PO SCH (21:40)
[2023-04-24] MEDS: AMITRIPTYLINE HCL 25 MG TAB PO SCH (21:40)
[2023-04-25 02:34] LABS: Glucose,Whole Blood 208 mg/dL (70-110)
[2023-04-25] MEDS: INSULIN DETEMIR (LEVEMIR) 100 UNIT/ML SYR SQ SCH ×2 (02:51→20:44)
[2023-04-25] MEDS: CEFEPIME 2 GM in SODIUM CHLORIDE 0.9% 100 ML IVPB SCH ×3 (05:16→20:44)
[2023-04-25] MEDS: SODIUM CHLORIDE 0.9% 1,000 ML IV SCH (05:17)
--- NOTE | 2023-04-25 06:39 | P.PN ---
Subjective Progress Note Date: 04/24/23 This is a 72-year-old male who was recently admitted with UTI and sepsis also found to have a right ureteral stone with urology following and is status post cystoscopy and placement of double-J catheter on the right which was reported as extremely difficult. Stone was obstructing on the right with pyelonephrosis. Infectious disease following as well patient is maintained on IV antibiotics and apparently initial urinalysis culture was unsuitable and never resubmitted. Blood cultures most recently are negative and awaiting finalized culture report. Patient will be [facility] to [facility] once stabilized and discharged and cleared by consultations. Patient to continue with indwelling Balbuena catheter and per urology will follow-up outpatient for right ureteral stone removal. Patient is afebrile and white count was trending down and will follow-up with repeat labs. No reports of chest pain or shortness of breath and patient is tolerating diet. Recommend PT/OT therapy evaluation. Review of systems: Constitutional: No reports of fatigue, fever, or chills Cardiovascular: No reports of chest pain or palpitations Respiratory: No reports of shortness of breath or cough GI: No reports of nausea, no reports of vomiting, no diarrhea : No reports of further dysuria or retention, continues with indwelling Balbuena catheter Neurovascular: reports of generalized weakness All medications have been reviewed PHYSICAL EXAMINATION: GENERAL: The patient is alert and oriented x4, Well developed, well nourished. Obese, elderly-appearing HEENT: Pupils are round and equally reacting to light. EOMI. no scleral icterus. No conjunctival pallor. Normocephalic, atraumatic. No pharyngeal erythema. No thyromegaly. CARDIOVASCULAR: S1 and S2 muffled PULMONARY: diminished breath sounds bilaterally with no wheezing or rhonchi noted. ABDOMEN: soft. Nontender on exam. obese. non-distended, normoactive bowel sounds. No palpable organomegaly. MUSCULOSKELETAL: No joint swelling or deformity. EXTREMITIES: No cyanosis, clubbing, or pedal edema. NEUROLOGICAL: Gross neurological examination did not reveal any focal deficits. Diffuse weakness SKIN: No rashes. Assessment: Acute urinary tract infection with sepsis, present on admission Urinary tract infection likely secondary to indwelling Balbuena catheter Metabolic encephalopathy secondary to sepsis from UTI, improving Right midureteral 5 mm calculus with right hydronephrosis and obstruction Status post cystoscopy with right ureteral double-J catheter placement, right renal calculus and will require outpatient urology follow-up Diabetes mellitus, type II History of chronic anemia Hypertension history Hyperlipidemia History of prostate cancer Obesity with BMI of 34.7 GI prophylaxis DVT prophylaxis Full code Plan: Recommend to continue with current medications and management with urology and infectious disease following. Patient is status post right double-J catheter placement and noted right ureteral obstructing stone recommend an outpatient follow-up for extraction. Patient was noted to have hydronephrosis along with acute urinary tract infection Initial urine cultures were unsuitable and have submitted repeat urine cultures along with urinalysis Urology replaced the indwelling Balbuena catheter Continue monitoring Accu-Cheks before meals and at bedtime and will continue sliding scale current regimen Awaiting finalized cultures to determine discharge antibiotics. Will discuss further with infectious disease on discharge planning Patient will be returning to [facility] on discharge once stabilized and cleared by consultations Repeat labs ordered for a.m. Recommend PT/OT therapy evaluation Due to multiple complex medical issues, prognosis is guarded The impression and plan of care has been dictated by Iliana Vera, nurse practitioner as directed. Dr. Andre MD I have performed a history and examination and MDM of this patient, discussed the same with the dictator, and agree with the dictator's assessment and plan as written ,documented as a scribe. Based on total visit time, I have performed more than 50% of the visit. Any additional findings or plans will be noted. Objective - Vital Signs Vital signs: Vital Signs Temp 98.0 F 04/25/23 02:39 Pulse 86 04/25/23 02:39 Resp 18 04/25/23 02:39 BP 100/66 04/25/23 02:39 Pulse Ox 96 04/25/23 02:39 FiO2 Intake & Output 04/24/23 04/24/23 04/25/23 06:59 18:59 06:59 Intake Total 120 Output Total 1800 850 850 Balance -6694 -850 850 Intake: Oral 120 Output: Urine 1800 850 850 Other: Voiding Method Indwelling Catheter Indwelling Catheter Indwelling Catheter # Bowel Movements 1 - Labs CBC & Chem 7: 04/24/23 06:45 04/24/23 06:45 Labs: Abnormal Lab Results - Last 24 Hours (Table) 04/24/23 04/24/23 04/24/23 Range/Units 06:45 06:45 07:25 WBC 15.47 H (4.50-10.00) X 10*3/uL RBC 3.41 L (4.40-5.60) X 10*6/uL Hgb 9.4 L (13.0-17.0) g/dL Hct 29.9 L (39.6-50.0) % MCHC 31.4 L (32.0-37.0) g/dL RDW 14.9 H (11.5-14.5) % Immature Gran # 0.42 H (0.00-0.04) X 10*3/uL Neutrophils # 12.14 H (1.80-7.70) X 10*3/uL Monocytes # 1.40 H (0.20-1.00) X 10*3/uL Eosinophils # 0.02 L (0.04-0.35) X 10*3/uL Glucose 187 H (70-110) mg/dL POC Glucose (mg/dL) 191 H (70-110) mg/dL Calcium 8.6 L (8.7-10.3) mg/dL C-Reactive Protein 13.40 H (0.00-0.80) mg/dL 04/24/23 04/24/23 04/24/23 Range/Units 11:57 17:43 20:42 WBC (4.50-10.00) X 10*3/uL RBC (4.40-5.60) X 10*6/uL Hgb (13.0-17.0) g/dL Hct (39.6-50.0) % MCHC (32.0-37.0) g/dL RDW (11.5-14.5) % Immature Gran # (0.00-0.04) X 10*3/uL Neutrophils # (1.80-7.70) X 10*3/uL Monocytes # (0.20-1.00) X 10*3/uL Eosinophils # (0.04-0.35) X 10*3/uL Glucose (70-110) mg/dL POC Glucose (mg/dL) 194 H 224 H 136 H (70-110) mg/dL Calcium (8.7-10.3) mg/dL C-Reactive Protein (0.00-0.80) mg/dL 04/25/23 Range/Units 02:30 WBC (4.50-10.00) X 10*3/uL RBC (4.40-5.60) X 10*6/uL Hgb (13.0-17.0) g/dL Hct (39.6-50.0) % MCHC (32.0-37.0) g/dL RDW (11.5-14.5) % Immature Gran # (0.00-0.04) X 10*3/uL Neutrophils # (1.80-7.70) X 10*3/uL Monocytes # (0.20-1.00) X 10*3/uL Eosinophils # (0.04-0.35) X 10*3/uL Glucose (70-110) mg/dL POC Glucose (mg/dL) 208 H (70-110) mg/dL Calcium (8.7-10.3) mg/dL C-Reactive Protein (0.00-0.80) mg/dL Microbiology - Last 24 Hours (Table) 04/21/23 03:15 Blood Culture - Preliminary Blood 04/21/23 03:00 Blood Culture Gram Stain - Final Blood Blood Culture - Preliminary
[2023-04-25 07:00] LABS: Glucose,Whole Blood 100 mg/dL (70-110)
--- NOTE | 2023-04-25 07:39 | P.PN ---
Subjective Progress Note Date: 04/25/23 The patient is in the hospital with a urinary tract infection with sepsis as well as an obstructing right ureteral stone. He is status post stent placement. His vital signs are stable and he feels well. Objective - Vital Signs Vital signs: Vital Signs Temp 98.0 F 04/25/23 02:39 Pulse 86 04/25/23 02:39 Resp 18 04/25/23 02:39 BP 100/66 04/25/23 02:39 Pulse Ox 96 04/25/23 02:39 FiO2 Intake & Output 04/24/23 04/25/23 04/25/23 18:59 06:59 18:59 Output Total 850 850 Balance -850 -850 Output: Urine 850 850 Other: Voiding Method Indwelling Catheter Indwelling Catheter # Bowel Movements 1 - Labs CBC & Chem 7: 04/24/23 06:45 04/24/23 06:45 Labs: Abnormal Lab Results - Last 24 Hours (Table) 04/24/23 04/24/23 04/24/23 Range/Units 06:45 06:45 11:57 WBC 15.47 H (4.50-10.00) X 10*3/uL RBC 3.41 L (4.40-5.60) X 10*6/uL Hgb 9.4 L (13.0-17.0) g/dL Hct 29.9 L (39.6-50.0) % MCHC 31.4 L (32.0-37.0) g/dL RDW 14.9 H (11.5-14.5) % Immature Gran # 0.42 H (0.00-0.04) X 10*3/uL Neutrophils # 12.14 H (1.80-7.70) X 10*3/uL Monocytes # 1.40 H (0.20-1.00) X 10*3/uL Eosinophils # 0.02 L (0.04-0.35) X 10*3/uL Glucose 187 H (70-110) mg/dL POC Glucose (mg/dL) 194 H (70-110) mg/dL Calcium 8.6 L (8.7-10.3) mg/dL C-Reactive Protein 13.40 H (0.00-0.80) mg/dL 04/24/23 04/24/23 04/25/23 Range/Units 17:43 20:42 02:30 WBC (4.50-10.00) X 10*3/uL RBC (4.40-5.60) X 10*6/uL Hgb (13.0-17.0) g/dL Hct (39.6-50.0) % MCHC (32.0-37.0) g/dL RDW (11.5-14.5) % Immature Gran # (0.00-0.04) X 10*3/uL Neutrophils # (1.80-7.70) X 10*3/uL Monocytes # (0.20-1.00) X 10*3/uL Eosinophils # (0.04-0.35) X 10*3/uL Glucose (70-110) mg/dL POC Glucose (mg/dL) 224 H 136 H 208 H (70-110) mg/dL Calcium (8.7-10.3) mg/dL C-Reactive Protein (0.00-0.80) mg/dL Microbiology - Last 24 Hours (Table) 04/21/23 03:15 Blood Culture - Preliminary Blood 04/21/23 03:00 Blood Culture Gram Stain - Final Blood Blood Culture - Preliminary Assessment and Plan Assessment: Impression: Urinary tract infection with sepsis being treated. Neurogenic jovani dder. Prostate cancer. Right ureteral stone with obstruction, pyelonephrosis and stent placement. Recommendations: The patient will continue with antibiotics. In about 2 weeks I'll be set up for a right ureteroscopy and laser lithotripsy as an outpatient.
[2023-04-25 07:44] LABS: Basophils # (A) 0.1 k/uL (0-0.2); Basophils % (A) 1 %; Eosinophils # (A) 0.3 k/uL (0-0.7); Eosinophils % (A) 2 %; Hypochromasia Slight; Lymphocytes # (A) 1.6 k/uL (1.0-4.8); Lymphocytes % (A) 13 %; MCH 28.6 pg (25.0-35.0); MCHC 32.1 g/dL (31.0-37.0); MCV 89.1 fL (80.0-100.0); Mean Platelet Volume 9.7; Monocytes # (A) 1.1 k/uL (0-1.0); Monocytes % (A) 9 %; Neutrophils # (A) 9.3 k/uL (1.3-7.7); Neutrophils % (A) 74 %; Platelet Count 235 k/uL (150-450); RBC 3.37 m/uL (4.30-5.90); RDW 14.6 % (11.5-15.5); WBC 12.7 k/uL (3.8-10.6)
[2023-04-25 07:52] LABS: African American GFR (CKD) 88 (>60 ml/min/1.73 sqM); Anion Gap 12 mmol/L; Blood Urea Nitrogen 22 mg/dL (9-20); Calcium 8.4 mg/dL (8.4-10.2); Carbon Dioxide 25 mmol/L (22-30); Chloride 102 mmol/L (98-107); Glucose 95 mg/dL (74-99); Non-African American GFR(CKD) 76 (>60 ml/min/1.73 sqM); Potassium 4.6 mmol/L (3.5-5.1); Sodium 139 mmol/L (137-145)
[2023-04-25 07:53] LABS: HGB 9.6 gm/dL (13.0-17.5)
[2023-04-25] MEDS: INSULIN ASPART (NovoLOG) 100 UNIT/ML VIAL SQ SCH ×4 (07:53→18:22)
[2023-04-25] MEDS: IPRATROPIUM-ALBUTEROL 3 ML NEB INHALATION SCH ×3 (08:25→18:15)
[2023-04-25] MEDS: ASPIRIN 81 MG PO SCH (08:48)
[2023-04-25] MEDS: PANTOPRAZOLE 40 MG/10 ML VIAL IVP SCH ×2 (08:48→20:44)
[2023-04-25] MEDS: metFORMIN 500 MG TAB PO SCH ×2 (08:48→17:21)
[2023-04-25] MEDS: PSYLLIUM HUSK 100% 6 GM PACKET PO SCH (08:48)
[2023-04-25] MEDS: LACTULOSE 20 GM/30 ML CUP PO SCH (08:48)
[2023-04-25] MEDS: FERROUS SULFATE 325 MG TAB PO SCH (08:49)
[2023-04-25] MEDS: MELOXICAM 7.5 MG TAB PO SCH ×2 (08:49→17:21)
[2023-04-25] MEDS: HEPARIN SODIUM,PORCINE 5,000 UNIT/ML 1 ML VIAL SQ SCH ×2 (08:49→20:43)
[2023-04-25] MEDS: BICALUTAMIDE 50 MG TAB PO SCH (08:49)
[2023-04-25] MEDS: SENNOSIDES-DOCUSATE SODIUM 1 EACH TAB PO SCH (08:49)
[2023-04-25] MEDS: TAMSULOSIN 0.4 MG CAP.ER.24H PO SCH (08:49)
[2023-04-25] MEDS: MAGNESIUM OXIDE 400 MG TAB PO SCH (08:49)
[2023-04-25] MEDS: METOPROLOL TARTRATE 25 MG TAB PO SCH ×2 (08:49→17:21)
[2023-04-25 09:35] LABS: Appearance,Urine Clear (Clear); Color,Urine Light Red
[2023-04-25 09:37] LABS: Specific Gravity,Urine 1.015 (1.001-1.035)
[2023-04-25 09:38] LABS: Bilirubin,Urine Negative (Negative); Blood,Urine Large (Negative); Glucose,Urine (UA) Negative (Negative); Ketones,Urine Negative (Negative); Leukocyte Esterase,Urine Large (Negative); Nitrite,Urine Negative (Negative); Protein,Urine 1+ (Negative); Urobilinogen,Urine 0.2 mg/dL (<2.0)
[2023-04-25 09:47] LABS: Bacteria,Urine Occasional /hpf; Mucus,Urine Rare /hpf; RBC,Urine >182 /hpf (0-5); WBC,Urine >182 /hpf (0-5)
[2023-04-25 11:43] LABS: Glucose,Whole Blood 75 mg/dL (70-110)
--- NOTE | 2023-04-25 12:48 | P.PN ---
Subjective Progress Note Date: 04/24/23 Principal diagnosis: Reason for follow-up is complicated urinary tract infection Patient is a 72-year-old male with a past medical history significant for diabetes mellitus hypertension hyperlipidemia history of prostate cancer asthma patient did have urine retention with a chronic indwelling Balbuena catheter, who was sent to the ER for evaluation of fever concerning for infection patient has been diagnosed with a catheter associated UTI also noticed to have right mid ureteral calculus with mild right hydronephrosis, patient is status post Cystoscopy, placement of double-J catheter right on 04/23/2023 On today's evaluation that is 04/24/2023 the patient remains to be afebrile, the patient is breathing comfortably on 2 L nasal cannula supplemental oxygen, the patient denies having any chest pain or cough and no sputum production, patient denies nausea vomiting or any diarrhea, and no abdominal pain Patient did have white count is slightly down to 15.47, creatinine is 1.1, urine cultures are pending, blood culture one set positive for gram-positive cocci, ID sensitivities pending Objective - Vital Signs Vital signs: Vital Signs Temp 97 F L 04/24/23 07:23 Pulse 96 04/24/23 11:21 Resp 20 04/24/23 07:23 BP 126/77 04/24/23 07:23 Pulse Ox 99 04/24/23 07:23 FiO2 Intake & Output 04/23/23 04/24/23 04/24/23 18:59 06:59 18:59 Intake Total 1100 120 Output Total 1703 1800 500 Balance -603 -6150 -500 Intake: IV 1100 Oral 120 Output: Urine 1700 1800 500 Estimated Blood Loss 3 Other: Voiding Method Indwelling Catheter Indwelling Catheter Indwelling Catheter - Exam GENERAL DESCRIPTION: An elderly male lying in bed in no distress RESPIRATORY SYSTEM: Unlabored breathing , clear to auscultation anteriorly HEART: S1 S2 regular rate and rhythm , ABDOMEN: Soft , no tenderness EXTREMITIES: No edema feet - Labs CBC & Chem 7: 04/25/23 06:40 04/25/23 06:40 Labs: Abnormal Lab Results - Last 24 Hours (Table) 04/23/23 04/23/23 04/24/23 Range/Units 12:58 20:14 06:45 WBC 15.47 H (4.50-10.00) X 10*3/uL RBC 3.41 L (4.40-5.60) X 10*6/uL Hgb 9.4 L (13.0-17.0) g/dL Hct 29.9 L (39.6-50.0) % MCHC 31.4 L (32.0-37.0) g/dL RDW 14.9 H (11.5-14.5) % Immature Gran # 0.42 H (0.00-0.04) X 10*3/uL Neutrophils # 12.14 H (1.80-7.70) X 10*3/uL Monocytes # 1.40 H (0.20-1.00) X 10*3/uL Eosinophils # 0.02 L (0.04-0.35) X 10*3/uL Glucose (70-110) mg/dL POC Glucose (mg/dL) 151 H 173 H (70-110) mg/dL Calcium (8.7-10.3) mg/dL C-Reactive Protein (0.00-0.80) mg/dL 04/24/23 04/24/23 04/24/23 Range/Units 06:45 07:25 11:57 WBC (4.50-10.00) X 10*3/uL RBC (4.40-5.60) X 10*6/uL Hgb (13.0-17.0) g/dL Hct (39.6-50.0) % MCHC (32.0-37.0) g/dL RDW (11.5-14.5) % Immature Gran # (0.00-0.04) X 10*3/uL Neutrophils # (1.80-7.70) X 10*3/uL Monocytes # (0.20-1.00) X 10*3/uL Eosinophils # (0.04-0.35) X 10*3/uL Glucose 187 H (70-110) mg/dL POC Glucose (mg/dL) 191 H 194 H (70-110) mg/dL Calcium 8.6 L (8.7-10.3) mg/dL C-Reactive Protein 13.40 H (0.00-0.80) mg/dL Microbiology - Last 24 Hours (Table) 04/21/23 03:00 Blood Culture Gram Stain - Final Blood Blood Culture - Preliminary 04/21/23 03:15 Blood Culture - Preliminary Blood 04/21/23 03:00 Urine Culture - Final Urine,Voided Assessment and Plan (1) Leukocytosis Current Visit: No Status: Acute Code(s): D72.829 - ELEVATED WHITE BLOOD CELL COUNT, UNSPECIFIED SNOMED Code(s): 843430223 (2) Complicated UTI (urinary tract infection) Current Visit: Yes Status: Acute Code(s): N39.0 - URINARY TRACT INFECTION, SITE NOT SPECIFIED SNOMED Code(s): 33780208 (3) Gram-positive bacteremia Current Visit: Yes Status: Acute Code(s): R78.81 - BACTEREMIA SNOMED Code(s): 455868251103 Plan: 1patient presented to hospital with sepsis in this patient who did have fever tachycardia elevated white count source likely catheter associated tract infection in this patient who did have a history of prostate cancer with a ch ronic draining Balbuena catheter that has not been changed since 03/26/2023, patient also noticed to have a mild right-sided hydronephrosis secondary to 5 mm ureteral calculus for which the patient did have a Cystoscopy, placement of double-J catheter right 2Patient also have a positive blood culture with gram-positive cocci with a question of possible contamination , blood cultures has been repeated, hold on adding vancomycin 3patient to continue with cefepime while waiting for the urine culture to finalize and monitor clinical course closely Dictation was produced using [employer] dictation software. please excuse any grammatical, word or spelling errors. Time with Patient: Less than 30
--- NOTE | 2023-04-25 12:49 | P.PN ---
Subjective Progress Note Date: 04/25/23 Principal diagnosis: Reason for follow-up is complicated urinary tract infection Patient is a 72-year-old male with a past medical history significant for diabetes mellitus hypertension hyperlipidemia history of prostate cancer asthma patient did have urine retention with a chronic indwelling Balbuena catheter, who was sent to the ER for evaluation of fever concerning for infection patient has been diagnosed with a catheter associated UTI also noticed to have right mid ureteral calculus with mild right hydronephrosis, patient is status post Cystoscopy, placement of double-J catheter right on 04/23/2023 On today's evaluation that is 04/25/2023, the patient continues to be afebrile and is breathing comfortably on 2 L nasal cannula, and patient denies any shortness of breath, chest pain and no cough or sputum production, patient denies abdominal pain, no nausea/vomiting and no diarrhea has been reported, feeling better Patient did have white count is down to 12.7, creatinine 0.98, initial urine culture negative, repeat urine cultures are pending, blood culture one set positive for gram-positive cocci, ID sensitivities pending Objective - Vital Signs Vital signs: Vital Signs Temp 98.2 F 04/25/23 06:56 Pulse 92 04/25/23 08:37 Resp 16 04/25/23 06:56 BP 110/71 04/25/23 06:56 Pulse Ox 97 04/25/23 06:56 FiO2 Intake & Output 04/24/23 04/25/23 04/25/23 18:59 06:59 18:59 Output Total 850 850 500 Balance -850 -850 -500 Output: Urine 850 850 500 Other: Voiding Method Indwelling Catheter Indwelling Catheter Indwelling Catheter # Bowel Movements 1 - Exam GENERAL DESCRIPTION: An elderly male lying in bed in no distress RESPIRATORY SYSTEM: Unlabored breathing , clear to auscultation anteriorly HEART: S1 S2 regular rate and rhythm , ABDOMEN: Soft , no tenderness EXTREMITIES: No edema feet - Labs CBC & Chem 7: 04/25/23 06:40 04/25/23 06:40 Labs: Abnormal Lab Results - Last 24 Hours (Table) 04/24/23 04/24/23 04/24/23 Range/Units 06:45 06:45 11:57 WBC 15.47 H (4.50-10.00) X 10*3/uL RBC 3.41 L (4.40-5.60) X 10*6/uL Hgb 9.4 L (13.0-17.0) g/dL Hct 29.9 L (39.6-50.0) % MCHC 31.4 L (32.0-37.0) g/dL RDW 14.9 H (11.5-14.5) % Immature Gran # 0.42 H (0.00-0.04) X 10*3/uL Neutrophils # 12.14 H (1.80-7.70) X 10*3/uL Monocytes # 1.40 H (0.20-1.00) X 10*3/uL Eosinophils # 0.02 L (0.04-0.35) X 10*3/uL BUN (9-20) mg/dL Glucose 187 H (70-110) mg/dL POC Glucose (mg/dL) 194 H (70-110) mg/dL Calcium 8.6 L (8.7-10.3) mg/dL C-Reactive Protein 13.40 H (0.00-0.80) mg/dL Urine Protein (Negative) Urine Blood (Negative) Ur Leukocyte Esterase (Negative) Urine RBC (0-5) /hpf Urine WBC (0-5) /hpf Urine Bacteria (None) /hpf Urine Mucus (None) /hpf 04/24/23 04/24/23 04/25/23 Range/Units 17:43 20:42 02:30 WBC (4.50-10.00) X 10*3/uL RBC (4.40-5.60) X 10*6/uL Hgb (13.0-17.0) g/dL Hct (39.6-50.0) % MCHC (32.0-37.0) g/dL RDW (11.5-14.5) % Immature Gran # (0.00-0.04) X 10*3/uL Neutrophils # (1.80-7.70) X 10*3/uL Monocytes # (0.20-1.00) X 10*3/uL Eosinophils # (0.04-0.35) X 10*3/uL BUN (9-20) mg/dL Glucose (70-110) mg/dL POC Glucose (mg/dL) 224 H 136 H 208 H (70-110) mg/dL Calcium (8.7-10.3) mg/dL C-Reactive Protein (0.00-0.80) mg/dL Urine Protein (Negative) Urine Blood (Negative) Ur Leukocyte Esterase (Negative) Urine RBC (0-5) /hpf Urine WBC (0-5) /hpf Urine Bacteria (None) /hpf Urine Mucus (None) /hpf 04/25/23 04/25/23 04/25/23 Range/Units 06:40 06:40 09:00 WBC 12.7 H (4.50-10.00) X 10*3/uL RBC 3.37 L (4.40-5.60) X 10*6/uL Hgb 9.6 L D (13.0-17.0) g/dL Hct 30.0 L (39.6-50.0) % MCHC (32.0-37.0) g/dL RDW (11.5-14.5) % Immature Gran # (0.00-0.04) X 10*3/uL Neutrophils # 9.3 H (1.80-7.70) X 10*3/uL Monocytes # 1.1 H (0.20-1.00) X 10*3/uL Eosinophils # (0.04-0.35) X 10*3/uL BUN 22 H (9-20) mg/dL Glucose (70-110) mg/dL POC Glucose (mg/dL) (70-110) mg/dL Calcium (8.7-10.3) mg/dL C-Reactive Protein (0.00-0.80) mg/dL Urine Protein 1+ H (Negative) Urine Blood Large H (Negative) Ur Leukocyte Esterase Large H (Negative) Urine RBC >182 H (0-5) /hpf Urine WBC >182 H (0-5) /hpf Urine Bacteria Occasional H (None) /hpf Urine Mucus Rare H (None) /hpf Microbiology - Last 24 Hours (Table) 04/21/23 03:15 Blood Culture - Preliminary Blood 04/21/23 03:00 Blood Culture Gram Stain - Final Blood Blood Culture - Preliminary Assessment and Plan (1) Leukocytosis Current Visit: No Status: Acute Code(s): D72.829 - ELEVATED WHITE BLOOD CELL COUNT, UNSPECIFIED SNOMED Code(s): 007642318 (2) Complicated UTI (urinary tract infection) Current Visit: Yes Status: Acute Code(s): N39.0 - URINARY TRACT INFECTION, SITE NOT SPECIFIED SNOMED Code(s): 98373952 (3) Gram-positive bacteremia Current Visit: Yes Status: Acute Code(s): R78.81 - BACTEREMIA SNOMED Code(s): 409765675527 Plan: 1patient presented to hospital with sepsis in this patient who did have fever tachycardia elevated white count source likely catheter associated tract infection in this patient who did have a history of prostate cancer with a chronic draining Balbuena catheter that has not been changed since 03/26/2023, patient also noticed to have a mild right-sided hydronephrosis secondary to 5 mm ureteral calculus for which the patient did have a Cystoscopy, placement of double-J catheter right 2Patient also have a positive blood culture with gram-positive cocci with a question of possible contamination , blood cultures has been repeated, hold on adding vancomycin 3patient did have some clinical improvement and patient white count is trending down however has not normalized and we are still waiting for repeat urine culture grew finalize, to continue with cefepime while waiting for the urine culture to finalize to determine his discharge antibiotics Dictation was produced using [employer] dictation software. please excuse any grammatical, word or spelling errors.
[2023-04-25 17:12] LABS: Glucose,Whole Blood 95 mg/dL (70-110)
[2023-04-25 20:31] LABS: Glucose,Whole Blood 180 mg/dL (70-110)
[2023-04-25] MEDS: AMITRIPTYLINE HCL 25 MG TAB PO SCH (20:43)
[2023-04-25] MEDS: ATORVASTATIN 40 MG TAB PO SCH (20:43)
[2023-04-25] MEDS: MULTIVITAMINS, THERA 1 EACH TAB PO SCH (20:43)
[2023-04-26 02:08] LABS: Glucose,Whole Blood 159 mg/dL (70-110)
[2023-04-26] MEDS: CEFEPIME 2 GM in SODIUM CHLORIDE 0.9% 100 ML IVPB SCH (05:37)
[2023-04-26] MEDS: SODIUM CHLORIDE 0.9% 1,000 ML IV SCH ×2 (05:43→15:56)
--- NOTE | 2023-04-26 06:45 | P.PN ---
Subjective Progress Note Date: 04/25/23 This is a 72-year-old male who was recently admitted with UTI and sepsis also found to have a right ureteral stone with urology following and is status post cystoscopy and placement of double-J catheter on the right which was reported as extremely difficult. Stone was obstructing on the right with pyelonephrosis. Infectious disease following as well patient is maintained on IV antibiotics and apparently initial urinalysis culture was unsuitable and never resubmitted. Blood cultures most recently are negative and awaiting finalized culture report. Patient will be returning to [facility] once stabilized and discharged and cleared by consultations. Patient to continue with indwelling Balbuena catheter and per urology will follow-up outpatient for right ureteral stone removal. Patient is afebrile and white count was trending down and will follow-up with repeat labs. No reports of chest pain or shortness of breath and patient is tolerating diet. Recommend PT/OT therapy evaluation. 04/25/2073 Patient is seen in follow-up this morning with urology and infectious disease following. Apparently initial urine culture was unsuitable and half sent for repeat urinalysis with culture which is currently pending. Patient continued on IV antibiotics per ID recommendations recommending to await repeat culture for urine to determine appropriate discharge antibiotics. Patient is currently afebrile with no reported chest pain or shortness of breath. Patient tolerating diet with no reported nausea or vomiting. Patient reports has not been out of bed and was residing at [facility] prior to admission. We'll have PT/OT therapy evaluate the patient and would recommend daily deficits this patient is signi ficantly weak. Continue aspiration precautions with head of the bed elevated 30-45 at all times. Review of systems: Constitutional: No reports of fatigue, fever, or chills Cardiovascular: No reports of chest pain or palpitations Respiratory: No reports of shortness of breath or cough GI: No reports of nausea, no reports of vomiting, no diarrhea : No reports of further dysuria or retention, continues with indwelling Balbuena catheter Neurovascular: reports of generalized weakness All medications have been reviewed PHYSICAL EXAMINATION: GENERAL: The patient is alert and oriented x4, Well developed, well nourished. Obese, elderly-appearing HEENT: Pupils are round and equally reacting to light. EOMI. no scleral icterus. No conjunctival pallor. Normocephalic, atraumatic. No pharyngeal erythema. No thyromegaly. CARDIOVASCULAR: S1 and S2 muffled PULMONARY: diminished breath sounds bilaterally with no wheezing or rhonchi noted. ABDOMEN: soft. Nontender on exam. obese. non-distended, normoactive bowel sounds. No palpable organomegaly. MUSCULOSKELETAL: No joint swelling or deformity. EXTREMITIES: No cyanosis, clubbing, or pedal edema. NEUROLOGICAL: Gross neurological examination did not reveal any focal deficits. Diffuse weakness SKIN: No rashes. Assessment: Acute urinary tract infection with sepsis, present on admission Urinary tract infection likely secondary to indwelling Balbuena catheter Metabolic encephalopathy secondary to sepsis from UTI, improving Right midureteral 5 mm calculus with right hydronephrosis and obstruction Status post cystoscopy with right ureteral double-J catheter placement, right renal calculus and will require outpatient urology follow-up Diabetes mellitus, type II History of chronic anemia Hypertension history Hyperlipidemia History of prostate cancer Obesity with BMI of 34.7 GI prophylaxis DVT prophylaxis Full code Plan: Recommend to continue with current medications and management with urology and infectious disease following. Patient is status post right double-J catheter placement and noted right ureteral obstructing stone recommend an outpatient follow-up for extraction. Patient was noted to have hydronephrosis along with acute urinary tract infection Initial urine cultures were unsuitable and have submitted repeat urine cultures along with urinalysis. Discussed with infectious disease and will await finalized cultures determine appropriate discharge antibiotics Urology replaced the indwelling Balbuena catheter Continue monitoring Accu-Cheks before meals and at bedtime and will continue sliding scale current regimen Recommend aspiration cautions of the bed elevated 30-45 at all times as patient is noted to be laying flat multiple times throughout the day. Patient will be returning to [facility] on discharge once stabilized and cleared by consultations Repeat labs ordered for a.m. Recommend PT/OT therapy evaluation and would recommend daily evaluation as patient has significant weakness and reports has not been up and out of the bed Recommend sitting up in the chair during meals Due to multiple complex medical issues, prognosis is guarded The impression and plan of care has been dictated by Iliana Vera, nurse practitioner as directed. Dr. Bear MD I have performed a history and examination and MDM of this patient, discussed the same with the dictator, and agree with the dictator's assessment and plan as written ,documented as a scribe. Based on total visit time, I have performed more than 50% of the visit. Any additional findings or plans will be noted. Objective - Vital Signs Vital signs: Vital Signs Temp 97.9 F 04/26/23 01:35 Pulse 85 04/26/23 01:35 Resp 17 04/26/23 01:35 BP 107/67 04/26/23 01:35 Pulse Ox 96 04/26/23 01:35 FiO2 Intake & Output 04/25/23 04/25/23 04/26/23 06:59 18:59 06:59 Output Total 850 1400 1100 Balance -850 -1400 -1100 Output: Urine 850 1400 1100 Other: Voiding Method Indwelling Catheter Indwelling Catheter Indwelling Catheter # Bowel Movements 1 1 - Labs CBC & Chem 7: 04/25/23 06:40 04/25/23 06:40 Labs: Abnormal Lab Results - Last 24 Hours (Table) 04/25/23 04/25/23 04/25/23 Range/Units 06:40 06:40 09:00 WBC 12.7 H (3.8-10.6) k/uL RBC 3.37 L (4.30-5.90) m/uL Hgb 9.6 L D (13.0-17.5) gm/dL Hct 30.0 L (39.0-53.0) % Neutrophils # 9.3 H (1.3-7.7) k/uL Monocytes # 1.1 H (0-1.0) k/uL BUN 22 H (9-20) mg/dL POC Glucose (mg/dL) (70-110) mg/dL Urine Protein 1+ H (Negative) Urine Blood Large H (Negative) Ur Leukocyte Esterase Large H (Negative) Urine RBC >182 H (0-5) /hpf Urine WBC >182 H (0-5) /hpf Urine Bacteria Occasional H (None) /hpf Urine Mucus Rare H (None) /hpf 04/25/23 04/26/23 Range/Units 20:29 02:06 WBC (3.8-10.6) k/uL RBC (4.30-5.90) m/uL Hgb (13.0-17.5) gm/dL Hct (39.0-53.0) % Neutrophils # (1.3-7.7) k/uL Monocytes # (0-1.0) k/uL BUN (9-20) mg/dL POC Glucose (mg/dL) 180 H 159 H (70-110) mg/dL Urine Protein (Negative) Urine Blood (Negative) Ur Leukocyte Esterase (Negative) Urine RBC (0-5) /hpf Urine WBC (0-5) /hpf Urine Bacteria (None) /hpf Urine Mucus (None) /hpf Microbiology - Last 24 Hours (Table) 04/24/23 06:45 Blood Culture - Preliminary Blood
[2023-04-26 07:28] LABS: Glucose,Whole Blood 67 mg/dL (70-110)
[2023-04-26] MEDS: INSULIN ASPART (NovoLOG) 100 UNIT/ML VIAL SQ SCH ×5 (07:35→22:19)
[2023-04-26] MEDS: IPRATROPIUM-ALBUTEROL 3 ML NEB INHALATION SCH ×3 (07:42→19:48)
[2023-04-26 07:50] LABS: Glucose,Whole Blood 76 mg/dL (70-110)
--- NOTE | 2023-04-26 08:14 | P.PN ---
Progress Note - Text Progress Note Date: 04/26/23 The patient is doing well from a urologic standpoint. From a urologic standpoint he can go home. I will set up a right ureteroscopy laser lithotripsy at a later date.
[2023-04-26] MEDS: PSYLLIUM HUSK 100% 6 GM PACKET PO SCH (08:50)
[2023-04-26] MEDS: PANTOPRAZOLE 40 MG/10 ML VIAL IVP SCH ×2 (08:50→21:41)
[2023-04-26] MEDS: LACTULOSE 20 GM/30 ML CUP PO SCH (08:50)
[2023-04-26] MEDS: SENNOSIDES-DOCUSATE SODIUM 1 EACH TAB PO SCH ×2 (08:51→21:40)
[2023-04-26] MEDS: metFORMIN 500 MG TAB PO SCH ×2 (08:51→18:27)
[2023-04-26] MEDS: HEPARIN SODIUM,PORCINE 5,000 UNIT/ML 1 ML VIAL SQ SCH ×2 (08:51→21:40)
[2023-04-26] MEDS: MELOXICAM 7.5 MG TAB PO SCH ×2 (08:51→15:56)
[2023-04-26] MEDS: ASPIRIN 81 MG PO SCH (08:51)
[2023-04-26] MEDS: FERROUS SULFATE 325 MG TAB PO SCH (08:51)
[2023-04-26] MEDS: METOPROLOL TARTRATE 25 MG TAB PO SCH ×2 (08:51→15:56)
[2023-04-26] MEDS: MAGNESIUM OXIDE 400 MG TAB PO SCH (08:51)
[2023-04-26] MEDS: TAMSULOSIN 0.4 MG CAP.ER.24H PO SCH (08:51)
[2023-04-26] MEDS: BICALUTAMIDE 50 MG TAB PO SCH (08:51)
[2023-04-26 09:12] LABS: BUN/Creat Ratio 20.75 Ratio (12.00-20.00); Blood Urea Nitrogen 16.6 mg/dL (9.0-27.0); Chloride 104 mmol/L (96-109); Glucose 51 mg/dL (70-110); Potassium 4.5 mmol/L (3.5-5.5); Sodium 140 mmol/L (135-145)
[2023-04-26 09:13] LABS: Calcium 8.3 mg/dL (8.7-10.3); Carbon Dioxide 25.1 mmol/L (21.6-31.8)
[2023-04-26 09:40] LABS: Basophils # (M) 0 X 10*3/uL (0.00-0.10); HCT 27.6 % (39.6-50.0); HGB 8.5 g/dL (13.0-17.0); MCH 27.3 pg (27.0-32.0); MCHC 30.8 g/dL (32.0-37.0); MCV 88.7 FL (80.0-97.0); Mean Platelet Volume 12.2 FL (9.5-12.2); NRBC Per 100 WBC 0 X 10*3/uL (0.00-0.01); Neutrophils % (M) 65 %; Platelet Count 246 X 10*3/uL (140-440); RBC 3.11 X 10*6/uL (4.40-5.60); RDW 15.5 % (11.5-14.5); WBC 14.61 X 10*3/uL (4.50-10.00)
[2023-04-26 09:56] LABS: Eosinophils # (M) 0.58 X 10*3/uL (0.04-0.35); Lymphocytes # (M) 2.48 X 10*3/uL (0.90-5.00); Monocytes # (M) 1.46 X 10*3/uL (0.20-1.00); Myelocytes % 4 % (0-0); RBC Morphology Normal (Normal)
[2023-04-26] MEDS ORDERED: VANCOMYCIN IV PER PHARMACY 1 EACH MISC MISCELLANE PRN (10:18)
[2023-04-26] MEDS ORDERED: LACTULOSE 20 GM/30 ML CUP PO PRN (11:06)
[2023-04-26] MEDS ORDERED: polyethylene glycoL 3350 17 GM POWD.PACK PO PRN (11:07)
[2023-04-26] MEDS: VANCOMYCIN 2,000 MG in SODIUM CHLORIDE 0.9% 500 ML 500 ML IVPB SCH ×2 (12:07→22:21)
[2023-04-26 12:33] LABS: Glucose,Whole Blood 182 mg/dL (70-110)
[2023-04-26] MEDS ORDERED: DEXTROSE 50% SYRINGE 50 ML IVP PRN ×2 (13:13)
[2023-04-26 13:28] VITALS: BMI 38.7
[2023-04-26 17:15] LABS: Glucose,Whole Blood 184 mg/dL (70-110)
[2023-04-26 20:36] LABS: Glucose,Whole Blood 227 mg/dL (70-110)
[2023-04-26] MEDS: MULTIVITAMINS, THERA 1 EACH TAB PO SCH (21:40)
[2023-04-26] MEDS: AMITRIPTYLINE HCL 25 MG TAB PO SCH (21:40)
[2023-04-26] MEDS: ATORVASTATIN 40 MG TAB PO SCH (21:40)
[2023-04-26] MEDS: INSULIN DETEMIR (LEVEMIR) 100 UNIT/ML SYR SQ SCH (22:16)
--- NOTE | 2023-04-27 04:24 | P.PN ---
Subjective Progress Note Date: 04/26/23 This is a 72-year-old male who was recently admitted with UTI and sepsis also found to have a right ureteral stone with urology following and is status post cystoscopy and placement of double-J catheter on the right which was reported as extremely difficult. Stone was obstructing on the right with pyelonephrosis. Infectious disease following as well patient is maintained on IV antibiotics and apparently initial urinalysis culture was unsuitable and never resubmitted. Blood cultures most recently are negative and awaiting finalized culture report. Patient will be returning to [facility] once stabilized and discharged and cleared by consultations. Patient to continue with indwelling Balbuena catheter and per urology will follow-up outpatient for right ureteral stone removal. Patient is afebrile and white count was trending down and will follow-up with repeat labs. No reports of chest pain or shortness of breath and patient is tolerating diet. Recommend PT/OT therapy evaluation. 04/25/2023 Patient is seen in follow-up this morning with urology and infectious disease following. Apparently initial urine culture was unsuitable and half sent for repeat urinalysis with culture which is currently pending. Patient continued on IV antibiotics per ID recommendations recommending to await repeat culture for urine to determine appropriate discharge antibiotics. Patient is currently afebrile with no reported chest pain or shortness of breath. Patient tolerating diet with no reported nausea or vomiting. Patient reports has not been out of bed and was residing at [facility] prior to admission. We'll have PT/OT therapy evaluate the patient and would recommend daily deficits this patient is signi ficantly weak. Continue aspiration precautions with head of the bed elevated 30-45 at all times. 04/26/2023 Patient is seen in follow-up today with urology and infectious disease continuing to follow. Patient continued on antibiotics in the form of cefepime and vancomycin awaiting finalized repeat urine cultures. Cefepime being discontinued and will discuss further with infectious disease and discharge planning antibiotics. Patient will be returning to [facility] on discharge and recommend physical therapy as patient has been lying in bed most of the admission. Per patient he is extremely weak and requires assistance. Per nursing staff patient is almost maximum assist. Patient is afebrile with no reported chest pain or shortness of breath. Patient tolerating diet and denies any nausea or vomiting. Urology to follow-up outpatient for stone extraction Review of systems: Constitutional: No reports of fatigue, fever, or chills Cardiovascular: No reports of chest pain or palpitations Respiratory: No reports of shortness of breath or cough GI: No reports of nausea, no reports of vomiting, no diarrhea, reports feeling constipated : No reports of further dysuria or retention, continues with indwelling Balbuena catheter Neurovascular: reports of generalized weakness All medications have been reviewed PHYSICAL EXAMINATION: GENERAL: The patient is alert and oriented x4, Well developed, well nourished. Obese, elderly-appearing HEENT: Pupils are round and equally reacting to light. EOMI. no scleral icterus. No conjunctival pallor. Normocephalic, atraumatic. No pharyngeal erythema. No thyromegaly. CARDIOVASCULAR: S1 and S2 muffled PULMONARY: diminished breath sounds bilaterally with no wheezing or rhonchi noted. ABDOMEN: soft. Nontender on exam. obese. non-distended, normoactive bowel sounds. No palpable organomegaly. MUSCULOSKELETAL: No joint swelling or deformity. EXTREMITIES: No cyanosis, clubbing, or pedal edema. NEUROLOGICAL: Gross neurological examination did not reveal any focal deficits. Diffuse weakness SKIN: No rashes. Assessment: Acute urinary tract infection with sepsis, present on admission Urinary tract infection likely secondary to indwelling Balbuena catheter Metabolic encephalopathy secondary to sepsis from UTI, improving Right midureteral 5 mm calculus with right hydronephrosis and obstruction Status post cystoscopy with right ureteral double-J stent placement, right renal calculus and will require outpatient urology follow-up Diabetes mellitus, type II, uncontrolled with hyper and hypoglycemia History of chronic anemia Hypertension history Hyperlipidemia History of prostate cancer Obesity with BMI of 34.7 GI prophylaxis DVT prophylaxis Full code Plan: Recommend to continue with current medications and management with urology and infectious disease following. Patient is status post right double-J stent placement and noted right ureteral obstructing stone recommend an outpatient follow-up for extraction. Patient was noted to have hydronephrosis along with acute urinary tract infection Repeat urine cultures thus far are negative and will discuss further with infectious disease on discharge planning and appropriate antibiotics. Patient currently maintained on vancomycin and cefepime has been discontinued Urology replaced the indwelling Balbuena catheter Continue monitoring Accu-Cheks before meals and at bedtime and will continue sliding scale pre-meal insulins have been discontinued as patient's blood sugars are uncontrolled with hypo-and hyperglycemia Recommend aspiration cautions of the bed elevated 30-45 at all times as patient is noted to be laying flat multiple times throughout the day. Patient will be returning to [place] on discharge once stabilized and cleared by consultations Repeat labs ordered for a.m. Recommend PT/OT therapy evaluation and would recommend daily evaluation as patient has significant weakness and reports has not been up and out of the bed. Nursing staff reported patient is almost total assist Recommend sitting up in the chair during meals Due to multiple complex medical issues, prognosis is guarded The impression and plan of care has been dictated by Iliana Vera, nurse practitioner as directed. Dr. Bear MD I have performed a history and examination and MDM of this patient, discussed the same with the dictator, and agree with the dictator's assessment and plan as written ,documented as a scribe. Based on total visit time, I have performed more than 50% of the visit. Any additional findings or plans will be noted. Objective - Vital Signs Vital signs: Vital Signs Temp 97.9 F 04/26/23 07:28 Pulse 84 04/26/23 07:55 Resp 18 04/26/23 07:28 BP 117/73 04/26/23 07:28 Pulse Ox 96 04/26/23 07:28 FiO2 Intake & Output 04/25/23 04/26/23 04/26/23 18:59 06:59 18:59 Output Total 1400 1100 Balance -1400 -1100 Output: Urine 1400 1100 Other: Voiding Method Indwelling Catheter Indwelling Catheter # Bowel Movements 1 - Labs CBC & Chem 7: 04/26/23 05:24 04/26/23 05:24 Labs: Abnormal Lab Results - Last 24 Hours (Table) 04/25/23 04/26/23 04/26/23 Range/Units 20:29 02:06 05:24 WBC 14.61 H (4.50-10.00) X 10*3/uL RBC 3.11 L (4.40-5.60) X 10*6/uL Hgb 8.5 L (13.0-17.0) g/dL Hct 27.6 L (39.6-50.0) % MCHC 30.8 L (32.0-37.0) g/dL RDW 15.5 H (11.5-14.5) % Neutrophils # (Manual) 9.50 H (1.80-7.70) X 10*3/uL Monocytes # (Manual) 1.46 H (0.20-1.00) X 10*3/uL Eosinophils # (Manual) 0.58 H (0.04-0.35) X 10*3/uL BUN/Creatinine Ratio (12.00-20.00) Ratio Glucose (70-110) mg/dL POC Glucose (mg/dL) 180 H 159 H (70-110) mg/dL Calcium (8.7-10.3) mg/dL C-Reactive Protein (0.00-0.80) mg/dL 04/26/23 04/26/23 Range/Units 05:24 07:27 WBC (4.50-10.00) X 10*3/uL RBC (4.40-5.60) X 10*6/uL Hgb (13.0-17.0) g/dL Hct (39.6-50.0) % MCHC (32.0-37.0) g/dL RDW (11.5-14.5) % Neutrophils # (Manual) (1.80-7.70) X 10*3/uL Monocytes # (Manual) (0.20-1.00) X 10*3/uL Eosinophils # (Manual) (0.04-0.35) X 10*3/uL BUN/Creatinine Ratio 20.75 H (12.00-20.00) Ratio Glucose 51 L (70-110) mg/dL POC Glucose (mg/dL) 67 L (70-110) mg/dL Calcium 8.3 L (8.7-10.3) mg/dL C-Reactive Protein 4.50 H (0.00-0.80) mg/dL Microbiology - Last 24 Hours (Table) 04/24/23 06:45 Blood Culture - Preliminary Blood
[2023-04-27 05:14] LABS: African American GFR (CKD) >90 (>60 ml/min/1.73 sqM); Anion Gap 11 mmol/L; Blood Urea Nitrogen 14 mg/dL (9-20); Calcium 8.3 mg/dL (8.4-10.2); Carbon Dioxide 24 mmol/L (22-30); Chloride 104 mmol/L (98-107); Glucose 75 mg/dL (74-99); Non-African American GFR(CKD) >90 (>60 ml/min/1.73 sqM); Potassium 4.4 mmol/L (3.5-5.1); Sodium 139 mmol/L (137-145)
[2023-04-27 07:54] LABS: Glucose,Whole Blood 65 mg/dL (70-110)
[2023-04-27] MEDS: INSULIN ASPART (NovoLOG) 100 UNIT/ML VIAL SQ SCH ×4 (07:54→20:30)
[2023-04-27 08:33] LABS: Glucose,Whole Blood 116 mg/dL (70-110)
[2023-04-27] MEDS: IPRATROPIUM-ALBUTEROL 3 ML NEB INHALATION SCH ×3 (08:48→21:15)
[2023-04-27] MEDS: LACTULOSE 20 GM/30 ML CUP PO SCH (09:10)
[2023-04-27] MEDS: BICALUTAMIDE 50 MG TAB PO SCH (09:10)
[2023-04-27] MEDS: MELOXICAM 7.5 MG TAB PO SCH ×2 (09:10→17:20)
[2023-04-27] MEDS: METOPROLOL TARTRATE 25 MG TAB PO SCH ×2 (09:10→17:19)
[2023-04-27] MEDS: metFORMIN 500 MG TAB PO SCH ×2 (09:10→17:20)
[2023-04-27] MEDS: ASPIRIN 81 MG PO SCH (09:10)
[2023-04-27] MEDS: FERROUS SULFATE 325 MG TAB PO SCH (09:10)
[2023-04-27] MEDS: MAGNESIUM OXIDE 400 MG TAB PO SCH (09:11)
[2023-04-27] MEDS: TAMSULOSIN 0.4 MG CAP.ER.24H PO SCH (09:11)
[2023-04-27] MEDS: SENNOSIDES-DOCUSATE SODIUM 1 EACH TAB PO SCH ×2 (09:12→20:36)
[2023-04-27] MEDS: SODIUM CHLORIDE 0.9% 1,000 ML IV SCH (09:12)
[2023-04-27] MEDS: PSYLLIUM HUSK 100% 6 GM PACKET PO SCH (09:12)
[2023-04-27] MEDS: HEPARIN SODIUM,PORCINE 5,000 UNIT/ML 1 ML VIAL SQ SCH ×2 (09:13→20:35)
[2023-04-27] MEDS: PANTOPRAZOLE 40 MG/10 ML VIAL IVP SCH ×2 (09:13→20:33)
[2023-04-27 10:16] LABS: HCT 28.8 % (39.6-50.0); HGB 8.8 g/dL (13.0-17.0); MCH 27.7 pg (27.0-32.0); MCHC 30.6 g/dL (32.0-37.0); MCV 90.6 FL (80.0-97.0); Mean Platelet Volume 12.8 FL (9.5-12.2); NRBC Per 100 WBC 0 X 10*3/uL (0.00-0.01); Platelet Count 243 X 10*3/uL (140-440); RBC 3.18 X 10*6/uL (4.40-5.60); RDW 15.6 % (11.5-14.5); WBC 14.98 X 10*3/uL (4.50-10.00)
[2023-04-27 10:57] LABS: Basophils # (M) 0 X 10*3/uL (0.00-0.10)
[2023-04-27 11:02] LABS: Eosinophils # (M) 0.15 X 10*3/uL (0.04-0.35); Lymphocytes # (M) 1.05 X 10*3/uL (0.90-5.00); Metamyelocytes % 6 % (0-0); Myelocytes % 3 % (0-0); Neutrophils # (M) 11.83 X 10*3/uL (1.80-7.70); Neutrophils % (M) 79 %; RBC Morphology Normal (Normal)
--- NOTE | 2023-04-27 11:37 | P.PN ---
Subjective Progress Note Date: 04/27/23 No acute overnight event, denies any flank or gross hematuria. Urine is clear Objective - Vital Signs Vital signs: Vital Signs Temp 98.1 F 04/27/23 07:39 Pulse 85 04/27/23 08:58 Resp 16 04/27/23 07:39 BP 122/75 04/27/23 07:39 Pulse Ox 95 04/27/23 07:39 FiO2 Intake & Output 04/26/23 04/27/23 04/27/23 18:59 06:59 18:59 Output Total 700 1800 750 Balance -700 -1800 -750 Weight 122.47 kg Output: Urine 700 1800 750 Other: Voiding Method Indwelling Catheter Indwelling Catheter Indwelling Catheter # Bowel Movements 1 - Constitutional General appearance: Present: no acute distress - Gastrointestinal General gastrointestinal: Present: soft. Absent: distended, tenderness - Labs CBC & Chem 7: 04/27/23 04:48 04/27/23 04:16 Labs: Abnormal Lab Results - Last 24 Hours (Table) 04/26/23 04/26/23 04/26/23 Range/Units 12:31 17:14 20:34 WBC (4.50-10.00) X 10*3/uL RBC (4.40-5.60) X 10*6/uL Hgb (13.0-17.0) g/dL Hct (39.6-50.0) % MCHC (32.0-37.0) g/dL RDW (11.5-14.5) % MPV (9.5-12.2) FL POC Glucose (mg/dL) 182 H 184 H 227 H (70-110) mg/dL Calcium (8.4-10.2) mg/dL 04/27/23 04/27/23 04/27/23 Range/Units 04:16 04:48 07:42 WBC 14.98 H (4.50-10.00) X 10*3/uL RBC 3.18 L (4.40-5.60) X 10*6/uL Hgb 8.8 L (13.0-17.0) g/dL Hct 28.8 L (39.6-50.0) % MCHC 30.6 L (32.0-37.0) g/dL RDW 15.6 H (11.5-14.5) % MPV 12.8 H (9.5-12.2) FL POC Glucose (mg/dL) 65 L (70-110) mg/dL Calcium 8.3 L (8.4-10.2) mg/dL 04/27/23 Range/Units 08:27 WBC (4.50-10.00) X 10*3/uL RBC (4.40-5.60) X 10*6/uL Hgb (13.0-17.0) g/dL Hct (39.6-50.0) % MCHC (32.0-37.0) g/dL RDW (11.5-14.5) % MPV (9.5-12.2) FL POC Glucose (mg/dL) 116 H (70-110) mg/dL Calcium (8.4-10.2) mg/dL Microbiology - Last 24 Hours (Table) 04/25/23 09:00 Urine Culture - Final Urine,Catheterized 04/24/23 06:45 Blood Culture - Preliminary Blood 04/21/23 03:15 Blood Culture - Final Blood Assessment and Plan Assessment: status post right sided stone stent insertion for midureteral stone. History of advanced prostate cancer on androgen deprivation therapy and chronic urinary retention being managed with a Balbuena -Okay for discharge from urology standpoint, he will be set up for outpatient ri ght-sided ureteroscopy with Dr. Cole
[2023-04-27 12:05] LABS: Glucose,Whole Blood 109 mg/dL (70-110)
[2023-04-27] MEDS: VANCOMYCIN 2,000 MG in SODIUM CHLORIDE 0.9% 500 ML 500 ML IVPB SCH (12:10)
[2023-04-27 15:08] LABS: Glucose,Whole Blood 112 mg/dL (70-110)
[2023-04-27 17:43] LABS: Glucose,Whole Blood 113 mg/dL (70-110)
[2023-04-27 20:23] LABS: Glucose,Whole Blood 132 mg/dL (70-110)
[2023-04-27] MEDS: AMITRIPTYLINE HCL 25 MG TAB PO SCH (20:35)
[2023-04-27] MEDS: MULTIVITAMINS, THERA 1 EACH TAB PO SCH (20:35)
[2023-04-27] MEDS: ATORVASTATIN 40 MG TAB PO SCH (20:36)
[2023-04-27] MEDS: INSULIN DETEMIR (LEVEMIR) 100 UNIT/ML SYR SQ SCH (20:36)
[2023-04-28] MEDS: VANCOMYCIN 2,000 MG in SODIUM CHLORIDE 0.9% 500 ML 500 ML IVPB SCH ×2 (00:07→11:00)
[2023-04-28] MEDS: SODIUM CHLORIDE 0.9% 1,000 ML IV SCH ×3 (00:10→23:52)
[2023-04-28 07:33] LABS: Glucose,Whole Blood 80 mg/dL (70-110)
[2023-04-28] MEDS: IPRATROPIUM-ALBUTEROL 3 ML NEB INHALATION SCH ×3 (07:53→20:13)
[2023-04-28] MEDS: ASPIRIN 81 MG PO SCH (09:46)
[2023-04-28] MEDS: MELOXICAM 7.5 MG TAB PO SCH ×2 (09:46→16:23)
[2023-04-28] MEDS: FERROUS SULFATE 325 MG TAB PO SCH (09:46)
[2023-04-28] MEDS: SENNOSIDES-DOCUSATE SODIUM 1 EACH TAB PO SCH ×2 (09:46→20:51)
[2023-04-28] MEDS: METOPROLOL TARTRATE 25 MG TAB PO SCH ×2 (09:46→16:24)
[2023-04-28] MEDS: MAGNESIUM OXIDE 400 MG TAB PO SCH (09:46)
[2023-04-28] MEDS: metFORMIN 500 MG TAB PO SCH ×2 (09:46→16:23)
[2023-04-28] MEDS: PANTOPRAZOLE 40 MG/10 ML VIAL IVP SCH ×2 (09:46→20:53)
[2023-04-28] MEDS: TAMSULOSIN 0.4 MG CAP.ER.24H PO SCH (09:47)
[2023-04-28] MEDS: HEPARIN SODIUM,PORCINE 5,000 UNIT/ML 1 ML VIAL SQ SCH ×2 (09:47→20:53)
[2023-04-28] MEDS: INSULIN ASPART (NovoLOG) 100 UNIT/ML VIAL SQ SCH ×4 (09:53→20:53)
[2023-04-28] MEDS: LACTULOSE 20 GM/30 ML CUP PO SCH (09:55)
[2023-04-28] MEDS: PSYLLIUM HUSK 100% 6 GM PACKET PO SCH (09:55)
[2023-04-28] MEDS ORDERED: VANCOMYCIN TROUGH DUE 1 EACH MISC MISCELLANE ONE (10:00)
--- NOTE | 2023-04-28 10:14 | XR ---
EXAMINATION TYPE: XR chest 1V portable DATE OF EXAM: 04/28/2023 Comparison: 04/21/2023 Clinical History: 72-year-old male sob Findings: Low lung volumes. Heart mildly enlarged. Some scattered patchy densities especially in the lower lung s are similar. Impression: Limited due to the marked hypoventilatory changes. Some patchy densities probably represent atelectas is, not significantly changed.
[2023-04-28 10:21] LABS: HCT 31.1 % (39.0-53.0); MCH 28.4 pg (25.0-35.0); MCV 88.7 fL (80.0-100.0); Platelet Count 233 k/uL (150-450); RDW 14.8 % (11.5-15.5); WBC 14.1 k/uL (3.8-10.6)
[2023-04-28 10:35] LABS: African American GFR (CKD) >90 (>60 ml/min/1.73 sqM); Anion Gap 10 mmol/L; Blood Urea Nitrogen 12 mg/dL (9-20); Calcium 8.5 mg/dL (8.4-10.2); Carbon Dioxide 25 mmol/L (22-30); Chloride 104 mmol/L (98-107); Glucose 114 mg/dL (74-99); Non-African American GFR(CKD) >90 (>60 ml/min/1.73 sqM); Potassium 4.3 mmol/L (3.5-5.1); Sodium 139 mmol/L (137-145)
[2023-04-28 10:37] LABS: African American GFR (CKD) >90 (>60 ml/min/1.73 sqM); Non-African American GFR(CKD) >90 (>60 ml/min/1.73 sqM)
[2023-04-28] MEDS: BICALUTAMIDE 50 MG TAB PO SCH (10:48)
[2023-04-28 12:09] LABS: Glucose,Whole Blood 136 mg/dL (70-110)
[2023-04-28 12:14] LABS: Band Neutrophils % 2 %; Basophils # (M) 0.14 k/uL (0-0.2); Eosinophils # (M) 0.28 k/uL (0-0.7); Lymphocytes # (M) 2.26 k/uL (1.0-4.8); Metamyelocytes # (M) 0.42 k/uL (0); Metamyelocytes % 3 %; Monocytes # (M) 1.69 k/uL (0-1.0); Myelocytes # (M) 0.42 k/uL (0); Myelocytes % 3 %; Neutrophils % (M) 64 %; Nucleated Red Blood Cells 0 /100 WBC (0-0); Total Cells Counted 200
[2023-04-28 17:09] LABS: Glucose,Whole Blood 123 mg/dL (70-110)
[2023-04-28 19:17] LABS: Appearance,Urine Clear (Clear); Bilirubin,Urine Negative (Negative); Blood,Urine Large (Negative); Color,Urine Light Yellow; Glucose,Urine (UA) Negative (Negative); Ketones,Urine Negative (Negative); Protein,Urine Trace (Negative)
[2023-04-28 19:18] LABS: Leukocyte Esterase,Urine Moderate (Negative); Nitrite,Urine Negative (Negative); Urobilinogen,Urine <2.0 mg/dL (<2.0)
[2023-04-28 19:22] LABS: Bacteria,Urine Occasional /hpf; Mucus,Urine Rare /hpf; RBC,Urine 3 /hpf (0-5); Squamous Epithelial Cell,Urine <1 /hpf (0-4); WBC,Urine 16 /hpf (0-5)
[2023-04-28 20:29] LABS: Glucose,Whole Blood 166 mg/dL (70-110)
[2023-04-28] MEDS: AMITRIPTYLINE HCL 25 MG TAB PO SCH (20:51)
[2023-04-28] MEDS: ATORVASTATIN 40 MG TAB PO SCH (20:51)
[2023-04-28] MEDS: MULTIVITAMINS, THERA 1 EACH TAB PO SCH (20:51)
[2023-04-28] MEDS: INSULIN DETEMIR (LEVEMIR) 100 UNIT/ML SYR SQ SCH (20:53)
[2023-04-28] MEDS ORDERED: VANCOMYCIN 2,000 MG in SODIUM CHLORIDE 0.9% 500 ML 500 ML IVPB SCH (21:00)
--- NOTE | 2023-04-28 23:04 | P.PN ---
Subjective Progress Note Date: 04/27/23 This is a 72-year-old male who was recently admitted with UTI and sepsis also found to have a right ureteral stone with urology following and is status post cystoscopy and placement of double-J catheter on the right which was reported as extremely difficult. Stone was obstructing on the right with pyelonephrosis. Infectious disease following as well patient is maintained on IV antibiotics and apparently initial urinalysis culture was unsuitable and never resubmitted. Blood cultures most recently are negative and awaiting finalized culture report. Patient will be returning to [facility] once stabilized and discharged and cleared by consultations. Patient to continue with indwelling Balbuena catheter and per urology will follow-up outpatient for right ureteral stone removal. Patient is afebrile and white count was trending down and will follow-up with repeat labs. No reports of chest pain or shortness of breath and patient is tolerating diet. Recommend PT/OT therapy evaluation. 04/25/2023 Patient is seen in follow-up this morning with urology and infectious disease following. Apparently initial urine culture was unsuitable and half sent for repeat urinalysis with culture which is currently pending. Patient continued on IV antibiotics per ID recommendations recommending to await repeat culture for urine to determine appropriate discharge antibiotics. Patient is currently afebrile with no reported chest pain or shortness of breath. Patient tolerating diet with no reported nausea or vomiting. Patient reports has not been out of bed and was residing at [facility] prior to admission. We'll have PT/OT therapy evaluate the patient and would recommend daily deficits this patient is signifi cantly weak. Continue aspiration precautions with head of the bed elevated 30- 45 at all times. 04/26/2023 Patient is seen in follow-up today with urology and infectious disease continuing to follow. Patient continued on antibiotics in the form of cefepime and vancomycin awaiting finalized repeat urine cultures. Cefepime being discontinued and will discuss further with infectious disease and discharge planning antibiotics. Patient will be returning to [facility] on discharge and recommend physical therapy as patient has been lying in bed most of the admission. Per patient he is extremely weak and requires assistance. Per nursing staff patient is almost maximum assist. Patient is afebrile with no reported chest pain or shortness of breath. Patient tolerating diet and denies any nausea or vomiting. Urology to follow-up outpatient for stone extraction 04/27/2023 Patient is resting in bed. Awake alert and oriented x 3. Denies any complaints of abdominal pain. Urine is clear. No complaints of chest pain or shortness of breath. Urine culture showed no growth. Laboratory data showed WBC 14.9 hemoglobin 8.8 and platelets 243. Blood sugar is 65 this morning. Patient is being continued on antibiotics ceftriaxone 2 g every 12 for as per ID recommendations. Review of systems: Constitutional: No reports of fatigue, fever, or chills Cardiovascular: No reports of chest pain or palpitations Respiratory: No reports of shortness of breath or cough GI: No reports of nausea, no reports of vomiting, no diarrhea, reports feeling constipated : No reports of further dysuria or retention, continues with indwelling Balbuena catheter Neurovascular: reports of generalized weakness All medications have been reviewed PHYSICAL EXAMINATION: GENERAL: The patient is alert and oriented x4, Well developed, well nourished. Obese, elderly-appearing HEENT: Pupils are round and equally reacting to light. EOMI. no scleral icterus. No conjunctival pallor. Normocephalic, atraumatic. No pharyngeal erythema. No thyromegaly. CARDIOVASCULAR: S1 and S2 muffled PULMONARY: diminished breath sounds bilaterally with no wheezing or rhonchi noted. ABDOMEN: soft. Nontender on exam. obese. non-distended, normoactive bowel sounds. No palpable organomegaly. MUSCULOSKELETAL: No joint swelling or deformity. EXTREMITIES: No cyanosis, clubbing, or pedal edema. NEUROLOGICAL: Gross neurological examination did not reveal any focal deficits. Diffuse weakness SKIN: No rashes. Assessment: Acute urinary tract infection with sepsis, present on admission Urinary tract infection likely secondary to indwelling Balbuena catheter Metabolic encephalopathy secondary to sepsis from UTI, improving Right midureteral 5 mm calculus with right hydronephrosis and obstruction Status post cystoscopy with right ureteral double-J stent placement, right renal calculus and will require outpatient urology follow-up Diabetes mellitus, type II, uncontrolled with hyper and hypoglycemia History of chronic anemia Hypertension history Hyperlipidemia History of prostate cancer Obesity with BMI of 34.7 GI prophylaxis DVT prophylaxis Full code Plan: Recommend to continue with current medications and management with urology and infectious disease following. Patient is status post right double-J stent plac ement and noted right ureteral obstructing stone recommend an outpatient follow- up for extraction. Patient was noted to have hydronephrosis along with acute urinary tract infection Repeat urine cultures thus far are negative and will discuss further with infectious disease on discharge planning and appropriate antibiotics. Patient currently maintained on vancomycin and ceftriaxone Urology replaced the indwelling Balbuena catheter Continue monitoring Accu-Cheks before meals and at bedtime and will continue sliding scale pre-meal insulins have been discontinued as patient's blood sugars are uncontrolled with hypo-and hyperglycemia Recommend aspiration cautions of the bed elevated 30-45 at all times as patient is noted to be laying flat multiple times throughout the day. Patient will be returning to [facility] on discharge once stabilized and cleared by consultations Repeat labs ordered for a.m. Recommend PT/OT therapy evaluation and would recommend daily evaluation as patient has significant weakness and reports has not been up and out of the bed. Nursing staff reported patient is almost total assist Recommend sitting up in the chair during meals Due to multiple complex medical issues, prognosis is guarded Objective - Vital Signs Vital signs: Vital Signs Temp 98.7 F 04/27/23 12:00 Pulse 88 04/27/23 21:26 Resp 16 04/27/23 12:00 BP 136/86 04/27/23 12:00 Pulse Ox 97 04/27/23 12:00 FiO2 Intake & Output 04/27/23 04/27/23 04/28/23 06:59 18:59 06:59 Intake Total 980 Output Total 1800 1350 Balance -1800 -370 Intake: Intake, IV Titration 980 Amount IV Fluid Continuation 100 480 ml @ 0 mls/hr IV .STK- [facility] Rx#:[id number] Vancomycin 2,000 mg In 500 Sodium Chloride 0.9% 500 ml 500 ml @ 167 mls/hr IVPB Q12H [facility] Rx#: [id number] Output: Urine 1800 1350 Other: Voiding Method Indwelling Catheter Indwelling Catheter # Bowel Movements 1 - Labs CBC & Chem 7: 04/28/23 09:26 04/28/23 09:26 Labs: Abnormal Lab Results - Last 24 Hours (Table) 04/27/23 04/27/23 04/27/23 Range/Units 04:16 04:48 07:42 WBC 14.98 H (4.50-10.00) X 10*3/uL RBC 3.18 L (4.40-5.60) X 10*6/uL Hgb 8.8 L (13.0-17.0) g/dL Hct 28.8 L (39.6-50.0) % MCHC 30.6 L (32.0-37.0) g/dL RDW 15.6 H (11.5-14.5) % MPV 12.8 H (9.5-12.2) FL POC Glucose (mg/dL) 65 L (70-110) mg/dL Calcium 8.3 L (8.4-10.2) mg/dL 04/27/23 04/27/23 04/27/23 Range/Units 08:27 15:06 17:33 WBC (4.50-10.00) X 10*3/uL RBC (4.40-5.60) X 10*6/uL Hgb (13.0-17.0) g/dL Hct (39.6-50.0) % MCHC (32.0-37.0) g/dL RDW (11.5-14.5) % MPV (9.5-12.2) FL POC Glucose (mg/dL) 116 H 112 H 113 H (70-110) mg/dL Calcium (8.4-10.2) mg/dL 04/27/23 Range/Units 20:21 WBC (4.50-10.00) X 10*3/uL RBC (4.40-5.60) X 10*6/uL Hgb (13.0-17.0) g/dL Hct (39.6-50.0) % MCHC (32.0-37.0) g/dL RDW (11.5-14.5) % MPV (9.5-12.2) FL POC Glucose (mg/dL) 132 H (70-110) mg/dL Calcium (8.4-10.2) mg/dL Microbiology - Last 24 Hours (Table) 04/24/23 06:45 Blood Culture - Preliminary Blood 04/25/23 09:00 Urine Culture - Final Urine,Catheterized
--- NOTE | 2023-04-28 23:06 | P.PN ---
Subjective Progress Note Date: 04/28/23 This is a 72-year-old male who was recently admitted with UTI and sepsis also found to have a right ureteral stone with urology following and is status post cystoscopy and placement of double-J catheter on the right which was reported as extremely difficult. Stone was obstructing on the right with pyelonephrosis. Infectious disease following as well patient is maintained on IV antibiotics and apparently initial urinalysis culture was unsuitable and never resubmitted. Blood cultures most recently are negative and awaiting finalized culture report. Patient will be returning to [facility] once stabilized and discharged and cleared by consultations. Patient to continue with indwelling Balbuena catheter and per urology will follow-up outpatient for right ureteral stone removal. Patient is afebrile and white count was trending down and will follow-up with repeat labs. No reports of chest pain or shortness of breath and patient is tolerating diet. Recommend PT/OT therapy evaluation. 04/25/2023 Patient is seen in follow-up this morning with urology and infectious disease following. Apparently initial urine culture was unsuitable and half sent for repeat urinalysis with culture which is currently pending. Patient continued on IV antibiotics per ID recommendations recommending to await repeat culture for urine to determine appropriate discharge antibiotics. Patient is currently afebrile with no reported chest pain or shortness of breath. Patient tolerating diet with no reported nausea or vomiting. Patient reports has not been out of bed and was residing at [facility] prior to admission. We'll have PT/OT therapy evaluate the patient and would recommend daily deficits this patient is signifi cantly weak. Continue aspiration precautions with head of the bed elevated 30- 45 at all times. 04/26/2023 Patient is seen in follow-up today with urology and infectious disease continuing to follow. Patient continued on antibiotics in the form of cefepime and vancomycin awaiting finalized repeat urine cultures. Cefepime being discontinued and will discuss further with infectious disease and discharge planning antibiotics. Patient will be returning to [facility] on discharge and recommend physical therapy as patient has been lying in bed most of the admission. Per patient he is extremely weak and requires assistance. Per nursing staff patient is almost maximum assist. Patient is afebrile with no reported chest pain or shortness of breath. Patient tolerating diet and denies any nausea or vomiting. Urology to follow-up outpatient for stone extraction 04/27/2023 Patient is resting in bed. Awake alert and oriented x 3. Denies any complaints of abdominal pain. Urine is clear. No complaints of chest pain or shortness of breath. Urine culture showed no growth. Laboratory data showed WBC 14.9 hemoglobin 8.8 and platelets 243. Blood sugar is 65 this morning. Patient is being continued on antibiotics ceftriaxone 2 g every 12 for as per ID recommendations. 04/28/2023 Patient is currently resting in the bed. Awake alert and oriented x 3. No complaints of chest pain or shortness of breath. Patient is afebrile. Patient states that he did have a bowel movement. Urine is clear. Patient does have indwelling Balbunea catheter. Urine culture showed no growth. Otherwise patient still having leukocytosis with WBC 14.1 hemoglobin 10.0 and platelets 233 Sodium 139 potassium 4.3 chloride 104 bicarb is 25 BUN 12 and creatinine 0.66 and blood sugar 114 calcium 8.5. Repeat urinalysis showed trace protein large blood and moderate leukocyte esterase with elevated WBCs. Patient is on antibiotics ceftriaxone and vancomycin. ID is on board. Review of systems: Constitutional: No reports of fatigue, fever, or chills Cardiovascular: No reports of chest pain or palpitations Respiratory: No reports of shortness of breath or cough GI: No reports of nausea, no reports of vomiting, no diarrhea, reports feeling constipated : No reports of further dysuria or retention, continues with indwelling Balbuena catheter Neurovascular: reports of generalized weakness All medications have been reviewed PHYSICAL EXAMINATION: GENERAL: The patient is alert and oriented x4, Well developed, well nourished. Obese, elderly-appearing HEENT: Pupils are round and equally reacting to light. EOMI. no scleral icterus. No conjunctival pallor. Normocephalic, atraumatic. No pharyngeal erythema. No thyromegaly. CARDIOVASCULAR: S1 and S2 muffled PULMONARY: diminished breath sounds bilaterally with no wheezing or rhonchi noted. ABDOMEN: soft. Nontender on exam. obese. non-distended, normoactive bowel sounds. No palpable organomegaly. MUSCULOSKELETAL: No joint swelling or deformity. EXTREMITIES: No cyanosis, clubbing, or pedal edema. NEUROLOGICAL: Gross neurological examination did not reveal any focal deficits. Diffuse weakness SKIN: No rashes. Assessment: Acute urinary tract infection with sepsis, present on admission Urinary tract infection likely secondary to indwelling Balbuena catheter Metabolic encephalopathy secondary to sepsis from UTI, improving Right midureteral 5 mm calculus with right hydronephrosis and obstruction Status post cystoscopy with right ureteral double-J stent placement, right renal calculus and will require outpatient urology follow-up Diabetes mellitus, type II, uncontrolled with hyper and hypoglycemia History of chronic anemia Hypertension history Hyperlipidemia History of prostate cancer Obesity with BMI of 34.7 GI prophylaxis DVT prophylaxis Full code Plan: Recommend to continue with current medications and management with urology and infectious disease following. Patient is status post right double-J stent p lacement and noted right ureteral obstructing stone recommend an outpatient follow-up for extraction. Patient was noted to have hydronephrosis along with acute urinary tract infection Repeat urine cultures thus far are negative and will discuss further with infectious disease on discharge planning and appropriate antibiotics. Patient currently maintained on vancomycin and ceftriaxone Urology replaced the indwelling Balbuena catheter Continue monitoring Accu-Cheks before meals and at bedtime and will continue sliding scale pre-meal insulins have been discontinued as patient's blood sugars are uncontrolled with hypo-and hyperglycemia Recommend aspiration cautions of the bed elevated 30-45 at all times as patient is noted to be laying flat multiple times throughout the day. Patient will be returning to [facility] on discharge once stabilized and cleared by consultations Repeat labs ordered for a.m. Recommend PT/OT therapy evaluation and would recommend daily evaluation as patient has significant weakness and reports has not been up and out of the bed. Nursing staff reported patient is almost total assist Recommend sitting up in the chair during meals Due to multiple complex medical issues, prognosis is guarded Objective - Vital Signs Vital signs: Vital Signs Temp 97.8 F 04/28/23 11:50 Pulse 91 04/28/23 11:50 Resp 16 04/28/23 11:50 BP 112/72 04/28/23 11:50 Pulse Ox 98 04/28/23 11:50 FiO2 Intake & Output 04/27/23 04/28/23 04/28/23 18:59 06:59 18:59 Intake Total 980 Output Total 1350 1200 1700 Balance -370 -1200 -1700 Intake: Intake, IV Titration 980 Amount IV Fluid Continuation 100 480 ml @ 0 mls/hr IV .[facility] Rx#:[id number] Vancomycin 2,000 mg In 500 Sodium Chloride 0.9% 500 ml 500 ml @ 167 mls/hr IVPB Q12H [facility] Rx#: [id number] Output: Urine 1350 1200 1700 Other: Voiding Method Indwelling Catheter Indwelling Catheter Indwelling Catheter # Bowel Movements 1 1 1 - Labs CBC & Chem 7: 04/28/23 09:26 04/28/23 09:26 Labs: Abnormal Lab Results - Last 24 Hours (Table) 04/27/23 04/27/23 04/28/23 Range/Units 17:33 20:21 09:26 WBC (3.8-10.6) k/uL RBC (4.30-5.90) m/uL Hgb (13.0-17.5) gm/dL Hct (39.0-53.0) % Neutrophils # (Manual) (1.3-7.7) k/uL Monocytes # (Manual) (0-1.0) k/uL Metamyelocytes # (Man) (0) k/uL Myelocytes # (Manual) (0) k/uL Creatinine 0.63 L (0.66-1.25) mg/dL Glucose (74-99) mg/dL POC Glucose (mg/dL) 113 H 132 H (70-110) mg/dL 04/28/23 04/28/23 04/28/23 Range/Units 09:26 09:26 11:53 WBC 14.1 H (3.8-10.6) k/uL RBC 3.50 L (4.30-5.90) m/uL Hgb 10.0 L (13.0-17.5) gm/dL Hct 31.1 L (39.0-53.0) % Neutrophils # (Manual) 9.30 H (1.3-7.7) k/uL Monocytes # (Manual) 1.69 H (0-1.0) k/uL Metamyelocytes # (Man) 0.42 H (0) k/uL Myelocytes # (Manual) 0.42 H (0) k/uL Creatinine (0.66-1.25) mg/dL Glucose 114 H (74-99) mg/dL POC Glucose (mg/dL) 136 H (70-110) mg/dL Microbiology - Last 24 Hours (Table) 04/24/23 06:45 Blood Culture - Preliminary Blood
[2023-04-29 07:49] LABS: Glucose,Whole Blood 185 mg/dL (70-110)
[2023-04-29 08:09] VITALS: RESP 16
[2023-04-29] MEDS: IPRATROPIUM-ALBUTEROL 3 ML NEB INHALATION SCH ×3 (08:23→18:37)
[2023-04-29 08:27] LABS: Sodium 139 mmol/L (137-145)
[2023-04-29 08:32] LABS: ALT 84 U/L (4-49); AST 49 U/L (17-59); African American GFR (CKD) >90 (>60 ml/min/1.73 sqM); Albumin 3.2 g/dL (3.5-5.0); Albumin/Globulin Ratio 0.8; Alkaline Phosphatase 114 U/L (38-126); Anion Gap 10 mmol/L; Blood Urea Nitrogen 12 mg/dL (9-20); Calcium 8.3 mg/dL (8.4-10.2); Carbon Dioxide 26 mmol/L (22-30); Chloride 103 mmol/L (98-107); Globulin 3.8 g/dL; Glucose 180 mg/dL (74-99); Non-African American GFR(CKD) >90 (>60 ml/min/1.73 sqM); Potassium 4.6 mmol/L (3.5-5.1); Total Bilirubin 0.2 mg/dL (0.2-1.3)
[2023-04-29] MEDS: LACTULOSE 20 GM/30 ML CUP PO SCH (08:33)
[2023-04-29] MEDS: ASPIRIN 81 MG PO SCH (08:33)
[2023-04-29] MEDS: HEPARIN SODIUM,PORCINE 5,000 UNIT/ML 1 ML VIAL SQ SCH (08:33)
[2023-04-29] MEDS: MAGNESIUM OXIDE 400 MG TAB PO SCH (08:33)
[2023-04-29] MEDS: PANTOPRAZOLE 40 MG/10 ML VIAL IVP SCH (08:33)
[2023-04-29] MEDS: MELOXICAM 7.5 MG TAB PO SCH ×2 (08:33→16:53)
[2023-04-29] MEDS: PSYLLIUM HUSK 100% 6 GM PACKET PO SCH (08:33)
[2023-04-29] MEDS: INSULIN ASPART (NovoLOG) 100 UNIT/ML VIAL SQ SCH ×3 (08:33→18:16)
[2023-04-29] MEDS: SENNOSIDES-DOCUSATE SODIUM 1 EACH TAB PO SCH (08:34)
[2023-04-29] MEDS: BICALUTAMIDE 50 MG TAB PO SCH (08:34)
[2023-04-29] MEDS: metFORMIN 500 MG TAB PO SCH ×2 (08:34→16:53)
[2023-04-29] MEDS: TAMSULOSIN 0.4 MG CAP.ER.24H PO SCH (08:34)
[2023-04-29] MEDS: METOPROLOL TARTRATE 25 MG TAB PO SCH ×2 (08:34→16:53)
[2023-04-29] MEDS: FERROUS SULFATE 325 MG TAB PO SCH (08:34)
[2023-04-29 10:35] LABS: C Reactive Protein 2.8 mg/dL (<1.0)
[2023-04-29 11:01] LABS: HCT 30.1 % (39.6-50.0); HGB 9.2 g/dL (13.0-17.0); MCH 27.5 pg (27.0-32.0); MCHC 30.6 g/dL (32.0-37.0); MCV 90.1 FL (80.0-97.0); Mean Platelet Volume 12.2 FL (9.5-12.2); NRBC Per 100 WBC 0 X 10*3/uL (0.00-0.01); Platelet Count 242 X 10*3/uL (140-440); RBC 3.34 X 10*6/uL (4.40-5.60); RDW 15.5 % (11.5-14.5); WBC 12.58 X 10*3/uL (4.50-10.00)
[2023-04-29 12:10] LABS: Glucose,Whole Blood 171 mg/dL (70-110)
[2023-04-29 12:25] LABS: Basophils # (M) 0.13 X 10*3/uL (0.00-0.10); Eosinophils # (M) 0.38 X 10*3/uL (0.04-0.35); Lymphocytes # (M) 1.51 X 10*3/uL (0.90-5.00); Metamyelocytes % 5 % (0-0); Monocytes # (M) 0.63 X 10*3/uL (0.20-1.00); Myelocytes % 5 % (0-0); Neutrophils # (M) 8.68 X 10*3/uL (1.80-7.70); Neutrophils % (M) 69 %; RBC Morphology Normal (Normal)
--- NOTE | 2023-04-29 13:08 | P.DS ---
Providers Date of admission: 04/21/23 06:40 Expected date of discharge: 04/29/23 Attending physician: Sandra Powell Consults: 04/21/23 06:38 Consult Physician Routine Consulting Provider: Teodoro Benjamin Consult Reason/Comments: sepsis Do you want consulting provider notified?: Yes 04/22/23 15:04 Consult Physician Routine Consulting Provider: Artemio Cole Consult Reason/Comments: renal calculi, uti Do you want consulting provider notified?: Yes [facility]: Final diagnosis Acute urinary tract infection with sepsis, present on admission Urinary tract infection likely secondary to indwelling Balbuena catheter, Balbuena catheter was exchanged this admission Metabolic encephalopathy secondary to sepsis from UTI, improving Right midureteral 5 mm calculus with right hydronephrosis and obstruction, Status post cystoscopy with right ureteral double-J stent placement, right renal calculus and will require outpatient urology follow-up Diabetes mellitus, type II, uncontrolled with hyper and hypoglycemia History of chronic anemia Hypertension history Hyperlipidemia History of prostate cancer Obesity with BMI of 34.7 GI prophylaxis DVT prophylaxis Full code Discharge disposition Patient is being discharged in a stable condition with guarded prognosis to [facility]. Patient will follow-up with Dr. Allen in the outpatient setting upon discharge. Patient is to continue with oral Ceftin 500 mg twice daily for the next 10 days per ID recommendations and close outpatient follow-up with Dr. Cole urology as scheduled. Total time taken is greater than 35 minutes. Hospital course This is a 72-year-old male who was recently admitted with acute urinary tract infection with sepsis, present on admission with right midureteral calculus with right hydronephrosis and obstruction status post cystoscopy with right ureteral double-J stent placement maintained on indwelling Balbuena catheter. Patient also with urine cultures that finalized as negative although initial culture that was sent was unsuitable. Patient to continue with indwelling Balbuena catheter and close outpatient follow-up with urology for stent/stone removal in the outpatient setting. Patient will continue on oral Ceftin 500 mg twice daily for the next 10 days per ID recommendations. Patient is also a diabetic and will continue on sliding scale with Accu-Cheks before meals and at bedtime. Patient has been medically cleared by consultations. Please refer to consultation notes for further HPI. Patient will be returning to [facility]. Currently no reports of chest pain, shortness of breath, or palpitations. Patient is afebrile. No reports of nausea or vomiting and patient is tolerating diet. Patient will be going to [facility] today.. Patient is extremely weak almost maximum assist and was encouraged to get up and sit in the chair more often and would recommend aggressive PT/OT therapy. Physical exam: Gen: This is a 72-year-old male who is awake, alert and oriented 3, well- developed, well-nourished, obese HEENT: Head is atraumatic, normocephalic. Pupils equal, round. Sclerae is anicteric. NECK: Supple. No JVD. No lymphadenopathy. No thyromegaly. LUNGS: Clear to auscultation. No wheezes or rhonchi. No intercostal retractions. HEART: Regular rate and rhythm. No murmur. ABDOMEN: Soft. Obese Bowel sounds are present. No masses. No tenderness. EXTREMITIES: No pedal edema. No calf tenderness. NEUROLOGICAL: Patient is awake, alert and oriented x3. Cranial nerves 2 through 12 are grossly intact. Diffusely weak Please refer to medication reconciliation sheet for a list of medications. The impression and plan of care has been dictated by Iliana Vera, Nurse Practitioner as directed. Dr. Miguelina MD I have performed a history and examination and MDM of this patient, discussed the same with the dictator, and agree with the dictator's assessment and plan as written ,documented as a scribe. Based on total visit time, I have performed more than 50% of the visit. Patient Condition at Discharge: Fair Plan - Discharge Summary Discharge Rx Participant: No New Discharge Prescriptions: New cefUROXime axetiL [Ceftin] 500 mg PO BID 10 Days #20 tab Ipratropium-Albuterol Nebulize [Duoneb 0.5 mg-3 mg/3 ml Soln] 3 ml INHALATION RT-TID each Ipratropium-Albuterol Nebulize [Duoneb 0.5 mg-3 mg/3 ml Soln] 3 ml INHALATION RT-TID PRN each PRN Reason: Shortness Of Breath Or Wheezing Heparin Sodium,Porcine (1 ml) [Heparin Sodium] 5,000 unit SQ Q12HR each polyethylene glycoL 3350 [Miralax] 17 gm PO DAILY PRN packet PRN Reason: Constipation INSULIN ASPART (NovoLOG) [NovoLOG (formulary)] 0 unit SQ ACHS each Continue Bicalutamide [Casodex] 50 mg PO DAILY@0800 Aspirin EC [Ecotrin Low Dose] 81 mg PO DAILY@0800 Leuprolide Acetate [Lupron Depot] 45 mg IM Q180D Psyllium Husk 100% [Metamucil Packet] 6 gm PO DAILY@0800 Meloxicam 7.5 mg PO BID@0800,1600 Magnesium Oxide [Mag-Ox] 400 mg PO DAILY@0800 Tamsulosin HCl [Flomax] 0.4 mg PO DAILY Famotidine [Pepcid] 20 mg PO BID@0800,1600 Amitriptyline HCl [Elavil] 75 mg PO HS Sennosides/Docusate Sodium [Senna Plus 8.6-50 mg Tablet] 1 tab PO DAILY@0800 Acetaminophen [Tylenol 8 Hour] 650 mg PO Q6H PRN PRN Reason: Pain Dulaglutide [Trulicity] 1.5 mg SQ WE Insulin Glargine,Hum.rec.anlog [Insulin Glargine] 48 units SQ HS@2000 Phenyleph/Mineral Oil/Petrolat [Preparation H Ointment] 1 applic RECTAL Q6H PRN PRN Reason: Hemorrhoids Metoprolol Tartrate [Lopressor] 25 mg PO BID@0800,1600 Atorvastatin Calcium 40 mg PO HS Ferrous Sulfate [Iron (65 MG Elemental)] 325 mg PO DAILY@0800 Ondansetron [Zofran] 4 mg PO Q6H PRN PRN Reason: Nausea Mv-Min/Folic/K1/Lycopen/Lutein [Centrum Silver Men Tablet] 1 tab PO HS Magnesium Hydroxide [Milk of Magnesia] 2,400 mg PO Q72H PRN PRN Reason: 3 days no BM metFORMIN HCL 1,000 mg PO BID@0700,1700 Sodium Chloride [[place]] 1 spr EA NOSTRIL Q8H PRN PRN Reason: Congestion Lactulose 20 gm PO DAILY@0800 Discontinued INSULIN LISPRO (humaLOG) [humaLOG] 10 units SQ AC-TID Discharge Medication List Aspirin EC [Ecotrin Low Dose] 81 mg PO DAILY@0800 12/13/21 [History] Bicalutamide [Casodex] 50 mg PO DAILY@0800 0727/22 [History] Atorvastatin Calcium 40 mg PO HS 02/05/22 [History] Metoprolol Tartrate [Lopressor] 25 mg PO BID@0800,1600 02/05/22 [History] Ferrous Sulfate [Iron (65 MG Elemental)] 325 mg PO DAILY@0800 04/26/22 [History] Leuprolide Acetate [Lupron Depot] 45 mg IM Q180D 10/18/22 [History] Famotidine [Pepcid] 20 mg PO BID@0800,1600 11/19/22 [History] Magnesium Oxide [Mag-Ox] 400 mg PO DAILY@0800 11/19/22 [History] Meloxicam 7.5 mg PO BID@0800,1600 11/19/22 [History] Mv-Min/Folic/K1/Lycopen/Lutein [Centrum Silver Men Tablet] 1 tab PO HS 11/19/22 [History] Ondansetron [Zofran] 4 mg PO Q6H PRN 11/19/22 [History] Psyllium Husk 100% [Metamucil Packet] 6 gm PO DAILY@0811/19/22 [History] Tamsulosin HCl [Flomax] 0.4 mg PO DAILY 11/19/22 [History] Amitriptyline HCl [Elavil] 75 mg PO HS 01/09/23 [History] Magnesium Hydroxide [Milk of Magnesia] 2,400 mg PO Q72H PRN 01/09/23 [History] Sennosides/Docusate Sodium [Senna Plus 8.6-50 mg Tablet] 1 tab PO DAILY@0801/09/23 [History] Sodium Chloride [[place]] 1 spr EA NOSTRIL Q8H PRN 01/09/23 [History] metFORMIN HCL 1,000 mg PO BID@0700,1700 01/09/23 [History] Acetaminophen [Tylenol 8 Hour] 650 mg PO Q6H PRN 04/21/23 [History] Dulaglutide [Trulicity] 1.5 mg SQ WE 04/21/23 [History] Insulin Glargine,Hum.rec.anlog [Insulin Glargine] 48 units SQ HS@199904/21/23 [History] Lactulose 20 gm PO DAILY@0800 04/21/23 [History] Phenyleph/Mineral Oil/Petrolat [Preparation H Ointment] 1 applic RECTAL Q6H PRN 04/21/23 [History] Heparin Sodium,Porcine (1 ml) [Heparin Sodium] 5,000 unit SQ Q12HR each 04/29/23 [Rx] INSULIN ASPART (NovoLOG) [NovoLOG (formulary)] 0 unit SQ ACHS each 04/29/23 [Rx] Ipratropium-Albuterol Nebulize [Duoneb 0.5 mg-3 mg/3 ml Soln] 3 ml INHALATION RT-TID each 04/29/23 [Rx] Ipratropium-Albuterol Nebulize [Duoneb 0.5 mg-3 mg/3 ml Soln] 3 ml INHALATION RT-TID PRN each 04/29/23 [Rx] cefUROXime axetiL [Ceftin] 500 mg PO BID 10 Days #20 tab 04/29/23 [Rx] polyethylene glycoL 3350 [Miralax] 17 gm PO DAILY PRN packet 04/29/23 [Rx] Follow up Appointment(s)/Referral(s): Sarbjit Allen DO [Primary Care Provider] - 1-2 days Activity/Diet/Wound Care/Special Instructions: Patient is going to [facility] Activity as tolerated Patient needs follow-up with primary care provider outpatient Follow-up with urology Dr. Cole in the outpatient setting Continue indwelling Balbuena catheter Continue Ceftin 500 mg twice daily for 10 days Continue to monitor Accu-Cheks before meals and at bedtime and continue with current insulin regimen NovoLog sliding scale 0-150 equals 0 units 151-200 equals 2 units 201-250 equals 4 units 251-300 equals 6 units 301-350 equals 8 units 351-400 equals 10 units Please notify provider if blood sugar is 400 or above Discharge Disposition: TRANSFER TO SNF/ECF
[2023-04-29 13:34] VITALS: BP 125/83; TEMP 98.1
[2023-04-29 17:19] LABS: Glucose,Whole Blood 159 mg/dL (70-110)
[2023-04-29 19:04] VITALS: PULSE 98
== END 2023-04-29 19:27 | DRG 659 ==
LOC: EC 02:53 → 4SSUR 06:40 → 5NMEDONC 16:18
PROVIDERS: ADMIT Hospitalist; ATTEND Hospitalist
PROC: BT1D1ZZ Fluoroscopy of Right Kidney, Ureter and Bladder using Low Osmolar Contrast (ICD-10-PCS; 2023-04-23)
PROC: 0T2BX0Z Change Drainage Device in Bladder, External Approach (ICD-10-PCS; 2023-04-23)
PROC: 0T768DZ Dilation of Right Ureter with Intraluminal Device, Via Natural or Artificial Opening Endoscopic (ICD-10-PCS; principal; 2023-04-23 08:20)
DX: T83.511A Infection and inflammatory reaction due to indwelling urethral catheter, initial encounter (principal); A41.89 Other specified sepsis; G93.41 Metabolic encephalopathy; E87.20 Acidosis, unspecified; N13.6 Pyonephrosis; N20.2 Calculus of kidney with calculus of ureter; E11.649 Type 2 diabetes mellitus with hypoglycemia without coma; C61 Malignant neoplasm of prostate; E11.65 Type 2 diabetes mellitus with hyperglycemia; M06.9 Rheumatoid arthritis, unspecified; E66.9 Obesity, unspecified; I10 Essential (primary) hypertension; J45.909 Unspecified asthma, uncomplicated; D53.9 Nutritional anemia, unspecified; E78.5 Hyperlipidemia, unspecified; M48.56XS Collapsed vertebra, not elsewhere classified, lumbar region, sequela of fracture; N31.9 Neuromuscular dysfunction of bladder, unspecified; R33.8 Other retention of urine; Y73.1 Therapeutic (nonsurgical) and rehabilitative gastroenterology and urology devices associated with adverse incidents; Y84.6 Urinary catheterization as the cause of abnormal reaction of the patient, or of later complication, without mention of misadventure at the time of the procedure; Z20.822 Contact with and (suspected) exposure to COVID-19; Z79.4 Long term (current) use of insulin; Z68.34 Body mass index [BMI] 34.0-34.9, adult; Z74.01 Bed confinement status; Z79.82 Long term (current) use of aspirin; Z79.899 Other long term (current) drug therapy; Z79.85 Long-term (current) use of injectable non-insulin antidiabetic drugs; Z79.1 Long term (current) use of non-steroidal anti-inflammatories (NSAID); Z79.84 Long term (current) use of oral hypoglycemic drugs; Z88.0 Allergy status to penicillin; Z88.5 Allergy status to narcotic agent; B96.89 Other specified bacterial agents as the cause of diseases classified elsewhere
CPT/HCPCS: 36415; 70450; 71045; 74176; 74420; 76770; 80048; 80053; 80202; 81001; 82565; 83605; 83735; 84484; 85025; 85610; 86140; 87040; 87086; 87636; 93005; 94640; 94760; 96361; 96365; 96375; 99285

== ENCOUNTER 2023-06-22 22:31 | Inpatient (IN) | payer MEDICARE ==
[2023-06-22 23:05] LABS: Basophils # (A) 0.1 k/uL (0-0.2); Basophils % (A) 0 %; Eosinophils # (A) 0.2 k/uL (0-0.7); Eosinophils % (A) 1 %; HCT 32.9 % (39.0-53.0); Lymphocytes # (A) 1.3 k/uL (1.0-4.8); Lymphocytes % (A) 8 %; MCH 29.3 pg (25.0-35.0); MCHC 33.5 g/dL (31.0-37.0); MCV 87.2 fL (80.0-100.0); Mean Platelet Volume 9.6; Monocytes # (A) 1.5 k/uL (0-1.0); Monocytes % (A) 9 %; Neutrophils # (A) 12.5 k/uL (1.3-7.7); Neutrophils % (A) 80 %; Platelet Count 232 k/uL (150-450); RBC 3.77 m/uL (4.30-5.90); RDW 14.6 % (11.5-15.5); WBC 15.6 k/uL (3.8-10.6)
[2023-06-22 23:13] LABS: ALT 18 U/L (4-49); AST 34 U/L (17-59); African American GFR (CKD) >90 (>60 ml/min/1.73 sqM); Albumin 4.2 g/dL (3.5-5.0); Alkaline Phosphatase 58 U/L (38-126); Anion Gap 8 mmol/L; Blood Urea Nitrogen 16 mg/dL (9-20); Calcium 8.9 mg/dL (8.4-10.2); Carbon Dioxide 26 mmol/L (22-30); Chloride 100 mmol/L (98-107); Glucose 181 mg/dL (74-99); Non-African American GFR(CKD) >90 (>60 ml/min/1.73 sqM); Sodium 134 mmol/L (137-145); Total Bilirubin 0.9 mg/dL (0.2-1.3); Total Protein 8.1 g/dL (6.3-8.2)
--- NOTE | 2023-06-22 23:19 | ED ---
General Adult HPI - General Chief complaint: Urogenital Stated complaint: UTI, Vomiting Time Seen by Provider: 06/22/23 22:51 Source: patient, EMS Mode of arrival: EMS Limitations: no limitations - History of Present Illness Initial comments: Patient is a 72-year-old man who was sent from long term to have evaluation for fever and for cloudy urine. When I interviewed the patient, he does not have complaints. He denies cough or dyspnea. He denies pain. -: unknown Severity scale (1-10): 0 Improves with: none Worsens with: none Associated Symptoms: fever/chills Treatments Prior to Arrival: none - Related Data Home Medications Medication Instructions Recorded Confirmed Acetaminophen [Tylenol 8 Hour] 650 mg PO Q6H PRN 06/23/23 06/27/23 Amitriptyline HCl [Elavil] 75 mg PO HS 06/23/23 06/27/23 Aspirin EC [Ecotrin Low Dose] 81 mg PO DAILY 06/23/23 07/03/23 Atorvastatin [Lipitor] 40 mg PO HS 06/23/23 06/27/23 Bicalutamide 50 mg PO DAILY 06/23/23 06/27/23 Dulaglutide [Trulicity] 1.5 mg SQ WE 06/23/23 06/27/23 Famotidine [Pepcid] 20 mg PO BID 06/23/23 06/27/23 Ferrous Sulfate [Iron (65 MG 325 mg PO DAILY 06/23/23 06/27/23 Elemental)] Insulin Aspart [NovoLOG Flexpen] See Protocol SQ ACHS 06/23/23 07/03/23 Insulin Glargine [Lantus Vial] 48 unit SQ HS 06/23/23 07/03/23 Ipratropium-Albuterol Nebulize 3 ml INHALATION RT-Q8H 06/23/23 06/27/23 [Duoneb 0.5 mg-3 mg/3 ml Soln] Ipratropium-Albuterol Nebulize 3 ml INHALATION RT-Q8H PRN 06/23/23 06/27/23 [Duoneb 0.5 mg-3 mg/3 ml Soln] Lactulose 20 gm PO DAILY 06/23/23 06/27/23 Leuprolide Acetate [Lupron Depot] 45 mg IM Q180D 06/23/23 06/27/23 Magnesium Hydroxide [Milk of 2,400 mg PO DAILY PRN 06/23/23 06/27/23 Magnesia] Magnesium Oxide [Mag-Ox] 400 mg PO DAILY 06/23/23 06/27/23 Meloxicam [Mobic] 7.5 mg PO BID 06/23/23 06/27/23 Metamucil Smooth Powder 58.6% 6 gm PO DAILY 06/23/23 06/27/23 Metoprolol Tartrate [Lopressor] 25 mg PO BID 06/23/23 07/03/23 Mv-Min/Folic/K1/Lycopen/Lutein 1 tab PO DAILY 06/23/23 06/27/23 [Centrum Silver Men Tablet] Ondansetron [Zofran] 4 mg PO Q6H PRN 06/23/23 06/27/23 Phenyleph/Pramoxin/Glycr/W.pet 1 applic RECTAL Q6H PRN 06/23/23 06/27/23 [Preparation H Cream] Sennosides/Docusate Sodium [Senna 1 cap PO DAILY 06/23/23 06/27/23 Plus 8.6-50 mg Softgel] Sodium Chloride [Collin Orient] 1 spray EA NOSTRIL Q8H PRN 06/23/23 06/27/23 Tamsulosin [Flomax] 0.4 mg PO DAILY 06/23/23 06/27/23 metFORMIN HCL 1,000 mg PO BID 06/23/23 06/27/23 polyethylene glycoL 3350 [Miralax] 17 gm PO DAILY PRN 06/23/23 06/27/23 Previous Rx's Medication Instructions Recorded Calcium Carbonate [Tums] 500 mg PO TID PRN tab 06/26/23 Ciprofloxacin HCl [Cipro] 500 mg PO BID 7 Days #14 tab 06/26/23 Enoxaparin [Lovenox] 40 mg SQ DAILY each 06/26/23 Melatonin 3 mg PO HS PRN tab 06/26/23 Allergies Allergy/AdvReac Type Severity Reaction Status Date / Time amoxicillin [From Augmentin] AdvReac Vomiting Verified 06/27/23 14:48 clavulanic acid AdvReac Vomiting Verified 06/27/23 14:48 [From Augmentin] hydromorphone [From Dilaudid] AdvReac Vomiting Verified 06/27/23 14:48 Review of Systems ROS Statement: Those systems with pertinent positive or pertinent negative responses have been documented in the HPI. ROS Other: All systems not noted in ROS Statement are negative. Limitations: ROS unobtainable due to patients medical condition Constitutional: Reports: as per HPI, fever Respiratory: Denies: cough, dyspnea Cardiovascular: Denies: chest pain Gastrointestinal: Denies: abdominal pain, vomiting Musculoskeletal: Denies: back pain Neurological: Denies: headache Past Medical History Past Medical History: Blood Disorder, Cancer, Diabetes Mellitus, Osteoarthritis (OA), Prostate Disorder Additional Past Medical History / Comment(s): anemia, prostate CA, indwelling catheter, hypomagnesemia History of Any Multi-Drug Resistant Organisms: None Reported Additional Past Surgical History / Comment(s): prostate CA, inplant Past Psychological History: No Psychological Hx Reported Smoking Status: Never smoker Past Alcohol Use History: None Reported Past Drug Use History: None Reported - Past Family History Father Family Medical History: Cancer Mother Family Medical History: Congestive Heart Failure (CHF), Diabetes Mellitus General Exam Limitations: no limitations General appearance: alert, in no apparent distress Head exam: Present: atraumatic, normocephalic Eye exam: Present: normal appearance. Absent: scleral icterus, conjunctival injection ENT exam: Present: normal oropharynx Neck exam: Present: normal inspection, full ROM. Absent: meningismus Respiratory exam: Present: normal lung sounds bilaterally. Absent: respiratory distress, wheezes, rales, rhonchi, stridor, accessory muscle use Cardiovascular Exam: Present: normal rhythm, tachycardia, normal heart sounds. Absent: systolic murmur, diastolic murmur, rubs, gallop GI/Abdominal exam: Present: soft. Absent: distended, tenderness, guarding, rebound, rigid, mass Extremities exam: Present: normal inspection, normal capillary refill. Absent: pedal edema, calf tenderness Back exam: Present: normal inspection Neurological exam: Present: alert, CN II-XII intact. Absent: motor sensory deficit Skin exam: Present: warm, dry, intact, normal color. Absent: rash Course Vital Signs 06/22/23 06/22/23 06/22/23 22:36 22:51 23:15 Temperature 101.1 F H 101.6 F H Pulse Rate 106 H 103 H 100 Respiratory 16 20 16 Rate Blood Pressure 121/66 108/67 106/63 O2 Sat by Pulse 97 95 98 Oximetry 06/23/23 06/23/23 06/23/23 00:15 01:15 02:07 Temperature 98.6 F 99.7 F H 97.7 F Pulse Rate 91 92 91 Respiratory 18 17 18 Rate Blood Pressure 98/61 112/59 107/65 O2 Sat by Pulse 98 97 98 Oximetry 06/23/23 06/23/23 06/23/23 02:40 02:57 04:27 Temperature 100.1 F H 101.5 F H Pulse Rate 101 H 102 H Respiratory 22 22 Rate Blood Pressure 107/65 107/62 O2 Sat by Pulse 97 97 Oximetry 06/23/23 06:00 Temperature 98.7 F Pulse Rate 97 Respiratory 20 Rate Blood Pressure 105/54 O2 Sat by Pulse 98 Oximetry EKG Findings - EKG Results: EKG: interpreted by ERMD, sinus rhythm (Rate 98 bpm), normal axis - Blocks, [place], Hypertrophy, ST Abn: AV and intraventricular conduction: right bundle branch block (fixed/intermittent, complete/incomplete) Medical Decision Making - Medical Decision Making The patient had chest x-ray that I interpreted as negative for acute infiltrate, pneumothorax, congestive heart failure Was pt. sent in by a medical professional or institution (, [facility], [employer], urgent care, hospital, or long term...) When possible be specific @ -Patient is sent in from long term to have further evaluation Did you speak to anyone other than the patient for history (EMS, parent, family, police, friend...)? What history was obtained from this source @ -[No] Did you review nursing and triage notes (agree or disagree)? Why? @ -[I reviewed and agree with nursing and triage notes] Were old charts reviewed (outside hosp., previous admission, EMS record, old EKG, old radiological studies, urgent care reports/EKG's, long term records)? Report findings @ -[No old charts were reviewed] Differential Diagnosis (chest pain, altered mental status, abdominal pain women, abdominal pain men, vaginal bleeding, weakness, fever, dyspnea, syncope, headache, dizziness, GI bleed, back pain, seizure, CVA, palpatations, mental health, musculoskeletal)? @ -[Differential Fever: Pneumonia, viral URI, endocarditis, myocarditis, pericarditis, otitis, sinusitis, peritonsillar Abscess, retropharyngeal Abscess, epiglottitis, peritonitis, appendicitis, Ann cystitis, diverticulitis, hepatitis, colitis, UTI, PID, TOA, pyelonephritis, prostatitis, epididymitis, meningitis, encep halitis, pulmonary embolism, CVA, thyroid storm, pancreatitis, adrenal crisis, cavernous sinus thrombosis, this is not meant to be an all-inclusive list. EKG interpreted by me (3pts min.). @ -[I interpreted as above] X-rays interpreted by me (1pt min.). @ -I interpreted as above CT interpreted by me (1pt min.). @ -[None done] U/S interpreted by me (1pt. min.). @ -[None done] What testing was considered but not performed or refused? (CT, X-rays, U/S, labs)? Why? @ -[None] What meds were considered but not given or refused? Why? @ -[None] Did you discuss the management of the patient with other professionals (professionals i.e. , PA, [employer], lab, RT, psych nurse, criminal justice social worker, safety glass installer, teacher, wildlife conservation officer, telephonic nurse case manager)? Give summary @ -[Case discussed with admitting physician and treatment recommendations incorporated Was smoking cessation discussed for >3mins.? @ -[No] Was critical care preformed (if so, how long)? @ -[No] Were there social determinants of health that impacted care today? How? (Homelessness, low income, unemployed, alcoholism, drug addiction, transporta tion, low edu. Level, literacy, decrease access to med. care, long term, rehab)? @ -[No] Was there de-escalation of care discussed even if they declined (Discuss DNR or withdrawal of care, Hospice)? DNR status @ -[No] What co-morbidities impacted this encounter? (DM, HTN, Smoking, COPD, CAD, Cancer, CVA, ARF, Chemo, Hep., AIDS, mental health diagnosis, sleep apnea, morbid obesity)? @ -[None] Was patient admitted / discharged? Hospital course, mention meds given and route, prescriptions, significant lab abnormalities, going to OR and other pertinent info. @ -[Patient is 72-year-old man with fever and some mild altered mental status. He is found to have apparent urinary tract infection and is admitted to have further treatment Undiagnosed new problem with uncertain prognosis? @ -[No] Drug Therapy requiring intensive monitoring for toxicity (Heparin, Nitro, Insulin, Cardizem)? @ -[No] Were any procedures done? @ -[No] Diagnosis/symptom? @ -[Acute urinary tract infection Acute, or Chronic, or Acute on Chronic? @ -[Acute Uncomplicated (without systemic symptoms) or Complicated (systemic symptoms)? @ -[Uncomplicated Side effects of treatment? @ -[No] Exacerbation, Progression, or Severe Exacerbation? @ -[No] Poses a threat to life or bodily function? How? (Chest pain, [place], [place], pneumonia, PE, COPD, DKA, ARF, appy, cholecystitis, CVA, Diverticulitis, Homicidal, Suicidal, threat to staff... and all critical care pts) @ -[No] - Lab Data Result diagrams: 06/26/23 06:36 06/26/23 06:36 Lab Results 06/22/23 06/22/23 06/22/23 Range/Units 22:55 22:55 22:55 WBC 15.6 H (3.8-10.6) k/uL RBC 3.77 L (4.30-5.90) m/uL Hgb 11.0 L (13.0-17.5) gm/dL Hct 32.9 L (39.0-53.0) % MCV 87.2 (80.0-100.0) fL MCH 29.3 (25.0-35.0) pg MCHC 33.5 (31.0-37.0) g/dL RDW 14.6 (11.5-15.5) % Plt Count 232 (150-450) k/uL MPV 9.6 Neutrophils % 80 % Lymphocytes % 8 % Monocytes % 9 % Eosinophils % 1 % Basophils % 0 % Neutrophils # 12.5 H (1.3-7.7) k/uL Lymphocytes # 1.3 (1.0-4.8) k/uL Monocytes # 1.5 H (0-1.0) k/uL Eosinophils # 0.2 (0-0.7) k/uL Basophils # 0.1 (0-0.2) k/uL PT 12.3 (10.0-12.5) sec INR 1.1 (<1.2) APTT 27.1 (22.0-30.0) sec Sodium 134 L (137-145) mmol/L Potassium 5.6 H (3.5-5.1) mmol/L Chloride 100 (98-107) mmol/L Carbon Dioxide 26 (22-30) mmol/L Anion Gap 8 mmol/L BUN 16 (9-20) mg/dL Creatinine 0.71 (0.66-1.25) mg/dL Est GFR (CKD-EPI)AfAm >90 (>60 ml/min/1.73 sqM) Est GFR (CKD-EPI)NonAf >90 (>60 ml/min/1.73 sqM) Glucose 181 H (74-99) mg/dL Plasma Lactic Acid Franck (0.7-2.0) mmol/L Calcium 8.9 (8.4-10.2) mg/dL Total Bilirubin 0.9 (0.2-1.3) mg/dL AST 34 (17-59) U/L ALT 18 (4-49) U/L Alkaline Phosphatase 58 (38-126) U/L Troponin I (0.000-0.034) ng/mL Total Protein 8.1 (6.3-8.2) g/dL Albumin 4.2 (3.5-5.0) g/dL Urine Color Urine Appearance (Clear) Urine pH (5.0-8.0) Ur Specific [place] (1.001-1.035) Urine Protein (Negative) Urine Glucose (UA) (Negative) Urine Ketones (Negative) Urine Blood (Negative) Urine Nitrite (Negative) Urine Bilirubin (Negative) Urine Urobilinogen (<2.0) mg/dL Ur Leukocyte Esterase (Negative) Urine RBC (0-5) /hpf Urine WBC (0-5) /hpf Urine WBC Clumps (None) /hpf Urine Bacteria (None) /hpf Urine Mucus (None) /hpf Influenza Type A (PCR) (Not Detectd) Influenza Type B (PCR) (Not Detectd) RSV (PCR) (Not Detectd) SARS-CoV-2 (PCR) (Not Detectd) 06/22/23 06/22/23 06/22/23 Range/Units 22:55 22:55 22:55 WBC (3.8-10.6) k/uL RBC (4.30-5.90) m/uL Hgb (13.0-17.5) gm/dL Hct (39.0-53.0) % MCV (80.0-100.0) fL MCH (25.0-35.0) pg MCHC (31.0-37.0) g/dL RDW (11.5-15.5) % Plt Count (150-450) k/uL MPV Neutrophils % % Lymphocytes % % Monocytes % % Eosinophils % % Basophils % % Neutrophils # (1.3-7.7) k/uL Lymphocytes # (1.0-4.8) k/uL Monocytes # (0-1.0) k/uL Eosinophils # (0-0.7) k/uL Basophils # (0-0.2) k/uL PT (10.0-12.5) sec INR (<1.2) APTT (22.0-30.0) sec Sodium (137-145) mmol/L Potassium (3.5-5.1) mmol/L Chloride (98-107) mmol/L Carbon Dioxide (22-30) mmol/L Anion Gap mmol/L BUN (9-20) mg/dL Creatinine (0.66-1.25) mg/dL Est GFR (CKD-EPI)AfAm (>60 ml/min/1.73 sqM) Est GFR (CKD-EPI)NonAf (>60 ml/min/1.73 sqM) Glucose (74-99) mg/dL Plasma Lactic Acid Franck 1.1 (0.7-2.0) mmol/L Calcium (8.4-10.2) mg/dL Total Bilirubin (0.2-1.3) mg/dL AST (17-59) U/L ALT (4-49) U/L Alkaline Phosphatase (38-126) U/L Troponin I <0.012 (0.000-0.034) ng/mL Total Protein (6.3-8.2) g/dL Albumin (3.5-5.0) g/dL Urine Color Yellow Urine Appearance Turbid (Clear) Urine pH 7.0 (5.0-8.0) Ur Specific [place] 1.022 (1.001-1.035) Urine Protein 3+ H (Negative) Urine Glucose (UA) Negative (Negative) Urine Ketones 1+ H (Negative) Urine Blood Moderate H (Negative) Urine Nitrite Positive (Negative) Urine Bilirubin Negative (Negative) Urine Urobilinogen <2.0 (<2.0) mg/dL Ur Leukocyte Esterase Large H (Negative) Urine RBC >182 H (0-5) /hpf Urine WBC >182 H (0-5) /hpf Urine WBC Clumps Many H (None) /hpf Urine Bacteria Moderate H (None) /hpf Urine Mucus Many H (None) /hpf Influenza Type A (PCR) (Not Detectd) Influenza Type B (PCR) (Not Detectd) RSV (PCR) (Not Detectd) SARS-CoV-2 (PCR) (Not Detectd) 06/23/23 06/23/23 Range/Units 02:35 03:49 WBC (3.8-10.6) k/uL RBC (4.30-5.90) m/uL Hgb (13.0-17.5) gm/dL Hct (39.0-53.0) % MCV (80.0-100.0) fL MCH (25.0-35.0) pg MCHC (31.0-37.0) g/dL RDW (11.5-15.5) % Plt Count (150-450) k/uL MPV Neutrophils % % Lymphocytes % % Monocytes % % Eosinophils % % Basophils % % Neutrophils # (1.3-7.7) k/uL Lymphocytes # (1.0-4.8) k/uL Monocytes # (0-1.0) k/uL Eosinophils # (0-0.7) k/uL Basophils # (0-0.2) k/uL PT (10.0-12.5) sec INR (<1.2) APTT (22.0-30.0) sec Sodium (137-145) mmol/L Potassium (3.5-5.1) mmol/L Chloride (98-107) mmol/L Carbon Dioxide (22-30) mmol/L Anion Gap mmol/L BUN (9-20) mg/dL Creatinine (0.66-1.25) mg/dL Est GFR (CKD-EPI)AfAm (>60 ml/min/1.73 sqM) Est GFR (CKD-EPI)NonAf (>60 ml/min/1.73 sqM) Glucose (74-99) mg/dL Plasma Lactic Acid Franck (0.7-2.0) mmol/L Calcium (8.4-10.2) mg/dL Total Bilirubin (0.2-1.3) mg/dL AST (17-59) U/L ALT (4-49) U/L Alkaline Phosphatase (38-126) U/L Troponin I <0.012 (0.000-0.034) ng/mL Total Protein (6.3-8.2) g/dL Albumin (3.5-5.0) g/dL Urine Color Urine Appearance (Clear) Urine pH (5.0-8.0) Ur Specific [place] (1.001-1.035) Urine Protein (Negative) Urine Glucose (UA) (Negative) Urine Ketones (Negative) Urine Blood (Negative) Urine Nitrite (Negative) Urine Bilirubin (Negative) Urine Urobilinogen (<2.0) mg/dL Ur Leukocyte Esterase (Negative) Urine RBC (0-5) /hpf Urine WBC (0-5) /hpf Urine WBC Clumps (None) /hpf Urine Bacteria (None) /hpf Urine Mucus (None) /hpf Influenza Type A (PCR) Not Detected (Not Detectd) Influenza Type B (PCR) Not Detected (Not Detectd) RSV (PCR) Not Detected (Not Detectd) SARS-CoV-2 (PCR) Not Detected (Not Detectd) Disposition Clinical Impression: UTI (urinary tract infection) Disposition: ADMITTED IP TO THIS [facility] Condition: Fair Is patient prescribed a controlled substance at d/c from ED?: No
[2023-06-22 23:40] LABS: Appearance,Urine Turbid (Clear); Bacteria,Urine Moderate /hpf; Bilirubin,Urine Negative (Negative); Blood,Urine Moderate (Negative); Color,Urine Yellow; Glucose,Urine (UA) Negative (Negative); Ketones,Urine 1+ (Negative); Leukocyte Esterase,Urine Large (Negative); Mucus,Urine Many /hpf; Nitrite,Urine Positive (Negative); Protein,Urine 3+ (Negative); Urobilinogen,Urine <2.0 mg/dL (<2.0)
[2023-06-22 23:46] LABS: Potassium 5.6 mmol/L (3.5-5.1)
[2023-06-22] MEDS: SODIUM CHLORIDE 0.9% 500 ML 500 ML IV SCH (23:58)
[2023-06-23 00:03] LABS: INR 1.1 (<1.2); Partial Thromboplastin Time 27.1 sec (22.0-30.0); Prothrombin Time 12.3 sec (10.0-12.5)
[2023-06-23 00:04] LABS: RBC,Urine >182 /hpf (0-5); Specific Gravity,Urine 1.022 (1.001-1.035); WBC,Urine >182 /hpf (0-5)
--- NOTE | 2023-06-23 00:04 | XR ---
EXAMINATION TYPE: XR chest 1V portable DATE OF EXAM: 06/22/2023 COMPARISON: Chest x-ray April 28, 2023 HISTORY: Fever TECHNIQUE: Single frontal view of the chest is obtained. FINDINGS: Low lung volumes are redemonstrated. There is no focal air space opacity, pleural effusion , or pneumothorax seen. The cardiac silhouette size is stable and upper limits of normal with ectati c atherosclerotic thoracic aorta. The osseous structures are intact. IMPRESSION: Low lung volumes without suspicious acute pulmonary infiltrate.
[2023-06-23] MEDS: ACETAMINOPHEN TAB 325 MG TAB PO STA (02:53)
[2023-06-23] MEDS: IBUPROFEN 600 MG TAB PO STA (05:41)
[2023-06-23] MEDS ORDERED: NALOXONE 0.4 MG/ML 1 ML VIAL IV PRN (06:00)
[2023-06-23] MEDS ORDERED: DEXTROSE 50% SYRINGE 50 ML IVP PRN ×2 (09:36)
--- NOTE | 2023-06-23 12:31 | P.HPIM ---
History of Present Illness H&P Date: 06/23/23 Chief Complaint: Fever * 72-year-old gentleman who was sent in because of episode of fever noted at nursing facility. Patient was also noted to have cloudy urine. Patient has a past medical history significant for prostate disorder diabetes mellitus, previous history of indwelling catheter for approximately a year. Workup in ER included CBC which showed WBC count of 15.6 hemoglobin 11 platelet count of 232. INR 1.1 * Serum chemistry showed sodium 134 potassium 5.6 chloride 100 BUN 16 creatinine 0.71 * Urinalysis obtained in ER showed moderate amount of blood, large leukocyte esterase extensive WBC RBC moderate bacteria. * Patient admitted to medical floor and will be treated for urinary tract infection REVIEW OF SYSTEMS: Fatigue, malaise, CONSTITUTIONAL: Fatigue, malaise, HEENT: No recent visual problems or hearing problems. Denied any sore throat. CARDIOVASCULAR: No chest pain, orthopnea, PND, no palpitations, no syncope. PULMONARY: No shortness of breath, no cough, no hemoptysis. GASTROINTESTINAL: No diarrhea, no nausea, no vomiting, no abdominal pain. NEUROLOGICAL: No headaches, no weakness, no numbness. HEMATOLOGICAL: Denies any bleeding or petechiae. GENITOURINARY: Denies any burning micturition, frequency, or urgency. MUSCULOSKELETAL/RHEUMATOLOGICAL: Denies any joint pain, swelling, or any muscle pain. ENDOCRINE: Denies any polyuria or polydipsia. PHYSICAL EXAMINATION: GENERAL: The patient is alert and oriented x3, ill appearance HEENT: Pupils are round and equally reacting to light. EOMI. CARDIOVASCULAR: S1 and S2 present. No murmurs, rubs, or gallops. PULMONARY: Chest is clear to auscultation, no wheezing or crackles. ABDOMEN: Soft, nontender, nondistended, Balbuena catheter in place MUSCULOSKELETAL: No joint swelling or deformity. EXTREMITIES: No cyanosis, clubbing, or pedal edema. NEUROLOGICAL: Gross neurological examination did not reveal any focal deficits. SKIN: No rashes. Past Medical History Past Medical History: Blood Disorder, Cancer, Diabetes Mellitus, Osteoarthritis (OA), Prostate Disorder Additional Past Medical History / Comment(s): anemia, prostate CA, indwelling catheter, hypomagnesemia History of Any Multi-Drug Resistant Organisms: None Reported Additional Past Surgical History / Comment(s): prostate CA, inplant Past Anesthesia/Blood Transfusion Reactions: No Reported Reaction Smoking Status: Never smoker - Past Family History Mother Family Medical History: Congestive Heart Failure (CHF), Diabetes Mellitus Father Family Medical History: Cancer, Congestive Heart Failure (CHF) Medications and Allergies Allergies Allergy/AdvReac Type Severity Reaction Status Date / Time amoxicillin [From Augmentin] Allergy Rash/Hives Verified 06/22/23 22:36 clavulanic acid Allergy Rash/Hives Verified 06/22/23 22:36 [From Augmentin] Physical Exam Vitals: Vital Signs Temp Pulse Pulse Resp BP BP Pulse Ox 06/23/23 08:00 99.0 F 93 19 93/58 92 L 06/23/23 06:00 98.7 F 97 20 105/54 98 06/23/23 04:27 101.5 F H 102 H 22 107/62 97 06/23/23 02:57 101 H 22 107/65 97 06/23/23 02:40 100.1 F H 06/23/23 02:07 97.7 F 91 18 107/65 98 06/23/23 01:15 99.7 F H 92 17 112/59 97 06/23/23 00:15 98.6 F 91 18 98/61 98 06/22/23 23:15 100 16 106/63 98 06/22/23 22:51 101.6 F H 103 H 20 108/67 95 06/22/23 22:36 101.1 F H 106 H 16 121/66 97 Intake and Output 06/22/23 06/23/23 06/23/23 22:59 06:59 14:59 Output Total 15 450 Balance -15 -450 Output: Urine 15 450 Uretheral (Balbuena) 15 Other: Voiding Method Indwelling Catheter Weight 96.615 kg 96.615 kg Results CBC & Chem 7: 06/22/23 22:55 06/22/23 22:55 Labs: Abnormal Lab Results - Last 24 Hours (Table) 06/22/23 06/22/23 06/22/23 Range/Units 22:55 22:55 22:55 WBC 15.6 H (3.8-10.6) k/uL RBC 3.77 L (4.30-5.90) m/uL Hgb 11.0 L (13.0-17.5) gm/dL Hct 32.9 L (39.0-53.0) % Neutrophils # 12.5 H (1.3-7.7) k/uL Monocytes # 1.5 H (0-1.0) k/uL Sodium 134 L (137-145) mmol/L Potassium 5.6 H (3.5-5.1) mmol/L Glucose 181 H (74-99) mg/dL Urine Protein 3+ H (Negative) Urine Ketones 1+ H (Negative) Urine Blood Moderate H (Negative) Ur Leukocyte Esterase Large H (Negative) Urine RBC >182 H (0-5) /hpf Urine WBC >182 H (0-5) /hpf Urine WBC Clumps Many H (None) /hpf Urine Bacteria Moderate H (None) /hpf Urine Mucus Many H (None) /hpf Thrombosis Risk Factor Assmnt - Choose All That Apply Each Risk Factor Represents 2 Points: Age 61-74 years Thrombosis Risk Factor Assessment Total Risk Factor Score: 2 Thrombosis Risk Factor Assessment Level: Low Risk Assessment and Plan Assessment: Assessment and plan * Urinary tract infection secondary to Balbuena catheter present on admission * Sepsis secondary to UTI * Hyperkalemia * Diabetes mellitus type 2 * 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 Lokelma given * Regards to diabetes mellitus Accu-Cheks ACHS continue patient on correctional insulin * In regard to history of bladder outflow obstruction, bladder management protocol initiated * CODE STATUS is full code Time with Patient: Greater than 30
[2023-06-23 12:36] LABS: Glucose,Whole Blood 158 mg/dL (70-110)
[2023-06-23] MEDS: SODIUM ZIRCONIUM CYCLOSILICATE 10 GM PACKET PO ONE (12:39)
[2023-06-23] MEDS: SODIUM CHLORIDE 0.9% 1,000 ML IV SCH (12:39)
[2023-06-23] MEDS: INSULIN ASPART (NovoLOG) 100 UNIT/ML VIAL SQ SCH (12:40)
[2023-06-23 13:28] LABS: African American GFR (CKD) >90 (>60 ml/min/1.73 sqM); Anion Gap 8 mmol/L; Blood Urea Nitrogen 16 mg/dL (9-20); Calcium 7.9 mg/dL (8.4-10.2); Carbon Dioxide 26 mmol/L (22-30); Chloride 104 mmol/L (98-107); Glucose 150 mg/dL (74-99); Non-African American GFR(CKD) 80 (>60 ml/min/1.73 sqM); Potassium 4.2 mmol/L (3.5-5.1); Sodium 138 mmol/L (137-145)
[2023-06-23] MEDS: ACETAMINOPHEN TAB 325 MG TAB PO PRN (15:40)
[2023-06-23] MEDS: ONDANSETRON 4 MG/2 ML VIAL IVP PRN (16:27)
[2023-06-23 17:17] LABS: Glucose,Whole Blood 180 mg/dL (70-110)
[2023-06-23] MEDS ORDERED: IBUPROFEN 800 MG TAB PO PRN (17:27)
[2023-06-23] MEDS: IBUPROFEN 600 MG TAB PO PRN (18:28)
[2023-06-23 20:36] LABS: Glucose,Whole Blood 363 mg/dL (70-110)
--- NOTE | 2023-06-23 23:15 | P.CONS ---
History of Present Illness - Reason for Consult Consult date: 06/23/23 UTI Requesting physician: Mati Marks - Chief Complaint Cloudy urine x 1 day - History of Present Illness Patient is a 72-year-old male with a past medical history negative for diabetes mellitus osteoarthritis prostate disorder patient was sent to the ER for evaluation of fever and cloudy urine from the local care home patient himself not a very good historian and is not aware of why he is in the hospital or what has been done to him when asked specifically patient denies having any headache or URI symptoms no chest pain shortness of breath or cough no nausea no vomiting no abdominal pain no diarrhea patient did have a chronic indwelling Balbuena catheter however he is not very clear when the Balbuena catheter has been changed last, patient on presentation to the hospital was noted to be febrile with temperature of 101 F, patient was also tachycardic but not hypotensive or hypoxic patient did have a white count of 15.6 creatinine 0.94 electrolytes are normal liver enzymes are normal urine has been positive influenza RSV COVID testing was negative patient did have a chest x-ray low lung volumes without suspicious acute pulmonary infiltrate patient was started on Rocephin infectious disease was consulted for further management of antibiotic therapy Review of Systems Positive points has been mentioned in HPI complete review could not be obtained because of his underlying mental status Past Medical History Past Medical History: Blood Disorder, Cancer, Diabetes Mellitus, Osteoarthritis (OA), Prostate Disorder Additional Past Medical History / Comment(s): anemia, prostate CA, indwelling catheter, hypomagnesemia History of Any Multi-Drug Resistant Organisms: None Reported Additional Past Surgical History / Comment(s): prostate CA, inplant Past Anesthesia/Blood Transfusion Reactions: No Reported Reaction Smoking Status: Never smoker - Past Family History Mother Family Medical History: Congestive Heart Failure (CHF), Diabetes Mellitus Father Family Medical History: Cancer, Congestive Heart Failure (CHF) Medications and Allergies Home Medications Medication Instructions Recorded Confirmed Type Acetaminophen [Tylenol 8 Hour] 650 mg PO Q6H PRN 06/23/23 06/23/23 History Amitriptyline HCl [Elavil] 75 mg PO HS 06/23/23 06/23/23 History Aspirin EC [Ecotrin Low Dose] 81 mg PO DAILY 06/23/23 06/23/23 History Atorvastatin [Lipitor] 40 mg PO HS 06/23/23 06/23/23 History Bicalutamide 50 mg PO DAILY 06/23/23 06/23/23 History Dulaglutide [Trulicity] 1.5 mg SQ WE 06/23/23 06/23/23 History Famotidine [Pepcid] 20 mg PO BID 06/23/23 06/23/23 History Ferrous Sulfate [Feosol] 325 mg PO DAILY 06/23/23 06/23/23 History Insulin Aspart [NovoLOG Flexpen] See Protocol SQ ACHS 06/23/23 06/23/23 History Insulin Glargine [Lantus Vial] 48 unit SQ HS 06/23/23 06/23/23 History Ipratropium-Albuterol Nebulize 3 ml INHALATION RT-Q8H 06/23/23 06/23/23 History [Duoneb 0.5 mg-3 mg/3 ml Soln] Ipratropium-Albuterol Nebulize 3 ml INHALATION RT-Q8H PRN 06/23/23 06/23/23 History [Duoneb 0.5 mg-3 mg/3 ml Soln] Lactulose 20 gm PO DAILY 06/23/23 06/23/23 History Leuprolide Acetate [Lupron Depot] 45 mg IM Q180D 06/23/23 06/23/23 History Magnesium Hydroxide [Milk of 2,400 mg PO DAILY PRN 06/23/23 06/23/23 History Magnesia] Magnesium Oxide [Mag-Ox] 400 mg PO DAILY 06/23/23 06/23/23 History Meloxicam [Mobic] 7.5 mg PO BID 06/23/23 06/23/23 History Metamucil Smooth Powder 58.6% 6 gm PO DAILY 06/23/23 06/23/23 History Metoprolol Tartrate [Lopressor] 25 mg PO BID 06/23/23 06/23/23 History Mv-Min/Folic/K1/Lycopen/Lutein 1 tab PO DAILY 06/23/23 06/23/23 History [Centrum Silver Men Tablet] Ondansetron [Zofran] 4 mg PO Q6H PRN 06/23/23 06/23/23 History Phenyleph/Pramoxin/Glycr/W.pet 1 applic RECTAL Q6H PRN 06/23/23 06/23/23 History [Preparation H Cream] Sennosides/Docusate Sodium [Senna 1 cap PO DAILY 06/23/23 06/23/23 History Plus 8.6-50 mg Softgel] Sodium Chloride [Blakeslee Francisco] 1 spray EA NOSTRIL Q8H PRN 06/23/23 06/23/23 History Tamsulosin [Flomax] 0.4 mg PO DAILY 06/23/23 06/23/23 History metFORMIN HCL 1,000 mg PO BID 06/23/23 06/23/23 History polyethylene glycoL 3350 [Miralax] 17 gm PO DAILY PRN 06/23/23 06/23/23 History Allergies Allergy/AdvReac Type Severity Reaction Status Date / Time amoxicillin [From Augmentin] Allergy Rash/Hives Verified 06/23/23 14:03 clavulanic acid Allergy Rash/Hives Verified 06/23/23 14:03 [From Augmentin] Physical Exam Vitals: Vital Signs Temp Pulse Pulse Resp BP BP Pulse Ox 06/23/23 12:54 99.1 F 111 H 18 108/68 92 L 06/23/23 09:41 94 L 06/23/23 08:45 93 19 06/23/23 08:00 99.0 F 93 19 93/58 92 L 06/23/23 06:00 98.7 F 97 20 105/54 98 06/23/23 04:27 101.5 F H 102 H 22 107/62 97 06/23/23 02:57 101 H 22 107/65 97 06/23/23 02:40 100.1 F H 06/23/23 02:07 97.7 F 91 18 107/65 98 06/23/23 01:15 99.7 F H 92 17 112/59 97 06/23/23 00:15 98.6 F 91 18 98/61 98 06/22/23 23:15 100 16 106/63 98 06/22/23 22:51 101.6 F H 103 H 20 108/67 95 06/22/23 22:36 101.1 F H 106 H 16 121/66 97 Intake and Output 06/22/23 06/23/23 06/23/23 22:59 06:59 14:59 Output Total 15 450 Balance -15 -450 Output: Urine 15 450 Uretheral (Balbuena) 15 Other: Voiding Method Indwelling Catheter Indwelling Catheter Weight 96.615 kg 96.615 kg GENERAL DESCRIPTION: Elderly male lying in bed, no distress. No tachypnea or accessory muscle of respiration use. HEENT: Shows Pallor , no scleral icterus. Oral mucous membrane is dry. NECK: Trachea central, no thyromegaly. LUNGS: Unlabored breathing. Clear to auscultation anteriorly. No wheeze or crackle. HEART: S1, S2, regular rate and rhythm. No loud murmur ABDOMEN: Soft, no tenderness EXTREMITIES: No edema of feet. SKIN: No rash, no masses palpable. NEUROLOGICAL: The patient is awake but pleasantly confused orientation could not be determined mood and affect normal. Results CBC & Chem 7: 06/22/23 22:55 06/23/23 12:46 Labs: Abnormal Lab Results - Last 24 Hours (Table) 06/22/23 06/22/23 06/22/23 Range/Units 22:55 22:55 22:55 WBC 15.6 H (3.8-10.6) k/uL RBC 3.77 L (4.30-5.90) m/uL Hgb 11.0 L (13.0-17.5) gm/dL Hct 32.9 L (39.0-53.0) % Neutrophils # 12.5 H (1.3-7.7) k/uL Monocytes # 1.5 H (0-1.0) k/uL Sodium 134 L (137-145) mmol/L Potassium 5.6 H (3.5-5.1) mmol/L Glucose 181 H (74-99) mg/dL POC Glucose (mg/dL) (70-110) mg/dL Calcium (8.4-10.2) mg/dL Urine Protein 3+ H (Negative) Urine Ketones 1+ H (Negative) Urine Blood Moderate H (Negative) Ur Leukocyte Esterase Large H (Negative) Urine RBC >182 H (0-5) /hpf Urine WBC >182 H (0-5) /hpf Urine WBC Clumps Many H (None) /hpf Urine Bacteria Moderate H (None) /hpf Urine Mucus Many H (None) /hpf 06/23/23 06/23/23 Range/Units 12:33 12:46 WBC (3.8-10.6) k/uL RBC (4.30-5.90) m/uL Hgb (13.0-17.5) gm/dL Hct (39.0-53.0) % Neutrophils # (1.3-7.7) k/uL Monocytes # (0-1.0) k/uL Sodium (137-145) mmol/L Potassium (3.5-5.1) mmol/L Glucose 150 H (74-99) mg/dL POC Glucose (mg/dL) 158 H (70-110) mg/dL Calcium 7.9 L (8.4-10.2) mg/dL Urine Protein (Negative) Urine Ketones (Negative) Urine Blood (Negative) Ur Leukocyte Esterase (Negative) Urine RBC (0-5) /hpf Urine WBC (0-5) /hpf Urine WBC Clumps (None) /hpf Urine Bacteria (None) /hpf Urine Mucus (None) /hpf Assessment and Plan (1) Sepsis Current Visit: Yes Status: Acute Code(s): A41.9 - SEPSIS, UNSPECIFIED ORGANISM SNOMED Code(s): 99031470 (2) Penicillin allergy Current Visit: Yes Status: Acute Code(s): Z88.0 - ALLERGY STATUS TO PENICILLIN SNOMED Code(s): 56976003 (3) UTI (urinary tract infection) Current Visit: Yes Status: Acute Code(s): N39.0 - URINARY TRACT INFECTION, SITE NOT SPECIFIED SNOMED Code(s): 91794434 Plan: 1patient presented to hospital with sepsis in this patient who did have a fever elevated white count source is likely catheter associated UTI in this patient who is a care home resident and is spiking fever on Rocephin concern for possible resistant gram-negative pathogen 2-patient with penicillin allergy that will limit the number of antibiotics safe to use 3-we will discontinue Rocephin 4-start the patient on cefepime 2 g every 8 hours while waiting for the culture to finalize 5-check ultrasound of the kidney bladder area to make sure no evidence of any abscess or obstructive uropathy We will follow on clinical condition and cultures to further adjust medication if needed Thank you for this consultation we will follow the patient along with you Dictation was produced using [employer] dictation software. please excuse any grammatical, word or spelling errors. Time with Patient: Greater than 30
[2023-06-24] MEDS: CEFEPIME 2 GM in SODIUM CHLORIDE 0.9% 100 ML IVPB SCH (00:03)
[2023-06-24 07:51] LABS: Glucose,Whole Blood 214 mg/dL (70-110)
--- NOTE | 2023-06-24 08:01 | US ---
EXAMINATION TYPE: US kidneys/renal and bladder DATE OF EXAM: 06/24/2023 COMPARISON: None CLINICAL INDICATION: Male, 72 years old with history of uti and bacteremia; bladder harper Portable inpatient exam EXAM MEASUREMENTS: Right Kidney: 11.2 x 6.8 x 5.6 cm Left Kidney: 11.2 x 5.9 x 7.6 cm Right Kidney: Inferior pole obscured by bowel gas, no prominent masses or lesions seen Left Kidney: No hydronephrosis or masses seen Bladder: harper seen Bilateral Jets not visualized due to harper There is no evidence for hydronephrosis at this point in time. No nephrolithiasis is seen. No demetri s are identified. Urinary bladder is decompressed with Harper catheter in place. IMPRESSION: 1. No evidence for obstructive uropathy. 2. Harper catheter in place.
[2023-06-24] MEDS: ENOXAPARIN 40 MG/0.4 ML SYRINGE SQ SCH (08:11)
[2023-06-24 09:05] LABS: BUN/Creat Ratio 15.33 Ratio (12.00-20.00); Blood Urea Nitrogen 13.8 mg/dL (9.0-27.0); Calcium 8.3 mg/dL (8.7-10.3); Carbon Dioxide 24.3 mmol/L (21.6-31.8); Chloride 97 mmol/L (96-109); Glucose 197 mg/dL (70-110); Sodium 133 mmol/L (135-145)
[2023-06-24 10:15] LABS: Basophils # (A) 0.05 X 10*3/uL (0.00-0.10); Basophils % (A) 0.3 %; Eosinophils # (A) 0.08 X 10*3/uL (0.04-0.35); Eosinophils % (A) 0.5 %; HCT 28.3 % (39.6-50.0); HGB 9.2 g/dL (13.0-17.0); Lymphocytes # (A) 2.17 X 10*3/uL (0.90-5.00); Lymphocytes % (A) 12.8 %; MCH 28.9 pg (27.0-32.0); MCHC 32.5 g/dL (32.0-37.0); Mean Platelet Volume 11.8 FL (9.5-12.2); Monocytes # (A) 3.27 X 10*3/uL (0.20-1.00); Monocytes % (A) 19.3 %; NRBC Per 100 WBC 0 X 10*3/uL (0.00-0.01); Neutrophils # (A) 11.19 X 10*3/uL (1.80-7.70); Neutrophils % (A) 66.2 %; Platelet Count 188 X 10*3/uL (140-440); RBC 3.18 X 10*6/uL (4.40-5.60); RDW 14.9 % (11.5-14.5); WBC 16.91 X 10*3/uL (4.50-10.00)
--- NOTE | 2023-06-24 12:52 | P.PN ---
Subjective Progress Note Date: 06/24/23 * 72-year-old gentleman who was sent in because of episode of fever noted at nursing facility. Patient was also noted to have cloudy urine. Patient has a past medical history significant for prostate disorder diabetes mellitus, previous history of indwelling catheter for approximately a year. Workup in ER included CBC which showed WBC count of 15.6 hemoglobin 11 platelet count of 232. INR 1.1 * Serum chemistry showed sodium 134 potassium 5.6 chloride 100 BUN 16 creatinine 0.71 * Urinalysis obtained in ER showed moderate amount of blood, large leukocyte esterase extensive WBC RBC moderate bacteria. * Patient admitted to medical floor and will be treated for urinary tract infection * 06/24/2023: Patient seen and evaluated bedside, during my evaluation patient is awake and alert mentation has improved significantly. Balbuena catheter remains in cultures pending continue IV antibiotic. Patient has been chronic wheelchair-bound for almost more than a year and has been at [facility]. Plan to discharge back to [facility]. Continue patient on current antibiotic receiving IV cefepime. REVIEW OF SYSTEMS: Fatigue, malaise, improved CONSTITUTIONAL: Fatigue, malaise, improved HEENT: No recent visual problems or hearing problems. Denied any sore throat. CARDIOVASCULAR: No chest pain, orthopnea, PND, no palpitations, no syncope. PULMONARY: No shortness of breath, no cough, no hemoptysis. GASTROINTESTINAL: No diarrhea, no nausea, no vomiting, no abdominal pain. NEUROLOGICAL: No headaches, no weakness, no numbness. HEMATOLOGICAL: Denies any bleeding or petechiae. GENITOURINARY: Denies any burning micturition, frequency, or urgency. MUSCULOSKELETAL/RHEUMATOLOGICAL: Denies any joint pain, swelling, or any muscle pain. ENDOCRINE: Denies any polyuria or polydipsia. PHYSICAL EXAMINATION: GENERAL: The patient is alert and oriented x3, ill appearance HEENT: Pupils are round and equally reacting to light. EOMI. CARDIOVASCULAR: S1 and S2 present. No murmurs, rubs, or gallops. PULMONARY: Chest is clear to auscultation, no wheezing or crackles. ABDOMEN: Soft, nontender, nondistended, Balbuena catheter in place MUSCULOSKELETAL: No joint swelling or deformity. EXTREMITIES: No cyanosis, clubbing, or pedal edema. NEUROLOGICAL: Gross neurological examination did not reveal any focal deficits. SKIN: No rashes. Objective - Vital Signs Vital signs: Vital Signs Temp 98.7 F 06/24/23 07:56 Pulse 99 06/24/23 07:56 Resp 18 06/24/23 07:56 BP 96/58 06/24/23 07:56 Pulse Ox 93 L 06/24/23 08:32 FiO2 Intake & Output 06/23/23 06/24/23 06/24/23 18:59 06:59 18:59 Intake Total 280 Output Total 200 200 Balance 80 -200 Weight 96.615 kg Intake: Oral 280 Output: Urine 200 200 Other: Voiding Method Indwelling Catheter Indwelling Catheter Indwelling Catheter - Labs CBC & Chem 7: 06/24/23 05:55 06/24/23 05:55 Labs: Abnormal Lab Results - Last 24 Hours (Table) 06/23/23 06/23/23 06/23/23 Range/Units 12:46 17:15 18:06 WBC (4.50-10.00) X 10*3/uL RBC (4.40-5.60) X 10*6/uL Hgb (13.0-17.0) g/dL Hct (39.6-50.0) % RDW (11.5-14.5) % Immature Gran # (0.00-0.04) X 10*3/uL Neutrophils # (1.80-7.70) X 10*3/uL Monocytes # (0.20-1.00) X 10*3/uL Sodium (135-145) mmol/L Glucose 150 H (74-99) mg/dL POC Glucose (mg/dL) 180 H (70-110) mg/dL Hemoglobin A1c 7.6 H (<=6.0) % Calcium 7.9 L (8.4-10.2) mg/dL 06/23/23 06/24/23 06/24/23 Range/Units 20:35 05:55 05:55 WBC 16.91 H (4.50-10.00) X 10*3/uL RBC 3.18 L (4.40-5.60) X 10*6/uL Hgb 9.2 L (13.0-17.0) g/dL Hct 28.3 L (39.6-50.0) % RDW 14.9 H (11.5-14.5) % Immature Gran # 0.15 H (0.00-0.04) X 10*3/uL Neutrophils # 11.19 H (1.80-7.70) X 10*3/uL Monocytes # 3.27 H (0.20-1.00) X 10*3/uL Sodium 133 L (135-145) mmol/L Glucose 197 H (74-99) mg/dL POC Glucose (mg/dL) 363 H (70-110) mg/dL Hemoglobin A1c (<=6.0) % Calcium 8.3 L (8.4-10.2) mg/dL 06/24/23 Range/Units 07:49 WBC (4.50-10.00) X 10*3/uL RBC (4.40-5.60) X 10*6/uL Hgb (13.0-17.0) g/dL Hct (39.6-50.0) % RDW (11.5-14.5) % Immature Gran # (0.00-0.04) X 10*3/uL Neutrophils # (1.80-7.70) X 10*3/uL Monocytes # (0.20-1.00) X 10*3/uL Sodium (135-145) mmol/L Glucose (74-99) mg/dL POC Glucose (mg/dL) 214 H (70-110) mg/dL Hemoglobin A1c (<=6.0) % Calcium (8.4-10.2) mg/dL Assessment and Plan Assessment: Assessment and plan * Urinary tract infection secondary to Balbuena catheter present on admission * Sepsis secondary to UTI * Hyperkalemia * Diabetes mellitus type 2 * 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 Lokelma given, follow-up within normal limits * Regards to diabetes mellitus Accu-Cheks ACHS continue patient on correctional insulin * In regard to history of bladder outflow obstruction, bladder management protocol initiated * Home medications medications still not confirmed * CODE STATUS is full code
[2023-06-24 13:09] LABS: Glucose,Whole Blood 253 mg/dL (70-110)
[2023-06-24] MEDS: CALCIUM CARBONATE 500 MG CHEWABLE PO PRN (17:08)
[2023-06-24 17:31] LABS: Glucose,Whole Blood 156 mg/dL (70-110)
[2023-06-24 20:47] LABS: Glucose,Whole Blood 196 mg/dL (70-110)
[2023-06-24] MEDS: PANTOPRAZOLE 40 MG/10 ML VIAL IVP STA (21:30)
[2023-06-24] MEDS: MELATONIN 3 MG TABLET PO PRN (21:59)
[2023-06-25] MEDS: CEFEPIME 2 GM in SODIUM CHLORIDE 0.9% 100 ML IVPB SCH (05:57)
[2023-06-25 07:07] LABS: Glucose,Whole Blood 148 mg/dL (70-110)
[2023-06-25] MEDS: PANTOPRAZOLE 40 MG TABLET PO SCH (09:20)
[2023-06-25 11:57] LABS: Glucose,Whole Blood 157 mg/dL (70-110)
--- NOTE | 2023-06-25 12:02 | P.PN ---
Subjective Progress Note Date: 06/24/23 Principal diagnosis: Reason for follow-up is a sepsis and catheter associated UTI Patient is a 72-year-old male with a past medical history significant for diabetes mellitus osteoarthritis prostate disorder patient was sent to the ER for evaluation of fever and cloudy urine from the local long term, patient did have a elevated white count fever concerning for catheter associated UTI Balbuena catheter has been changed. On today's evaluation that is 06/24/2023, the patient did have resolution of his fever and is afebrile this morning, patient is breathing comfortably on 2 L nasal cannula oxygen, the patient denies chest pain shortness of breath and no significant cough, patient denies nausea no vomiting, no abdominal pain and no diarrhea. Patient white count is 16.91 creatinine 0.9 urine is growing gram-negative blood cultures pending Objective - Vital Signs Vital signs: Vital Signs Temp 98.7 F 06/24/23 07:56 Pulse 99 06/24/23 07:56 Resp 18 06/24/23 07:56 BP 96/58 06/24/23 07:56 Pulse Ox 93 L 06/24/23 08:32 FiO2 Intake & Output 06/23/23 06/24/23 06/24/23 18:59 06:59 18:59 Intake Total 280 Output Total 200 200 Balance 80 -200 Weight 96.615 kg Intake: Oral 280 Output: Urine 200 200 Other: Voiding Method Indwelling Catheter Indwelling Catheter Indwelling Catheter - Exam GENERAL DESCRIPTION: An elderly male lying in bed in no distress RESPIRATORY SYSTEM: Unlabored breathing , decreased breath sounds at bases HEART: S1 S2 regular rate and rhythm , ABDOMEN: Soft , no tenderness EXTREMITIES: No edema feet - Labs CBC & Chem 7: 06/24/23 05:55 06/24/23 05:55 Labs: Abnormal Lab Results - Last 24 Hours (Table) 06/23/23 06/23/23 06/23/23 Range/Units 12:33 12:46 17:15 WBC (4.50-10.00) X 10*3/uL RBC (4.40-5.60) X 10*6/uL Hgb (13.0-17.0) g/dL Hct (39.6-50.0) % RDW (11.5-14.5) % Immature Gran # (0.00-0.04) X 10*3/uL Neutrophils # (1.80-7.70) X 10*3/uL Monocytes # (0.20-1.00) X 10*3/uL Sodium (135-145) mmol/L Glucose 150 H (74-99) mg/dL POC Glucose (mg/dL) 158 H 180 H (70-110) mg/dL Hemoglobin A1c (<=6.0) % Calcium 7.9 L (8.4-10.2) mg/dL 06/23/23 06/23/23 06/24/23 Range/Units 18:06 20:35 05:55 WBC 16.91 H (4.50-10.00) X 10*3/uL RBC 3.18 L (4.40-5.60) X 10*6/uL Hgb 9.2 L (13.0-17.0) g/dL Hct 28.3 L (39.6-50.0) % RDW 14.9 H (11.5-14.5) % Immature Gran # 0.15 H (0.00-0.04) X 10*3/uL Neutrophils # 11.19 H (1.80-7.70) X 10*3/uL Monocytes # 3.27 H (0.20-1.00) X 10*3/uL Sodium (135-145) mmol/L Glucose (74-99) mg/dL POC Glucose (mg/dL) 363 H (70-110) mg/dL Hemoglobin A1c 7.6 H (<=6.0) % Calcium (8.4-10.2) mg/dL 06/24/23 06/24/23 Range/Units 05:55 07:49 WBC (4.50-10.00) X 10*3/uL RBC (4.40-5.60) X 10*6/uL Hgb (13.0-17.0) g/dL Hct (39.6-50.0) % RDW (11.5-14.5) % Immature Gran # (0.00-0.04) X 10*3/uL Neutrophils # (1.80-7.70) X 10*3/uL Monocytes # (0.20-1.00) X 10*3/uL Sodium 133 L (135-145) mmol/L Glucose 197 H (74-99) mg/dL POC Glucose (mg/dL) 214 H (70-110) mg/dL Hemoglobin A1c (<=6.0) % Calcium 8.3 L (8.4-10.2) mg/dL Assessment and Plan (1) UTI (urinary tract infection) Current Visit: Yes Status: Acute Code(s): N39.0 - URINARY TRACT INFECTION, SITE NOT SPECIFIED SNOMED Code(s): 18970627 (2) Sepsis Current Visit: Yes Status: Acute Code(s): A41.9 - SEPSIS, UNSPECIFIED ORGANISM SNOMED Code(s): 77433889 (3) Penicillin allergy Current Visit: Yes Status: Acute Code(s): Z88.0 - ALLERGY STATUS TO PENICILLIN SNOMED Code(s): 44305359 Plan: 1patient presented to hospital with sepsis in this patient who did have a fever elevated white count source is likely catheter associated UTI in this patient who is a long term resident and is spiking fever on Rocephin concern for poss ible resistant gram-negative pathogen 2-patient with penicillin allergy that will limit the number of antibiotics safe to use 3-patient to continue with cefepime 2 g every 8 hours while waiting for the culture to finalize 4-ultrasound of the kidney bladder area with no evidence of any abscess or ob structive uropathy Dictation was produced using [employer] dictation software. please excuse any gramma tical, word or spelling errors.
--- NOTE | 2023-06-25 12:04 | P.PN ---
Subjective Progress Note Date: 06/25/23 Principal diagnosis: Reason for follow-up is a sepsis and catheter associated UTI Patient is a 72-year-old male with a past medical history significant for diabetes mellitus osteoarthritis prostate disorder patient was sent to the ER for evaluation of fever and cloudy urine from the local assisted, patient did have a elevated white count fever concerning for catheter associated UTI Balbuena catheter has been changed. On today's evaluation that is 06/25/2023, the patient did have a fever 100.7 last evening however the patient is afebrile since then, patient is currently breathing comfortably on 2 L nasal cannula oxygen, the patient denies chest pain or cough, patient denies abdominal pain, no nausea no vomiting or any diarrhea. Labs pending from this morning urine is growing gram-negative blood cultures so far negative Objective - Vital Signs Vital signs: Vital Signs Temp 98.2 F 06/25/23 08:00 Pulse 81 06/25/23 08:00 Resp 15 06/25/23 08:00 BP 97/64 06/25/23 08:00 Pulse Ox 97 06/25/23 08:10 FiO2 Intake & Output 06/24/23 06/25/23 06/25/23 18:59 06:59 18:59 Intake Total 980 Output Total 1200 1600 Balance -220 -1600 Intake: Oral 980 Output: Urine 1200 1600 Other: Voiding Method Indwelling Catheter Indwelling Catheter Indwelling Catheter - Exam GENERAL DESCRIPTION: An elderly male lying in bed in no distress RESPIRATORY SYSTEM: Unlabored breathing , decreased breath sounds at bases HEART: S1 S2 regular rate and rhythm , ABDOMEN: Soft , no tenderness EXTREMITIES: No edema feet - Labs CBC & Chem 7: 06/24/23 05:55 06/24/23 05:55 Labs: Abnormal Lab Results - Last 24 Hours (Table) 06/24/23 06/24/23 06/24/23 Range/Units 12:48 17:28 20:44 POC Glucose (mg/dL) 253 H 156 H 196 H (70-110) mg/dL 06/25/23 06/25/23 Range/Units 07:01 11:46 POC Glucose (mg/dL) 148 H 157 H (70-110) mg/dL Microbiology - Last 24 Hours (Table) 06/22/23 22:55 Urine Culture - Preliminary Urine,Voided Gram Neg Bacilli 06/23/23 18:06 Blood Culture - Preliminary Blood 06/23/23 17:53 Blood Culture - Preliminary Blood 06/23/23 16:05 Urine Culture - Preliminary Urine,Catheterized Gram Neg Bacilli 06/22/23 23:05 Blood Culture - Preliminary Blood 06/22/23 22:50 Blood Culture - Preliminary Blood Assessment and Plan (1) UTI (urinary tract infection) Current Visit: Yes Status: Acute Code(s): N39.0 - URINARY TRACT INFECTION, SITE NOT SPECIFIED SNOMED Code(s): 69960117 (2) Sepsis Current Visit: Yes Status: Acute Code(s): A41.9 - SEPSIS, UNSPECIFIED ORGANISM SNOMED Code(s): 46565543 (3) Penicillin allergy Current Visit: Yes Status: Acute Code(s): Z88.0 - ALLERGY STATUS TO PENICILLIN SNOMED Code(s): 16811114 Plan: 1patient presented to hospital with sepsis in this patient who did have a fever elevated white count source is likely catheter associated UTI in this patient who is a assisted resident and is spiking fever on Rocephin concern for possible resistant gram-negative pathogen 2-patient with penicillin allergy that will limit the number of antibiotics safe to use 3-ultrasound of the kidney bladder area with no evidence of any abscess or obstructive uropathy 4-patient did have resolution of his fever urine is growing gram-negative with ID sensitivities pending, patient to continue with cefepime 2 g every 8 hours while waiting for the culture to finalize Dictation was produced using [employer] dictation software. please excuse any grammatical, word or spelling errors. Time with Patient: Less than 30
[2023-06-25] MEDS ORDERED: IPRATROPIUM-ALBUTEROL 3 ML NEB INHALATION PRN (13:27)
[2023-06-25] MEDS ORDERED: BENZOCAINE 20% HEMORRHOIDAL OINT 28GM RECTAL PRN (13:27)
[2023-06-25] MEDS ORDERED: MAGNESIUM HYDROXIDE 2,400 MG/30 ML CUP PO PRN (13:27)
[2023-06-25] MEDS ORDERED: polyethylene glycoL 3350 17 GM POWD.PACK PO PRN (13:27)
[2023-06-25] MEDS: LEUPROLIDE ACETATE 45 MG SYRINGEKIT IM SCH (14:38)
[2023-06-25] MEDS: metFORMIN 500 MG TAB PO SCH (14:38)
[2023-06-25] MEDS: MELOXICAM 7.5 MG TAB PO SCH (14:38)
[2023-06-25] MEDS: METOPROLOL TARTRATE 25 MG TAB PO SCH (14:38)
[2023-06-25] MEDS: IPRATROPIUM-ALBUTEROL 3 ML NEB INHALATION SCH (15:04)
[2023-06-25 17:08] LABS: Glucose,Whole Blood 208 mg/dL (70-110)
[2023-06-25 20:49] LABS: Glucose,Whole Blood 210 mg/dL (70-110)
[2023-06-25] MEDS: INSULIN DETEMIR (LEVEMIR) 100 UNIT/ML SYR SQ SCH (20:54)
[2023-06-25] MEDS: ATORVASTATIN 40 MG TAB PO SCH (20:55)
[2023-06-25] MEDS: FAMOTIDINE 20 MG TAB PO SCH (20:55)
[2023-06-25] MEDS: PANTOPRAZOLE 40 MG/10 ML VIAL IVP SCH (20:55)
--- NOTE | 2023-06-26 00:54 | PN ---
PROGRESS NOTE DATE OF SERVICE: 06/25/2023 SUBJECTIVE: This is a 72-year-old gentleman who was admitted with UTI secondary to Balbuena catheter showing gram-negative bacilli. The patient was returned from longterm. No chest pain, no palpitation. The patient is on empiric antibiotics. OBJECTIVE: VITAL SIGNS: Pulse 81, blood pressure 107/67, and respirations 18. CHEST: Clear to auscultation. CARDIOVASCULAR: S1, S2 muffled. ABDOMEN: Soft. NERVOUS SYSTEM: nonfocal. LABORATORY DATA: Reviewed. ASSESSMENT: 1. Acute UTI secondary to Balbuena catheter. 2. Hyperkalemia. 3. Sepsis secondary to UTI. 4. Diabetes mellitus, type 2. 5. History of bladder outflow obstruction with chronic indwelling Balbuena catheter. 6. Multiple medical issues. RECOMMENDATIONS: Recommended to continue current management, continue symptomatic treatment, otherwise at this time continue with cefepime and we will await the final culture report from the urine culture which is gram-negative bacilli. Repeat cultures. Closely follow with Infectious Disease. Guarded prognosis. Further recommendations to follow. MMODL / IJN: [id number] /
[2023-06-26] MEDS: IPRATROPIUM-ALBUTEROL 3 ML NEB INHALATION PRN (01:56)
[2023-06-26 07:18] LABS: Glucose,Whole Blood 102 mg/dL (70-110)
[2023-06-26] MEDS: IPRATROPIUM-ALBUTEROL 3 ML NEB INHALATION SCH (07:30)
[2023-06-26] MEDS ORDERED: BICALUTAMIDE 50 MG TAB PO SCH (09:00)
[2023-06-26] MEDS: MAGNESIUM OXIDE 400 MG TAB PO SCH (10:10)
[2023-06-26] MEDS: MULTIVITAMINS, THERA 1 EACH TAB PO SCH (10:10)
[2023-06-26] MEDS: SENNOSIDES-DOCUSATE SODIUM 1 EACH TAB PO SCH (10:15)
[2023-06-26] MEDS: TAMSULOSIN 0.4 MG CAP.ER.24H PO SCH (10:15)
[2023-06-26] MEDS: ASPIRIN 81 MG PO SCH (10:15)
[2023-06-26] MEDS: LACTULOSE 20 GM/30 ML CUP PO SCH (10:16)
[2023-06-26] MEDS: FERROUS SULFATE 325 MG TAB PO SCH (10:16)
[2023-06-26] MEDS: PSYLLIUM HUSK 100% 6 GM PACKET PO SCH (10:17)
[2023-06-26 11:04] LABS: Basophils # (A) 0.05 X 10*3/uL (0.00-0.10); Basophils % (A) 0.5 %; Eosinophils # (A) 0.29 X 10*3/uL (0.04-0.35); Eosinophils % (A) 2.6 %; HCT 27.9 % (39.6-50.0); Lymphocytes # (A) 2.17 X 10*3/uL (0.90-5.00); Lymphocytes % (A) 19.7 %; MCH 28.5 pg (27.0-32.0); MCHC 32.3 g/dL (32.0-37.0); MCV 88.3 FL (80.0-97.0); Mean Platelet Volume 12.1 FL (9.5-12.2); Monocytes # (A) 1.34 X 10*3/uL (0.20-1.00); Monocytes % (A) 12.2 %; NRBC Per 100 WBC 0 X 10*3/uL (0.00-0.01); Neutrophils # (A) 6.96 X 10*3/uL (1.80-7.70); Neutrophils % (A) 63.3 %; Platelet Count 205 X 10*3/uL (140-440); RBC 3.16 X 10*6/uL (4.40-5.60); RDW 14.6 % (11.5-14.5)
[2023-06-26 11:27] LABS: BUN/Creat Ratio 13.75 Ratio (12.00-20.00); Glucose 101 mg/dL (70-110)
[2023-06-26 11:28] LABS: Calcium 8.6 mg/dL (8.7-10.3); Carbon Dioxide 23.7 mmol/L (21.6-31.8); Chloride 103 mmol/L (96-109); Potassium 4.2 mmol/L (3.5-5.5); Sodium 139 mmol/L (135-145)
[2023-06-26 11:57] LABS: Glucose,Whole Blood 125 mg/dL (70-110)
[2023-06-26 13:14] VITALS: BP 124/75; RESP 17; TEMP 99
--- NOTE | 2023-06-26 13:46 | P.DS ---
Providers Date of admission: 06/23/23 06:02 Expected date of discharge: 06/26/23 Attending physician: Sandra Powell Consults: 06/23/23 06:02 Consult Physician Routine Consulting Provider: Teodoro Benjamin Consult Reason/Comments: Fever. 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 Patient will follow-up with Dr. Allen in the outpatient setting upon discharge. Patient is to continue with oral Cipro 500 mg twice daily for the next 1 week. Patient to follow-up with urology in the outpatient setting as scheduled. Total time taken is greater than 35 minutes. Hospital course This is a 72-year-old male who was recently admitted with UTI secondary to Balbuena catheter which was exchanged and patient was maintained on antibiotics. Finalized culture shows Pseudomonas with sensitivities and infectious disease following recommending Cipro twice daily for the next 7 days to complete the course. Patient to follow-up with urology outpatient as well as primary care provider on discharge. Patient has been cleared by consultations for discharge to [facility]. Please refer to other consultation notes for further HPI. Recommend follow-up labs of CBC, BMP in the next 2 to 3 days. Currently no reports of chest pain, shortness of breath, or palpitations. Patient is afebrile. No reports of nausea or vomiting and patient is tolerating diet. Patient will be going to [facility] today. Guarded prognosis Physical exam: Gen: This is a 72-year-old male who is awake, alert and oriented x 2-3, baseline, well-developed, well-nourished, elderly appearing, obese HEENT: Head is atraumatic, normocephalic. Pupils equal, round. Sclerae is anicteric. NECK: Supple. No JVD. No lymphadenopathy. No thyromegaly. LUNGS: Diminished breath sounds bilaterally with scattered rhonchi. No inte rcostal retractions. HEART: S1, S2 are muffled ABDOMEN: Soft. Obese. Bowel sounds are present. No masses. No tenderness. EXTREMITIES: No pedal edema. No calf tenderness. NEUROLOGICAL: Patient is awake, alert and oriented x 2-3. Cranial nerves 2 through 12 are grossly intact. Diffusely weak Please refer to medication reconciliation sheet for a list of medications. The impression and plan of care has been dictated by Iliana Vera, Nurse Practitioner as directed. Dr. Andre MD I have performed a history and examination and MDM of this patient, discussed the same with the dictator, and agree with the dictator's assessment and plan as written ,documented as a scribe. Based on total visit time, I have performed more than 50% of the visit. Patient Condition at Discharge: Fair Plan - Discharge Summary Discharge Rx Participant: No New Discharge Prescriptions: New Ciprofloxacin HCl [Cipro] 500 mg PO BID 7 Days #14 tab Enoxaparin [Lovenox] 40 mg SQ DAILY each Melatonin 3 mg PO HS PRN tab PRN Reason: Insomnia Calcium Carbonate [Tums] 500 mg PO TID PRN tab PRN Reason: Heartburn Continue Ipratropium-Albuterol Nebulize [Duoneb 0.5 mg-3 mg/3 ml Soln] 3 ml INHALATION RT-Q8H PRN PRN Reason: Shortness Of Breath Bicalutamide 50 mg PO DAILY Metoprolol Tartrate [Lopressor] 25 mg PO BID Meloxicam [Mobic] 7.5 mg PO BID polyethylene glycoL 3350 [Miralax] 17 gm PO DAILY PRN PRN Reason: Constipation Sodium Chloride [[place]] 1 spray EA NOSTRIL Q8H PRN PRN Reason: Congestion Magnesium Oxide [Mag-Ox] 400 mg PO DAILY Leuprolide Acetate [Lupron Depot] 45 mg IM Q180D Amitriptyline HCl [Elavil] 75 mg PO HS Ipratropium-Albuterol Nebulize [Duoneb 0.5 mg-3 mg/3 ml Soln] 3 ml INHALATION RT-Q8H Insulin Glargine [Lantus Vial] 48 unit SQ HS Insulin Aspart [NovoLOG Flexpen] See Protocol SQ ACHS Tamsulosin [Flomax] 0.4 mg PO DAILY Lactulose 20 gm PO DAILY Ferrous Sulfate [Iron (65 MG Elemental)] 325 mg PO DAILY Famotidine [Pepcid] 20 mg PO BID Mv-Min/Folic/K1/Lycopen/Lutein [Centrum Silver Men Tablet] 1 tab PO DAILY Atorvastatin [Lipitor] 40 mg PO HS Aspirin EC [Ecotrin Low Dose] 81 mg PO DAILY Acetaminophen [Tylenol 8 Hour] 650 mg PO Q6H PRN PRN Reason: Pain metFORMIN HCL 1,000 mg PO BID Magnesium Hydroxide [Milk of Magnesia] 2,400 mg PO DAILY PRN PRN Reason: Constipation Metamucil Smooth Powder 58.6% 6 gm PO DAILY Sennosides/Docusate Sodium [Senna Plus 8.6-50 mg Softgel] 1 cap PO DAILY Phenyleph/Pramoxin/Glycr/W.pet [Preparation H Cream] 1 applic RECTAL Q6H PRN PRN Reason: HEMORRHOID PAIN Ondansetron [Zofran] 4 mg PO Q6H PRN PRN Reason: Nausea Dulaglutide [Trulicity] 1.5 mg SQ WE Discharge Medication List Acetaminophen [Tylenol 8 Hour] 650 mg PO Q6H PRN 06/23/23 [History] Amitriptyline HCl [Elavil] 75 mg PO HS 06/23/23 [History] Aspirin EC [Ecotrin Low Dose] 81 mg PO DAILY 06/23/23 [History] Atorvastatin [Lipitor] 40 mg PO HS 06/23/23 [History] Bicalutamide 50 mg PO DAILY 06/23/23 [History] Dulaglutide [Trulicity] 1.5 mg SQ WE 06/23/23 [History] Famotidine [Pepcid] 20 mg PO BID 06/23/23 [History] Ferrous Sulfate [Iron (65 MG Elemental)] 325 mg PO DAILY 06/23/23 [History] Insulin Aspart [NovoLOG Flexpen] See Protocol SQ ACHS 06/23/23 [History] Insulin Glargine [Lantus Vial] 48 unit SQ HS 06/23/23 [History] Ipratropium-Albuterol Nebulize [Duoneb 0.5 mg-3 mg/3 ml Soln] 3 ml INHALATION RT-Q8H 06/23/23 [History] Ipratropium-Albuterol Nebulize [Duoneb 0.5 mg-3 mg/3 ml Soln] 3 ml INHALATION RT-Q8H PRN 06/23/23 [History] Lactulose 20 gm PO DAILY 06/23/23 [History] Leuprolide Acetate [Lupron Depot] 45 mg IM Q180D 06/23/23 [History] Magnesium Hydroxide [Milk of Magnesia] 2,400 mg PO DAILY PRN 06/23/23 [History] Magnesium Oxide [Mag-Ox] 400 mg PO DAILY 06/23/23 [History] Meloxicam [Mobic] 7.5 mg PO BID 06/23/23 [History] Metamucil Smooth Powder 58.6% 6 gm PO DAILY 06/23/23 [History] Metoprolol Tartrate [Lopressor] 25 mg PO BID 06/23/23 [History] Mv-Min/Folic/K1/Lycopen/Lutein [Centrum Silver Men Tablet] 1 tab PO DAILY 06/23/23 [History] Ondansetron [Zofran] 4 mg PO Q6H PRN 06/23/23 [History] Phenyleph/Pramoxin/Glycr/W.pet [Preparation H Cream] 1 applic RECTAL Q6H PRN 06/23/23 [History] Sennosides/Docusate Sodium [Senna Plus 8.6-50 mg Softgel] 1 cap PO DAILY 06/23/23 [History] Sodium Chloride [[place]] 1 spray EA NOSTRIL Q8H PRN 06/23/23 [History] Tamsulosin [Flomax] 0.4 mg PO DAILY 06/23/23 [History] metFORMIN HCL 1,000 mg PO BID 06/23/23 [History] polyethylene glycoL 3350 [Miralax] 17 gm PO DAILY PRN 06/23/23 [History] Calcium Carbonate [Tums] 500 mg PO TID PRN tab 06/26/23 [Rx] Ciprofloxacin HCl [Cipro] 500 mg PO BID 7 Days #14 tab 06/26/23 [Rx] Enoxaparin [Lovenox] 40 mg SQ DAILY each 06/26/23 [Rx] Melatonin 3 mg PO HS PRN tab 06/26/23 [Rx] Follow up Appointment(s)/Referral(s): Sarbjit Allen DO [STAFF PHYSICIAN] - 1 Week Activity/Diet/Wound Care/Special Instructions: Patient is going to [facility] Activity as tolerated Continue taking antibiotics for 7 days twice daily per ID recommendations Continue monitoring Accu-Cheks before meals and at bedtime and continue with sliding scale and long-acting NovoLog sliding scale 0-150 equals 0 units 151-200 equals 2 units 201-250 equals 4 units 251-300 equals 6 units 301-350 equals 8 units 351-400 equals 10 units Please notify provider if blood sugar is 400 or above Continue consistent carb diet Follow-up with primary care provider on discharge Discharge Disposition: TRANSFER TO SNF/ECF
[2023-06-26] MEDS: NON FORMULARY DRUG (Dulaglutide [Trulicity] 1.5 MG/0.5 ML Each) SQ SCH (14:59)
[2023-06-26 15:43] VITALS: PULSE 74
--- NOTE | 2023-07-02 13:19 | P.PN ---
Subjective Progress Note Date: 06/26/23 Principal diagnosis: Reason for follow-up is a sepsis and catheter associated UTI Patient is a 72-year-old male with a past medical history significant for diabetes mellitus osteoarthritis prostate disorder patient was sent to the ER for evaluation of fever and cloudy urine from the local custodial, patient did have a elevated white count fever concerning for catheter associated UTI Balbuena catheter has been changed. On today's evaluation that is 06/26/2023, the patient is afebrile today the patient is breathing comfortably on 2 L nasal cannula oxygen, the patient denies chest pain or cough, patient denies abdominal pain, no nausea no vomiting or any diarrhea. Feeling better no new symptoms Patient white count of 11, creatinine 0.8 urine is showing Pseudomonas sensitive to Cipro Objective - Vital Signs Vital signs: Vital Signs Temp 98.3 F 06/26/23 08:00 Pulse 79 06/26/23 08:00 Resp 19 06/26/23 08:00 BP 123/76 06/26/23 08:00 Pulse Ox 98 06/26/23 08:00 FiO2 Intake & Output 06/25/23 06/26/23 06/26/23 18:59 06:59 18:59 Intake Total 1100 120 Output Total 900 550 Balance 200 -430 Intake: Intake, IV Titration 1100 Amount Cefepime 2 gm In Sodium 100 Chloride 0.9% 100 ml @ 25 mls/hr IVPB Q8H [facility] Rx#: [id number] Sodium Chloride 0.9% 1, 1000 000 ml @ 100 mls/hr IV . Q10H [facility] Rx#:[id number] Oral 120 Output: Urine 900 550 Other: Voiding Method Indwelling Catheter Indwelling Catheter - Exam GENERAL DESCRIPTION: An elderly male lying in bed in no distress RESPIRATORY SYSTEM: Unlabored breathing , decreased breath sounds at bases HEART: S1 S2 regular rate and rhythm , ABDOMEN: Soft , no tenderness EXTREMITIES: No edema feet - Labs CBC & Chem 7: 06/26/23 06:36 06/26/23 06:36 Labs: Abnormal Lab Results - Last 24 Hours (Table) 06/25/23 06/25/23 06/25/23 Range/Units 11:46 17:06 20:47 POC Glucose (mg/dL) 157 H 208 H 210 H (70-110) mg/dL Microbiology - Last 24 Hours (Table) 06/22/23 22:55 Urine Culture - Final Urine,Voided Pseudomonas aeruginosa Providencia rettgeri 06/23/23 16:05 Urine Culture - Final Urine,Catheterized Pseudomonas aeruginosa 06/23/23 18:06 Blood Culture - Preliminary Blood 06/23/23 17:53 Blood Culture - Preliminary Blood 06/22/23 23:05 Blood Culture - Preliminary Blood 06/22/23 22:50 Blood Culture - Preliminary Blood Assessment and Plan (1) UTI (urinary tract infection) Status: Acute Code(s): N39.0 - URINARY TRACT INFECTION, SITE NOT SPECIFIED SNOMED Code(s): 75226179 (2) Sepsis Status: Acute Code(s): A41.9 - SEPSIS, UNSPECIFIED ORGANISM SNOMED Code(s): 20775081 (3) Penicillin allergy Status: Acute Code(s): Z88.0 - ALLERGY STATUS TO PENICILLIN SNOMED Code(s): 27735678 Plan: 1patient presented to hospital with sepsis in this patient who did have a fever elevated white count source is likely catheter associated UTI in this patient who is a custodial resident and is spiking fever on Rocephin concern for possible resistant gram-negative pathogen 2-patient with penicillin allergy that will limit the number of antibiotics safe to use 3-ultrasound of the kidney bladder area with no evidence of any abscess or obstructive uropathy 4-patient did have resolution of his fever urine is growing Pseudomonas that is sensitive to Cipro patient be able to finish therapy with oral Cipro discussed with the EDUCATION DIRECTOR for admitting team working on discharge Dictation was produced using [employer] dictation software. please excuse any grammatical, word or spelling errors. Time with Patient: Less than 30
== END 2023-06-26 16:39 | DRG 698 ==
LOC: EC 22:31 → MERGE 06-23 06:02 → 4SSUR 06-23 06:02 → 5NMEDONC 06-23 06:16
PROVIDERS: ADMIT Hospitalist; ATTEND Hospitalist
DX: T83.511A Infection and inflammatory reaction due to indwelling urethral catheter, initial encounter (principal); A41.52 Sepsis due to Pseudomonas; N39.0 Urinary tract infection, site not specified; Y84.6 Urinary catheterization as the cause of abnormal reaction of the patient, or of later complication, without mention of misadventure at the time of the procedure; E87.5 Hyperkalemia; E11.9 Type 2 diabetes mellitus without complications; N32.0 Bladder-neck obstruction; Z99.3 Dependence on wheelchair; Z88.0 Allergy status to penicillin; Z79.4 Long term (current) use of insulin; Z68.30 Body mass index [BMI] 30.0-30.9, adult; E66.9 Obesity, unspecified; M19.90 Unspecified osteoarthritis, unspecified site; Z85.46 Personal history of malignant neoplasm of prostate; Z11.52 Encounter for screening for COVID-19; Z79.1 Long term (current) use of non-steroidal anti-inflammatories (NSAID); Z79.82 Long term (current) use of aspirin; Z79.84 Long term (current) use of oral hypoglycemic drugs; Z79.899 Other long term (current) drug therapy; Z82.49 Family history of ischemic heart disease and other diseases of the circulatory system; Z88.1 Allergy status to other antibiotic agents; Z88.5 Allergy status to narcotic agent
CPT/HCPCS: 36415; 71045; 76770; 80048; 80053; 81001; 83036; 83605; 84484; 85025; 85610; 85730; 87040; 87077; 87086; 87186; 87636; 93005; 94640; 94760; 96361; 96365; 99285

== ENCOUNTER 2023-07-03 06:44 | Day surgery (SDC) | payer MEDICARE ==
--- NOTE | 2023-07-02 12:40 | P.GSHP ---
History of Present Illness H&P Date: 07/02/23 72-year-old gentleman with a history of prostate cancer and kidney stones. He was in the hospital April with an obstructing right ureteral calculus urinary tract infection with sepsis and pyelonephrosis. He had an emergency stent placed. He has been set up for stent and stone removal but had to re-scheduled due to some medical illnesses. 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 His PSA remains nondetectable. - Constitutional Constitutional: Denies chills, Denies fever - EENT Eyes: denies blurred vision, denies pain Ears, nose, mouth and throat: Denies headache, Denies sore throat - Cardiovascular Cardiovascular: Denies chest pain, Denies shortness of breath - Respiratory Respiratory: Denies cough, Denies 7 - Gastrointestinal Gastrointestinal: Denies abdominal pain, Denies diarrhea, Denies nausea, Denies vomiting - Genitourinary (Female) Genitourinary: Denies dysuria, Denies hematuria - Genitourinary (Male) Genitourinary: Denies dysuria, Denies hematuria - Musculoskeletal Musculoskeletal: Denies myalgias - Integumentary Integumentary: Denies pruritus, Denies rash - Neurological Neurological: Denies numbness, Denies weakness - Psychiatric Psychiatric: Denies anxiety, Denies depression - Endocrine Endocrine: Denies fatigue, Denies weight change Past Medical History Past Medical History: Blood Disorder, Cancer, Diabetes Mellitus, Osteoarthritis (OA), Prostate Disorder Additional Past Medical History / Comment(s): prostate cancer, indwelling catheter, anemia, implant History of Any Multi-Drug Resistant Organisms: None Reported Past Anesthesia/Blood Transfusion Reactions: Unable to Obtain Smoking Status: Unknown if ever smoked - Past Family History Mother Family Medical History: Congestive Heart Failure (CHF), Diabetes Mellitus Father Family Medical History: Cancer, Congestive Heart Failure (CHF) Medications and Allergies Home Medications Medication Instructions Recorded Confirmed Type Acetaminophen [Tylenol 8 Hour] 650 mg PO Q6H PRN 06/23/23 06/27/23 History Amitriptyline HCl [Elavil] 75 mg PO HS 06/23/23 06/27/23 History Aspirin EC [Ecotrin Low Dose] 81 mg PO DAILY 06/23/23 06/27/23 History Atorvastatin [Lipitor] 40 mg PO HS 06/23/23 06/27/23 History Bicalutamide 50 mg PO DAILY 06/23/23 06/27/23 History Dulaglutide [Trulicity] 1.5 mg SQ WE 06/23/23 06/27/23 History Famotidine [Pepcid] 20 mg PO BID 06/23/23 06/27/23 History Ferrous Sulfate [Iron (65 MG 325 mg PO DAILY 06/23/23 06/27/23 History Elemental)] Insulin Aspart [NovoLOG Flexpen] See Protocol SQ ACHS 06/23/23 06/27/23 History Insulin Glargine [Lantus Vial] 48 unit SQ HS 06/23/23 06/27/23 History Ipratropium-Albuterol Nebulize 3 ml INHALATION RT-Q8H 06/23/23 06/27/23 History [Duoneb 0.5 mg-3 mg/3 ml Soln] Ipratropium-Albuterol Nebulize 3 ml INHALATION RT-Q8H PRN 06/23/23 06/27/23 History [Duoneb 0.5 mg-3 mg/3 ml Soln] Lactulose 20 gm PO DAILY 06/23/23 06/27/23 History Leuprolide Acetate [Lupron Depot] 45 mg IM Q180D 06/23/23 06/27/23 History Magnesium Hydroxide [Milk of 2,400 mg PO DAILY PRN 06/23/23 06/27/23 History Magnesia] Magnesium Oxide [Mag-Ox] 400 mg PO DAILY 06/23/23 06/27/23 History Meloxicam [Mobic] 7.5 mg PO BID 06/23/23 06/27/23 History Metamucil Smooth Powder 58.6% 6 gm PO DAILY 06/23/23 06/27/23 History Metoprolol Tartrate [Lopressor] 25 mg PO BID 06/23/23 06/27/23 History Mv-Min/Folic/K1/Lycopen/Lutein 1 tab PO DAILY 06/23/23 06/27/23 History [Centrum Silver Men Tablet] Ondansetron [Zofran] 4 mg PO Q6H PRN 06/23/23 06/27/23 History Phenyleph/Pramoxin/Glycr/W.pet 1 applic RECTAL Q6H PRN 06/23/23 06/27/23 History [Preparation H Cream] Sennosides/Docusate Sodium [Senna 1 cap PO DAILY 06/23/23 06/27/23 History Plus 8.6-50 mg Softgel] Sodium Chloride [[place]] 1 spray EA NOSTRIL Q8H PRN 06/23/23 06/27/23 History Tamsulosin [Flomax] 0.4 mg PO DAILY 06/23/23 06/27/23 History metFORMIN HCL 1,000 mg PO BID 06/23/23 06/27/23 History polyethylene glycoL 3350 [Miralax] 17 gm PO DAILY PRN 06/23/23 06/27/23 History Calcium Carbonate [Tums] 500 mg PO TID PRN tab 06/26/23 06/27/23 Rx Ciprofloxacin HCl [Cipro] 500 mg PO BID 7 Days #14 tab 06/26/23 06/27/23 Rx Enoxaparin [Lovenox] 40 mg SQ DAILY each 06/26/23 06/27/23 Rx Melatonin 3 mg PO HS PRN tab 06/26/23 06/27/23 Rx Allergies Allergy/AdvReac Type Severity Reaction Status Date / Time amoxicillin [From Augmentin] AdvReac Vomiting Verified 06/27/23 14:48 clavulanic acid AdvReac Vomiting Verified 06/27/23 14:48 [From Augmentin] hydromorphone [From Dilaudid] AdvReac Vomiting Verified 06/27/23 14:48 Surgical - Exam - General well developed, well nourished, no distress - Eyes normal ocular movement, no icteric - ENT no hearing loss, no congestion - Neck no masses, trachea midline - Respiratory normal respiratory effort, clear to auscultation - Abdomen Abdomen: soft, non tender, no guarding, no rigid, no rebound - Integumentary no rash, no abnormal pigmentation - Neurologic no disoriented, no combative - Musculoskeletal Wheelchair bound - Psychiatric oriented to time, oriented to person, oriented to place, speech is normal, memory intact Results - Imaging CT scan - abdomen: report reviewed, image reviewed CT scan - pelvis: report reviewed, image reviewed Assessment and Plan Assessment: Impression: Right ureteral calculus with obstruction status post stent placement for pyonephrosis. advanced prostate cancer. Recommendations cystoscopy right ureteroscopy laser lithotripsy stone and stent removal.
[2023-07-03] MEDS ORDERED: fentaNYL (PF) 50 MCG/ML 2 ML AMP IV PRN (07:00)
[2023-07-03 07:49] LABS: Glucose,Whole Blood 127 mg/dL (70-110)
[2023-07-03] MEDS: LACTATED RINGERS 1,000 ML IV SCH (07:50)
[2023-07-03] MEDS: METOPROLOL TARTRATE 5 MG/5 ML VIAL IVP ONE (07:59)
[2023-07-03] MEDS: METOCLOPRAMIDE 5 MG/ML 2 ML VIAL IVP ONE (07:59)
[2023-07-03] MEDS: DEXAMETHASONE SOD PHOSPHATE 4 MG/ML 1 ML VIAL IV ONE (07:59)
[2023-07-03] MEDS: ONDANSETRON 4 MG/2 ML VIAL IVP ONE (07:59)
--- NOTE | 2023-07-03 08:11 | XR ---
EXAMINATION TYPE: XR KUB DATE OF EXAM: 07/03/2023 Comparison: 12/10/2021 Clinical History: 72-year-old male N20.1 right ureteral stone Findings: Right-sided ureteral stent is present. The distal loop is partially uncoiled. Round calcification in the left pelvis likely phleboliths. Gassy bowel is present throughout with mild scattered stool. Impression: Right-sided ureteral stent in place. Not clearly identifying a suspicious calcification along the exp ected course of the right ureter by radiograph. Gassy bowel.
[2023-07-03] MEDS ORDERED: PROPOFOL 10 MG/ML 20 ML VIAL IV ONE (08:59)
[2023-07-03] MEDS ORDERED: NEOSTIGMINE 1 MG/ML 10 ML VIAL ONE (08:59)
[2023-07-03] MEDS ORDERED: ROCURONIUM 10 MG/ML (5 ML VIAL) IV ONE (08:59)
[2023-07-03] MEDS ORDERED: LIDOCAINE 1% INJ 10MG/ML (20 ML MDV) ONE (08:59)
[2023-07-03] MEDS ORDERED: GLYCOPYRROLATE 0.2 MG/ML 2 ML VIAL ONE (08:59)
[2023-07-03] MEDS ORDERED: PHENYLEPHRINE-0.9% NACL SYG 1,000 MCG/10 ML SYRINGE ONE (08:59)
[2023-07-03] MEDS ORDERED: fentaNYL (PF) 50 MCG/ML 2 ML AMP ONE (08:59)
[2023-07-03] MEDS: GENTAMICIN 120 MG in SODIUM CHLORIDE 0.9% 100 ML IVPB PRN (09:05)
[2023-07-03] MEDS: LACTATED RINGERS 1,000 ML IV ONE (09:42)
--- NOTE | 2023-07-03 10:14 | P.OP ---
Date of Procedure: 07/03/23 Preoperative Diagnosis: right ureteral stone and stent Postoperative Diagnosis: same Procedure(s) Performed: cysto with right ureteroscopy with laser lithotripsy, replace stent Anesthesia: ROBERTO Surgeon: Artemio Cole Estimated Blood Loss (ml): 0 Pathology: other (stone) Condition: stable Disposition: PACU Indications for Procedure: The patient is 72, he has prostate cancer, he had an obstructing ureteral stone in April requiring a stent because of pyelonephrosis. He comes for stone and stent removal Description of Procedure: Patient brought to the operating suite. Given general anesthesia. Placed lithotomy position with a sterile prep and drape. The Balbuena catheter which is chronic has been removed. Cystoscopy Foroblique lens and 21-Kyrgyz sheath identifies a normal urethra. The prostate somewhat obstructing. The bladder aceves trabeculated. The right stent is identified and pulled to the urethral meatus. An 035 wires passed through the stent along side the stone which is still quite obstructing in the mid to proximal ureter. I attempted pass a semirigid scope up to the stone but there is too much edema around the stone. I removed the semirigid scope and over the wire pass a [id number]-[id number] reentry sheath. I passed the flexible scope and him eventually able to manipulate through the edema to identify the stone. With the 375 laser probe the stone was broken into tiny pieces. There is a tremendous amount of edema in the ureter this a stent will be replaced. I basket the larger stone fragments. I passed a wire back into the kidney. I removed the ureteroscope. I backloaded the wire onto the cystoscope and over the wires passed a new 6 x 26 stent. It is secured to a urethral Balbuena after the bladder strain. The patient is awake and returned recovery in good condition. He will be discharged home upon recovery. The stent will be removed in about 2 weeks.
[2023-07-03 10:29] LABS: Glucose,Whole Blood 160 mg/dL (70-110)
[2023-07-03 13:16] VITALS: BP 121/73; PULSE 76; RESP 17; TEMP 97
--- NOTE | 2023-07-03 16:10 | FL ---
EXAMINATION TYPE: FL guidance operating room DATE OF EXAM: 07/03/2023 Comparison: None Clinical History: 72-year-old male CYSTO LITHO RIGHT URETERAL STONE Findings: CYSTO LITHO RIGHT URETERAL STONE. SP NCR FLUORO - 2 MIN 9 SEC DAP - 6.9741 Gycm2. Centimeters submitted Impression: Fluoroscopy for urology procedure as above.
== END 2023-07-03 12:54 | disposition home or self-care (01) ==
LOC: OR 06:44 → MERGE 10:30 → OR 12:54
PROVIDERS: ATTEND Urology
DX: N20.1 Calculus of ureter (principal); E11.9 Type 2 diabetes mellitus without complications; M19.90 Unspecified osteoarthritis, unspecified site; Z79.84 Long term (current) use of oral hypoglycemic drugs; Z85.46 Personal history of malignant neoplasm of prostate; Z87.442 Personal history of urinary calculi; Z88.0 Allergy status to penicillin; Z88.1 Allergy status to other antibiotic agents; Z88.5 Allergy status to narcotic agent; Z79.899 Other long term (current) drug therapy
CPT/HCPCS: 52356; 82365; 74018; C2625; C1769; J1100; J2710; J2405; J2001; J3010; J1580; J2704; J2371

== ENCOUNTER 2024-01-20 14:56 | Emergency (ER) | payer MEDICARE, OTHER ==
--- NOTE | 2024-01-20 15:26 | ED ---
General Adult HPI - General Chief complaint: Abdominal Pain Stated complaint: low hemoglobin Time Seen by Provider: 01/20/24 14:58 Source: patient, EMS Mode of arrival: EMS - History of Present Illness Initial comments: Dictation was produced using [employer] dictation software. please excuse any grammatical, word or spelling errors. Chief Complaint: 73-year-old male presents emergency department with low hemoglobin History of Present Illness: Patient 73-year-old male he does not take any anticoagulation medications he is sent here from prison for low hemoglobin. He had blood work drawn showing a hemoglobin of 6.4. Patient denies any complaints states that the last few days ago however he he has been sick thrown up. States that his symptoms resolved now he feels back to normal. The ROS documented in this emergency department record has been reviewed and confirmed by me. Those systems with pertinent positive or negative responses have been documented in the HPI. All other systems are other negative and/or noncontributory. - Related Data Home Medications Medication Instructions Recorded Confirmed Acetaminophen [Tylenol 8 Hour] 650 mg PO Q6H PRN 06/23/23 10/07/23 Aspirin EC [Ecotrin Low Dose] 81 mg PO HS 06/23/23 10/07/23 Atorvastatin [Lipitor] 40 mg PO HS 06/23/23 10/07/23 Bicalutamide 50 mg PO DAILY 06/23/23 10/07/23 Dulaglutide [Trulicity] 1.5 mg SQ WE 06/23/23 10/07/23 Famotidine [Pepcid] 20 mg PO BID 06/23/23 10/07/23 Ferrous Sulfate [Iron (65 MG 325 mg PO BID@0800,1600 06/23/23 10/07/23 Elemental)] Lactulose 20 gm PO DAILY 06/23/23 10/07/23 Leuprolide Acetate [Lupron Depot] 45 mg IM Q180D 06/23/23 10/07/23 Magnesium Hydroxide [Milk of 2,400 mg PO Q72H PRN 06/23/23 10/07/23 Magnesia] Magnesium Oxide [Mag-Ox] 400 mg PO DAILY 06/23/23 10/07/23 Metamucil Smooth Powder 58.6% 6 gm PO DAILY PRN 06/23/23 10/07/23 Metoprolol Tartrate [Lopressor] 25 mg PO BID 06/23/23 10/07/23 Mv-Min/Folic/K1/Lycopen/Lutein 1 tab PO HS 06/23/23 10/07/23 [Centrum Silver Men Tablet] Ondansetron [Zofran] 4 mg PO Q6H PRN 06/23/23 10/07/23 Phenyleph/Pramoxin/Glycr/W.pet 1 applic RECTAL Q6H PRN 06/23/23 10/07/23 [Preparation H Cream] Sennosides/Docusate Sodium [Senna 1 cap PO DAILY 06/23/23 10/07/23 Plus 8.6-50 mg Softgel] Sodium Chloride [[place]] 1 spray EA NOSTRIL Q8H PRN 06/23/23 10/07/23 Tamsulosin [Flomax] 0.4 mg PO PC-SUPPER 06/23/23 10/07/23 metFORMIN HCL 1,000 mg PO BID 06/23/23 10/07/23 polyethylene glycoL 3350 [Miralax] 17 gm PO DAILY PRN 06/23/23 10/07/23 Calcium Carbonate [Tums] 1,000 mg PO Q6H PRN 10/07/23 10/07/23 Meloxicam [Mobic] 15 mg PO DAILY@0800 10/07/23 10/07/23 OLANZapine [ZyPREXA] 5 mg PO BID 10/07/23 10/07/23 Previous Rx's Medication Instructions Recorded INSULIN ASPART (NovoLOG) [NovoLOG 0 unit SQ ACHS each 10/11/23 (formulary)] Insulin Glargine [Lantus Vial] 30 unit SQ HS #0 10/11/23 Ipratropium-Albuterol Nebulize 3 ml INHALATION TID #0 10/11/23 [Duoneb 0.5 mg-3 mg/3 ml Soln] guaiFENesin SYRUP 100MG/5ML 200 mg PO Q6HR PRN ml 10/11/23 [Robitussin] Allergies Allergy/AdvReac Type Severity Reaction Status Date / Time amoxicillin [From Augmentin] AdvReac Vomiting Verified 01/20/24 15:03 clavulanic acid AdvReac Vomiting Verified 01/20/24 15:03 [From Augmentin] hydromorphone [From Dilaudid] AdvReac Vomiting Verified 01/20/24 15:03 Review of Systems ROS Statement: Those systems with pertinent positive or pertinent negative responses have been documented in the HPI. ROS Other: All systems not noted in ROS Statement are negative. Past Medical History Past Medical History: Asthma, Blood Disorder, Cancer, Diabetes Mellitus, GERD/Reflux, Hyperlipidemia, Hypertension, Osteoarthritis (OA), Prostate Disorder, Rheumatoid Arthritis (RA) Additional Past Medical History / Comment(s): anemia, prostate CA, indwelling catheter, hypomagnesemia History of Any Multi-Drug Resistant Organisms: CRE Past Surgical History: Prostate Surgery Additional Past Surgical History / Comment(s): prostate CA, inplant Past Anesthesia/Blood Transfusion Reactions: No Reported Reaction Past Psychological History: Depression, No Psychological Hx Reported Smoking Status: Never smoker Past Alcohol Use History: None Reported Past Drug Use History: None Reported - Past Family History Father Family Medical History: Cancer Mother Family Medical History: Congestive Heart Failure (CHF), Diabetes Mellitus General Exam - General Exam Comments Initial Comments: PHYSICAL EXAM: General Impression: Alert and oriented x3, not in acute distress HEENT: Normocephalic atraumatic, extra-ocular movements intact, pupils equal and reactive to light bilaterally, mucous membranes moist. Cardiovascular: Heart regular rate and rhythm Chest: Able to complete full sentences, no retractions, no tachypnea Abdomen: abdomen soft, non-tender, non-distended, no organomegaly Musculoskeletal: Pulses present and equal in all extremities, no peripheral edema Motor: no focal deficits noted Neurological: CN II-XII grossly intact, no focal motor or sensory deficits noted Skin: Intact with no visualized rashes Psych: Normal affect and mood Rectal:, Melanotic stool Course Vital Signs 01/20/24 01/20/24 15:00 16:25 Temperature 100.4 F H Pulse Rate 95 91 Respiratory 18 18 Rate Blood Pressure 110/54 102/54 O2 Sat by Pulse 95 96 Oximetry EKG Findings - EKG Comments: EKG Findings:: My EKG interpretation: Ventricular rate 89, sinus rhythm,. 158, QRS 150, QTc 446. No TX prolongation, no QTC prolongation, no ST or T-wave changes noted. Right bundle branch block overall, this EKG is unremarkable Medical Decision Making - Medical Decision Making Was pt. sent in by a medical professional or institution (, PA, FAMILY RESOURCE COORDINATOR, urgent care, hospital, or prison...) When possible be specific @ -FDC Did you speak to anyone other than the patient for history (EMS, parent, family, police, friend...)? What history was obtained from this source @ -No Did you review nursing and triage notes (agree or disagree)? Why? @ -I reviewed and agree with nursing and triage notes Were old charts reviewed (outside hosp., previous admission, EMS record, old EKG, old radiological studies, urgent care reports/EKG's, prison records)? Report findings @ -FDC notes reviewed Differential Diagnosis (chest pain, altered mental status, abdominal pain women, abdominal pain men, vaginal bleeding, musculoskeletal, weakness, fever, dyspnea, syncope, headache, dizziness, GI bleed, back pain, seizure, CVA, palpatations, mental health)? @ -Differential GI Bleed: Esophageal varices, aortoenteric fistula, Thelma-Byers, gastritis, peptic ulcer disease, diverticulosis, inflammatory bowel disease, hemorrhoids, fissure, colitis, malignancy, Meckel's diverticulum, this is not meant to be an all- inclusive list. EKG interpreted by me (3pts min.). @ -As above X-rays interpreted by me (1pt min.). @ -None done CT interpreted by me (1pt min.). @ -None done U/S interpreted by me (1pt. min.). @ -None done What testing was considered but not performed or refused? (CT, X-rays, U/S, labs)? Why? @ -None What meds were considered but not given or refused? Why? @ -None Was smoking cessation discussed for >3mins.? @ -No Were there social determinants of health that impacted care today? How? (Homelessness, low income, unemployed, alcoholism, drug addiction, transportation, low edu. Level, literacy, decrease access to med. care, usp, rehab)? @ -No Was there de-escalation of care discussed even if they declined (Discuss DNR or withdrawal of care, Hospice)? DNR status @ -No What co-morbidities impacted this encounter? (DM, HTN, Smoking, COPD, CAD, Cancer, CVA, ARF, Chemo, Hep., AIDS, mental health diagnosis, sleep apnea, morbid obesity)? @ -None Was patient admitted / discharged? Hospital course, mention meds given and route, prescriptions, significant lab abnormalities, going to OR and other pertinent info. @ -73-year-old male presents to the emergency department for anemia. Vital signs upon arrival are within acceptable limits. He does have a low-grade temperature of 100.4. Laboratory evaluation obtained. Hemoglobin 6.5. Lactic acidosis of 5.2 likely secondary to acute blood loss. Stool occult blood is positive. Patient given Protonix and blood transfusion. Will be transferred to [facility]. Case discussed with Dr. Solorio. Will transfer. Did you discuss the management of the patient with other professionals (stephen alcazar i.e. , PA, FAMILY RESOURCE COORDINATOR, lab, RT, psych nurse, social work supervisor, sr. manager, teacher, security control room officer, supportive employment case manager)? Give summary @ -As above Was critical care preformed (if so, how long)? @ -Critical care time 33 minutes yes Undiagnosed new problem with uncertain prognosis? @ -No Drug Therapy requiring intensive monitoring for toxicity (Heparin, Nitro, Insulin, Cardizem)? @ -No Were any procedures done? @ -No Diagnosis/symptom? Acute, or Chronic, or Acute on Chronic? Uncomplicated (without systemic symptoms) or Complicated (systemic symptoms)? @ -Acute GI bleed complicated by blood loss anemia Side effects of treatment? @ -No Exacerbation, Progression, or Severe Exacerbation? @ -No Poses a threat to life or bodily function? How? (Chest pain, [place], [place], pneumonia, PE, COPD, DKA, ARF, appy, cholecystitis, CVA, Diverticulitis, Homicidal, Suicidal, threat to staff... and all critical care pts) @ -yes - Lab Data Result diagrams: 01/20/24 15:32 01/20/24 15:32 Lab Results 01/20/24 01/20/24 01/20/24 Range/Units 15:25 15:30 15:32 WBC 11.5 H (3.8-10.6) k/uL RBC 2.16 L (4.30-5.90) m/uL Hgb 6.5 L* (13.0-17.5) gm/dL Hct 19.5 L* (39.0-53.0) % MCV 90.2 (80.0-100.0) fL MCH 30.2 (25.0-35.0) pg MCHC 33.5 (31.0-37.0) g/dL RDW 15.8 H (11.5-15.5) % Plt Count 202 (150-450) k/uL MPV 10.2 Neutrophils % 62 % Lymphocytes % 23 % Monocytes % 10 % Eosinophils % 4 % Basophils % 1 % Neutrophils # 7.1 (1.3-7.7) k/uL Lymphocytes # 2.6 (1.0-4.8) k/uL Monocytes # 1.1 H (0-1.0) k/uL Eosinophils # 0.4 (0-0.7) k/uL Basophils # 0.1 (0-0.2) k/uL PT (10.0-12.5) sec INR (<1.2) APTT (22.0-30.0) sec Sodium (137-145) mmol/L Potassium (3.5-5.1) mmol/L Chloride (98-107) mmol/L Carbon Dioxide (22-30) mmol/L Anion Gap mmol/L BUN (9-20) mg/dL Creatinine (0.66-1.25) mg/dL Est GFR (CKD-EPI)AfAm (>60 ml/min/1.73 sqM) Est GFR (CKD-EPI)NonAf (>60 ml/min/1.73 sqM) Glucose (74-99) mg/dL Plasma Lactic Acid Franck (0.7-2.0) mmol/L Calcium (8.4-10.2) mg/dL Magnesium (1.6-2.3) mg/dL Total Bilirubin (0.2-1.3) mg/dL AST (17-59) U/L ALT (4-49) U/L Alkaline Phosphatase (38-126) U/L Total Protein (6.3-8.2) g/dL Albumin (3.5-5.0) g/dL Stool Occult Blood (Negative) Blood Type A Positive Blood Type Confirm A Positive Blood Type Recheck No Previous Record Bld Type Recheck Status CABO Indicated Antibody Screen NEGATIVE Crossmatch See Detail Spec Expiration Date 01/23/2024 - 232901/20/24 01/20/24 01/20/24 Range/Units 15:32 15:32 15:32 WBC (3.8-10.6) k/uL RBC (4.30-5.90) m/uL Hgb (13.0-17.5) gm/dL Hct (39.0-53.0) % MCV (80.0-100.0) fL MCH (25.0-35.0) pg MCHC (31.0-37.0) g/dL RDW (11.5-15.5) % Plt Count (150-450) k/uL MPV Neutrophils % % Lymphocytes % % Monocytes % % Eosinophils % % Basophils % % Neutrophils # (1.3-7.7) k/uL Lymphocytes # (1.0-4.8) k/uL Monocytes # (0-1.0) k/uL Eosinophils # (0-0.7) k/uL Basophils # (0-0.2) k/uL PT 10.8 (10.0-12.5) sec INR 1.0 (<1.2) APTT 20.8 L (22.0-30.0) sec Sodium 136 L (137-145) mmol/L Potassium 4.4 (3.5-5.1) mmol/L Chloride 103 (98-107) mmol/L Carbon Dioxide 23 (22-30) mmol/L Anion Gap 10 mmol/L BUN 23 H (9-20) mg/dL Creatinine 0.84 (0.66-1.25) mg/dL Est GFR (CKD-EPI)AfAm >90 (>60 ml/min/1.73 sqM) Est GFR (CKD-EPI)NonAf 86 (>60 ml/min/1.73 sqM) Glucose 183 H (74-99) mg/dL Plasma Lactic Acid Franck (0.7-2.0) mmol/L Calcium 8.9 (8.4-10.2) mg/dL Magnesium 1.6 (1.6-2.3) mg/dL Total Bilirubin 0.1 L (0.2-1.3) mg/dL AST 31 (17-59) U/L ALT 24 (4-49) U/L Alkaline Phosphatase 53 (38-126) U/L Total Protein 6.2 L (6.3-8.2) g/dL Albumin 3.7 (3.5-5.0) g/dL Stool Occult Blood Positive (Negative) Blood Type Blood Type Confirm Blood Type Recheck Bld Type Recheck Status Antibody Screen Crossmatch Spec Expiration Date 01/20/24 Range/Units 15:32 WBC (3.8-10.6) k/uL RBC (4.30-5.90) m/uL Hgb (13.0-17.5) gm/dL Hct (39.0-53.0) % MCV (80.0-100.0) fL MCH (25.0-35.0) pg MCHC (31.0-37.0) g/dL RDW (11.5-15.5) % Plt Count (150-450) k/uL MPV Neutrophils % % Lymphocytes % % Monocytes % % Eosinophils % % Basophils % % Neutrophils # (1.3-7.7) k/uL Lymphocytes # (1.0-4.8) k/uL Monocytes # (0-1.0) k/uL Eosinophils # (0-0.7) k/uL Basophils # (0-0.2) k/uL PT (10.0-12.5) sec INR (<1.2) APTT (22.0-30.0) sec Sodium (137-145) mmol/L Potassium (3.5-5.1) mmol/L Chloride (98-107) mmol/L Carbon Dioxide (22-30) mmol/L Anion Gap mmol/L BUN (9-20) mg/dL Creatinine (0.66-1.25) mg/dL Est GFR (CKD-EPI)AfAm (>60 ml/min/1.73 sqM) Est GFR (CKD-EPI)NonAf (>60 ml/min/1.73 sqM) Glucose (74-99) mg/dL Plasma Lactic Acid Franck 5.2 H* (0.7-2.0) mmol/L Calcium (8.4-10.2) mg/dL Magnesium (1.6-2.3) mg/dL Total Bilirubin (0.2-1.3) mg/dL AST (17-59) U/L ALT (4-49) U/L Alkaline Phosphatase (38-126) U/L Total Protein (6.3-8.2) g/dL Albumin (3.5-5.0) g/dL Stool Occult Blood (Negative) Blood Type Blood Type Confirm Blood Type Recheck Bld Type Recheck Status Antibody Screen Crossmatch Spec Expiration Date Disposition Clinical Impression: Acute blood loss anemia Disposition: OTHER INSTITUTION NOT DEFINED Condition: Critical Referrals: Sarbjit Allen DO [Primary Care Provider] - 1-2 days Time of Disposition: 17:03 - Out of Hospital Transfer - Req. Specs Out of Hospital Transfer - Requested Specifics: Other Emergency Center ([facility])
[2024-01-20 16:02] LABS: Basophils # (A) 0.1 k/uL (0-0.2); Basophils % (A) 1 %; Eosinophils # (A) 0.4 k/uL (0-0.7); Eosinophils % (A) 4 %; Lymphocytes # (A) 2.6 k/uL (1.0-4.8); Lymphocytes % (A) 23 %; MCH 30.2 pg (25.0-35.0); MCHC 33.5 g/dL (31.0-37.0); MCV 90.2 fL (80.0-100.0); Mean Platelet Volume 10.2; Monocytes # (A) 1.1 k/uL (0-1.0); Monocytes % (A) 10 %; Neutrophils # (A) 7.1 k/uL (1.3-7.7); Neutrophils % (A) 62 %; Platelet Count 202 k/uL (150-450); RBC 2.16 m/uL (4.30-5.90); RDW 15.8 % (11.5-15.5); WBC 11.5 k/uL (3.8-10.6)
[2024-01-20 16:11] LABS: HCT 19.5 % (39.0-53.0); HGB 6.5 gm/dL (13.0-17.5)
[2024-01-20 16:18] LABS: ALT 24 U/L (4-49); AST 31 U/L (17-59); African American GFR (CKD) >90 (>60 ml/min/1.73 sqM); Albumin 3.7 g/dL (3.5-5.0); Alkaline Phosphatase 53 U/L (38-126); Anion Gap 10 mmol/L; Blood Urea Nitrogen 23 mg/dL (9-20); Calcium 8.9 mg/dL (8.4-10.2); Carbon Dioxide 23 mmol/L (22-30); Chloride 103 mmol/L (98-107); Glucose 183 mg/dL (74-99); Magnesium 1.6 mg/dL (1.6-2.3); Non-African American GFR(CKD) 86 (>60 ml/min/1.73 sqM); Potassium 4.4 mmol/L (3.5-5.1); Sodium 136 mmol/L (137-145); Total Bilirubin 0.1 mg/dL (0.2-1.3); Total Protein 6.2 g/dL (6.3-8.2)
[2024-01-20] MEDS: PANTOPRAZOLE 40 MG/10 ML VIAL IVP STA (16:18)
[2024-01-20 16:30] LABS: Prothrombin Time 10.8 sec (10.0-12.5)
[2024-01-20 16:32] LABS: Partial Thromboplastin Time 20.8 sec (22.0-30.0)
[2024-01-20] MEDS: SODIUM CHLORIDE 0.9% 1,000 ML IV ONE (16:35)
[2024-01-20 18:06] VITALS: RESP 16
[2024-01-20 18:16] VITALS: BP 118/61; PULSE 87; TEMP 99.5
== END 2024-01-20 18:27 | disposition other institution (70) ==
LOC: EC 14:56
CPT/HCPCS: 36415; 36430; 80053; 82272; 83605; 83735; 85025; 85610; 85730; 86850; 86900; 86901; 86920; 93005; 96361; 96374; 99285

== ENCOUNTER 2024-11-22 02:38 | Emergency (ER) | payer MEDICARE, OTHER ==
[2024-11-22] MEDS: LIDOCAINE 2% URO-JET JELLY 5 ML KIT URETHRAL ONE (03:07)
[2024-11-22 06:26] LABS: Basophils # (A) 0.07 10*3/uL (0.00-0.10); Basophils % (A) 0.4 %; Eosinophils # (A) 0.24 10*3/uL (0.04-0.35); Eosinophils % (A) 1.5 %; HCT 28.1 % (39.6-50.0); Lymphocytes # (A) 2.69 10*3/uL (0.90-5.00); Lymphocytes % (A) 17.0 %; MCH 27.0 pg (27.0-32.0); MCHC 33.5 g/dL (32.0-37.0); MCV 80.7 fL (80.0-97.0); Monocytes # (A) 1.77 10*3/uL (0.20-1.00); Monocytes % (A) 11.2 %; Neutrophils # (A) 10.94 10*3/uL (1.80-7.70); Neutrophils % (A) 69.4 %; Platelet Count 230 10*3/uL (140-440); RBC 3.48 10*6/uL (4.40-5.60); RDW 15.3 % (11.5-14.5); WBC 15.79 10*3/uL (4.50-10.00)
[2024-11-22 06:34] LABS: HGB 9.4 g/dL (13.0-17.0)
[2024-11-22] MEDS: TRANEXAMIC 1,000 MG/100ML-NACL 1,000 MG in SALINE 1 100ML.BAG IVPB ONE (07:01)
--- NOTE | 2024-11-22 07:12 | ED ---
General Adult HPI - General Chief complaint: Urogenital Stated complaint: Hematuria Time Seen by Provider: 11/22/24 02:43 Source: EMS Mode of arrival: EMS Limitations: no limitations - History of Present Illness Initial comments: Patient is a 74-year-old man who is here to have evaluation of Balbuena catheter problem. Patient reportedly having bloody drainage after catheter was changed. Patient has chronic indwelling catheter and complains of pain low suprapubic area. No fever noted. Patient denies back pain. No change in bowel movements. Onset/Timin -: days(s) Location: abdomen Radiation: non-radiation Quality: burning, dull Consistency: constant Improves with: none Worsens with: none Treatments Prior to Arrival: none - Related Data Home Medications Medication Instructions Recorded Confirmed Acetaminophen [Tylenol 8 Hour] 650 mg PO Q6H PRN 06/23/23 10/07/23 Aspirin EC [Ecotrin Low Dose] 81 mg PO HS 06/23/23 10/07/23 Atorvastatin [Lipitor] 40 mg PO HS 06/23/23 10/07/23 Bicalutamide 50 mg PO DAILY 06/23/23 10/07/23 Dulaglutide [Trulicity] 1.5 mg SQ WE 06/23/23 10/07/23 Famotidine [Pepcid] 20 mg PO BID 06/23/23 10/07/23 Ferrous Sulfate [Iron (65 MG 325 mg PO BID@0800,1600 06/23/23 10/07/23 Elemental)] Lactulose 20 gm PO DAILY 06/23/23 10/07/23 Leuprolide Acetate [Lupron Depot] 45 mg IM Q180D 06/23/23 10/07/23 Magnesium Hydroxide [Milk of 2,400 mg PO Q72H PRN 06/23/23 10/07/23 Magnesia] Magnesium Oxide [Mag-Ox] 400 mg PO DAILY 06/23/23 10/07/23 Metamucil Smooth Powder 58.6% 6 gm PO DAILY PRN 06/23/23 10/07/23 Metoprolol Tartrate [Lopressor] 25 mg PO BID 06/23/23 10/07/23 Mv-Min/Folic/K1/Lycopen/Lutein 1 tab PO HS 06/23/23 10/07/23 [Centrum Silver Men Tablet] Ondansetron [Zofran] 4 mg PO Q6H PRN 06/23/23 10/07/23 Phenyleph/Pramoxin/Glycr/W.pet 1 applic RECTAL Q6H PRN 06/23/23 10/07/23 [Preparation H Cream] Sennosides/Docusate Sodium [Senna 1 cap PO DAILY 06/23/23 10/07/23 Plus 8.6-50 mg Softgel] Sodium Chloride [[place]] 1 spray EA NOSTRIL Q8H PRN 06/23/23 10/07/23 Tamsulosin [Flomax] 0.4 mg PO PC-SUPPER 06/23/23 10/07/23 metFORMIN HCL 1,000 mg PO BID 06/23/23 10/07/23 polyethylene glycoL 3350 [Miralax] 17 gm PO DAILY PRN 06/23/23 10/07/23 Calcium Carbonate [Tums] 1,000 mg PO Q6H PRN 10/07/23 10/07/23 Meloxicam [Mobic] 15 mg PO DAILY@0800 10/07/23 10/07/23 OLANZapine [ZyPREXA] 5 mg PO BID 10/07/23 10/07/23 Previous Rx's Medication Instructions Recorded INSULIN ASPART (NovoLOG) [NovoLOG 0 unit SQ ACHS each 10/11/23 (formulary)] Insulin Glargine (Lantus) [Lantus 30 unit SQ HS #0 10/11/23 Vial] Ipratropium-Albuterol Nebulize 3 ml INHALATION TID #0 10/11/23 [Duoneb 0.5 mg-3 mg/3 ml Soln] guaiFENesin SYRUP 100MG/5ML 200 mg PO Q6HR PRN ml 10/11/23 [Robitussin] Allergies Allergy/AdvReac Type Severity Reaction Status Date / Time amoxicillin [From Augmentin] AdvReac Vomiting Verified 11/22/24 02:48 clavulanic acid AdvReac Vomiting Verified 11/22/24 02:48 [From Augmentin] hydromorphone [From Dilaudid] AdvReac Vomiting Verified 11/22/24 02:48 Review of Systems ROS Statement: Those systems with pertinent positive or pertinent negative responses have been documented in the HPI. ROS Other: All systems not noted in ROS Statement are negative. Constitutional: Denies: fever, chills, weakness Respiratory: Denies: cough, dyspnea Cardiovascular: Denies: chest pain, palpitations, edema Gastrointestinal: Reports: as per HPI, abdominal pain. Denies: vomiting, diarrhea Genitourinary: Reports: hematuria. Denies: testicular pain, testicular mass Musculoskeletal: Denies: back pain Skin: Denies: rash Neurological: Denies: headache Past Medical History Past Medical History: Asthma, Blood Disorder, Cancer, Diabetes Mellitus, GERD/Reflux, Hyperlipidemia, Hypertension, Osteoarthritis (OA), Prostate Disorder, Rheumatoid Arthritis (RA) Additional Past Medical History / Comment(s): anemia, prostate CA, indwelling catheter, hypomagnesemia History of Any Multi-Drug Resistant Organisms: ESBL Date of last positivie culture/infection: 10/31/24 MDRO Source:: urine Past Surgical History: Prostate Surgery Additional Past Surgical History / Comment(s): prostate CA, inplant Past Anesthesia/Blood Transfusion Reactions: No Reported Reaction Past Psychological History: Depression, No Psychological Hx Reported Smoking Status: Never smoker Past Alcohol Use History: None Reported Past Drug Use History: None Reported - Past Family History Father Family Medical History: Cancer Mother Family Medical History: Congestive Heart Failure (CHF), Diabetes Mellitus General Exam Limitations: no limitations General appearance: alert, in no apparent distress Head exam: Present: atraumatic, normocephalic Respiratory exam: Present: normal lung sounds bilaterally. Absent: respiratory distress, wheezes, rales, rhonchi, stridor, accessory muscle use Cardiovascular Exam: Present: regular rate, normal rhythm, normal heart sounds. Absent: systolic murmur, diastolic murmur, rubs, gallop GI/Abdominal exam: Present: soft, tenderness (Patient has mild tenderness to palpation over suprapubic area consistent with bladder.). Absent: distended, guarding, rebound, rigid, mass, hernia exam: Present: normal inspection, other (Balbuena catheter present there is blood in the Balbuena tubing) Extremities exam: Present: normal inspection, normal capillary refill. Absent: pedal edema, calf tenderness Back exam: Present: normal inspection. Absent: CVA tenderness (R), CVA tenderness (L) Neurological exam: Present: alert Skin exam: Present: warm, dry, intact, normal color. Absent: rash Course Vital Signs 07/11/1111/22/24 11/22/24 02:40 05:00 07:17 Temperature 99.4 F Pulse Rate 77 80 82 Respiratory 18 16 16 Rate Blood Pressure 113/65 101/61 113/74 O2 Sat by Pulse 99 97 98 Oximetry 11/22/24 09:25 Temperature 98.9 F Pulse Rate 95 Respiratory 19 Rate Blood Pressure 129/68 O2 Sat by Pulse 97 Oximetry Medical Decision Making - Medical Decision Making Was pt. sent in by a medical professional or institution (, PA, [facility], urgent care, hospital, or snf...) When possible be specific @ -[No] Did you speak to anyone other than the patient for history (EMS, parent, family, police, friend...)? What history was obtained from this source @ -[No] Did you review nursing and triage notes (agree or disagree)? Why? @ -[I reviewed and agree with nursing and triage notes] Were old charts reviewed (outside hosp., previous admission, EMS record, old EKG, old radiological studies, urgent care reports/EKG's, snf records)? Report findings @ -[No old charts were reviewed] Differential Diagnosis (chest pain, altered mental status, abdominal pain women, abdominal pain men, vaginal bleeding, weakness, fever, dyspnea, syncope, headache, dizziness, GI bleed, back pain, seizure, CVA, palpatations, mental health, musculoskeletal)? @ -[Differential Abdominal Pain Men: Appendicitis, cholecystitis, diverticulosis, ischemic bowel, pancreatitis, hepatitis, UTI, gastroenteritis, AAA, incarcerated hernia, bowel obstruction, constipation, inflammatory bowel, hepatitis, peptic ulcer disease, splenic infarction, perforated viscus, testicular torsion, this is not meant to be an all-inclusive list EKG interpreted by me (3pts min.). @ -[As above] X-rays interpreted by me (1pt min.). @ -[None done] CT interpreted by me (1pt min.). @ -[None done] U/S interpreted by me (1pt. min.). @ -[None done] What testing was considered but not performed or refused? (CT, X-rays, U/S, labs)? Why? @ -[None] What meds were considered but not given or refused? Why? @ -[None] Did you discuss the management of the patient with other professionals (professionals i.e. , PA, [employer], lab, RT, psych nurse, psychiatric social worker, chiropractic doctor, teacher, special officer, family independence case manager)? Give summary @ -[No] Was smoking cessation discussed for >3mins.? @ -[No] Was critical care preformed (if so, how long)? @ -[No] Were there social determinants of health that impacted care today? How? (Homelessness, low income, unemployed, alcoholism, drug addiction, transportation, low edu. Level, literacy, decrease access to med. care, retirement, rehab)? @ -[No] Was there de-escalation of care discussed even if they declined (Discuss DNR or withdrawal of care, Hospice)? DNR status @ -[No] What co-morbidities impacted this encounter? (DM, HTN, Smoking, COPD, CAD, Cancer, CVA, ARF, Chemo, Hep., AIDS, mental health diagnosis, sleep apnea, morbid obesity)? @ -[None] Was patient admitted / discharged? Hospital course, mention meds given and route, prescriptions, significant lab abnormalities, going to OR and other pertinent info. @ -[Patient is 74-year-old man here with lower abdominal pain after Balbuena cath eter changed at snf. The patient does have bloody drainage. The catheter is changed by nursing staff without complication. When I reevaluated patient he states that there is no longer any pain and he is resting comfortably. Undiagnosed new problem with uncertain prognosis? @ -[No] Drug Therapy requiring intensive monitoring for toxicity (Heparin, Nitro, Insulin, Cardizem)? @ -[No] Were any procedures done? @ -[No] Diagnosis/symptom? @ -[Balbuena catheter malfunction Mild anemia Acute, or Chronic, or Acute on Chronic? @ -[Acute Uncomplicated (without systemic symptoms) or Complicated (systemic symptoms)? @ -[Uncomplicated Side effects of treatment? @ -[No] Exacerbation, Progression, or Severe Exacerbation? @ -[No] Poses a threat to life or bodily function? How? (Chest pain, [place], [place], pneumonia, PE, COPD, DKA, ARF, appy, cholecystitis, CVA, Diverticulitis, Homicidal, Suici ifrah, threat to staff... and all critical care pts) @ -[No] All treatments are based on ideal body weight as in ED triage - Lab Data Result diagrams: 11/22/24 06:21 Lab Results 11/22/24 Range/Units 06:21 WBC 15.79 H (4.50-10.00) 10*3/uL RBC 3.48 L (4.40-5.60) 10*6/uL Hgb 9.4 L D (13.0-17.0) g/dL Hct 28.1 L (39.6-50.0) % MCV 80.7 (80.0-97.0) fL MCH 27.0 (27.0-32.0) pg MCHC 33.5 (32.0-37.0) g/dL Plt Count 230 (140-440) 10*3/uL MPV 11.5 (9.5-12.2) fL Immature Gran % (Auto) 0.5 % Neutrophils % 69.4 % Lymphocytes % 17.0 % Monocytes % 11.2 % Eosinophils % 1.5 % Basophils % 0.4 % Immature Gran # 0.08 H (0.00-0.04) 10*3/uL Neutrophils # 10.94 H (1.80-7.70) 10*3/uL Lymphocytes # 2.69 (0.90-5.00) 10*3/uL Monocytes # 1.77 H (0.20-1.00) 10*3/uL Eosinophils # 0.24 (0.04-0.35) 10*3/uL Basophils # 0.07 (0.00-0.10) 10*3/uL Disposition Clinical Impression: Hematuria Disposition: HOME SELF-CARE Is patient prescribed a controlled substance at d/c from ED?: No Referrals: Sarbjit Allen DO [Primary Care Provider] - 1-2 days Adarsh Soria MD [STAFF PHYSICIAN] - 1-2 days
[2024-11-22 09:57] VITALS: BP 129/68; PULSE 95; RESP 19; TEMP 98.9
== END 2024-11-22 09:30 | disposition home or self-care (01) ==
LOC: EC 02:38
DX: R31.9 Hematuria, unspecified (principal); Z88.0 Allergy status to penicillin; Z88.1 Allergy status to other antibiotic agents; Z88.5 Allergy status to narcotic agent
CPT/HCPCS: 36415; 51702; 85025; 96365; 99284

== ENCOUNTER → 2024-12-02 | Outpatient (CLI) | payer MEDICARE, OTHER ==
[2024-12-02 13:30] LABS: African American GFR (CKD) >90 (>60 ml/min/1.73 sqM); Blood Urea Nitrogen 21 mg/dL (9-20); Non-African American GFR(CKD) >90 (>60 ml/min/1.73 sqM)
--- NOTE | 2024-12-02 14:45 | CT ---
CT urogram HISTORY: Gross hematuria COMPARISON: CT abdomen and pelvis dated 04/21/2023 TECHNIQUE: Multiple axial images are obtained through the abdomen and pelvis before and after the une ventful administration of nonionic IV contrast. Postcontrast delayed images were obtained. FINDINGS: Lung bases are clear.. The gallbladder is normal and there is no distention or biliary ductal dilatation. There are no focal masses within the liver, pancreas, spleen or adrenal glands and there is no organo megaly. Kidneys excrete contrast promptly and symmetrically and there is no solid renal mass, hydronephrosis or filling defect within the renal collecting systems, ureters or urinary bladder. There is a single nonobstructing punctate calcification in the left kidney. Dilation of the urinary bladder is limited due to presence of the Balbuena catheter The bowel loops are normal in caliber and there is no dilatation or obstruction. No inflammatory diaz ges are identified in the bowel wall or mesentery. There is no free intraperitoneal air or fluid. There is no pelvic mass, free fluid, abscess or adenopathy. Bilateral inguinal hernias containing fat , right greater than left. There is a mild superior endplate compression fracture of indeterminate age L2 IMPRESSION: 1. Single obstructing punctate calcification left kidney. 2. No solid renal mass, hydronephrosis or filling defect within the renal collecting systems or urete r. 3. Evaluation of the bladder due to Balbuena catheter. [facility], , 12/02/2024 2:42 PM
== END | disposition home or self-care (01) ==
LOC: RADCTMAIN 12:55
PROVIDERS: ATTEND Urology
DX: N28.89 Other specified disorders of kidney and ureter (principal); R31.0 Gross hematuria
CPT/HCPCS: 82565; 84520; 74178; 36415; 74400; Q9967